=== PATIENT | female | born 1935 | race Hispanic/Latino ===

== ENCOUNTER 2016-10-11 11:19 | Observation (INO) | payer MEDICARE, MEDICAID ==
[2016-10-11] MEDS ORDERED: Sodium Chloride 0.9% 500 ML IV STA ×2 (12:03→13:06)
--- NOTE | 2016-10-11 12:06 | ED PDOC ---
HPI: General Adult Time Seen by Provider: 10/11/16 11:50 Chief Complaint (Nursing): Altered Mental Status Chief Complaint (Provider): syncope History Per: Family (81 y/o female h/o Dementia here with family for evaluation of syncopal episode today. Patient has had one episode of vomiting yesterday with dark brown emesis. Darker stools noted by family as well. No fevers/ chills. One episode of wheezing noted with resolution after albuterol nebulizer. ) Past Medical History Reviewed: Historical Data, Nursing Documentation, Vital Signs Vital Signs: Last Vital Signs Temp 97.5 F L 10/12/16 12:28 Pulse 73 10/12/16 12:28 Resp 20 10/12/16 12:28 BP 117/68 10/12/16 12:28 Pulse Ox 100 10/14/16 05:09 - Medical History PMH: Alzheimer's Disease, Anemia, Anxiety, Arthritis, Asthma, COPD, Dementia, Depression, Gastritis, Hypercholesterolemia Denies: CHF, HIV, HTN, Hypothyroidism, Chronic Kidney Disease, Rheumatoid Arthritis - Family History Family History: States: Unknown Family Hx - Home Medications Home Medications: Ambulatory Orders Medication Instructions Recorded Memantine HCl [Namenda Xr] 28 mg PO DAILY 03/03/15 Rosuvastatin Calcium [Crestor] 5 mg PO DAILY 03/03/15 Esomeprazole Magnesium [Nexium] 40 mg PO DAILY 01/27/16 Haloperidol [Haldol] 0.5 mg PO PRN PRN 01/27/16 Levalbuterol HCl 3 ml IH Q4 PRN #20 vial 01/27/16 PARoxetine [Paxil] 20 mg PO DAILY 01/27/16 - Allergies Allergies/Adverse Reactions: Allergies Allergy/AdvReac Type Severity Reaction Status Date / Time No Known Allergies Allergy Verified 01/27/16 16:23 Review of Systems ROS Statement: Except As Marked, All Systems Reviewed And Found Negative Gastrointestinal: Positive for: Vomiting Neurological: Positive for: Other (syncope) Physical Exam - Reviewed Nursing Documentation Reviewed: Yes Vital Signs Reviewed: Yes (rectal temp 96.4) - Physical Exam Appears: Positive for: Well (patient verbal but confused (baseline as per family )), Non-toxic, No Acute Distress Head Exam: Positive for: ATRAUMATIC, NORMAL INSPECTION, NORMOCEPHALIC Skin: Positive for: Normal Color, Warm, DRY Eye Exam: Positive for: EOMI, Normal appearance, PERRL ENT: Positive for: Normal ENT Inspection Neck: Positive for: Normal, Painless ROM Cardiovascular/Chest: Positive for: Regular Rate, Rhythm Respiratory: Positive for: CNT, Normal Breath Sounds Gastrointestinal/Abdominal: Positive for: Normal Exam, Bowel Sounds, Soft Back: Positive for: Normal Inspection Rectal: Positive for: Stool Is Heme: (guiac positive. dark brown stool) Extremity: Positive for: Normal ROM, Other (moves all extremities.) Neurologic/Psych: Positive for: Alert, Oriented. Negative for: Aphasia, Facial Droop - Laboratory Results Result Diagrams: 10/12/16 06:05 10/12/16 06:05 - ECG O2 Sat by Pulse Oximetry: 100 - Progress ED Course And Treament: Protonix 40 mg iv x1 dose NS 500 ml iv bolus d/w . Disposition - Clinical Impression Clinical Impression: GI bleed, Dementia, Syncope - Patient ED Disposition Is Patient to be Admitted: Yes - Disposition Disposition Time: 15:00 Condition: GOOD - Pt Status Changed To: Hospital Disposition Of: Inpatient - Admit Certification Admit to Inpatient:: After my assessment, the patient will require hospitalization for at least two midnights. This is because of the severity of symptoms shown, intensity of services needed, and/or the medical risk in this patient being treated as an outpatient.
[2016-10-11 12:50] LABS: BASO % 0.4 % (0.0-2.0); EOS # 0.1 K/uL (0.0-0.7); EOS % 1.9 % (0.0-4.0); LYMPH # 1.6 K/uL (1.0-4.3); LYMPH % 23.9 % (20.0-40.0); MEAN CELL VOLUME 83.1 fl (81.0-99.0); MEAN CORPUSCULAR HEMOGLOBIN 26.6 pg (27.0-31.0); MEAN PLATELET VOLUME 9.6 fl (7.2-11.7); MONO # 0.4 K/uL (0.0-0.8); MONO % 6.4 % (0.0-10.0); NEUT # 4.7 K/uL (1.8-7.0); NEUT % 67.4 % (50.0-75.0); RED CELL DISTRIBUTION WIDTH 15.5 % (11.5-14.5); WHITE BLOOD COUNT 6.9 K/uL (4.8-10.8)
[2016-10-11 12:57] LABS: ALB/GLOB RATIO 1.2 (1.0-2.1); ALKALINE PHOSPHATASE 97 U/L (38-126); ALT/SGPT 30 U/L (9-52); AST/SGOT 29 U/L (14-36); BILIRUBIN,TOTAL 0.7 mg/dl (0.2-1.3); BLOOD UREA NITROGEN 19 mg/dl (7-17); CALCIUM 9.2 mg/dL (8.4-10.2); CARBON DIOXIDE 25 mmol/L (22-30); CHLORIDE 104 mmol/L (98-107); GFR AFRICAN-AMERICAN > 60; GLUCOSE,RANDOM 89 mg/dL (65-105); LIPASE 108 U/L (23-300); POTASSIUM 3.8 MMOL/L (3.6-5.0); SODIUM 145 mmol/l (132-148); TOTAL PROTEIN 7.4 G/DL (6.3-8.2)
--- NOTE | 2016-10-11 13:10 | CT ---
PROCEDURE: CT HEAD WITHOUT CONTRAST. HISTORY: AMS COMPARISON: Comparison is made to the previous study dated 05/25/2014 and 01/07/2015 TECHNIQUE: Axial computed tomography images were obtained through the head/brain without intravenous contrast. Radiation dose: Total exam DLP = 1334.63 mGy-cm. FINDINGS: HEMORRHAGE: No intracranial hemorrhage. BRAIN: No mass effect or edema. Moderate atrophy and moderate chronic microvascular white matter ischemic disease are again noted. VENTRICLES: Unremarkable. No hydrocephalus. CALVARIUM: Unremarkable. PARANASAL SINUSES: Unremarkable as visualized. No significant inflammatory changes. MASTOID AIR CELLS: Unremarkable as visualized. No inflammatory changes. OTHER FINDINGS: None. IMPRESSION: No evidence of acute intracranial hemorrhage intracranial collection mass effect or midline shift. Moderate atrophy and moderate chronic microvascular white matter ischemic disease.
--- NOTE | 2016-10-11 15:19 | RAD ---
HISTORY: Syncope. Technique: Single view portable semi erect @ 12:20. COMPARISON: 01/27/2016. FINDINGS: LUNGS: No active pulmonary disease. PLEURA: No significant pleural effusion identified, no pneumothorax apparent. CARDIOVASCULAR: Normal. OSSEOUS STRUCTURES: No significant abnormalities. VISUALIZED UPPER ABDOMEN: Normal. OTHER FINDINGS: None. IMPRESSION: No active disease. No significant interval change compared to the prior examination(s).
[2016-10-11 16:14] LABS: PARTIAL THROMBOPLASTIN TIME 24.1 SECONDS (23.3-32.5)
[2016-10-11 16:21] LABS: RBC URINE 2 /hpf (0-3); URINE BACTERIA MOD (<OCC); URINE BILIRUBIN NEGATIVE (NEGATIVE); URINE BLOOD NEGATIVE (NEGATIVE); URINE COLOR YELLOW (YELLOW); URINE GLUCOSE (UA) NEG (Normal); URINE KETONE NEGATIVE (NEGATIVE); URINE LEUKOCYTE ESTERASE SMALL Leu/uL (Negative); URINE PROTEIN NEGATIVE (NEGATIVE); URINE UROBILINOGEN 0.2-1.0 mg/dL (0.2-1.0); WBC URINE 13 /hpf (0-5)
--- NOTE | 2016-10-11 16:39 | CP.PCM.HP ---
History of Present Illness - History of Present Illness History of Present Illness: 81 yo female with history of Dementia, Gastritis and COPD brought in by daughter because of unresponsiveness early this morning. Daughter claimed she had one episode of passing black stool yesterday. She also vomited dark material. Patient had history of GI bleed last year where in she received 2 units of PRBC. EGD was positive for reflux and Brianna Esophagitis. Present on Admission - Present on Admission Any Indicators Present on Admission: No History of DVT/PE: No History of Uncontrolled Diabetes: No Urinary Catheter: No Decubitus Ulcer Present: No Review of Systems - Review of Systems All systems: reviewed and no additional remarkable complaints except (aside from those mentioned above, 12 point system review were negative by me) Past Patient History - Infectious Disease Hx of Infectious Diseases: None - Tetanus Immunizations Tetanus Immunization: Unknown (quit 5 yrs ago; used to smoke 2 PPD) - Past Medical History & Family History Past Medical History?: Yes - Past Social History Smoking Status: Former Smoker Chewing Tobacco Use: No Cigar Use: No Alcohol: None Drugs: Denies Home Situation {Lives}: With Family - CARDIAC Hx Congestive Heart Failure: No Hx Hypercholesterolemia: Yes Hx Hypertension: No - PULMONARY Hx Asthma: Yes Hx Chronic Obstructive Pulmonary Disease (COPD): Yes - NEUROLOGICAL Hx Alzheimer's Disease: Yes Hx Dementia: Yes - HEENT Hx HEENT Problems: No - RENAL Hx Chronic Kidney Disease: No - ENDOCRINE/METABOLIC Hx Hypothyroidism: No - HEMATOLOGICAL/ONCOLOGICAL Hx Anemia: Yes Hx Human Immunodeficiency Virus (HIV): No - INTEGUMENTARY Hx Dermatological Problems: No - MUSCULOSKELETAL/RHEUMATOLOGICAL Hx Arthritis: Yes Hx Rheumatoid Arthritis: No - GASTROINTESTINAL Hx Gastritis: Yes - GENITOURINARY/GYNECOLOGICAL Hx Genitourinary Disorders: No - PSYCHIATRIC Hx Anxiety: Yes Hx Depression: Yes - SURGICAL HISTORY Hx Surgeries: Yes Hx Open Reduction Internal Fixation: Yes (right wrist fracture) Hx Orthopedic Surgery: Yes Other/Comment: right wrist surgery with metal plate, left knee mass removal years ago - ANESTHESIA Hx Anesthesia: Yes Meds Allergies/Adverse Reactions: Allergies Allergy/AdvReac Type Severity Reaction Status Date / Time No Known Allergies Allergy Verified 01/27/16 16:23 Physical Exam - Constitutional Appears: No Acute Distress - Head Exam Head Exam: ATRAUMATIC - Eye Exam Eye Exam: absent: Scleral icterus - ENT Exam ENT Exam: Mucous Membranes Moist - Neck Exam Neck exam: Negative for: Meningismus - Respiratory Exam Respiratory Exam: absent: Rhonchi, Wheezes, Respiratory Distress - Cardiovascular Exam Cardiovascular Exam: REGULAR RHYTHM, +S1, +S2 - GI/Abdominal Exam GI & Abdominal Exam: Soft. absent: Tenderness - Rectal Exam Rectal Exam: Deferred - Extremities Exam Extremities exam: Negative for: calf tenderness, pedal edema - Neurological Exam Neurological exam: Alert (awake but confused and non-verbal) - Psychiatric Exam Psychiatric exam: Flat Affect - Skin Skin Exam: Dry, Intact Results - Vital Signs Recent Vital Signs: Last Vital Signs Temp 98.8 F 10/11/16 11:37 Pulse 78 10/11/16 11:37 Resp 16 10/11/16 11:37 BP 127/80 10/11/16 11:37 Pulse Ox 100 10/11/16 14:08 - Labs Result Diagrams: 10/11/16 12:17 10/11/16 12:17 Labs: Laboratory Results - last 24 hr 10/11/16 10/11/16 10/11/16 12:17 12:35 14:43 WBC 6.9 RBC 4.10 Hgb 10.9 L Hct 34.0 MCV 83.1 MCH 26.6 L MCHC 32.0 L RDW 15.5 H Plt Count 227 MPV 9.6 Neut % (Auto) 67.4 Lymph % (Auto) 23.9 Bath % (Auto) 6.4 Eos % (Auto) 1.9 Baso % (Auto) 0.4 Neut # 4.7 Lymph # 1.6 Bath # 0.4 Eos # 0.1 Baso # 0.0 Sodium 145 Potassium 3.8 Chloride 104 Carbon Dioxide 25 Anion Gap 20 BUN 19 H Creatinine 0.7 Est GFR ( Amer) > 60 Est GFR (Non-Af Amer) > 60 Random Glucose 89 Lactic Acid 2.5 H Calcium 9.2 Total Bilirubin 0.7 AST 29 ALT 30 Alkaline Phosphatase 97 Total Protein 7.4 Albumin 4.0 Globulin 3.4 Albumin/Globulin Ratio 1.2 Lipase 108 Blood Type Cancelled Antibody Screen Cancelled BBK History Checked Cancelled Patient has bt Assessment & Plan (1) GI bleed Status: Acute Comment: admit in telemetry. NPO. IV hydration with NSS 100cc/hr. Protonix 40mg IV daily. GI consult with Dr Doe. Type and cross match 2 units of PRBC. repeat CBC (2) Altered mental status Status: Acute Comment: patient more awake but still non-verbal (3) COPD (chronic obstructive pulmonary disease) Status: Inactive Priority: Low Comment: asymptomatic
[2016-10-11] MEDS ORDERED: Levalbuterol 1.25 MG/3 ML Inhal Soln UD IH PRN (17:12)
[2016-10-11 19:12] LABS: HEMATOCRIT 29.8 % (34.0-47.0); MEAN CELL VOLUME 82.5 fl (81.0-99.0); MEAN CORPUSCULAR HEMOGLOBIN 26.4 pg (27.0-31.0); MEAN CORPUSCULAR HGB CONC 31.9 g/dL (33.0-37.0); RED CELL DISTRIBUTION WIDTH 15.5 % (11.5-14.5); WHITE BLOOD COUNT 6.2 K/uL (4.8-10.8)
[2016-10-11] MEDS: Sodium Chloride 0.9% 1,000 ML IV SCH (20:00)
[2016-10-11] MEDS ORDERED: Influenza Vaccine(5yr & older) 0.5 ML/45 MCG IM ONE (21:47)
--- NOTE | 2016-10-12 02:22 | CON ---
DATE: 10/11/2016 REFERRING PHYSICIAN: Dr. Contreras. REASON FOR CONSULTATION: melena. HISTORY OF PRESENT ILLNESS: This is a demented 81-year-old female with history of gastritis, chronic obstructive pulmonary disease, brought in essentially for unresponsiveness, questionable single epis ode, questionable black stool, questionable coffee ground emesis. The patient had an EGD over a year and a half ago from the gastritis and Brianna esophagitis for identical complaints of coffee ground emesis. The patient at this point is doing better. She is more responsive as per the daughter and c aretaker. No fevers, chills, nausea or vomiting. Lying in bed, comfortable, in no apparent distress . PAST MEDICAL HISTORY: As above, ____ as above. MEDICATIONS: Have been reviewed. REVIEW OF SYSTEMS: All other systems obtained. PHYSICAL EXAMINATION: VITAL SIGNS: Grossly unremarkable. GENERAL: This is pleasant, elderly-appearing female lying in bed, comfortable, in no apparent distre ss. HEAD: Normocephalic, atraumatic. EYES: Pupils equally reactive to light bilaterally. No conjunctival pallor or icterus. NECK: Supple, normal range of motion. No lymphadenopathy appreciated. LUNGS: Coarse breath sounds bilaterally. HEART: S1, S2, regular rhythm. ABDOMEN: Soft, nontender, bowel sounds present. No rebound or guarding. RECTAL: Deferred. EXTREMITIES: Pulses present bilaterally. SKIN: Warm, dry and intact. NEUROLOGIC: Alert and oriented x 1, responds to pain. LABORATORY DATA: Radiology have been reviewed. WBC 6.3, hemoglobin 9.5, platelet count of 204, ____ _ of 2.5, positive for nitrites in the urine, as well as moderate bacteria in the WBCs. ASSESSMENT AND PLAN: This is a 81-year-old female with basically coffee ground emesis. I will get a B, Protonix twice a day, PPI and ____. Spoke to daughter. At this point she does not feel too strongly about endoscopy given her advanced age and comorbidities. Agreed to defer any further work up unless emergently indicated. We will follow the patient with you. Thank you for the consult. Chris Doe MD, PhD cc:Donell Contreras MD [id number] TT: 10/12/2016 02:21:44 Confirmation # [id number] Dictation # [id number] mn
[2016-10-12] MEDS: Sodium Chloride 0.9% 1,000 ML IV SCH (05:51)
[2016-10-12 07:49] LABS: BASO % 0.8 % (0.0-2.0); EOS # 0.2 K/uL (0.0-0.7); EOS % 3.5 % (0.0-4.0); LYMPH # 1.6 K/uL (1.0-4.3); LYMPH % 33.9 % (20.0-40.0); MEAN CELL VOLUME 82.5 fl (81.0-99.0); MEAN CORPUSCULAR HEMOGLOBIN 26.8 pg (27.0-31.0); MEAN CORPUSCULAR HGB CONC 32.4 g/dL (33.0-37.0); MEAN PLATELET VOLUME 9.3 fl (7.2-11.7); MONO # 0.3 K/uL (0.0-0.8); MONO % 6.8 % (0.0-10.0); NEUT # 2.6 K/uL (1.8-7.0); RED CELL DISTRIBUTION WIDTH 15.4 % (11.5-14.5); WHITE BLOOD COUNT 4.8 K/uL (4.8-10.8)
[2016-10-12 08:00] LABS: BLOOD UREA NITROGEN 14 mg/dl (7-17); CALCIUM 8.5 mg/dL (8.4-10.2); CARBON DIOXIDE 22 mmol/L (22-30); CHLORIDE 111 mmol/L (98-107); GFR AFRICAN-AMERICAN > 60; GLUCOSE,RANDOM 90 mg/dL (65-105); POTASSIUM 3.9 MMOL/L (3.6-5.0); SODIUM 146 mmol/l (132-148)
[2016-10-12] MEDS ORDERED: Patient's Own Med (Memantine Hcl [Namenda Xr] 28 MG) PO SCH (09:00)
[2016-10-12] MEDS ORDERED: Pantoprazole 40 mg EC Tab PO SCH (09:00)
--- NOTE | 2016-10-12 11:30 | PQF GENQUE ---
Dr. Contreras, Please clarify the underlying cause of patient's altered mental status and relate that cause to the alteration in mental status: if known after work up completed Cardiac condition Electrolyte/metabolic imbalance Infectious process Neurologic condition Psychiatric condition Respiratory condition Other condition (please specify) unable to determine OR: Unable to determine OR: Unknown -H and P: H and P: POA; Decubitus: No; Assessment:(1) GI Bleed Status: Acute; Comment: admit in telemetry. NPO. IV hydration with NSS 100cc/hr. Protonix 40mg IV daily.GI consult; Type and cross match 2 units of PRBC. repeat CBC (2) Altered mental status: Status: Acute Comment: patient more awake but still non-verbal (3) COPD (chronic obstructive pulmonary disease) Status: Inactive Priority: Low Comment: asymptomatic -u/a:nitrate:positive: microscopic: WBC:13:Bacteria:Mod -IVF's, culture reports pending This form is a permanent part of the medical record Clarification of your documentation is requested to better reflect the severity of illness and intensity of treatment of your patient. Indicators present [] Specify: [] [] Specify: [] [] Specify: [] [] Specify: [] Location in the medical record that reflects the above clinical findings: [] Treatment Provided: [] PHYSICIAN'S RESPONSE Based on your medical judgment of the clinical indicators outlined above please clarify the following: [] Practitioner response [x] If unable to determine, please check the box, sign and date. Present On Admission (POA) Indicator: [x] Present at the time of admission [] Not present at the time of admission [] Clinically Undetermined In responding to this query, please exercise your independent professional judgment. The fact that a question is asked does not imply that any particular answer is desired or expected. Thank you for your clarification on this documentation. If you have any questions please call. * Thank you, Amy Brady RN BSN ext. #[phone] MTDD
--- NOTE | 2016-10-12 11:36 | PQF GENQUE ---
Dr. Contreras, Is there an associated diagnosis for the following clinical labs: H/H::10.9/34.0 ->9.4/29.0? OR: Disagree OR: Unable to determine -H and P: GI bleed Status: Acute Comment: admit in telemetry. NPO. IV hydration with NSS 100cc/hr. Protonix 40mg IV daily. GI consult. Type and cross match 2 units of PRBC. repeat CBC -GI consult in draft:--coffee ground emesis;will get a B, Protonix twice a day, PPI and ____. Spoke to daughter. At this point she does not feel strongly about endoscopy; Agreed to defer any further workup unless emergently indicated. -IVF's This form is a permanent part of the medical record Clarification of your documentation is requested to better reflect the severity of illness and intensity of treatment of your patient. Indicators present [] Specify: [] [] Specify: [] [] Specify: [] [] Specify: [] Location in the medical record that reflects the above clinical findings: [] Treatment Provided: [] PHYSICIAN'S RESPONSE Based on your medical judgment of the clinical indicators outlined above please clarify the following: [] Practitioner response [] If unable to determine, please check the box, sign and date. Present On Admission (POA) Indicator: [] Present at the time of admission [] Not present at the time of admission [] Clinically Undetermined In responding to this query, please exercise your independent professional judgment. The fact that a question is asked does not imply that any particular answer is desired or expected. Thank you for your clarification on this documentation. If you have any questions please call. * Thank you, Amy Brady RN BSN ext. #[phone] MTDD
--- NOTE | 2016-10-12 11:47 | CARD ---
APPROVED REPORT EKG Measurement Heart [id number] <Conclusion> Normal sinus rhythm Normal ECG
--- NOTE | 2016-10-12 12:14 | CP.PCM.DIS ---
Provider - Provider Date of Admission: 10/11/16 14:16 Attending physician: Donell Contreras MD Primary care physician: Dr Ga Consults: Dr Doe Time Spent in preparation of Discharge (in minutes): 35 Diagnosis - Discharge Diagnosis (1) GI bleed Status: Acute Comment: no further episode of GI bleed (2) Altered mental status Status: Acute Comment: patient more alert and responsive (3) COPD (chronic obstructive pulmonary disease) Status: Inactive Priority: Low Comment: asymptomatic Hospital Course - Lab Results Lab Results: Micro Results 10/11/16 15:28 Urine Urine Culture - Preliminary Gram Negative Jeffery Most Recent Lab Values WBC 4.8 K/uL (4.8-10.8) 10/12/16 06:05 RBC 3.52 Mil/uL (3.80-5.20) L 10/12/16 06:05 Hgb 9.4 g/dL (12.0-16.0) L 10/12/16 06:05 Hct 29.0 % (34.0-47.0) L 10/12/16 06:05 MCV 82.5 fl (81.0-99.0) 10/12/16 06:05 MCH 26.8 pg (27.0-31.0) L 10/12/16 06:05 MCHC 32.4 g/dL (33.0-37.0) L 10/12/16 06:05 RDW 15.4 % (11.5-14.5) H 10/12/16 06:05 Plt Count 173 K/uL (130-400) 10/12/16 06:05 MPV 9.3 fl (7.2-11.7) 10/12/16 06:05 Neut % (Auto) 55.0 % (50.0-75.0) 10/12/16 06:05 Lymph % (Auto) 33.9 % (20.0-40.0) 10/12/16 06:05 Cobb % (Auto) 6.8 % (0.0-10.0) 10/12/16 06:05 Eos % (Auto) 3.5 % (0.0-4.0) 10/12/16 06:05 Baso % (Auto) 0.8 % (0.0-2.0) 10/12/16 06:05 Neut # 2.6 K/uL (1.8-7.0) 10/12/16 06:05 Lymph # 1.6 K/uL (1.0-4.3) 10/12/16 06:05 Cobb # 0.3 K/uL (0.0-0.8) 10/12/16 06:05 Eos # 0.2 K/uL (0.0-0.7) 10/12/16 06:05 Baso # 0.0 K/uL (0.0-0.2) 10/12/16 06:05 PT 11.1 SECONDS (9.6-11.2) 10/11/16 15:43 INR 1.07 (0.92-1.08) 10/11/16 15:43 APTT 24.1 SECONDS (23.3-32.5) 10/11/16 15:43 Sodium 146 mmol/l (132-148) 10/12/16 06:05 Potassium 3.9 MMOL/L (3.6-5.0) 10/12/16 06:05 Chloride 111 mmol/L (98-107) H 10/12/16 06:05 Carbon Dioxide 22 mmol/L (22-30) 10/12/16 06:05 Anion Gap 17 (10-20) 10/12/16 06:05 BUN 14 mg/dl (7-17) 10/12/16 06:05 Creatinine 0.7 mg/dL (0.7-1.2) 10/12/16 06:05 Est GFR ( Amer) > 60 10/12/16 06:05 Est GFR (Non-Af Amer) > 60 10/12/16 06:05 POC Glucose (mg/dL) 124 mg/dL (65-110) H 10/11/16 11:33 Random Glucose 90 mg/dL (65-105) 10/12/16 06:05 Lactic Acid 2.5 MMOL/L (0.7-2.1) H 10/11/16 12:35 Calcium 8.5 mg/dL (8.4-10.2) 10/12/16 06:05 Total Bilirubin 0.7 mg/dl (0.2-1.3) 10/11/16 12:17 AST 29 U/L (14-36) 10/11/16 12:17 ALT 30 U/L (9-52) 10/11/16 12:17 Alkaline Phosphatase 97 U/L (38-126) 10/11/16 12:17 Total Protein 7.4 G/DL (6.3-8.2) 10/11/16 12:17 Albumin 4.0 g/dL (3.5-5.0) 10/11/16 12: Globulin 3.4 gm/dL (2.2-3.9) 10/11/16 12: Albumin/Globulin Ratio 1.2 (1.0-2.1) 10/11/16 12:17 Lipase 108 U/L (23-300) 10/11/16 12:17 Urine Color Yellow (YELLOW) 10/11/16 15:28 Urine Clarity Clear (Clear) 10/11/16 15:28 Urine pH 6.0 (5.0-8.0) 10/11/16 15:28 Ur Specific Riner 1.009 (1.003-1.030) 10/11/16 15:28 Urine Protein Negative mg/dL (NEGATIVE) 10/11/16 15:28 Urine Glucose (UA) Neg mg/dL (Normal) 10/11/16 15:28 Urine Ketones Negative mg/dL (NEGATIVE) 10/11/16 15:28 Urine Blood Negative (NEGATIVE) 10/11/16 15:28 Urine Nitrate Positive (NEGATIVE) H 10/11/16 15:28 Urine Bilirubin Negative (NEGATIVE) 10/11/16 15:28 Urine Urobilinogen 0.2-1.0 mg/dL (0.2-1.0) 10/11/16 15:28 Ur Leukocyte Esterase Small Verna/uL (Negative) 10/11/16 15:28 Urine RBC (Auto) 2 /hpf (0-3) 10/11/16 15:28 Urine Microscopic WBC 13 /hpf (0-5) H 10/11/16 15:28 Urine Bacteria Mod (<OCC) H 10/11/16 15:28 Blood Type A NEGATIVE 10/11/16 14:43 Antibody Screen Negative 10/11/16 14:43 BBK History Checked Patient has bt 10/11/16 14:43 - Hospital Course Hospital Course: 81 yo female with history of Dementia, Gastritis and COPD brought in by daughter because of difficulty of arousing in the morning. Daughter claimed she had passed black stool a day earlier and had vomited dark material. GI, Dr Doe, was consulted and he recommended endoscopy or colonoscopy. Daughter refused citing the age of her mother. With IV hydration patient became more alert and had no more episode of vomiting. Had no BM so far but was able to resume and tolerate diet the next day. Hgb/Hct remained stable. Patient was then discharged in stable condition. Discharge Exam - Head Exam Head Exam: ATRAUMATIC - Eye Exam Eye Exam: absent: Scleral icterus - ENT Exam ENT Exam: Mucous Membranes Moist - Respiratory Exam Respiratory Exam: absent: Wheezes, Respiratory Distress - Cardiovascular Exam Cardiovascular Exam: REGULAR RHYTHM, +S1, +S2 - GI/Abdominal Exam GI & Abdominal Exam: Soft. absent: Tenderness - Rectal Exam Rectal Exam: Deferred - Neurological Exam Neurological exam: Alert, Oriented x3 - Psychiatric Exam Psychiatric exam: Flat Affect - Skin Skin Exam: Dry, Intact Discharge Plan - Follow Up Plan Condition: GOOD Disposition: HOME/ ROUTINE Instructions: Gastrointestinal Bleeding (DC) Referrals: Chris Doe MD, PhD [Staff Provider] - Salomón Ga MD [Staff Provider] - Bibi Garcia MD [Staff Provider] -
[2016-10-12 12:29] VITALS: BP 117/68; PULSE 73; RESP 20; TEMP 97.5
[2016-10-14 05:09] VITALS: O2SAT 100
== END 2016-10-12 14:39 | disposition home or self-care (01) ==
LOC: H.ER 11:19 → H.ERHOLD 14:16 → INTOOBSV 14:16 → H.TEL 18:11 → OBSVTOIN 10-12 11:09 → INTOOBSV 10-12 11:09
PROC: 3E0234Z Introduction of Serum, Toxoid and Vaccine into Muscle, Percutaneous Approach (ICD-10-PCS; principal; 2016-10-12)
DX: K92.2 Gastrointestinal hemorrhage, unspecified (principal); J44.9 Chronic obstructive pulmonary disease, unspecified; G30.9 Alzheimer's disease, unspecified; F02.80 Dementia in other diseases classified elsewhere, unspecified severity, without behavioral disturbance, psychotic disturbance, mood disturbance, and anxiety; K29.70 Gastritis, unspecified, without bleeding; Z87.891 Personal history of nicotine dependence; E78.00 Pure hypercholesterolemia, unspecified; J45.909 Unspecified asthma, uncomplicated; F32.9 Major depressive disorder, single episode, unspecified; F41.9 Anxiety disorder, unspecified; Z23 Encounter for immunization; K92.1 Melena

== ENCOUNTER 2016-11-22 09:54 | Inpatient (IN) | payer MEDICARE, MEDICAID ==
--- NOTE | 2016-11-22 10:14 | ED PDOC ---
HPI:STROKE - Time Time: 09:50 - Historian Historian: Family, EMS - Chief Complaint Chief Complaint: Slurred speech, Mental status change, Facial droop - Onset Date: 11/22/16 Time: 09:27 - Timing Timing: Currently Symptomatic - TPA Positive for Contraindication: No - Notes: Notes:: Patient is a 81 year old female with a history of dementia, presents to ED via EMS for increased confusion, facial droop and slurred speech this morning. As per granddaughter, she received a phone call from the home health aid at [phone], stating that patient was not acting normal. Granddaughter saw patient earlier this morning and she was still at baseline. Notes patient is verbal but confused and needs help with ambulation at baseline. As per EMS patient with a right facial droop, left sided weakness, slurred speech and wheezing NIHSS Stroke Scale - Date/Time Evaluation Performed Date Performed: 11/22/16 Time Performed: 10:14 When Was NIHSS Performed: Code Stroke - How Severe is the Stroke Level of Consciousness: 1=Drowsy LOC to Questions: 2=Neither correct LOC to commands: 1=Obeys one correctly Best Gaze: 0=Normal Visual: 0=No visual loss Facial: 0=Normal Motor Arm - Left: 0=No drift Motor Arm - Right: 0=No drift Motor Leg - Left: 0=No drift Motor Leg - Right: 0=No drift Limb Ataxia: 0=Absent Sensory: 0=Normal Best Language: 2=Severe aphasia Dysarthia: 2=Severe, near unintelligible or worse Extinction & Inattention (Neglect): 0=Normal, no object Score: 8 rTPA Inclusion/Exclusion - Refusal of Treatment Patient Refused Treatment: No - Inclusion Criteria for Altepase Patient is 18 years or Older: Yes The Clinical Diagnosis of Ischemic Stroke That is Causing a Potentially Disabling Neurological Deficit: No Time of Onset is Well Established to be Less Than 270 Minute Before Treatment Would Begin: Yes Risk/Benefit Discussed With Patient/Family Member Present: Yes - Warning to TPA With Conditions Following Conditions Weighed Against Anticipated Benefit: Yes Condition: Rapid Improvement, Age Greater Than 75 years Past Medical History Reviewed: Historical Data, Nursing Documentation, Vital Signs - Medical History PMH: Alzheimer's Disease, Anemia, Anxiety, Arthritis, Asthma, COPD, Dementia, Depression, Gastritis, Hypercholesterolemia Denies: CHF, HIV, HTN, Hypothyroidism, Chronic Kidney Disease, Rheumatoid Arthritis - Surgical History Surgical History: No Surg Hx - Family History Family History: States: Unknown Family Hx - Living Arrangements Living Arrangements: With Family - Home Medications Home Medications: Ambulatory Orders Medication Instructions Recorded Memantine HCl [Namenda Xr] 28 mg PO DAILY 03/03/15 Rosuvastatin Calcium [Crestor] 5 mg PO DAILY 03/03/15 Esomeprazole Magnesium [Nexium] 40 mg PO DAILY 01/27/16 Haloperidol [Haldol] 0.5 mg PO PRN PRN 01/27/16 Levalbuterol HCl 3 ml IH Q4 PRN #20 vial 01/27/16 PARoxetine [Paxil] 20 mg PO DAILY 01/27/16 - Allergies Allergies/Adverse Reactions: Allergies Allergy/AdvReac Type Severity Reaction Status Date / Time No Known Allergies Allergy Verified 01/27/16 16:23 Review of Systems Review Of Systems: ROS cannot be obtained secondary to pt's inabilty to answer questions. Physical Exam - Reviewed Nursing Documentation Reviewed: Yes Vital Signs Reviewed: Yes - Physical Exam Appears: Positive for: No Acute Distress Skin: Positive for: Normal Color, Warm, Dry Eye Exam: Positive for: PERRL, Other (Constricted bilaterally) Cardiovascular/Chest: Positive for: Regular Rate, Rhythm Respiratory: Positive for: Wheezing. Negative for: Accessory Muscle Use, Crackles, Respiratory Distress Gastrointestinal/Abdominal: Positive for: Soft Extremity: Positive for: Other (Moving all 4 extremities). Negative for: Deformity, Swelling Neurologic/Psych: Positive for: piece hand II-XII (Grossly intact), Aphasia. Negative for: Alert, Oriented, Motor/Sensory Deficits (No gross), Facial Droop - Laboratory Results Result Diagrams: 11/22/16 10:46 11/22/16 10:46 - ECG Interpretation Of ECG: NSR @ 87. - Radiology X-Ray: Interpreted by Ks X-Ray Interpretation: No Acute Disease - CT Scan/US CT head Other Rad Studies (CT/US): Radiology Report Reviewed (No intracranial mass, hemorrhage or evidence of acute infarct. Atrophy and chronic microvascular ischemic change. 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 - Core Measure Core Measure Indicators: Code Stroke Medical Decision Making Medical Decision Making: Time: 949 Initial impression: Code stroke Initial plan: -- Type and screen -- CT-head -- EKG -- CMP -- Hemoglobin -- Lipid panel -- Troponin -- CBC -- PT/PTT -- CXR -- baker second Pt without facial droop or L sided weakness on presentation to ED, will admit for TIA and COPD exacerbation. Case discussed with Dr. Ga, admit to Hospitalist. Discussed with Dr. Salinas. Scribe Attestation: Documented by Carina Astorga acting as a scribe for Catie Oro MD. Scribe Attestation: All medical record entries made by the Scribe were at my direction and personally dictated by me. I have reviewed the chart and agree that the record accurately reflects my personal performance of the history, physical exam, medical decision making, and the department course for this patient. I have also personally directed, reviewed, and agree with the discharge instructions and disposition. Disposition - Clinical Impression Clinical Impression: TIA (transient ischemic attack), COPD exacerbation - Patient ED Disposition Is Patient to be Admitted: Yes - Disposition Disposition Time: 12:34 Condition: STABLE - Pt Status Changed To: Hospital Disposition Of: Inpatient - Admit Certification Admit to Inpatient:: After my assessment, the patient will require hospitalization for at least two midnights. This is because of the severity of symptoms shown, intensity of services needed, and/or the medical risk in this patient being treated as an outpatient. - POA Present On Arrival: None
[2016-11-22] MEDS ORDERED: Albuterol-Ipratrop 3 mg / 0.5 (3 ml) UD ONE (10:29)
--- NOTE | 2016-11-22 10:29 | CT ---
PROCEDURE: CT HEAD WITHOUT CONTRAST. HISTORY: code stroke COMPARISON: 10/11/2016 TECHNIQUE: Axial computed tomography images were obtained through the head/brain without intravenous contrast. Radiation dose: Total exam DLP = 878.79 mGy-cm. This CT exam was performed using one or more of the following dose reduction techniques: Automated exposure control, adjustment of the mA and/or kV according to patient size, and/or use of iterative reconstruction technique. FINDINGS: HEMORRHAGE: No intracranial hemorrhage. BRAIN: No intracranial mass. Moderate diffuse age-appropriate cerebral atrophy. Moderate periventricular white matter lucency consistent with chronic microvascular ischemic change. 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 No evidence of acute infarct. VENTRICLES: Unremarkable. No hydrocephalus. CALVARIUM: Unremarkable. PARANASAL SINUSES: Unremarkable as visualized. No significant inflammatory changes. MASTOID AIR CELLS: Unremarkable as visualized. No inflammatory changes. OTHER FINDINGS: None. IMPRESSION: No intracranial mass, hemorrhage or evidence of acute infarct. Atrophy and chronic microvascular ischemic change. 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
[2016-11-22] MEDS ORDERED: Albuterol-Ipratrop 3 mg / 0.5 (3 ml) UD INH STA (10:32)
[2016-11-22 11:01] LABS: ALB/GLOB RATIO 1.4 (1.0-2.1); ALKALINE PHOSPHATASE 89 U/L (38-126); ALT/SGPT 27 U/L (9-52); AST/SGOT 27 U/L (14-36); BILIRUBIN,TOTAL 0.3 mg/dl (0.2-1.3); BLOOD UREA NITROGEN 22 mg/dl (7-17); CALCIUM 9.2 mg/dL (8.4-10.2); CARBON DIOXIDE 27 mmol/L (22-30); CHLORIDE 104 mmol/L (98-107); CHOLESTEROL 138 mg/dL (0-199); GFR AFRICAN-AMERICAN > 60; GLUCOSE,RANDOM 113 mg/dL (65-105); SODIUM 144 mmol/l (132-148); TOTAL PROTEIN 7.1 G/DL (6.3-8.2)
[2016-11-22 11:04] LABS: BASO # 0.1 K/uL (0.0-0.2); EOS # 0.2 K/uL (0.0-0.7); EOS % 3.3 % (0.0-4.0); HEMATOCRIT 30.5 % (34.0-47.0); LYMPH # 1.7 K/uL (1.0-4.3); LYMPH % 28.5 % (20.0-40.0); MEAN CORPUSCULAR HEMOGLOBIN 24.7 pg (27.0-31.0); MEAN CORPUSCULAR HGB CONC 32.2 g/dL (33.0-37.0); MEAN PLATELET VOLUME 9.5 fl (7.2-11.7); MONO # 0.3 K/uL (0.0-0.8); MONO % 5.6 % (0.0-10.0); NEUT # 3.7 K/uL (1.8-7.0); NEUT % 61.6 % (50.0-75.0); NRBC % 0.1 % (0.0-0.0); RED CELL DISTRIBUTION WIDTH 15.6 % (11.5-14.5)
[2016-11-22 11:08] LABS: PARTIAL THROMBOPLASTIN TIME 23.6 SECONDS (23.3-32.5)
[2016-11-22 11:11] LABS: MEAN CELL VOLUME 76.5 fl (81.0-99.0)
[2016-11-22 12:01] LABS: RBC URINE 1 /hpf (0-3); URINE BACTERIA RARE (<OCC); URINE BILIRUBIN NEGATIVE (NEGATIVE); URINE BLOOD SMALL (NEGATIVE); URINE COLOR STRAW (YELLOW); URINE GLUCOSE (UA) NEG (Normal); URINE KETONE NEGATIVE (NEGATIVE); URINE LEUKOCYTE ESTERASE SMALL Leu/uL (Negative); URINE PROTEIN NEGATIVE (NEGATIVE); URINE UROBILINOGEN 0.2-1.0 mg/dL (0.2-1.0); WBC URINE 7 /hpf (0-5)
--- NOTE | 2016-11-22 12:33 | CP.PCM.HP ---
History of Present Illness - History of Present Illness History of Present Illness: 81 y/o female with PMH Dementia, ex smoker brought to ER by EMS with new onset change of mental status , right facial droop, slurred speech and left sided weakness. Patient is demented and unable to provide any history and at present she is sleepy and lethargic. As per daughter who lives with patient , she was at her baseline this AM , sitting up in bed and verbal. thew daughter received a phone call from home health aid @ 9.27 stating that her mom was more confused , not responding to questions, developed right facial droop and was leaning to her right side.As per home health aid she was also having difficulty breathing and was wheezing. EMS was called and patient was brought to ER for evaluation. By the time patient arrived to ER all her symptoms had resolved. Code stroke was activated and CT head without contrast showed no acute pathology.She was given ASA CT and Duonebs for wheezing with improvement of her respiratory status. Allergies ; NKDA PMH ; Dementia Medications; Nexium, namenda,haldo, crestor, paxil Surgery; right wrist fracture with metal in place, right knee mass removal family history ; None Social history ; lives with daughter , has 2 children, no toxic habits, used to smoke but quit more than 5 years ago, ambulates with assistance, requirs help with all ADL-s ROS ; as per daughter patient more lethargic and weak , with some wheezing on presentation [id number] needs help with all ADL-s all other review of system negative Present on Admission - Present on Admission Any Indicators Present on Admission: No Review of Systems - Review of Systems All systems: reviewed and no additional remarkable complaints except Past Patient History - Infectious Disease Hx of Infectious Diseases: None - Tetanus Immunizations Tetanus Immunization: Unknown (quit 5 yrs ago; used to smoke 2 PPD) - Past Medical History & Family History Past Medical History?: Yes Past Family History: Reviewed and not pertinent - Past Social History Smoking Status: Former Smoker Chewing Tobacco Use: No Cigar Use: No Alcohol: None Drugs: Denies Home Situation {Lives}: With Family Domestic Violence: Negative - CARDIAC Hx Congestive Heart Failure: No Hx Hypercholesterolemia: Yes Hx Hypertension: No - PULMONARY Hx Asthma: Yes Hx Chronic Obstructive Pulmonary Disease (COPD): Yes - NEUROLOGICAL Hx Alzheimer's Disease: Yes Hx Dementia: Yes - HEENT Hx HEENT Problems: No - RENAL Hx Chronic Kidney Disease: No - ENDOCRINE/METABOLIC Hx Hypothyroidism: No - HEMATOLOGICAL/ONCOLOGICAL Hx Anemia: Yes Hx Human Immunodeficiency Virus (HIV): No - INTEGUMENTARY Hx Dermatological Problems: No - MUSCULOSKELETAL/RHEUMATOLOGICAL Hx Arthritis: Yes Hx Rheumatoid Arthritis: No - GASTROINTESTINAL Hx Gastritis: Yes - GENITOURINARY/GYNECOLOGICAL Hx Genitourinary Disorders: Yes Hx Incontinence: Yes - PSYCHIATRIC Hx Anxiety: Yes Hx Depression: Yes - SURGICAL HISTORY Hx Surgeries: Yes Hx Open Reduction Internal Fixation: Yes (right wrist fracture) Hx Orthopedic Surgery: Yes Other/Comment: right wrist surgery with metal plate, left knee mass removal years ago - ANESTHESIA Hx Anesthesia: Yes Hx Anesthesia Reactions: No Hx Malignant Hyperthermia: No Meds Allergies/Adverse Reactions: Allergies Allergy/AdvReac Type Severity Reaction Status Date / Time No Known Allergies Allergy Verified 01/27/16 16:23 Physical Exam - Constitutional Appears: Non-toxic, No Acute Distress, Other (elderly female of stated age, demented lying in bed in NAD, lethargic , sleepy) - Head Exam Head Exam: ATRAUMATIC, NORMOCEPHALIC - Eye Exam Eye Exam: EOMI, PERRL - ENT Exam ENT Exam: Mucous Membranes Dry - Neck Exam Neck exam: Positive for: Full Rom, Normal Inspection - Respiratory Exam Respiratory Exam: Clear to Auscultation Bilateral, NORMAL BREATHING PATTERN. absent: Rales, Rhonchi, Wheezes - Cardiovascular Exam Cardiovascular Exam: REGULAR RHYTHM, RRR, +S1, +S2. absent: JVD - GI/Abdominal Exam GI & Abdominal Exam: Normal Bowel Sounds, Soft. absent: Distended, Guarding, Rebound, Tenderness - Rectal Exam Rectal Exam: Deferred - Extremities Exam Extremities exam: Positive for: normal inspection, pedal pulses present. Negative for: calf tenderness, pedal edema - Neurological Exam Additional comments: lethargic, demented moving her extremities - Skin Skin Exam: Dry, Pallor, Warm Results - Vital Signs Recent Vital Signs: Last Vital Signs Temp Pulse 82 11/22/16 11:00 Resp 16 11/22/16 11:00 BP 111/44 L 11/22/16 11:00 Pulse Ox 100 11/22/16 11:00 - Labs Result Diagrams: 11/22/16 10:46 11/22/16 10:46 Labs: Laboratory Results - last 24 hr 0511/22/16 11/22/16 10:46 10:46 10:46 WBC 6.0 RBC 3.99 Hgb 9.8 L Hct 30.5 L MCV 76.5 L D MCH 24.7 L MCHC 32.2 L RDW 15.6 H Plt Count 227 MPV 9.5 Neut % (Auto) 61.6 Lymph % (Auto) 28.5 Stephenson % (Auto) 5.6 Eos % (Auto) 3.3 Baso % (Auto) 1.0 Neut # 3.7 Lymph # 1.7 Stephenson # 0.3 Eos # 0.2 Baso # 0.1 PT 10.7 INR 1.03 APTT 23.6 Sodium 144 Potassium 4.0 Chloride 104 Carbon Dioxide 27 Anion Gap 17 BUN 22 H Creatinine 0.7 Est GFR ( Amer) > 60 Est GFR (Non-Af Amer) > 60 Random Glucose 113 H Calcium 9.2 Total Bilirubin 0.3 AST 27 ALT 27 Alkaline Phosphatase 89 Troponin I < 0.0120 Total Protein 7.1 Albumin 4.2 Globulin 2.9 Albumin/Globulin Ratio 1.4 Triglycerides 84 Cholesterol 138 LDL Cholesterol Direct 52 HDL Cholesterol 61 Urine Color Urine Clarity Urine pH Ur Specific Braggadocio Urine Protein Urine Glucose (UA) Urine Ketones Urine Blood Urine Nitrate Urine Bilirubin Urine Urobilinogen Ur Leukocyte Esterase Urine RBC (Auto) Urine Microscopic WBC Ur Squamous Epith Cells Urine Bacteria Blood Type Antibody Screen BBK History Checked 11/22/16 11/22/16 10:46 11:43 WBC RBC Hgb Hct MCV MCH MCHC RDW Plt Count MPV Neut % (Auto) Lymph % (Auto) Stephenson % (Auto) Eos % (Auto) Baso % (Auto) Neut # Lymph # Stephenson # Eos # Baso # PT INR APTT Sodium Potassium Chloride Carbon Dioxide Anion Gap BUN Creatinine Est GFR ( Amer) Est GFR (Non-Af Amer) Random Glucose Calcium Total Bilirubin AST ALT Alkaline Phosphatase Troponin I Total Protein Albumin Globulin Albumin/Globulin Ratio Triglycerides Cholesterol LDL Cholesterol Direct HDL Cholesterol Urine Color Straw Urine Clarity Clear Urine pH 7.0 Ur Specific [place] 1.006 Urine Protein Negative Urine Glucose (UA) Neg Urine Ketones Negative Urine Blood Small Urine Nitrate Negative Urine Bilirubin Negative Urine Urobilinogen 0.2-1.0 Ur Leukocyte Esterase Small Urine RBC (Auto) 1 Urine Microscopic WBC 7 H Ur Squamous Epith Cells < 1 Urine Bacteria Rare Blood Type A NEGATIVE Antibody Screen Negative BBK History Checked Patient has bt - EKG Data EKG shows normal: Sinus rhythm Rate: Tachycardia - Imaging and Cardiology CT scan - head Additional comment: 2 old bilateral basal ganglia lacunar infarct Chest x-ray Additional comment: no active disease Assessment & Plan - Assessment and Plan (Free Text) Assessment: 81 y/o female with PMH Dementia, ex smoker brought to ER by EMS with new onset change of mental status , right facial droop, slurred speech and left sided weakness that resolved once patient arrived to ER. As per home health aid she was also having difficulty breathing and was wheezing.CT head without contrast showed no acute pathology.She was given ASA CT and Duonebs for wheezing with improvement of her respiratory status. 1. TIA Admit patient to telemetry for close monitoring Keep NPO. Swallow eval CT head showed 2 old lacunar infarcts but no ne stroke3 Unable to perform MRI since patient has right wrist metal plate in place Patient is very lethargic and drowsy at present but hemodynamically stable. Neuro checks, O2 via [place] Neurology consult with Dr. Cedillo ASA CT , statin DVt prophylaxis with lovenox Start D51/2 NS for now while patinet is NPO carotid doppler 2. COPD stable Duonebs PRN, O2 via nC CXr - shwoed no active disesae 2. Dementia hold Namenda, paxil, haldol since patient is lethargic 3. Anemia of chronic disease stable 4. Azotemia Start IVF 5. Gastritis start protonix 6. DVt prophylaxis on SCD and lovenox
[2016-11-22] MEDS ORDERED: cefTRIAXone (Rocephin) 1 gm Inj ONE (13:01)
--- NOTE | 2016-11-22 14:15 | RAD ---
HISTORY: CVA. Portable study 10:30. COMPARISON: 10/11/2016. FINDINGS: LUNGS: No active pulmonary disease. PLEURA: No significant pleural effusion identified, no pneumothorax apparent. CARDIOVASCULAR: No radiographic findings to suggest acute or significant cardiovascular disease. OSSEOUS STRUCTURES: No significant abnormalities. VISUALIZED UPPER ABDOMEN: Normal. OTHER FINDINGS: None. IMPRESSION: No active disease. No significant interval change compared to the prior examination(s).
[2016-11-22] MEDS: Dextrose 5%/0.45% NS 1,000 ML IV SCH (16:41)
[2016-11-22 17:28] LABS: THYROID STIMULATING HORMONE 1.59 mIU/ML (0.46-4.68)
[2016-11-22] MEDS ORDERED: Iodixanol 320 MG/ML 100 ML BOTTLE IV ONE (18:34)
[2016-11-22] MEDS ORDERED: Sodium Chloride 0.9% 50 ML IV ONE (18:34)
--- NOTE | 2016-11-22 21:21 | CT ---
EXAM: CT Angiography Head With Intravenous Contrast CLINICAL HISTORY: 81 years old, female; Signs and symptoms; Other: TIA; Additional info: TIA. Sent phy. Doc. With request TECHNIQUE: Axial computed tomographic angiography images of the head with intravenous contrast using CT angiography protocol. This CT exam was performed using one or more of the following dose reduction techniques: automated exposure control, adjustment of the mA and/or kV according to patient size, and/or use of iterative reconstruction technique. MIP reconstructed images were created and reviewed. Coronal and sagittal reformatted images were created and reviewed. CONTRAST: 80 mL of [id number] administered intravenously. EXAM DATE/TIME: 11/22/2016 3:43 PM COMPARISON: Recent head CT of 11/22/2016 10:09 AM FINDINGS: RIGHT INTERNAL CAROTID ARTERY: Demonstrates calcified plaque, with no evidence of occlusion. No aneurysm visualized. RIGHT ANTERIOR CEREBRAL ARTERY: No evidence of occlusion. No aneurysm visualized. RIGHT MIDDLE CEREBRAL ARTERY: No evidence of occlusion. No aneurysm visualized. RIGHT POSTERIOR CEREBRAL ARTERY: No evidence of occlusion. No aneurysm visualized. RIGHT VERTEBRAL ARTERY: No evidence of occlusion or significant stenosis. No evidence of dissection. LEFT INTERNAL CAROTID ARTERY: Demonstrates calcified plaque, with no evidence of occlusion. No aneurysm visualized. LEFT ANTERIOR CEREBRAL ARTERY: No evidence of occlusion. No aneurysm visualized. LEFT MIDDLE CEREBRAL ARTERY: No evidence of occlusion. No aneurysm visualized. LEFT POSTERIOR CEREBRAL ARTERY: No evidence of occlusion. No aneurysm visualized. LEFT VERTEBRAL ARTERY: No evidence of occlusion or significant stenosis. No evidence of dissection. BASILAR ARTERY: No evidence of occlusion. No aneurysm visualized. IMPRESSION: - No evidence of occlusion or other acute abnormality of the major intracranial arteries. - See above for remaining findings. EXAM: CT Angiography Neck With Intravenous Contrast CLINICAL HISTORY: 81 years old, female; Signs and symptoms; Other: TIA; Additional info: TIA. Sent phy. Doc. With request TECHNIQUE: Axial computed tomographic angiography images of the neck with intravenous contrast using CT angiography protocol. MIP reconstructed images were created and reviewed. Coronal and sagittal reformatted images were created and reviewed. CONTRAST: 80 mL of [id number] administered intravenously. COMPARISON: No relevant prior studies available. FINDINGS: VASCULATURE: RIGHT COMMON CAROTID ARTERY: Demonstrates scattered atherosclerotic plaque. Appears tortuous. No evidence of occlusion, dissection or significant stenosis. RIGHT INTERNAL CAROTID ARTERY: Appears tortuous. Small to moderate amount of calcified plaque is seen in the proximal right ICA, causing a mild 20-30% stenosis. No evidence of occlusion or dissection. RIGHT EXTERNAL CAROTID ARTERY: No evidence of occlusion. RIGHT VERTEBRAL ARTERY: No evidence of occlusion or significant stenosis. No evidence of dissection. LEFT COMMON CAROTID ARTERY: Demonstrates scattered atherosclerotic plaque. No evidence of occlusion, dissection, or significant stenosis. LEFT INTERNAL CAROTID ARTERY: Appears tortuous. Small amount of calcified plaque is seen in the left carotid bulb, causing a mild approximately 10-20% stenosis. No evidence of occlusion or dissection. LEFT EXTERNAL CAROTID ARTERY: No evidence of occlusion. LEFT VERTEBRAL ARTERY: No evidence of occlusion or significant stenosis. No evidence of dissection. NECK: BONES/JOINTS: No acute bony abnormality identified. SOFT TISSUES: No acute soft tissue abnormality seen. CAROTID STENOSIS REFERENCE USING NASCET CRITERIA: % ICA stenosis = (1 - narrowest ICA diameter/diameter of distal cervical ICA) x 100. Mild - <50% stenosis. Moderate - 50-69% stenosis. Severe - 70-94% stenosis. Near occlusion - 95-99% stenosis. Occluded - 100% stenosis. IMPRESSION: - No evidence of occlusion or other acute abnormality of the major neck arteries. - Findings compatible with mild less than 50% stenoses of the internal carotid arteries bilaterally. - See above for remaining findings.
[2016-11-23] MEDS: Dextrose 5%/0.45% NS 1,000 ML IV SCH ×2 (04:04→16:29)
[2016-11-23 07:10] LABS: HEMATOCRIT 27.2 % (34.0-47.0); MEAN CELL VOLUME 76.3 fl (81.0-99.0); MEAN CORPUSCULAR HEMOGLOBIN 24.4 pg (27.0-31.0); RED CELL DISTRIBUTION WIDTH 15.6 % (11.5-14.5); WHITE BLOOD COUNT 6.2 K/uL (4.8-10.8)
[2016-11-23 07:19] LABS: BLOOD UREA NITROGEN 18 mg/dl (7-17); CALCIUM 8.7 mg/dL (8.4-10.2); CARBON DIOXIDE 26 mmol/L (22-30); CHLORIDE 106 mmol/L (98-107); GFR AFRICAN-AMERICAN > 60; GLUCOSE,RANDOM 141 mg/dL (65-105); POTASSIUM 3.9 MMOL/L (3.6-5.0); SODIUM 141 mmol/l (132-148)
[2016-11-23 07:21] LABS: PARTIAL THROMBOPLASTIN TIME 22.8 SECONDS (23.3-32.5)
[2016-11-23] MEDS: Albuterol-Ipratrop 3 mg / 0.5 (3 ml) UD INH SCH ×2 (07:48→11:25)
[2016-11-23] MEDS ORDERED: Pantoprazole 40 mg EC Tab PO SCH (09:00)
[2016-11-23] MEDS: Enoxaparin 40 mg Syringe SC SCH (09:10)
--- NOTE | 2016-11-23 11:50 | CP.PCM.CON ---
History of Present Illness - History of Present Illness History of Present Illness: Mrs. Sutton is a 81-year-old woman with a past medical history of advanced dementia, blindness, hypertension and dyslipidemia, who was found to be in respiratory distress yesterday afternoon by her daughter. She was unable to achieve full respirations and was wheezing when EMS arrived. She was treated with solumedrol in the ED and she began to improve. She was confused and lethargic. Neurology was called to evaluate for encephalopathy. Today, the patient is near baseline despite receiving a dose of Risperdal prior to a carotid ultrasound (was not done). Her daughter and other family member at at bedside and admitted that the patient is basically at her normal level of functioning at this time. Review of Systems - Review of Systems All systems: reviewed and no additional remarkable complaints except Past Patient History - Infectious Disease Hx of Infectious Diseases: None - Tetanus Immunizations Tetanus Immunization: Unknown (quit 5 yrs ago; used to smoke 2 PPD) - Past Medical History & Family History Past Medical History?: Yes - Past Social History Smoking Status: Former Smoker Chewing Tobacco Use: No Cigar Use: No Alcohol: None Drugs: Denies Home Situation {Lives}: With Family Domestic Violence: Negative - CARDIAC Hx Congestive Heart Failure: No Hx Hypercholesterolemia: Yes Hx Hypertension: No - PULMONARY Hx Asthma: Yes Hx Chronic Obstructive Pulmonary Disease (COPD): Yes - NEUROLOGICAL Hx Alzheimer's Disease: Yes Hx Dementia: Yes - HEENT Hx HEENT Problems: No - RENAL Hx Chronic Kidney Disease: No - ENDOCRINE/METABOLIC Hx Hypothyroidism: No - HEMATOLOGICAL/ONCOLOGICAL Hx AIDS: No Hx Human Immunodeficiency Virus (HIV): No - INTEGUMENTARY Hx Dermatological Problems: No - MUSCULOSKELETAL/RHEUMATOLOGICAL Hx Arthritis: Yes Hx Rheumatoid Arthritis: No - GASTROINTESTINAL Hx Gastritis: Yes - GENITOURINARY/GYNECOLOGICAL Hx Genitourinary Disorders: Yes Hx Incontinence: Yes - PSYCHIATRIC Hx Anxiety: Yes Hx Depression: Yes - SURGICAL HISTORY Hx Surgeries: Yes Hx Open Reduction Internal Fixation: Yes (right wrist fracture) Hx Orthopedic Surgery: Yes Other/Comment: right wrist surgery with metal plate, left knee mass removal years ago - ANESTHESIA Hx Anesthesia: Yes Hx Anesthesia Reactions: No Hx Malignant Hyperthermia: No Meds Allergies/Adverse Reactions: Allergies Allergy/AdvReac Type Severity Reaction Status Date / Time No Known Allergies Allergy Verified 01/27/16 16:23 - Medications Medications: Current Medications Acetaminophen (Tylenol 325mg Tab) 650 mg PO Q6 PRN PRN Reason: Fever >100.4 F Albuterol/Ipratropium (Duoneb 3 Mg/0.5 Mg (3 Ml) Ud) 3 ml INH RQID [facility] Last Admin: 11/23/16 11:25 Dose: 3 ml Aspirin (Aspirin) 325 mg PO DAILY [facility] Last Admin: 11/23/16 09:09 Dose: 325 mg Atorvastatin Calcium (Lipitor) 20 mg PO HS [facility] Last Admin: 11/22/16 21:14 Dose: Not Given Enoxaparin Sodium (Lovenox) 40 mg SC DAILY [facility] PRN Reason: Protocol Last Admin: 11/23/16 09:10 Dose: 40 mg Haloperidol (Haldol) 0.5 mg PO DAILY PRN PRN Reason: Agitation Last Admin: 11/23/16 10:28 Dose: 0.5 mg Dextrose/Sodium Chloride (Dextrose 5%/0.45% Ns 1000 Ml) 1,000 mls @ 80 mls/hr IV .[id number] [facility] Last Admin: 11/23/16 04:04 Dose: 80 mls/hr Ondansetron HCl (Zofran Inj) 4 mg IVP Q6 PRN PRN Reason: Nausea/Vomiting Pantoprazole Sodium (Protonix Inj) 40 mg IVP DAILY [facility] Last Admin: 11/23/16 09:09 Dose: 40 mg Physical Exam - Constitutional Appears: Well - Head Exam Head Exam: ATRAUMATIC, NORMAL INSPECTION, NORMOCEPHALIC - Eye Exam Eye Exam: EOMI, Normal appearance Pupil Exam: PERRL - ENT Exam ENT Exam: Mucous Membranes Moist, Normal Exam - Neck Exam Neck exam: Positive for: Normal Inspection - Respiratory Exam Respiratory Exam: Wheezes - Cardiovascular Exam Cardiovascular Exam: REGULAR RHYTHM, +S1, +S2 - GI/Abdominal Exam GI & Abdominal Exam: Normal Bowel Sounds, Soft. absent: Tenderness - Extremities Exam Extremities exam: Positive for: normal inspection - Neurological Exam Neurological exam: Alert, CN II-XII Intact Additional comments: Confused about date, time and place. She is oriented only to person. Can follow simple commands. Moves all extremities, but difficult to assess full strength due to lack of compliance. Reflexes are brisk throughout. Plantar response is upgoing bilaterally. Gait could not be assessed. - Psychiatric Exam Psychiatric exam: Normal Affect, Normal Mood - Skin Skin Exam: Dry, Intact, Normal Color, Warm Results - Vital Signs Recent Vital Signs: Last Vital Signs Temp 97.9 F 11/23/16 08:22 Pulse 99 H 11/23/16 09:00 Resp 18 11/23/16 08:22 BP 121/49 L 11/23/16 08:22 Pulse Ox 96 11/23/16 08:22 - Labs Result Diagrams: 11/23/16 05:40 11/23/16 05:40 Labs: Laboratory Results - last 24 hr 11/22/16 11/22/16 11/22/16 15:53 16:04 17:02 WBC RBC Hgb Hct MCV MCH MCHC RDW Plt Count PT INR APTT Sodium Potassium Chloride Carbon Dioxide Anion Gap BUN Creatinine Est GFR ( Amer) Est GFR (Non-Af Amer) POC Glucose (mg/dL) 147 H Random Glucose Hemoglobin A1c 6.3 Calcium Triglycerides 83 Cholesterol 141 LDL Cholesterol Direct 51 HDL Cholesterol 52 TSH 3rd Generation 1.59 11/22/16 11/23/16 11/23/16 21:25 05:40 05:40 WBC 6.2 RBC 3.57 L Hgb 8.7 L Hct 27.2 L MCV 76.3 L MCH 24.4 L MCHC 32.0 L RDW 15.6 H Plt Count 220 PT 10.8 INR 1.04 APTT 22.8 L Sodium Potassium Chloride Carbon Dioxide Anion Gap BUN Creatinine Est GFR ( Amer) Est GFR (Non-Af Amer) POC Glucose (mg/dL) 186 H Random Glucose Hemoglobin A1c Calcium Triglycerides Cholesterol LDL Cholesterol Direct HDL Cholesterol TSH 3rd Generation 11/23/16 05:40 WBC RBC Hgb Hct MCV MCH MCHC RDW Plt Count PT INR APTT Sodium 141 Potassium 3.9 Chloride 106 Carbon Dioxide 26 Anion Gap 14 BUN 18 H Creatinine 0.6 L Est GFR ( Amer) > 60 Est GFR (Non-Af Amer) > 60 POC Glucose (mg/dL) Random Glucose 141 H Hemoglobin A1c Calcium 8.7 Triglycerides Cholesterol LDL Cholesterol Direct HDL Cholesterol TSH 3rd Generation - Imaging and Cardiology CT scan - head Status: Image reviewed by me, Report reviewed by me (No acute or significant findings on CT of the head or CTA of the head/neck.) Assessment & Plan (1) Altered mental status Assessment and Plan: Likely secondary to hypoxemia caused by COPD exacerbation. Currently, the patient is back to baseline. There are some mild calcific stenotic lesions on the CTA. I recommend continuing aspirin 81 mg daily for stroke prevention. PT/ OT/ST as well as cognitive therapy may be evaluated for and done as an outpatient. Thank you very much for this consultation. Status: Acute Priority: Medium
[2016-11-23] MEDS ORDERED: Levalbuterol 1.25 MG/3 ML Inhal Soln UD IH PRN (11:56)
--- NOTE | 2016-11-23 11:59 | CP.PCM.PN ---
Subjective - Date & Time of Evaluation Date of Evaluation: 11/23/16 Time of Evaluation: 11:00 - Subjective Subjective: No fever denies CP no SOB at present denies ab pain more alert today daughter at bedside- Code status Full Code , daughter is JANAY Dave unable to do MRI bec of agitation , uncooperativeness Objective - Vital Signs/Intake and Output Vital Signs (last 24 hours): Temp Pulse Resp BP Pulse Ox 97.9 F 99 H 18 121/49 L 96 11/23/16 08:22 11/23/16 09:00 11/23/16 08:22 11/23/16 08:22 11/23/16 08:22 - Medications Medications: Current Medications Acetaminophen (Tylenol 325mg Tab) 650 mg PO Q6 PRN PRN Reason: Fever >100.4 F Albuterol/Ipratropium (Duoneb 3 Mg/0.5 Mg (3 Ml) Ud) 3 ml INH RQID [facility] Last Admin: 11/23/16 11:25 Dose: 3 ml Aspirin (Aspirin) 325 mg PO DAILY [facility] Last Admin: 11/23/16 09:09 Dose: 325 mg Atorvastatin Calcium (Lipitor) 20 mg PO HS [facility] Last Admin: 11/22/16 21:14 Dose: Not Given Enoxaparin Sodium (Lovenox) 40 mg SC DAILY [facility] PRN Reason: Protocol Last Admin: 11/23/16 09:10 Dose: 40 mg Haloperidol (Haldol) 0.5 mg PO DAILY PRN PRN Reason: Agitation Last Admin: 11/23/16 10:28 Dose: 0.5 mg Home Med (Memantine Hcl [Namenda Xr]) 28 mg PO DAILY [facility] Dextrose/Sodium Chloride (Dextrose 5%/0.45% Ns 1000 Ml) 1,000 mls @ 80 mls/hr IV .[id number] [facility] Last Admin: 11/23/16 04:04 Dose: 80 mls/hr Ceftriaxone Sodium 1 gm/ (Sodium Chloride) 100 mls @ 100 mls/hr IVPB DAILY [facility] Ceftriaxone Sodium 1 gm/ (Sodium Chloride) 100 mls @ 100 mls/hr IVPB STAT STA Stop: 11/23/16 12:52 Levalbuterol HCl (Xopenex) 1.25 mg IH Q4 PRN PRN Reason: Shortness of Breath Lorazepam (Ativan) 0.5 mg IVP ONCE ONE Stop: 11/23/16 11:59 Ondansetron HCl (Zofran Inj) 4 mg IVP Q6 PRN PRN Reason: Nausea/Vomiting Pantoprazole Sodium (Protonix Inj) 40 mg IVP DAILY [facility] Last Admin: 11/23/16 09:09 Dose: 40 mg Paroxetine HCl (Paxil) 20 mg PO DAILY [facility] - Labs Labs: 11/23/16 05:40 11/23/16 05:40 PT 10.8 SECONDS (9.6-11.2) 11/23/16 05:40 INR 1.04 (0.92-1.08) 11/23/16 05:40 APTT 22.8 SECONDS (23.3-32.5) L 11/23/16 05:40 - Constitutional Appears: Chronically Ill, Other (demented) - Head Exam Head Exam: NORMAL INSPECTION, NORMOCEPHALIC - Eye Exam Eye Exam: EOMI Pupil Exam: NORMAL ACCOMODATION - ENT Exam ENT Exam: Mucous Membranes Moist, Normal External Ear Exam - Neck Exam Neck Exam: Full ROM. absent: Meningismus - Respiratory Exam Respiratory Exam: Rhonchi, NORMAL BREATHING PATTERN. absent: Wheezes, Respiratory Distress - Cardiovascular Exam Cardiovascular Exam: REGULAR RHYTHM, +S1, +S2 - GI/Abdominal Exam GI & Abdominal Exam: Soft, Normal Bowel Sounds. absent: Tenderness - Extremities Exam Extremities Exam: Normal Capillary Refill. absent: Calf Tenderness, Pedal Edema - Back Exam Back Exam: absent: CVA tenderness (L), CVA tenderness (R) - Neurological Exam Neurological Exam: Alert, Awake Additional comments: oriented to person - Psychiatric Exam Psychiatric exam: Flat Affect - Skin Skin Exam: Dry, Normal Color, Warm Assessment and Plan - Assessment and Plan (Free Text) Assessment: 81 y/o female with PMH Dementia, ex smoker brought to ER by EMS with new onset change of mental status , right facial droop, slurred speech and left sided weakness that resolved once patient arrived to ER. As per home health aid she was also having difficulty breathing and was wheezing. CT head without contrast showed no acute pathology.She was given ASA NV and Duonebs for wheezing with improvement of her respiratory status. 1. 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 Cedillo- discussed case - felt this was more due to Metab Enceph rather than TIA ASA , statin DVt prophylaxis with lovenox CTA of head and Neck : negative ECHO 2. COPD acute exacerbation, POA, improved improved after Duoneb tx in ED and IV Solumedrol 125 mg x 1 now better Xopenex prn , d/c Albuterol as pt get jittery with Albuterolo CXr - no active disesae 3. Dementia, chronic cont Namenda and Paxil Haldol prn ( home med) 4. Anemia of chronic disease stable 5. Azotemia resolved Started IVF 6. UTI Urine c/s: Gram neg rods started on IV Ceftriaxone DVt prophylaxis on SCD and lovenox
--- NOTE | 2016-11-23 13:42 | CARD ---
APPROVED REPORT EKG Measurement Heart [id number] <Conclusion> Poor data quality, interpretation may be adversely affected Sinus tachycardia Low voltage QRS Nonspecific ST abnormality Abnormal ECG excessive baseline artefact-recommend repeat
--- NOTE | 2016-11-23 17:57 | CARD ---
APPROVED REPORT EXAM: Two-dimensional and M-mode echocardiogram with Doppler and color Doppler. Other Information Quality : LimitedRhythm : Aortic Valve AoV Peak Xrsnuniq704.1cm/Hank Peak GR.12mmHgLVOT Peak Ubczfxrz892.8cm/s Mitral Valve MV E Oqcpxgyd80.6cm/sMV DECEL [id number] A Zlbgfpfr83.5cm/s MV VEW17cgW/A ratio1.0MVA (PHT)5.95cm2 TDI Lateral E' Peak V12.52cm/sMedial E' Peak V11.15cm/sE/Lateral E'6.6 E/Medial E'7.4 LEFT VENTRICLE The left ventricle is normal size. There is normal left ventricular wall thickness. The left ventricular function is normal. The left ventricular ejection fraction is - 75%. There is normal LV segmental wall motion. Transmitral Doppler flow pattern is Grade I-abnormal relaxation pattern. No left ventricle thrombus noted on this study. There is no ventricular septal defect visualized. There is no left ventricular aneurysm. There is no mass noted in the left ventricle. RIGHT VENTRICLE The right ventricle is normal size. There is normal right ventricular wall thickness. The right ventricular systolic function is normal. ATRIA The left atrium appears mildly dilated. There is no thrombus suspected in the left atrium. The right atrium size is normal. The interatrial septum is intact with no evidence for an atrial septal defect. AORTIC VALVE The aortic valve is mildly thickened. No aortic regurgitation is present. There is no aortic valvular stenosis. MITRAL VALVE The mitral valve leaflets are mildly thickened. There is no evidence of mitral valve prolapse. There is no mitral valve stenosis. There is no mitral valve regurgitation noted. TRICUSPID VALVE The tricuspid valve is not well visualized. Doppler studies of the TV were not performed. Not well visialized. Not well visualized. PULMONIC VALVE The pulmonic valve is not visualized. Doppler studies of the PV were not visualized. GREAT VESSELS The aortic root was not well visualized. The IVC was not visualized. PERICARDIAL EFFUSION The pericardium appears normal. The study was too limited to assess for any pleural effusion. <Conclusion> The study was a very technically limited 2D examination. The left ventricle is normal in size and wall thickness. The left ventricular function is normal. The left ventricular ejection fraction is - 75%. The left atrium appears mildly dilated. The mitral and aortic valves are mildly thickened but not stenotic. The tricuspid valve was not visualized.
[2016-11-24] MEDS: Dextrose 5%/0.45% NS 1,000 ML IV SCH (01:03)
[2016-11-24] MEDS ORDERED: Patient's Own Med (Memantine Hcl [Namenda Xr] 28 MG) PO SCH (09:00)
[2016-11-24] MEDS: Enoxaparin 40 mg Syringe SC SCH (09:53)
--- NOTE | 2016-11-24 10:11 | CARD ---
APPROVED REPORT EKG Measurement Heart [id number] ID [id number] <Conclusion> Poor data quality, interpretation may be adversely affected Sinus tachycardia Low voltage QRS Borderline ECG
[2016-11-24] MEDS ORDERED: Levalbuterol 1.25 MG/3 ML Inhal Soln UD INH ONE (10:54)
[2016-11-24] MEDS ORDERED: methylPREDNISolone 40 MG in Sodium Chloride 0.9% 50 ML IV ONE (10:55)
--- NOTE | 2016-11-24 10:56 | CP.PCM.PN ---
Subjective - Date & Time of Evaluation Date of Evaluation: 11/24/16 Time of Evaluation: 10:00 - Subjective Subjective: No fever pt seen sitted on chair awake oriented to person only denies CP + sl wheezing Denies abd pain Daughter at bedside , discussed test results and treatment plan including plan for [facility] in am Objective - Vital Signs/Intake and Output Vital Signs (last 24 hours): Temp Pulse Resp BP Pulse Ox 97.9 F 87 18 110/67 96 11/24/16 09:09 11/24/16 09:54 11/24/16 09:09 11/24/16 09:54 11/24/16 09:09 - Medications Medications: Current Medications Acetaminophen (Tylenol 325mg Tab) 650 mg PO Q6 PRN PRN Reason: Fever >100.4 F Aspirin (Aspirin) 325 mg PO DAILY [facility] Last Admin: 11/24/16 09:58 Dose: 325 mg Atorvastatin Calcium (Lipitor) 20 mg PO HS [facility] Last Admin: 11/23/16 21:11 Dose: 20 mg Enoxaparin Sodium (Lovenox) 40 mg SC DAILY [facility] PRN Reason: Protocol Last Admin: 11/24/16 09:53 Dose: 40 mg Haloperidol (Haldol) 0.5 mg PO DAILY PRN PRN Reason: Agitation Last Admin: 11/23/16 10:28 Dose: 0.5 mg Home Med (Memantine Hcl [Namenda Xr]) 28 mg PO DAILY [facility] Dextrose/Sodium Chloride (Dextrose 5%/0.45% Ns 1000 Ml) 1,000 mls @ 80 mls/hr IV .[id number] [facility] Last Admin: 11/24/16 01:03 Dose: 80 mls/hr Ceftriaxone Sodium 1 gm/ (Sodium Chloride) 100 mls @ 100 mls/hr IVPB DAILY [facility] Last Admin: 11/24/16 09:53 Dose: 100 mls/hr Methylprednisolone 40 mg/ (Sodium Chloride) 50 mls @ 100 mls/hr IV ONCE ONE Stop: 11/24/16 11:24 Levalbuterol HCl (Xopenex) 1.25 mg IH Q4 PRN PRN Reason: Shortness of Breath Levalbuterol HCl (Xopenex) 1.25 mg INH ONCE ONE Stop: 11/24/16 10:55 Metoprolol Tartrate (Lopressor) 6.25 mg PO Q12 [facility] Last Admin: 11/24/16 09:54 Dose: Not Given Ondansetron HCl (Zofran Inj) 4 mg IVP Q6 PRN PRN Reason: Nausea/Vomiting Pantoprazole Sodium (Protonix Inj) 40 mg IVP DAILY [facility] Last Admin: 11/24/16 09:53 Dose: 40 mg Paroxetine HCl (Paxil) 20 mg PO DAILY [facility] Last Admin: 11/24/16 09:55 Dose: 20 mg - Labs Labs: 11/23/16 05:40 11/23/16 05:40 PT 10.8 SECONDS (9.6-11.2) 11/23/16 05:40 INR 1.04 (0.92-1.08) 11/23/16 05:40 APTT 22.8 SECONDS (23.3-32.5) L 11/23/16 05:40 - Constitutional Appears: Chronically Ill, Other (demented) - Head Exam Head Exam: NORMAL INSPECTION, NORMOCEPHALIC - Eye Exam Eye Exam: EOMI Pupil Exam: NORMAL ACCOMMODATION - ENT Exam ENT Exam: Mucous Membranes Moist, Normal External Ear Exam - Neck Exam Neck Exam: Full ROM. absent: Meningismus - Respiratory Exam Respiratory Exam: + wheezing , Rhonchi, NORMAL BREATHING PATTERN. absent: Respiratory Distress - Cardiovascular Exam Cardiovascular Exam: REGULAR RHYTHM, +S1, +S2 - GI/Abdominal Exam GI & Abdominal Exam: Soft, Normal Bowel Sounds. absent: Tenderness - Extremities Exam Extremities Exam: Normal Capillary Refill. absent: Calf Tenderness, Pedal Edema - Back Exam Back Exam: absent: CVA tenderness (L), CVA tenderness (R) - Neurological Exam Neurological Exam: Alert, Awake Additional comments: oriented to person moves extremities however unable to do complete neuro exam - Psychiatric Exam Psychiatric exam: Flat Affect - Skin Skin Exam: Dry, Normal Color, Warm Assessment and Plan - Assessment and Plan (Free Text) Assessment: 81 y/o female with PMH Dementia, CVA, COPD, ex smoker brought to ER by EMS with new onset change of mental status , right facial droop, slurred speech and left sided weakness that resolved once patient arrived to ER. As per home health aid she was also having difficulty breathing and was wheezing. CT head without contrast showed no acute pathology.She was given ASA PA and Duonebs for wheezing with improvement of her respiratory status. 1. AMS prob sec to Metabolic Ecephalopathy due to UTI cannot r/o TIA CT head showed 2 old lacunar infarcts but no new stroke Unable to perform MRI since patient cannot tolerate despite sedation rpt CT of head Neuro checks, O2 via [place] Neurology consult with Dr. Cedillo- discussed case - felt this was more due to Metab Enceph rather than TIA cont ASA , statin DVt prophylaxis with lovenox CTA of head and Neck : negative ECHO: norml EF, no thrombus Carotid sono: neg PT consulted poss d/c to [facility] in am 2. COPD acute exacerbation, POA received IV Solumedrol 125 mg in ED start low dose 40mg daily Xopenex Neb tx prn , d/c Albuterol as pt get jittery with Albuterol CXr - no active disesae 3. Dementia, chronic cont Namenda and Paxil Haldol prn ( home med) 4. Anemia of chronic disease stable 5. Azotemia resolved IVF 6. UTI Urine c/s: E coli on IV Ceftriaxone 7. Sinus Tachycardia prob sec to Albuterol - changed to Xopenex and may also be du to pts infection Cardio consulted - started on low dose Metoprolol 6.25 bid DVt prophylaxis on SCD and lovenox
--- NOTE | 2016-11-24 10:57 | CP.PCM.CON ---
History of Present Illness - History of Present Illness History of Present Illness: 81 y/o female with PMH Dementia, ex smoker brought to ER by EMS with new onset change of mental status , right facial droop, slurred speech and left sided weakness. Patient is demented and unable to provide any history and at present she is sleepy and lethargic. As per daughter who lives with patient , she was at her baseline this AM , sitting up in bed and verbal. thew daughter received a phone call from home health aid @ 9.27 stating that her mom was more confused , not responding to questions, developed right facial droop and was leaning to her right side.As per home health aid she was also having difficulty breathing and was wheezing. EMS was called and patient was brought to ER for evaluation. By the time patient arrived to ER all her symptoms had resolved. Code stroke was activated and CT head without contrast showed no acute pathology.She was given ASA AL and Duonebs for wheezing with improvement of her respiratory status. Allergies ; NKDA PMH ; Dementia Medications; Nexium, namenda,haldo, crestor, paxil Surgery; right wrist fracture with metal in place, right knee mass removal Cardiology consult called for Tachycardia EKG: Sinus tachycardia @ 118 BPM EKGs on past admissions all show NSR Echo: good LV function EF : 75% Hgb: 8.7 Telemetry shows NSR pt has short period of Tachycardia last night Past Patient History - Infectious Disease Hx of Infectious Diseases: None - Tetanus Immunizations Tetanus Immunization: Unknown (quit 5 yrs ago; used to smoke 2 PPD) - Past Medical History & Family History Past Medical History?: Yes - Past Social History Smoking Status: Former Smoker Chewing Tobacco Use: No Cigar Use: No Alcohol: None Drugs: Denies Home Situation {Lives}: With Family Domestic Violence: Negative - CARDIAC Hx Congestive Heart Failure: No Hx Hypercholesterolemia: Yes Hx Hypertension: No - PULMONARY Hx Asthma: Yes Hx Chronic Obstructive Pulmonary Disease (COPD): Yes - NEUROLOGICAL Hx Alzheimer's Disease: Yes Hx Dementia: Yes - HEENT Hx HEENT Problems: No - RENAL Hx Chronic Kidney Disease: No - ENDOCRINE/METABOLIC Hx Hypothyroidism: No - HEMATOLOGICAL/ONCOLOGICAL Hx AIDS: No Hx Human Immunodeficiency Virus (HIV): No - INTEGUMENTARY Hx Dermatological Problems: No - MUSCULOSKELETAL/RHEUMATOLOGICAL Hx Arthritis: Yes Hx Rheumatoid Arthritis: No - GASTROINTESTINAL Hx Gastritis: Yes - GENITOURINARY/GYNECOLOGICAL Hx Genitourinary Disorders: Yes Hx Incontinence: Yes - PSYCHIATRIC Hx Anxiety: Yes Hx Depression: Yes - SURGICAL HISTORY Hx Surgeries: Yes Hx Open Reduction Internal Fixation: Yes (right wrist fracture) Hx Orthopedic Surgery: Yes Other/Comment: right wrist surgery with metal plate, left knee mass removal years ago - ANESTHESIA Hx Anesthesia: Yes Hx Anesthesia Reactions: No Hx Malignant Hyperthermia: No Meds Allergies/Adverse Reactions: Allergies Allergy/AdvReac Type Severity Reaction Status Date / Time No Known Allergies Allergy Verified 01/27/16 16:23 - Medications Medications: Current Medications Acetaminophen (Tylenol 325mg Tab) 650 mg PO Q6 PRN PRN Reason: Fever >100.4 F Aspirin (Aspirin) 325 mg PO DAILY [facility] Last Admin: 11/24/16 09:58 Dose: 325 mg Atorvastatin Calcium (Lipitor) 20 mg PO HS [facility] Last Admin: 11/23/16 21:11 Dose: 20 mg Bisacodyl (Dulcolax) 10 mg AL ONCE ONE Stop: 11/24/16 10:50 Enoxaparin Sodium (Lovenox) 40 mg SC DAILY [facility] PRN Reason: Protocol Last Admin: 11/24/16 09:53 Dose: 40 mg Haloperidol (Haldol) 0.5 mg PO DAILY PRN PRN Reason: Agitation Last Admin: 11/23/16 10:28 Dose: 0.5 mg Home Med (Memantine Hcl [Namenda Xr]) 28 mg PO DAILY [facility] Dextrose/Sodium Chloride (Dextrose 5%/0.45% Ns 1000 Ml) 1,000 mls @ 80 mls/hr IV .[id number] [facility] Last Admin: 11/24/16 01:03 Dose: 80 mls/hr Ceftriaxone Sodium 1 gm/ (Sodium Chloride) 100 mls @ 100 mls/hr IVPB DAILY [facility] Last Admin: 11/24/16 09:53 Dose: 100 mls/hr Levalbuterol HCl (Xopenex) 1.25 mg IH Q4 PRN PRN Reason: Shortness of Breath Metoprolol Tartrate (Lopressor) 6.25 mg PO Q12 [facility] Last Admin: 11/24/16 09:54 Dose: Not Given Ondansetron HCl (Zofran Inj) 4 mg IVP Q6 PRN PRN Reason: Nausea/Vomiting Pantoprazole Sodium (Protonix Inj) 40 mg IVP DAILY [facility] Last Admin: 11/24/16 09:53 Dose: 40 mg Paroxetine HCl (Paxil) 20 mg PO DAILY [facility] Last Admin: 11/24/16 09:55 Dose: 20 mg Results - Vital Signs Recent Vital Signs: Last Vital Signs Temp 97.9 F 11/24/16 09:09 Pulse 87 11/24/16 09:54 Resp 18 11/24/16 09:09 BP 110/67 11/24/16 09:54 Pulse Ox 96 11/24/16 09:09 - Labs Result Diagrams: 11/23/16 05:40 11/23/16 05:40 Labs: Laboratory Results - last 24 hr 11/23/16 11/23/16 11/23/16 11:26 16:00 21:50 POC Glucose (mg/dL) 108 159 H 132 H Assessment & Plan (1) Sinus tachycardia Assessment and Plan: The tachycardia is sinus and seems to be a reflection of the pt's medical condition no tx necessary at this time Status: Acute (2) TIA (transient ischemic attack) Status: Acute (3) Altered mental status Status: Acute Priority: Medium (4) Anemia due to acute blood loss Status: Acute Priority: High
--- NOTE | 2016-11-24 14:33 | US ---
PROCEDURE: Carotid vertebral duplex sonography HISTORY: TIA COMPARISON: 01/07/2015.. TECHNIQUE: Grayscale, color Doppler and spectral Doppler assessment of the carotid system bilaterally. This includes common carotid, internal carotid arteries Vertebral artery assessment with respect to direction of flow (antegrade or retrograde) FINDINGS: RIGHT carotid system: Assessment of plaque: Heterogeneous plaque formation. This is primarily evident in the bulb and to a lesser extent in the proximal and mid right ICA. Peak systolic ICA velocity: 90.0 cm/sec End-diastolic velocity: 23.8 cm/sec ICA/CCA ratio: 1.1 Vertebral artery flow: Antegrade LEFT carotid system: Assessment of plaque: Heterogeneous plaque formation. Primarily in the bulb and proximal left ICA. Peak systolic ICA velocity: 92.8 cm/sec End-diastolic velocity: 20.1 cm/sec ICA/CCA ratio: 1.0 Vertebral artery flow: Antegrade IMPRESSION: Right ICA degree of stenosis: Less than 50% Left ICA degree of stenosis: Less than 50% Reference Internal Carotid Artery (ICA) Peak Systolic Velocity (PSV) for above: 1. Less than 50% stenosis less than 125 cm/s peak systolic velocity 2. 50-69% stenosis 125-230cm/s peak systolic velocity 3. Greater than 70% but less than near occlusion greater than 230 cm/s peak systolic velocity
[2016-11-24] MEDS ORDERED: Chlorhexidine Gluconate 1 APPL/PKT TP ONE (18:41)
--- NOTE | 2016-11-24 18:47 | CT ---
PROCEDURE: CT HEAD WITHOUT CONTRAST. HISTORY: ff up CT of head to eval for CVA , unble to do MRI COMPARISON: 11/22/2016. CT head. TECHNIQUE: Axial computed tomography images were obtained through the head/brain without intravenous contrast. Radiation dose: Total exam DLP = 1512 mGy-cm. This CT exam was performed using one or more of the following dose reduction techniques: Automated exposure control, adjustment of the mA and/or kV according to patient size, and/or use of iterative reconstruction technique. FINDINGS: HEMORRHAGE: No intracranial hemorrhage. BRAIN: No mass effect or edema. Cortical atrophy, periventricular small vessel disease VENTRICLES: Unremarkable. No hydrocephalus. CALVARIUM: Unremarkable. PARANASAL SINUSES: Unremarkable as visualized. No significant inflammatory changes. MASTOID AIR CELLS: Unremarkable as visualized. No inflammatory changes. OTHER FINDINGS: None. IMPRESSION: No acute intracranial abnormalities. No significant findings to account for the clinical presentation. No significant interval change compared to the prior examination(s).
[2016-11-25 07:51] VITALS: RESP 18
[2016-11-25] MEDS ORDERED: methylPREDNISolone 30 MG in Sodium Chloride 0.9% 50 ML IVPB SCH (09:00)
[2016-11-25] MEDS: Enoxaparin 40 mg Syringe SC SCH (09:55)
--- NOTE | 2016-11-25 11:56 | CP.PCM.DIS ---
Provider - Provider Date of Admission: 11/22/16 13:06 Attending physician: Jace Salinas MD Primary care physician: Dr. Ga Consults: Neuro consult Cardiology consult Time Spent in preparation of Discharge (in minutes): 20 Hospital Course - Lab Results Lab Results: Most Recent Lab Values WBC 6.2 K/uL (4.8-10.8) 11/23/16 05:40 RBC 3.57 Mil/uL (3.80-5.20) L 11/23/16 05:40 Hgb 8.7 g/dL (12.0-16.0) L 11/23/16 05:40 Hct 27.2 % (34.0-47.0) L 11/23/16 05:40 MCV 76.3 fl (81.0-99.0) L 11/23/16 05:40 MCH 24.4 pg (27.0-31.0) L 11/23/16 05:40 MCHC 32.0 g/dL (33.0-37.0) L 11/23/16 05:40 RDW 15.6 % (11.5-14.5) H 11/23/16 05:40 Plt Count 220 K/uL (130-400) 11/23/16 05:40 MPV 9.5 fl (7.2-11.7) 11/22/16 10:46 Neut % (Auto) 61.6 % (50.0-75.0) 11/22/16 10:46 Lymph % (Auto) 28.5 % (20.0-40.0) 11/22/16 10:46 [place] % (Auto) 5.6 % (0.0-10.0) 11/22/16 10:46 Eos % (Auto) 3.3 % (0.0-4.0) 11/22/16 10:46 Baso % (Auto) 1.0 % (0.0-2.0) 11/22/16 10:46 Neut # 3.7 K/uL (1.8-7.0) 11/22/16 10:46 Lymph # 1.7 K/uL (1.0-4.3) 11/22/16 10:46 [place] # 0.3 K/uL (0.0-0.8) 11/22/16 10:46 Eos # 0.2 K/uL (0.0-0.7) 11/22/16 10:46 Baso # 0.1 K/uL (0.0-0.2) 11/22/16 10:46 PT 10.8 SECONDS (9.6-11.2) 11/23/16 05:40 INR 1.04 (0.92-1.08) 11/23/16 05:40 APTT 22.8 SECONDS (23.3-32.5) L 11/23/16 05:40 Sodium 141 mmol/l (132-148) 11/23/16 05:40 Potassium 3.9 MMOL/L (3.6-5.0) 11/23/16 05:40 Chloride 106 mmol/L (98-107) 11/23/16 05:40 Carbon Dioxide 26 mmol/L (22-30) 11/23/16 05:40 Anion Gap 14 (10-20) 11/23/16 05:40 BUN 18 mg/dl (7-17) H 11/23/16 05:40 Creatinine 0.6 mg/dL (0.7-1.2) L 11/23/16 05:40 Est GFR ( Amer) > 60 11/23/16 05:40 Est GFR (Non-Af Amer) > 60 11/23/16 05:40 POC Glucose (mg/dL) 132 mg/dL (65-110) H 11/23/16 21:50 Random Glucose 141 mg/dL (65-105) H 11/23/16 05:40 Hemoglobin A1c 6.3 % (4.2-6.5) 11/22/16 17:02 Calcium 8.7 mg/dL (8.4-10.2) 11/23/16 05:40 Total Bilirubin 0.3 mg/dl (0.2-1.3) 11/22/16 10:46 AST 27 U/L (14-36) 11/22/16 10:46 ALT 27 U/L (9-52) 11/22/16 10:46 Alkaline Phosphatase 89 U/L (38-126) 11/22/16 10:46 Troponin I < 0.0120 ng/mL (0.00-0.120) 11/22/16 10:46 Total Protein 7.1 G/DL (6.3-8.2) 11/22/16 10:46 Albumin 4.2 g/dL (3.5-5.0) 11/22/16 10:46 Globulin 2.9 gm/dL (2.2-3.9) 11/22/16 10:46 Albumin/Globulin Ratio 1.4 (1.0-2.1) 11/22/16 10:46 Triglycerides 83 mg/DL (0-149) 11/22/16 16:04 Cholesterol 141 mg/dL (0-199) 11/22/16 16:04 LDL Cholesterol Direct 51 mg/dL (0-129) 11/22/16 16:04 HDL Cholesterol 52 MG/DL (30-70) 11/22/16 16:04 TSH 3rd Generation 1.59 mIU/ML (0.46-4.68) 11/22/16 16:04 Urine Color Straw (YELLOW) 11/22/16 11:43 Urine Clarity Clear (Clear) 11/22/16 11:43 Urine pH 7.0 (5.0-8.0) 11/22/16 11:43 Ur Specific [place] 1.006 (1.003-1.030) 11/22/16 11:43 Urine Protein Negative mg/dL (NEGATIVE) 11/22/16 11:43 Urine Glucose (UA) Neg mg/dL (Normal) 11/22/16 11:43 Urine Ketones Negative mg/dL (NEGATIVE) 11/22/16 11:43 Urine Blood Small (NEGATIVE) 11/22/16 11:43 Urine Nitrate Negative (NEGATIVE) 11/22/16 11:43 Urine Bilirubin Negative (NEGATIVE) 11/22/16 11:43 Urine Urobilinogen 0.2-1.0 mg/dL (0.2-1.0) 11/22/16 11:43 Ur Leukocyte Esterase Small [place]/uL (Negative) 11/22/16 11:43 Urine RBC (Auto) 1 /hpf (0-3) 11/22/16 11:43 Urine Microscopic WBC 7 /hpf (0-5) H 11/22/16 11:43 Ur Squamous Epith Cells < 1 /hpf (0-5) 11/22/16 11:43 Urine Bacteria Rare (<OCC) 11/22/16 11:43 Blood Type A NEGATIVE 11/22/16 10:46 Antibody Screen Negative 11/22/16 10:46 BBK History Checked Patient has bt 11/22/16 10:46 - Hospital Course Hospital Course: 81 y/o female with PMH Dementia, CVA, COPD, ex smoker brought to ER by EMS with new onset change of mental status , right facial droop, slurred speech and left sided weakness that resolved once patient arrived to ER. As per home health aid she was also having difficulty breathing and was wheezing. CT head without contrast showed no acute pathology.She was given ASA SD and Duonebs for wheezing with improvement of her respiratory status. Patient was admitted with potential diagnosis of TIA . Neurology was consulted thought that most likely patient had metabolic encephalopathy secondray to UTI and recommended tretament for UTI, ASA and Statin. Her urine cultures were resulted as positive for UTI sensitive to rocephin so patient wsa continued on rocephin IV for 7 days . During this hospitalization she also developed episode of wheezing secondary to COPD exacerbation and was treated with Duonebs, Solumedrol IV and O2 via NC with improvement of her respiratoty function . She did develop episode of sinus tachycardia post Duoneb treatment most likely related to albuterol side effect. Cardiology was consulted for cardiac eval and recommended low dose metoprolol and changing respiratory treatment to Xopenex. Patient returned to her baseline as per family. Will discharge to [facility] for continuation of IV antibiotics and Physical therapy and she was started on Rocephin IV 1. AMS prob sec to Metabolic Ecephalopathy due to UTI cannot r/o TIA CT head showed 2 old lacunar infarcts but no new stroke x twice Unable to perform MRI since patient cannot tolerate despite sedation rpt CT of head Neurology consult with Dr. Cedillo appreciated -felt this was more due to Metab Enceph rather than TIA cont ASA , statin DVt prophylaxis with lovenox CTA of head and Neck : negative ECHO: norml EF, no thrombus Carotid sono: neg PT consulted d/c to [facility] for therapy treat for UTI 2. COPD acute exacerbation, POA received IV Solumedrol 125 mg in ED given low dose 40mg than d/c Xopenex Neb tx prn , d/c Albuterol as pt get jittery with Albuterol CXR - no active disesae 3. Dementia, chronic cont Namenda and Paxil Haldol prn ( home med) 4. Anemia of chronic disease stable 5. Azotemia resolved IVF 6. UTI Urine c/s: E coli on IV Ceftriaxone. Continue for total 7 days 7. Sinus Tachycardia prob sec to Albuterol - changed to Xopenex and may also be du to pts infection Cardio consulted - started on low dose Metoprolol 6.25 bid DVt prophylaxis on SCD and lovenox Discharge Exam - Head Exam Head Exam: NORMAL INSPECTION, NORMOCEPHALIC - Eye Exam Eye Exam: PERRL - ENT Exam ENT Exam: Mucous Membranes Dry, Normal Exam - Neck Exam Neck exam: Normal Inspection - Respiratory Exam Respiratory Exam: Clear to PA & Lateral. absent: Rhonchi, Wheezes, Respiratory Distress - Cardiovascular Exam Cardiovascular Exam: REGULAR RHYTHM, RRR, +S1, +S2. absent: JVD - GI/Abdominal Exam GI & Abdominal Exam: Normal Bowel Sounds, Soft. absent: Distended, Guarding, Rebound, Tenderness - Rectal Exam Rectal Exam: Deferred - Extremities Exam Extremities exam: normal capillary refill, normal inspection, pedal pulses present - Back Exam Back exam: NORMAL INSPECTION - Neurological Exam Additional comments: demented, responds to verbal commands responds especially to daughter awake and alert , not oriented - Skin Skin Exam: Dry, Normal Color, Warm Discharge Plan - Discharge Medications Prescriptions: Aspirin 325 mg PO DAILY #30 tab cefTRIAXone 1 gm [Rocephin 1 gram IVPB] 1 gm IVPB DAILY #7 bag Enoxaparin [Lovenox] 40 mg SC DAILY #30 syr Metoprolol Tartrate [Lopressor] 6.25 mg PO Q12 #60 tab - Follow Up Plan Condition: STABLE Disposition: Trans to Other Acute Care Hosp Patient education suggested?: Yes Referrals: Salomón Ga MD [Staff Provider] -
[2016-11-25 12:00] VITALS: BP 110/51; PULSE 76; TEMP 97.8
[2016-11-25 12:14] VITALS: O2SAT 97
== END 2016-11-25 12:30 | DRG 689 ==
LOC: H.ER 09:54 → H.ERHOLD 13:06 → H.TEL 14:47
PROVIDERS: ADMIT Hospitalist; ATTEND Hospitalist
DX: N39.0 Urinary tract infection, site not specified (principal); G93.41 Metabolic encephalopathy; J44.1 Chronic obstructive pulmonary disease with (acute) exacerbation; G30.9 Alzheimer's disease, unspecified; G45.9 Transient cerebral ischemic attack, unspecified; D63.8 Anemia in other chronic diseases classified elsewhere; F02.80 Dementia in other diseases classified elsewhere, unspecified severity, without behavioral disturbance, psychotic disturbance, mood disturbance, and anxiety; B96.20 Unspecified Escherichia coli [E. coli] as the cause of diseases classified elsewhere; R09.02 Hypoxemia; K29.70 Gastritis, unspecified, without bleeding; J45.909 Unspecified asthma, uncomplicated; I10 Essential (primary) hypertension; E78.00 Pure hypercholesterolemia, unspecified; E78.5 Hyperlipidemia, unspecified; Z87.891 Personal history of nicotine dependence; R79.89 Other specified abnormal findings of blood chemistry; F41.9 Anxiety disorder, unspecified; M19.90 Unspecified osteoarthritis, unspecified site; F32.9 Major depressive disorder, single episode, unspecified; R00.0 Tachycardia, unspecified; T48.6X5A Adverse effect of antiasthmatics, initial encounter; H54.0 Blindness, both eyes

== ENCOUNTER 2017-04-10 19:36 | Emergency (ER) | payer MEDICARE, MEDICAID ==
[2017-04-10 19:40] VITALS: BP 144/61; TEMP 99.1
[2017-04-10] MEDS ORDERED: Albuterol 0.083% Inhal Sol (2.5 mg/3 mL) UD INH ONE (20:31)
--- NOTE | 2017-04-10 21:02 | ED PDOC ---
HPI: SOB/CHF/COPD Time Seen by Provider: 04/10/17 20:00 Chief Complaint (Nursing): Shortness Of Breath Chief Complaint (Provider): Shortness of breath, cough History Per: Family History/Exam Limitations: clinical condition (alzheimers) Onset/Duration Of Symptoms: Hrs Current Symptoms Are (Timing): Still Present Additional Complaint(s): The patient is a 82yo female, past medical history of Alzheimer's disease, presents to the ED accompanied by her daughter, who serves as primary historian. Daughter reports that today, upon returning from [place], the patient presented with a productive cough with yellow sputum, and shortness of breath. She additionally reports the patient had diarrhea last week which has now resolved. No other medical complaints. Past Medical History Reviewed: Historical Data, Nursing Documentation, Vital Signs Vital Signs: Last Vital Signs Temp 99.1 F 04/10/17 19:37 Pulse 110 H 04/11/17 01:06 Resp 19 04/10/17 21:16 BP 144/61 04/10/17 19:37 Pulse Ox 95 04/11/17 04:43 - Medical History PMH: Alzheimer's Disease, Anemia, Anxiety, Arthritis, Asthma, COPD, Dementia, Depression, Gastritis, Hypercholesterolemia Denies: CHF, HIV, HTN, Hypothyroidism, Chronic Kidney Disease, Rheumatoid Arthritis - Family History Family History: States: Unknown Family Hx - Home Medications Home Medications: Ambulatory Orders Medication Instructions Recorded Memantine HCl [Namenda Xr] 28 mg PO DAILY 03/03/15 Rosuvastatin Calcium [Crestor] 5 mg PO DAILY 03/03/15 Esomeprazole Magnesium [Nexium] 40 mg PO DAILY 01/27/16 Haloperidol [Haldol] 0.5 mg PO PRN PRN 01/27/16 Levalbuterol HCl 3 ml IH Q4 PRN #20 vial 01/27/16 PARoxetine [Paxil] 20 mg PO DAILY 01/27/16 Aspirin 325 mg PO DAILY #30 tab 11/25/16 Enoxaparin [Lovenox] 40 mg SC DAILY #30 syr 11/25/16 Metoprolol Tartrate [Lopressor] 6.25 mg PO Q12 #60 tab 11/25/16 cefTRIAXone 1 gm [Rocephin 1 gram 1 gm IVPB DAILY #7 bag 11/25/16 IVPB] - Allergies Allergies/Adverse Reactions: Allergies Allergy/AdvReac Type Severity Reaction Status Date / Time No Known Allergies Allergy Verified 01/27/16 16:23 Review of Systems Review Of Systems: ROS cannot be obtained secondary to pt's inabilty to answer questions. (patient w/ alzheimers) Respiratory: Positive for: Cough, Shortness of Breath, Sputum (yellow) Physical Exam - Reviewed Nursing Documentation Reviewed: Yes Vital Signs Reviewed: Yes - Physical Exam Appears: Positive for: Non-toxic, No Acute Distress Head Exam: Positive for: ATRAUMATIC, NORMAL INSPECTION, NORMOCEPHALIC Skin: Positive for: Warm, Dry Eye Exam: Positive for: Normal appearance Neck: Positive for: Supple Cardiovascular/Chest: Positive for: Regular Rate, Rhythm Respiratory: Positive for: Normal Breath Sounds. Negative for: Respiratory Distress Gastrointestinal/Abdominal: Positive for: Soft Neurologic/Psych: Positive for: Alert, Mood/Affect (patient is verbal but not coherent). Negative for: Oriented - Laboratory Results Result Diagrams: 04/10/17 21:07 04/10/17 21:07 - ECG O2 Sat by Pulse Oximetry: 95 (RA) Pulse Ox Interpretation: Normal - Radiology X-Ray: Interpreted by Me, Viewed By Me X-Ray Interpretation: No Acute Disease Medical Decision Making Medical Decision Making: Impression: Cough and shortness of breath, r/o pneumonia, flu Plan: -- Rapid flu -- CXR -- Labs -- albuterol 2.5 mg INH flu negative cxr no infiltrate pt feels better, given ivf for slight dehydration noted with elevated bun on labs Results reviewed and discussed with patient. She is medically stable for discharge. All questions answered. Follow up instructions given. Scribe Attestation: Documented by Idalia Lezama and Ade Thomas, acting as a scribe for Shavon Grimaldo MD. Provider Scribe Attestation: All medical record entries made by the Scribe were at my direction and personally dictated by me. I have reviewed the chart and agree that the record accurately reflects my personal performance of the history, physical exam, medical decision making, and the department course for this patient. I have also personally directed, reviewed, and agree with the discharge instructions and disposition. Disposition - Clinical Impression Clinical Impression: Cough, Dehydration - Patient ED Disposition Is Patient to be Admitted: No Doctor Will See Patient In The: Office Counseled Patient/Family Regarding: Studies Performed, Diagnosis, Need For Followup - Disposition Disposition: Routine/Home Disposition Time: 00:00 Condition: IMPROVED Additional Instructions: follow up with your primary doctor in 1-2 days return to the ED with any worsening or concerning symptoms. Instructions: Dehydration (ED) Forms: [employer] (Irish)
[2017-04-10 21:12] LABS: BASO % 0.6 % (0.0-2.0); EOS # 0.1 K/uL (0.0-0.7); EOS % 2.2 % (0.0-4.0); HEMATOCRIT 37.3 % (34.0-47.0); LYMPH # 1.1 K/uL (1.0-4.3); LYMPH % 17.4 % (20.0-40.0); MEAN CELL VOLUME 79.4 fl (81.0-99.0); MEAN CORPUSCULAR HGB CONC 31.5 g/dL (33.0-37.0); MEAN PLATELET VOLUME 9.2 fl (7.2-11.7); MONO # 0.6 K/uL (0.0-0.8); MONO % 9.7 % (0.0-10.0); NEUT # 4.3 K/uL (1.8-7.0); NEUT % 70.1 % (50.0-75.0); RED CELL DISTRIBUTION WIDTH 18.2 % (11.5-14.5); WHITE BLOOD COUNT 6.1 K/uL (4.8-10.8)
[2017-04-10 21:47] LABS: ALB/GLOB RATIO 1.4 (1.0-2.1); ALKALINE PHOSPHATASE 97 U/L (38-126); ALT/SGPT 31 U/L (9-52); AST/SGOT 36 U/L (14-36); BILIRUBIN,TOTAL 0.4 mg/dl (0.2-1.3); BLOOD UREA NITROGEN 28 mg/dl (7-17); CALCIUM 9.4 mg/dL (8.4-10.2); CARBON DIOXIDE 23 mmol/L (22-30); CHLORIDE 106 mmol/L (98-107); GFR AFRICAN-AMERICAN > 60; GLUCOSE,RANDOM 139 mg/dL (65-105); POTASSIUM 4.2 MMOL/L (3.6-5.0); SODIUM 145 mmol/l (132-148); TOTAL PROTEIN 7.2 G/DL (6.3-8.2)
[2017-04-10] MEDS ORDERED: Sodium Chloride 0.9% 1,000 ML IV STA (23:33)
--- NOTE | 2017-04-11 00:42 | RAD ---
EXAM: XR Chest, 1 View CLINICAL HISTORY: 82 years old, female; Signs and symptoms; Shortness of breath; Additional info: Short of breath TECHNIQUE: Frontal view of the chest. COMPARISON: CR - CHEST PORTABLE 11/22/2016 10:26:57 AM FINDINGS: Limitations: Radiographic technique - mild. Lungs: Mild underinflation. No consolidation. Pleural space: No definite pleural effusion. No pneumothorax. Heart: No cardiomegaly. Mediastinum: Atherosclerosis of thoracic aorta. Bones/joints: No acute fracture. IMPRESSION: 1. No definite acute cardiopulmonary disease.
[2017-04-11 01:07] VITALS: PULSE 110
[2017-04-11 02:34] VITALS: RESP 19
[2017-04-11 04:43] VITALS: O2SAT 95
== END 2017-04-11 00:51 | disposition home or self-care (01) ==
LOC: H.ER 19:36
DX: R05 Cough (principal); E86.0 Dehydration; E78.00 Pure hypercholesterolemia, unspecified; F02.80 Dementia in other diseases classified elsewhere, unspecified severity, without behavioral disturbance, psychotic disturbance, mood disturbance, and anxiety; F32.9 Major depressive disorder, single episode, unspecified; F41.9 Anxiety disorder, unspecified; G30.9 Alzheimer's disease, unspecified
CPT/HCPCS: 71010; 80053; 85025; 87804; 99282; J7040

== ENCOUNTER 2017-06-13 13:14 | Emergency (ER) | payer MEDICARE, MEDICAID ==
[2017-06-13 13:17] VITALS: BP 117/59; PULSE 93; RESP 20; TEMP 97; O2SAT 98
[2017-06-13 15:01] LABS: VENOUS BLOOD GAS BASE EXCESS 5.9 mmol/L (0.0-2.0); VENOUS BLOOD GAS PCO2 60 mmHg (40-60); VENOUS BLOOD PH 7.35 (7.32-7.43)
--- NOTE | 2017-06-13 15:08 | ED PDOC ---
HPI: SOB/CHF/COPD Time Seen by Provider: 06/13/17 14:17 Chief Complaint (Nursing): Cough, Cold, Congestion Chief Complaint (Provider): Shortness of breath History Per: Family (daughter) History/Exam Limitations: other (severe dementia) Onset/Duration Of Symptoms: Days (x1) Current Symptoms Are (Timing): Still Present Current Respiratory Medications: Albuterol Additional Complaint(s): Anny Sutton is an 82 year old female, with a past medical history of asthma, arthritis, COPD, and dementia, who presents to the emergency via EMS accompanied by daughter for shortness of breath onset today. Patient is unable to give history due to severe dementia. History obtained from daughter. Patient is wheelchair bound. According to daughter, she was called by the patient's daycare after she seemed very weak, less talkative, and seemed to have some cough and Shortness of breath. Daughter reports that it looked like she was going to start having a cold, so she gave her albuterol for the wheeze. Patient ate well yesterday and was acting normal this morning. At the moment daughter reports patient just seems wheezy and more sleepy than usual. No further medical complaints. PMD: Salomón Ga Past Medical History Reviewed: Historical Data, Nursing Documentation, Vital Signs Vital Signs: Last Vital Signs Temp 97 F L 06/13/17 13:15 Pulse 93 H 06/13/17 13:15 Resp 20 06/13/17 13:15 BP 117/59 L 06/13/17 13:15 Pulse Ox 98 06/19/17 16:00 - Medical History PMH: Alzheimer's Disease, Anemia, Anxiety, Arthritis, Asthma, COPD, Dementia, Depression, Gastritis, Hypercholesterolemia Denies: CHF, HIV, HTN, Hypothyroidism, Chronic Kidney Disease, Rheumatoid Arthritis - Family History Family History: States: Unknown Family Hx - Home Medications Home Medications: Ambulatory Orders Medication Instructions Recorded Memantine HCl [Namenda Xr] 28 mg PO DAILY 03/03/15 Rosuvastatin Calcium [Crestor] 5 mg PO DAILY 03/03/15 Esomeprazole Magnesium [Nexium] 40 mg PO DAILY 01/27/16 Haloperidol [Haldol] 0.5 mg PO PRN PRN 01/27/16 Levalbuterol HCl 3 ml IH Q4 PRN #20 vial 01/27/16 PARoxetine [Paxil] 20 mg PO DAILY 01/27/16 Aspirin 325 mg PO DAILY #30 tab 11/25/16 Enoxaparin [Lovenox] 40 mg SC DAILY #30 syr 11/25/16 Metoprolol Tartrate [Lopressor] 6.25 mg PO Q12 #60 tab 11/25/16 cefTRIAXone 1 gm [Rocephin 1 gram 1 gm IVPB DAILY #7 bag 11/25/16 IVPB] - Allergies Allergies/Adverse Reactions: Allergies Allergy/AdvReac Type Severity Reaction Status Date / Time No Known Allergies Allergy Verified 01/27/16 16:23 Review of Systems Review Of Systems: ROS cannot be obtained secondary to pt's inabilty to answer questions. (unable to obtain due to patient's dementia. Partial obtained from daughter) Respiratory: Positive for: Shortness of Breath Physical Exam - Reviewed Nursing Documentation Reviewed: Yes Vital Signs Reviewed: Yes - Physical Exam Appears: Positive for: Non-toxic, No Acute Distress (appears chronically ill and sleepy but arousable) Head Exam: Positive for: ATRAUMATIC, NORMOCEPHALIC Skin: Positive for: Warm, Dry ENT: Positive for: Pharynx Is (clear), Other (dry mucus membranes) Neck: Positive for: Painless ROM, Supple Cardiovascular/Chest: Positive for: Regular Rate, Rhythm. Negative for: Tachycardia Respiratory: Positive for: Rhonchi (upper airway sounds). Negative for: Decreased Breath Sounds, Wheezing, Respiratory Distress Gastrointestinal/Abdominal: Positive for: Soft. Negative for: Tenderness Back: Positive for: Normal Inspection, Other (bilateral purple colored buttock decubiti). Negative for: Decreased ROM Lymphatic: Negative for: Adenopathy Neurologic/Psych: Negative for: Oriented, Motor/Sensory Deficits - Laboratory Results Result Diagrams: 06/13/17 14:50 06/13/17 14:50 - ECG O2 Sat by Pulse Oximetry: 98 (RA) Pulse Ox Interpretation: Normal Medical Decision Making Medical Decision Making: Initial Impression: lethargy and respiratory symptoms. Differential includes but not limited to COPD exacerbation, Pneumonia, URI, Dehydration, electrolyte abnormality, and bronchitis Initial Plan: --B-Type Natriuretic peptide --EKG --Comp metabolic Panel --Magnesium --Phosphorus --Troponin I --Urine dipstick --CBC w/ differential --PTT --PT --Chest portable [RAD] --Blood culture --Urine culture --Influenza A B --reevaluation 162 Chest x-ray FINDINGS: Examination limited by habitus. LUNGS: Mild increased interstitial opacities within upper lobes; correlate clinically for possibility of congestion or infection. Please note that chest x-ray has limited sensitivity for the detection of pulmonary masses. PLEURA: No significant pleural effusion identified. No definite pneumothorax . CARDIOVASCULAR: Heart size appears within normal limits. Dense atherosclerotic calcifications of the aorta. OSSEOUS STRUCTURES: No acute osseous abnormality identified. VISUALIZED UPPER ABDOMEN: Unremarkable. OTHER FINDINGS: None. IMPRESSION: Mild increased interstitial opacities within upper lobes; correlate clinically for possibility of congestion or infection. Study marked for PA review. No emergently significant lab abnormalities. CXR findings c/w pt's presentation DW family findings and plan of care. DC home with outpatient follow up. Scribe Attestation: Documented by Ochoa Pires, acting as a scribe for Dorys Asif MD Provider Scribe Attestation: All medical record entries made by the Scribe were at my direction and personally dictated by me. I have reviewed the chart and agree that the record accurately reflects my personal performance of the history, physical exam, medical decision making, and the department course for this patient. I have also personally directed, reviewed, and agree with the discharge instructions and disposition. Disposition - Clinical Impression Clinical Impression: Common cold, COPD exacerbation Counseled Patient/Family Regarding: Studies Performed, Diagnosis, Need For Followup - Disposition Referrals: Salomón Ga MD [Staff Provider] - 06/14/17 (SEE DR GA TOMORROW FOR REEVALUATION) Disposition: Routine/Home Disposition Time: 18:00 Condition: STABLE Additional Instructions: CONTINUE ALBUTEROL NEEDED FOR COUGH AND WHEEZE Instructions: Upper Respiratory Infection (ED) Forms: [employer] (Nigerian)
[2017-06-13 15:12] LABS: BASO % 0.8 % (0.0-2.0); EOS # 0.3 K/uL (0.0-0.7); EOS % 4.2 % (0.0-4.0); HEMATOCRIT 36.1 % (34.0-47.0); LYMPH # 1.8 K/uL (1.0-4.3); LYMPH % 29.5 % (20.0-40.0); MEAN CELL VOLUME 80.6 fl (81.0-99.0); MEAN CORPUSCULAR HEMOGLOBIN 26.1 pg (27.0-31.0); MEAN CORPUSCULAR HGB CONC 32.3 g/dL (33.0-37.0); MONO # 0.5 K/uL (0.0-0.8); MONO % 7.7 % (0.0-10.0); NEUT # 3.6 K/uL (1.8-7.0); NEUT % 57.8 % (50.0-75.0); NRBC % 0.2 % (0.0-0.0); RED CELL DISTRIBUTION WIDTH 16.8 % (11.5-14.5); WHITE BLOOD COUNT 6.2 K/uL (4.8-10.8)
[2017-06-13 15:17] LABS: ALB/GLOB RATIO 1.2 (1.0-2.1); ALKALINE PHOSPHATASE 99 U/L (38-126); ALT/SGPT 40 U/L (9-52); AST/SGOT 31 U/L (14-36); BILIRUBIN,TOTAL 0.4 mg/dl (0.2-1.3); BLOOD UREA NITROGEN 18 mg/dl (7-17); CARBON DIOXIDE 30 mmol/L (22-30); CHLORIDE 105 mmol/L (98-107); GFR AFRICAN-AMERICAN > 60; GLUCOSE,RANDOM 104 mg/dL (65-105); PHOSPHOROUS 4.4 mg/dl (2.5-4.5); POTASSIUM 4.3 MMOL/L (3.6-5.0); SODIUM 144 mmol/l (132-148); TOTAL PROTEIN 7.6 G/DL (6.3-8.2)
[2017-06-13 15:18] LABS: PARTIAL THROMBOPLASTIN TIME 32.2 Seconds (25.6-37.1)
--- NOTE | 2017-06-13 16:29 | RAD ---
HISTORY: sob COMPARISON: Chest x-ray performed 04/10/17 TECHNIQUE: Chest, one view. FINDINGS: Examination limited by habitus. LUNGS: Mild increased interstitial opacities within upper lobes; correlate clinically for possibility of congestion or infection. Please note that chest x-ray has limited sensitivity for the detection of pulmonary masses. PLEURA: No significant pleural effusion identified. No definite pneumothorax . CARDIOVASCULAR: Heart size appears within normal limits. Dense atherosclerotic calcifications of the aorta. OSSEOUS STRUCTURES: No acute osseous abnormality identified. VISUALIZED UPPER ABDOMEN: Unremarkable. OTHER FINDINGS: None. IMPRESSION: Mild increased interstitial opacities within upper lobes; correlate clinically for possibility of congestion or infection. Study marked for PA review.
[2017-06-13 18:01] LABS: RBC URINE 9 /hpf (0-3); URINE BACTERIA RARE (<OCC); URINE BILIRUBIN NEGATIVE (NEGATIVE); URINE BLOOD SMALL (NEGATIVE); URINE COLOR YELLOW (YELLOW); URINE GLUCOSE (UA) NEG (Normal); URINE KETONE NEGATIVE (NEGATIVE); URINE LEUKOCYTE ESTERASE TRACE Leu/uL (Negative); URINE PROTEIN NEGATIVE (NEGATIVE)
[2017-06-13 18:12] LABS: WBC URINE 8 /hpf (0-5)
--- NOTE | 2017-06-14 08:01 | CARD ---
APPROVED REPORT EKG Measurement Heart [id number] <Conclusion> Accelerated Junctional rhythm Low voltage QRS Abnormal ECG
== END 2017-06-13 18:47 | disposition home or self-care (01) ==
LOC: H.ER 13:14
DX: J44.1 Chronic obstructive pulmonary disease with (acute) exacerbation (principal); J06.9 Acute upper respiratory infection, unspecified; G30.9 Alzheimer's disease, unspecified; Z79.82 Long term (current) use of aspirin; Z99.3 Dependence on wheelchair; E78.00 Pure hypercholesterolemia, unspecified; F02.80 Dementia in other diseases classified elsewhere, unspecified severity, without behavioral disturbance, psychotic disturbance, mood disturbance, and anxiety

== ENCOUNTER 2017-09-27 15:29 | Observation (INO) | payer MEDICARE, MEDICAID ==
[2017-09-27 16:15] LABS: ABG ALLEN TEST YES; ARTERIAL BLOOD GAS HCO3 26.3 mmol/L (21-28); ARTERIAL BLOOD GAS O2 SAT 98.3 % (95-98); ARTERIAL BLOOD GAS PCO2 41 mm/Hg (35-45); ARTERIAL BLOOD GAS PH 7.42 (7.35-7.45); ARTERIAL BLOOD GAS PO2 75 mm/Hg (80-100); ARTERIAL BLOOD GAS TCO2 27.9 mmol/L (22-28)
--- NOTE | 2017-09-27 16:48 | ED PDOC ---
HPI: CCC, URI, Sore Throat Time Seen by Provider: 09/27/17 15:48 Chief Complaint (Nursing): Shortness Of Breath Chief Complaint (Provider): Cough and SOB History Per: Patient, Family (daughter) History/Exam Limitations: other (advanced dementia) Onset/Duration Of Symptoms: Hrs (today) Current Symptoms Are (Timing): Still Present Associated Symptoms: Cough, Other (difficulty breathing.). denies: Fever, Chills, Nausea, Vomiting Ear Symptoms: Bilateral: None Additional Complaint(s): Anny Sutton is an 82 year old female, with a past medical history of COPD and advanced dementia, who was brought to the emergency department via EMS for cough and difficulty breathing onset today. Patient was noted to be coughing a lot and appeared lethargic at her adult daycare program where she goes every day. The daughter who lives with her was working at the time and brought her here to be evaluated. Per daughter, patient had a cough last night, she gave her a treatment of albuterol and went to sleep, but in the morning she noted patient was in distress and resting uncomfortably before she was taken to the daycare program. Patient is awake and responsive, eyes closed and yelling at usual baseline. Patient is currently taking albuterol as needed and Namenda. Daughter denies any nausea, vomit, fever or chills. No further medical complaints. PMD: Salomón Ga Past Medical History Reviewed: Historical Data, Nursing Documentation, Vital Signs Vital Signs: Last Vital Signs Temp 99.4 F 09/27/17 15:42 Pulse 112 H 09/27/17 15:42 Resp 20 09/27/17 15:42 BP 145/67 09/27/17 15:42 Pulse Ox 99 09/27/17 16:55 - Medical History PMH: Alzheimer's Disease, Anemia, Anxiety, Arthritis, Asthma, COPD, Dementia, Depression, Gastritis, Hypercholesterolemia Denies: CHF, HIV, HTN, Hypothyroidism, Chronic Kidney Disease, Rheumatoid Arthritis - Surgical History Surgical History: No Surg Hx - Family History Family History: States: Unknown Family Hx - Living Arrangements Living Arrangements: With Family (daughter) - Social History Ex-Smoker (has not smoked in the last 12 months): Yes Alcohol: None Drugs: Denies - Home Medications Home Medications: Ambulatory Orders Medication Instructions Recorded Memantine HCl [Namenda Xr] 28 mg PO DAILY 03/03/15 Rosuvastatin Calcium [Crestor] 5 mg PO DAILY 03/03/15 Esomeprazole Magnesium [Nexium] 40 mg PO DAILY 01/27/16 Haloperidol [Haldol] 0.5 mg PO PRN PRN 01/27/16 Levalbuterol HCl 3 ml IH Q4 PRN #20 vial 01/27/16 PARoxetine [Paxil] 20 mg PO DAILY 01/27/16 Aspirin 325 mg PO DAILY #30 tab 11/25/16 Enoxaparin [Lovenox] 40 mg SC DAILY #30 syr 11/25/16 Metoprolol Tartrate [Lopressor] 6.25 mg PO Q12 #60 tab 11/25/16 cefTRIAXone 1 gm [Rocephin 1 gram 1 gm IVPB DAILY #7 bag 11/25/16 IVPB] - Allergies Allergies/Adverse Reactions: Allergies Allergy/AdvReac Type Severity Reaction Status Date / Time No Known Allergies Allergy Verified 01/27/16 16:23 Review of Systems ROS Statement: Except As Marked, All Systems Reviewed And Found Negative Constitutional: Negative for: Fever, Chills Respiratory: Positive for: Cough (hacking), Shortness of Breath Gastrointestinal: Negative for: Nausea, Vomiting Physical Exam - Reviewed Nursing Documentation Reviewed: Yes Vital Signs Reviewed: Yes - Physical Exam Appears: Positive for: Non-toxic, No Acute Distress Head Exam: Positive for: ATRAUMATIC, NORMOCEPHALIC Skin: Positive for: Normal Color, Warm, Dry Eye Exam: Positive for: Other (eyes closed verbalizing any apparent meaning. ) Neck: Positive for: Normal, Painless ROM, Supple Cardiovascular/Chest: Positive for: Regular Rate, Rhythm. Negative for: Murmur Respiratory: Positive for: Normal Breath Sounds (good air entry). Negative for : Wheezing, Respiratory Distress (breathing comfortably.) Gastrointestinal/Abdominal: Positive for: Normal Exam, Soft. Negative for: Tenderness Extremity: Positive for: Normal ROM. Negative for: Tenderness, Pedal Edema, Deformity, Swelling Neurologic/Psych: Positive for: Alert - ECG O2 Sat by Pulse Oximetry: 99 (RA) Pulse Ox Interpretation: Normal Medical Decision Making Medical Decision Making: Initial Impression: Acute URI. Rule out pneumonia, COPD exacerbation Initial Plan: --EKG --CMP --CBC w/ differential --Chest one view [RAD] --Influenza A B --Reevaluation 17:00 --Patient will be signed out to Dr. Asif, pending labs. Scribe Attestation: Documented by Ochoa Pires, acting as a scribe for Zenaida Jara MD Provider Scribe Attestation: All medical record entries made by the Scribe were at my direction and personally dictated by me. I have reviewed the chart and agree that the record accurately reflects my personal performance of the history, physical exam, medical decision making, and the department course for this patient. I have also personally directed, reviewed, and agree with the discharge instructions and disposition. Disposition - Disposition Forms: [employer] (Mongolian)
[2017-09-27 17:14] LABS: BASO % 0.5 % (0.0-2.0); EOS # 0.1 K/uL (0.0-0.7); EOS % 1.9 % (0.0-4.0); HEMOGLOBIN 12.2 g/dL (12.0-16.0); LYMPH # 1.1 K/uL (1.0-4.3); LYMPH % 15.6 % (20.0-40.0); MEAN CELL VOLUME 82.6 fl (81.0-99.0); MEAN CORPUSCULAR HEMOGLOBIN 26.6 pg (27.0-31.0); MEAN CORPUSCULAR HGB CONC 32.2 g/dL (33.0-37.0); MEAN PLATELET VOLUME 9.4 fl (7.2-11.7); MONO # 0.7 K/uL (0.0-0.8); MONO % 10.7 % (0.0-10.0); NEUT # 4.9 K/uL (1.8-7.0); NEUT % 71.3 % (50.0-75.0); NRBC % 0.1 % (0.0-0.0); RBC 4.6 Mil/uL (3.80-5.20); RED CELL DISTRIBUTION WIDTH 16.8 % (11.5-14.5); WHITE BLOOD COUNT 6.8 K/uL (4.8-10.8)
[2017-09-27 17:24] LABS: ALB/GLOB RATIO 1.2 (1.0-2.1); ALBUMIN 4.1 g/dL (3.5-5.0); ALT/SGPT 36 U/L (9-52); AST/SGOT 34 U/L (14-36); BLOOD UREA NITROGEN 18 mg/dl (7-17); CALCIUM 9.5 mg/dL (8.4-10.2); GFR AFRICAN-AMERICAN > 60; GFR NON-AFRICAN AMERICAN > 60
--- NOTE | 2017-09-27 17:35 | ED PDOC ---
- Laboratory Results Result Diagrams: 09/27/17 16:55 09/27/17 16:55 - ECG O2 Sat by Pulse Oximetry: 99 (RA) Medical Decision Making Medical Decision Makin:[address] Jara. Patient with shortness of breath, sent from adult daycare pending labs. -Patient is currently tachycardic, added troponin, BNP and D Dimer to lab work. CXR -Upper right lung field obscured by patient's head. Otherwise no infiltrate or effusion. D dimer elevated. CT scan ordered. Pt also acutely short of breath. Duonebs ordered. Family concerned about difficulty with breathing. EXAM: CT Angiography Chest With Intravenous Contrast CLINICAL HISTORY: 82 years old, female; Signs and symptoms; Shortness of breath; Additional info: SOB R/O pe TECHNIQUE: Axial computed tomographic angiography images of the chest with intravenous contrast using pulmonary embolism protocol. All CT scans at this facility use one or more dose reduction techniques, viz.: automated exposure control; ma/kV adjustment per patient size (including targeted exams where dose is matched to indication; i.e. head); or iterative reconstruction technique. MIP reconstructed images were created and reviewed. Coronal and sagittal reformatted images were created and reviewed. CONTRAST: 50 mL of [id number] administered intravenously. COMPARISON: CR - CHEST ONE VIEW 2017-09-27 16:17 FINDINGS: Limitations: Suboptimal positioning. Motion artifact - moderate. Pulmonary arteries: No definite pulmonary embolism. Aorta: Moderate to extensive atherosclerotic disease. No aneurysm. Lungs: Minimal atelectasis/scarring. No consolidation. RUFUS calcified granuloma. Pleural space: No significant effusion. No pneumothorax. Heart: No cardiomegaly. No significant pericardial effusion. Coronary artery calcifications. Mediastinum: Small hiatal hernia. Bones/joints: Mild degenerative changes of spine. Moderate compression deformity T8 vertebral body, likely subacute to chronic. Mild compression deformities T11, T12 vertebral bodies, likely chronic. Soft tissues: Unremarkable. Lymph nodes: No pathologically enlarged lymph nodes. Gallbladder and bile ducts: Gallstones. Kidneys and ureters: Few probable LEFT renal cysts. Upper abdomen: Elevated RIGHT hemidiaphragm. IMPRESSION: 1. No definite CT evidence of pulmonary embolism. 2. Incidental/non-acute findings are described above. Thank you for allowing us to participate in the care of your patient. Dictated and Authenticated by: Ruiz Ward MD 09/27/2017 10:09 PM Eastern Time ([place] & [place]) RICH family findings. Pt continues to be tachycardic and tachypneic. Will hospitalize for COPD exacerbation. RICH Nino Hospitalist admitting for PMD. Disposition - Clinical Impression Clinical Impression: COPD exacerbation - POA Present On Arrival: None - Disposition Disposition Time: 22:30 Condition: FAIR Forms: [employer] (Frisian)
[2017-09-27] MEDS ORDERED: Albuterol-Ipratrop 3 mg / 0.5 (3 ml) UD INH STA (19:00)
[2017-09-27] MEDS ORDERED: Albuterol-Ipratrop 3 mg / 0.5 (3 ml) UD ONE (19:14)
[2017-09-27] MEDS ORDERED: Sodium Chloride 0.9% 500 ML IV STA ×2 (19:23→22:49)
[2017-09-27 20:17] LABS: B-TYPE NATRIURETIC PEPTIDE 309 pg/ml (0-900)
[2017-09-27] MEDS ORDERED: Iodixanol 320 MG/ML 100 ML BOTTLE IV ONE (21:04)
[2017-09-27] MEDS ORDERED: Sodium Chloride 0.9% 100 ML ONE (21:04)
--- NOTE | 2017-09-27 22:10 | CT ---
EXAM: CT Angiography Chest With Intravenous Contrast CLINICAL HISTORY: 82 years old, female; Signs and symptoms; Shortness of breath; Additional info: SOB R/O pe TECHNIQUE: Axial computed tomographic angiography images of the chest with intravenous contrast using pulmonary embolism protocol. All CT scans at this facility use one or more dose reduction techniques, viz.: automated exposure control; ma/kV adjustment per patient size (including targeted exams where dose is matched to indication; i.e. head); or iterative reconstruction technique. MIP reconstructed images were created and reviewed. Coronal and sagittal reformatted images were created and reviewed. CONTRAST: 50 mL of [id number] administered intravenously. COMPARISON: CR - CHEST ONE VIEW 2017-09-27 16:17 FINDINGS: Limitations: Suboptimal positioning. Motion artifact - moderate. Pulmonary arteries: No definite pulmonary embolism. Aorta: Moderate to extensive atherosclerotic disease. No aneurysm. Lungs: Minimal atelectasis/scarring. No consolidation. RUFUS calcified granuloma. Pleural space: No significant effusion. No pneumothorax. Heart: No cardiomegaly. No significant pericardial effusion. Coronary artery calcifications. Mediastinum: Small hiatal hernia. Bones/joints: Mild degenerative changes of spine. Moderate compression deformity T8 vertebral body, likely subacute to chronic. Mild compression deformities T11, T12 vertebral bodies, likely chronic. Soft tissues: Unremarkable. Lymph nodes: No pathologically enlarged lymph nodes. Gallbladder and bile ducts: Gallstones. Kidneys and ureters: Few probable LEFT renal cysts. Upper abdomen: Elevated RIGHT hemidiaphragm. IMPRESSION: 1. No definite CT evidence of pulmonary embolism. 2. Incidental/non-acute findings are described above.
--- NOTE | 2017-09-27 23:05 | CP.PCM.HP ---
History of Present Illness - History of Present Illness History of Present Illness: CC: cough, shortness of breath, lethargy HPI: 82F PMH advanced dementia, COPD, former heavy smoker, presents to ED accompanied by family, was observed to be increasingly lethargic and coughing more than usual for the past two days, worse today at adult day care. In ED, ABG ok, no WBC, afebrile, mild tachycardia and tachypnea and end expiratory wheezes that did not easily resolve with bronchodilators. Patient to be observed for COPD exacerbation, procalcitonin for possible bacterial infection. UA and UCx pending as well. Continue bronchodilators and IV steroids and reassess in AM. For tachycardia, TSH normal, 1L NS given, CTA neg for PE 2/2 elevated dimer. HD stable, NAD. ROS: Per HPI, all other systems reviewed and neg PMH: advanced dementia, COPD, former heavy smoker PSH: metal plate in hand, knee sx FH: Ca SH: former heavy smoker. no ETOH, IVDU NKDA Vitals Reviewed GEN: resting, lethargic compared to baseline HEENT: NCAT, PERRL, EOMI HEART: RRR, +S1S2, NO MRG LUNG: end expiratory wheezes, improved from earlier today ABD: SOFT, NT, ND, NO HSM, NO MASSES EXT: NORMAL PEDAL PULSES, GOOD CAPILLARY REFILL NEURO: difficult to assess given somnolence SKIN: WARM, DRY PSYCH: NORMAL MOOD, NORMAL AFFECT LABS 09/27/17 09/27/17 09/27/17 19:54 19:10 16:55 WBC RBC Hgb Hct MCV MCH MCHC RDW Plt Count MPV Neut % (Auto) Lymph % (Auto) Cross % (Auto) Eos % (Auto) Baso % (Auto) Neut # (Auto) Lymph # (Auto) Cross # (Auto) Eos # (Auto) Baso # (Auto) D-Dimer, Quantitative 262 H pCO2 pO2 HCO3 ABG pH ABG Total CO2 ABG O2 Saturation ABG Base Excess He Test ABG Potassium A-a O2 Difference Sodium Chloride Glucose Lactate FiO2 Potassium Carbon Dioxide Anion Gap BUN Creatinine Est GFR ( Amer) Est GFR (Non-Af Amer) Random Glucose Calcium Total Bilirubin AST ALT Alkaline Phosphatase Troponin I < 0.0120 NT-Pro-B Natriuret Pep 309 Total Protein Albumin Globulin Albumin/Globulin Ratio TSH 3rd Generation 0.86 Arterial Blood Potassium Influenza Typ A,B (EIA) Negative for flu a/b 09/27/17 09/27/17 09/27/17 16:55 16:55 16:05 WBC 6.8 RBC 4.60 Hgb 12.2 Hct 38.0 MCV 82.6 D MCH 26.6 L MCHC 32.2 L RDW 16.8 H Plt Count 191 MPV 9.4 Neut % (Auto) 71.3 Lymph % (Auto) 15.6 L Cross % (Auto) 10.7 H Eos % (Auto) 1.9 Baso % (Auto) 0.5 Neut # (Auto) 4.9 Lymph # (Auto) 1.1 Cross # (Auto) 0.7 Eos # (Auto) 0.1 Baso # (Auto) 0.0 D-Dimer, Quantitative pCO2 41 pO2 75 L HCO3 26.3 ABG pH 7.42 ABG Total CO2 27.9 ABG O2 Saturation 98.3 H ABG Base Excess 1.9 He Test Yes ABG Potassium 4.4 A-a O2 Difference 23.0 Sodium 143 136.0 Chloride 98 103.0 Glucose 131 H Lactate 1.5 FiO2 21.0 Potassium 4.5 Carbon Dioxide 26 Anion Gap 24 H BUN 18 H Creatinine 0.7 Est GFR ( Amer) > 60 Est GFR (Non-Af Amer) > 60 Random Glucose 108 H Calcium 9.5 Total Bilirubin 0.3 AST 34 ALT 36 Alkaline Phosphatase 97 Troponin I NT-Pro-B Natriuret Pep Total Protein 7.6 Albumin 4.1 Globulin 3.4 Albumin/Globulin Ratio 1.2 TSH 3rd Generation Arterial Blood Potassium 4.4 Influenza Typ A,B (EIA) Present on Admission - Present on Admission Any Indicators Present on Admission: No Past Patient History - Infectious Disease Hx of Infectious Diseases: None - Tetanus Immunizations Tetanus Immunization: Unknown (quit 5 yrs ago; used to smoke 2 PPD) - Past Medical History & Family History Past Medical History?: Yes - Past Social History Smoking Status: Former Smoker - CARDIAC Hx Congestive Heart Failure: No Hx Hypercholesterolemia: Yes Hx Hypertension: No - PULMONARY Hx Asthma: Yes Hx Chronic Obstructive Pulmonary Disease (COPD): Yes - NEUROLOGICAL Hx Alzheimer's Disease: Yes Hx Dementia: Yes - HEENT Hx HEENT Problems: No - RENAL Hx Chronic Kidney Disease: No - ENDOCRINE/METABOLIC Hx Hypothyroidism: No - HEMATOLOGICAL/ONCOLOGICAL Hx Anemia: Yes Hx Human Immunodeficiency Virus (HIV): No - INTEGUMENTARY Hx Dermatological Problems: No - MUSCULOSKELETAL/RHEUMATOLOGICAL Hx Arthritis: Yes Hx Rheumatoid Arthritis: No - GASTROINTESTINAL Hx Gastritis: Yes - GENITOURINARY/GYNECOLOGICAL Hx Genitourinary Disorders: Yes Hx Incontinence: Yes - PSYCHIATRIC Hx Anxiety: Yes Hx Depression: Yes Hx Substance Use: No - SURGICAL HISTORY Hx Surgeries: Yes Hx Open Reduction Internal Fixation: Yes (right wrist fracture) Hx Orthopedic Surgery: Yes Other/Comment: right wrist surgery with metal plate, left knee mass removal years ago - ANESTHESIA Hx Anesthesia: Yes Hx Anesthesia Reactions: No Hx Malignant Hyperthermia: No Meds Allergies/Adverse Reactions: Allergies Allergy/AdvReac Type Severity Reaction Status Date / Time No Known Allergies Allergy Verified 01/27/16 16:23 Results - Vital Signs Recent Vital Signs: Last Vital Signs Temp 99.4 F 09/27/17 15:42 Pulse 112 H 09/27/17 15:42 Resp 18 09/27/17 18:54 BP 145/67 09/27/17 15:42 Pulse Ox 99 09/27/17 23:03 - Labs Result Diagrams: 09/27/17 16:55 09/27/17 16:55 Labs: Laboratory Results - last 24 hr 09/27/17 09/27/17 09/27/17 16:05 16:55 16:55 WBC 6.8 RBC 4.60 Hgb 12.2 Hct 38.0 MCV 82.6 D MCH 26.6 L MCHC 32.2 L RDW 16.8 H Plt Count 191 MPV 9.4 Neut % (Auto) 71.3 Lymph % (Auto) 15.6 L Cross % (Auto) 10.7 H Eos % (Auto) 1.9 Baso % (Auto) 0.5 Neut # (Auto) 4.9 Lymph # (Auto) 1.1 Cross # (Auto) 0.7 Eos # (Auto) 0.1 Baso # (Auto) 0.0 D-Dimer, Quantitative pCO2 41 pO2 75 L HCO3 26.3 ABG pH 7.42 ABG Total CO2 27.9 ABG O2 Saturation 98.3 H ABG Base Excess 1.9 He Test Yes ABG Potassium 4.4 A-a O2 Difference 23.0 Sodium 136.0 143 Chloride 103.0 98 Glucose 131 H Lactate 1.5 FiO2 21.0 Potassium 4.5 Carbon Dioxide 26 Anion Gap 24 H BUN 18 H Creatinine 0.7 Est GFR ( Amer) > 60 Est GFR (Non-Af Amer) > 60 Random Glucose 108 H Calcium 9.5 Total Bilirubin 0.3 AST 34 ALT 36 Alkaline Phosphatase 97 Troponin I NT-Pro-B Natriuret Pep Total Protein 7.6 Albumin 4.1 Globulin 3.4 Albumin/Globulin Ratio 1.2 TSH 3rd Generation Arterial Blood Potassium 4.4 Influenza Typ A,B (EIA) 09/27/17 09/27/17 09/27/17 16:55 19:10 19:54 WBC RBC Hgb Hct MCV MCH MCHC RDW Plt Count MPV Neut % (Auto) Lymph % (Auto) Cross % (Auto) Eos % (Auto) Baso % (Auto) Neut # (Auto) Lymph # (Auto) Cross # (Auto) Eos # (Auto) Baso # (Auto) D-Dimer, Quantitative 262 H pCO2 pO2 HCO3 ABG pH ABG Total CO2 ABG O2 Saturation ABG Base Excess He Test ABG Potassium A-a O2 Difference Sodium Chloride Glucose Lactate FiO2 Potassium Carbon Dioxide Anion Gap BUN Creatinine Est GFR ( Amer) Est GFR (Non-Af Amer) Random Glucose Calcium Total Bilirubin AST ALT Alkaline Phosphatase Troponin I < 0.0120 NT-Pro-B Natriuret Pep 309 Total Protein Albumin Globulin Albumin/Globulin Ratio TSH 3rd Generation 0.86 Arterial Blood Potassium Influenza Typ A,B (EIA) Negative for flu a/b Assessment & Plan - Assessment and Plan (Free Text) Plan: 82F PMH advanced dementia, COPD, former heavy smoker, presents to ED accompanied by family, was observed to be increasingly lethargic and coughing more than usual for the past two days, worse today at adult day care. In ED, ABG ok, no WBC, afebrile, mild tachycardia and tachypnea and end expiratory wheezes that did not easily resolve with bronchodilators. Patient to be observed for COPD exacerbation, procalcitonin for possible bacterial infection. UA and UCx pending as well. Continue bronchodilators and IV steroids and reassess in AM. For tachycardia, TSH normal, 1L NS given, CTA neg for PE 2/2 elevated dimer. HD stable, NAD. COPD exacerbation improving slowly from ED, mild end expiratory wheezes continue bronchodilators and steroids Procalcitonin pending for possible infectious process Lethargy continue tx COPD eval UA and UCx for possible UTI, afebrile, no WBC Tachycardia on Lopressor at home, holding for COPD exacerbation currently stable monitor CAD? cont Aspirin 325 mg PO DAILY cont Atorvastatin [Lipitor] 10 mg PO DAILY Advanced Dementia cont Memantine [Namenda] 10 mg PO BID cont PARoxetine [Paxil] 20 mg PO DAILY
[2017-09-28] MEDS ORDERED: Levalbuterol 0.63 MG/3 ML Inhal Soln UD ONE (00:06)
[2017-09-28] MEDS: Levalbuterol 1.25 MG/3 ML Inhal Soln UD INH SCH ×7 (00:08→23:51)
[2017-09-28 06:51] LABS: BLOOD UREA NITROGEN 14 mg/dl (7-17); CALCIUM 8.9 mg/dL (8.4-10.2); GFR AFRICAN-AMERICAN > 60; GFR NON-AFRICAN AMERICAN > 60
[2017-09-28 07:12] LABS: BASO % 0.1 % (0.0-2.0); EOS % 0.1 % (0.0-4.0); HEMOGLOBIN 11.3 g/dL (12.0-16.0); LYMPH # 0.4 K/uL (1.0-4.3); LYMPH % 9.4 % (20.0-40.0); MEAN CELL VOLUME 83.4 fl (81.0-99.0); MEAN CORPUSCULAR HEMOGLOBIN 26.9 pg (27.0-31.0); MEAN CORPUSCULAR HGB CONC 32.2 g/dL (33.0-37.0); MEAN PLATELET VOLUME 9.7 fl (7.2-11.7); MONO # 0.1 K/uL (0.0-0.8); MONO % 2.9 % (0.0-10.0); NEUT % 87.5 % (50.0-75.0); PLATELET COUNT 158 K/uL (130-400); RED CELL DISTRIBUTION WIDTH 16.3 % (11.5-14.5); WHITE BLOOD COUNT 4.6 K/uL (4.8-10.8)
--- NOTE | 2017-09-28 07:31 | RAD ---
PROCEDURE: CHEST RADIOGRAPH, 1 VIEW HISTORY: cough with dyspnea COMPARISON: Portable chest 06/13/2017. FINDINGS: LUNGS: Patient's lower face/ mandible obscures the right apex and right suprahilar space. Remaining lung marcelino are remarkable only for linear atelectasis at the right base. No definite infiltrate bilaterally. . PLEURA: No pneumothorax or pleural fluid seen. CARDIOVASCULAR: Normal. OSSEOUS STRUCTURES: No significant abnormalities. VISUALIZED UPPER ABDOMEN: Normal. OTHER FINDINGS: None. IMPRESSION: No acute infiltrate or pleural effusions appreciated in the visualized lung feels as discussed above. Patient's lower face and mandible obscure the right apex and right suprahilar space. Linear atelectasis is noted at right base.
[2017-09-28 08:09] LABS: SQUAMOUS EPITHIAL 1 /hpf (0-5); URINE BACTERIA RARE (<OCC); URINE BILIRUBIN NEGATIVE (NEGATIVE); URINE BLOOD MODERATE (NEGATIVE); URINE CLARITY SLIGHTY-CLOUDY (Clear); URINE COLOR STRAW (YELLOW); URINE GLUCOSE (UA) NEG (Normal); URINE LEUKOCYTE ESTERASE NEG Leu/uL (Negative); URINE PROTEIN NEGATIVE (NEGATIVE); URINE UROBILINOGEN 0.2-1.0 mg/dL (0.2-1.0)
[2017-09-28] MEDS ORDERED: Patient's Own Med (Memantine Hcl [Namenda Xr] 28 MG) PO SCH (09:00)
[2017-09-28] MEDS ORDERED: Influenza Vaccine 18yr & older 0.5 ML/45 MCG SYR IM ONE (09:00)
[2017-09-28] MEDS: Enoxaparin 40 mg Syringe SC SCH (10:41)
--- NOTE | 2017-09-28 11:32 | CARD ---
APPROVED REPORT EKG Measurement Heart [id number] <Conclusion> Sinus tachycardia Nonspecific ST abnormality Abnormal ECG
--- NOTE | 2017-09-28 12:12 | CP.PCM.PN ---
Subjective - Date & Time of Evaluation Date of Evaluation: 09/28/17 Time of Evaluation: 09:15 - Subjective Subjective: Pt seen and examined Pt is severely demented does not answer questions however mumbles incomprehensible words lethargic ( received Haldol) easily arousable ate a small amount of pudding for breakfast not in any respiratory distress Spoke with daughter Bell who is pt's POA - pt is at baseline mental status except for the lethargy ( Haldol does this to her thus family romero s not give her Haldol) Pt has [employer] in am and goes to Adult Day Care in the afternoon , lives with Bell. Usually has good appetite. Hx of heavy smoking. Objective - Vital Signs/Intake and Output Vital Signs (last 24 hours): Temp Pulse Resp BP Pulse Ox 98.2 F 68 18 100/58 L 97 09/28/17 08:15 09/28/17 10:38 09/28/17 08:15 09/28/17 10:38 09/28/17 08:15 - Medications Medications: Current Medications Aspirin (Aspirin) 325 mg PO DAILY [facility] Last Admin: 09/28/17 10:43 Dose: 325 mg Atorvastatin Calcium (Lipitor) 10 mg PO DAILY [facility] Last Admin: 09/28/17 10:38 Dose: 10 mg Enoxaparin Sodium (Lovenox) 40 mg SC DAILY [facility] PRN Reason: Protocol Last Admin: 09/28/17 10:41 Dose: 40 mg Haloperidol (Haldol) 0.5 mg PO DAILY [facility] Last Admin: 09/28/17 10:41 Dose: Not Given Levalbuterol HCl (Xopenex) 1.25 mg INH RQ4 [facility] Last Admin: 09/28/17 11:24 Dose: 1.25 mg Memantine (Namenda) 10 mg PO BID [facility] Last Admin: 09/28/17 10:38 Dose: 10 mg Methylprednisolone (Solu-Medrol) 60 mg IVP Q8H [facility] Last Admin: 09/28/17 10:40 Dose: 60 mg Metoprolol Tartrate (Lopressor) 6.25 mg PO Q12 [facility] Last Admin: 09/28/17 10:38 Dose: Not Given Paroxetine HCl (Paxil) 20 mg PO DAILY [facility] Last Admin: 09/28/17 10:39 Dose: 20 mg - Labs Labs: 09/28/17 06:00 09/28/17 06:00 - Constitutional Appears: No Acute Distress, Chronically Ill - Head Exam Head Exam: NORMAL INSPECTION, NORMOCEPHALIC - Eye Exam Eye Exam: Normal appearance - ENT Exam ENT Exam: Mucous Membranes Dry, Normal External Ear Exam - Neck Exam Neck Exam: absent: Meningismus - Respiratory Exam Respiratory Exam: Rhonchi, Wheezes. absent: Respiratory Distress - Cardiovascular Exam Cardiovascular Exam: REGULAR RHYTHM, +S1, +S2 - GI/Abdominal Exam GI & Abdominal Exam: Soft, Normal Bowel Sounds. absent: Tenderness - Extremities Exam Extremities Exam: Normal Capillary Refill - Neurological Exam Additional comments: Pt is severely demented noted to move extremities - Psychiatric Exam Additional comments: confused - Skin Skin Exam: Dry, Normal Color, Warm Assessment and Plan - Assessment and Plan (Free Text) Assessment: 82F PMH advanced dementia, COPD, former heavy smoker, presents to ED accompanied by family, was observed to be increasingly lethargic and coughing more than usual for the past two days, worse today at adult day care. In ED, ABG ok, no WBC, afebrile, mild tachycardia and tachypnea and end expiratory wheezes that did not easily resolve with bronchodilators. Patient to be observed for COPD exacerbation, procalcitonin for possible bacterial infection. UA and UCx pending as well. Continue bronchodilators and IV steroids and reassess in AM. For tachycardia, TSH normal, 1L NS given, CTA neg for PE 2/2 elevated dimer. HD stable, NAD. 1. COPD exacerbation - cont Xopenex Neb tx - cont IV Solumedrol , taper to 40 mg q 12 - CT of chest : no Pneumonia, no PE 2. Lethargy- prob sec to emds -d/c Haldol no signs of infection ( UA normal, no PNA on CTA, Flu negative ) 3. CAD cont Aspirin 325 mg PO DAILY cont Atorvastatin [Lipitor] 10 mg PO DAILY 4. Advanced Dementia cont Memantine [Namenda] 10 mg PO BID cont PARoxetine [Paxil] 20 mg PO DAILY DVT proph : Lovenox
[2017-09-28 12:46] LABS: BASOPHIL 1 % (0-2); LYMPHOCYTE 7 % (20-50); MONOCYTE 1 % (0-10); MYELOCYTE 1 % (0-0); NEUTROPHIL 90 % (42-75); PLATELET ESTIMATE NORMAL (NORMAL); TOTAL CELLS COUNTED 100
[2017-09-28 12:47] LABS: ANISOCYTOSIS SLIGHT; HYPOCHROMIC SLIGHT; OVALOCYTES SLIGHT; SCHISTOCYTES SLIGHT; TEARDROP CELLS SLIGHT
[2017-09-28 14:45] VITALS: BMI 21.6
[2017-09-28] MEDS: MethylPREDNISolone 40 mg Vial IVP SCH (21:00)
[2017-09-29] MEDS: Levalbuterol 1.25 MG/3 ML Inhal Soln UD INH SCH ×3 (04:30→11:36)
[2017-09-29 07:34] VITALS: BP 150/54; PULSE 65; RESP 18; TEMP 97.2; O2SAT 96
--- NOTE | 2017-09-29 08:17 | CP.PCM.DIS ---
Provider - Provider Date of Admission: 09/27/17 22:57 Attending physician: Stephanie Nino DO Primary care physician: Dr Ga Time Spent in preparation of Discharge (in minutes): 25 Diagnosis - Discharge Diagnosis (1) COPD exacerbation Status: Acute (2) Dementia Status: Chronic Priority: Medium Hospital Course - Lab Results Lab Results: Most Recent Lab Values WBC 4.6 K/uL (4.8-10.8) L 09/28/17 06:00 RBC 4.20 Mil/uL (3.80-5.20) 09/28/17 06:00 Hgb 11.3 g/dL (12.0-16.0) L 09/28/17 06:00 Hct 35.0 % (34.0-47.0) 09/28/17 06:00 MCV 83.4 fl (81.0-99.0) 09/28/17 06:00 MCH 26.9 pg (27.0-31.0) L 09/28/17 06:00 MCHC 32.2 g/dL (33.0-37.0) L 09/28/17 06:00 RDW 16.3 % (11.5-14.5) H 09/28/17 06:00 Plt Count 158 K/uL (130-400) 09/28/17 06:00 MPV 9.7 fl (7.2-11.7) 09/28/17 06:00 Neut % (Auto) 87.5 % (50.0-75.0) H 09/28/17 06:00 Lymph % (Auto) 9.4 % (20.0-40.0) L 09/28/17 06:00 [place] % (Auto) 2.9 % (0.0-10.0) 09/28/17 06:00 Eos % (Auto) 0.1 % (0.0-4.0) 09/28/17 06:00 Baso % (Auto) 0.1 % (0.0-2.0) 09/28/17 06:00 Neut # (Auto) 4.0 K/uL (1.8-7.0) 09/28/17 06:00 Lymph # (Auto) 0.4 K/uL (1.0-4.3) L 09/28/17 06:00 [place] # (Auto) 0.1 K/uL (0.0-0.8) 09/28/17 06:00 Eos # (Auto) 0.0 K/uL (0.0-0.7) 09/28/17 06:00 Baso # (Auto) 0.0 K/uL (0.0-0.2) 09/28/17 06:00 Neutrophils % (Manual) 90 % (42-75) H 09/28/17 06:00 Lymphocytes % (Manual) 7 % (20-50) L 09/28/17 06:00 Monocytes % (Manual) 1 % (0-10) 09/28/17 06:00 Basophils % (Manual) 1 % (0-2) 09/28/17 06:00 Myelocytes % 1 % (0-0) H 09/28/17 06:00 Platelet Estimate Normal (NORMAL) 09/28/17 06:00 Hypochromasia (manual) Slight 09/28/17 06:00 Anisocytosis (manual) Slight 09/28/17 06:00 Tear Drop Cells Slight 09/28/17 06:00 Ovalocytes Slight 09/28/17 06:00 Schistocytes Slight 09/28/17 06:00 D-Dimer, Quantitative 262 ng/mlDDU (0-230) H 09/27/17 19:10 pCO2 41 mm/Hg (35-45) 09/27/17 16:05 pO2 75 mm/Hg (80-100) L 09/27/17 16:05 HCO3 26.3 mmol/L (21-28) 09/27/17 16:05 ABG pH 7.42 (7.35-7.45) 09/27/17 16:05 ABG Total CO2 27.9 mmol/L (22-28) 09/27/17 16:05 ABG O2 Saturation 98.3 % (95-98) H 09/27/17 16:05 ABG Base Excess 1.9 mmol/L (-2.0-3.0) 09/27/17 16:05 He Test Yes 09/27/17 16:05 ABG Potassium 4.4 mmol/L (3.6-5.2) 09/27/17 16:05 A-a O2 Difference 23.0 mm/Hg 09/27/17 16:05 Sodium 136.0 mmol/L (132-148) 09/27/17 16:05 Chloride 103.0 mmol/L (98-107) 09/27/17 16:05 Glucose 131 mg/dL (65-105) H 09/27/17 16:05 Lactate 1.5 mmol/L (0.7-2.1) 09/27/17 16:05 FiO2 21.0 % 09/27/17 16:05 Sodium 145 mmol/l (132-148) 09/28/17 06:00 Potassium 4.1 MMOL/L (3.6-5.0) 09/28/17 06:00 Chloride 104 mmol/L (98-107) 09/28/17 06:00 Carbon Dioxide 18 mmol/L (22-30) L 09/28/17 06:00 Anion Gap 27 (10-20) H 09/28/17 06:00 BUN 14 mg/dl (7-17) 09/28/17 06:00 Creatinine 0.7 mg/dl (0.7-1.2) 09/28/17 06:00 Est GFR ( Amer) > 60 09/28/17 06:00 Est GFR (Non-Af Amer) > 60 09/28/17 06:00 Random Glucose 173 mg/dL (65-105) H 09/28/17 06:00 Calcium 8.9 mg/dL (8.4-10.2) 09/28/17 06:00 Total Bilirubin 0.3 mg/dl (0.2-1.3) 09/27/17 16:55 AST 34 U/L (14-36) 09/27/17 16:55 ALT 36 U/L (9-52) 09/27/17 16:55 Alkaline Phosphatase 97 U/L (38-126) 09/27/17 16:55 Troponin I < 0.0120 ng/mL (0.00-0.120) 09/27/17 19:54 NT-Pro-B Natriuret Pep 309 pg/ml (0-900) 09/27/17 19:54 Total Protein 7.6 G/DL (6.3-8.2) 09/27/17 16:55 Albumin 4.1 g/dL (3.5-5.0) 09/27/17 16:55 Globulin 3.4 gm/dL (2.2-3.9) 09/27/17 16:55 Albumin/Globulin Ratio 1.2 (1.0-2.1) 09/27/17 16:55 Procalcitonin 0.05 NG/ML (0.19-0.49) L 09/28/17 06:00 TSH 3rd Generation 0.86 mIU/ML (0.46-4.68) 09/27/17 19:54 Arterial Blood Potassium 4.4 mmol/L (3.6-5.2) 09/27/17 16:05 Urine Color Straw (YELLOW) 09/28/17 08:02 Urine Clarity Slighty-cloudy (Clear) 09/28/17 08:02 Urine pH 5.0 (5.0-8.0) 09/28/17 08:02 Ur Specific [place] 1.015 (1.003-1.030) 09/28/17 08:02 Urine Protein Negative mg/dL (NEGATIVE) 09/28/17 08:02 Urine Glucose (UA) Neg mg/dL (Normal) 09/28/17 08:02 Urine Ketones Negative mg/dL (NEGATIVE) 09/28/17 08:02 Urine Blood Moderate (NEGATIVE) 09/28/17 08:02 Urine Nitrate Negative (NEGATIVE) 09/28/17 08:02 Urine Bilirubin Negative (NEGATIVE) 09/28/17 08:02 Urine Urobilinogen 0.2-1.0 mg/dL (0.2-1.0) 09/28/17 08:02 Ur Leukocyte Esterase Neg [place]/uL (Negative) 09/28/17 08:02 Urine RBC (Auto) < 1 /hpf (0-3) 09/28/17 08:02 Urine Microscopic WBC < 1 /hpf (0-5) 09/28/17 08:02 Ur Squamous Epith Cells 1 /hpf (0-5) 09/28/17 08:02 Urine Bacteria Rare (<OCC) 09/28/17 08:02 Influenza Typ A,B (EIA) Negative for flu a/b (NEGATIVE) 09/27/17 16:55 - Hospital Course Hospital Course: 82F PMH advanced dementia, COPD, former heavy smoker, presents to ED accompanied by family, was observed to be increasingly lethargic and coughing more than usual for two days, worse on day of admission. In ED, she had no WBC, afebrile, mild tachycardia and tachypnea and had end expiratory wheezes that did not easily resolve with bronchodilators. CXR was negative. CTA Pulm was negative for PE nor any infiltrate. Patient was observed for COPD exacerbation, procalcitonin was normal . She was started on IV Solumedrol, Xopenex neb treatment. Her wheezing and SOB improved with the IV Steroids and bronchodilators.. Her saturation remained normal on room air. 1. COPD exacerbation - cont Xopenex Neb tx - received IV Solumedrol , tapered - will d/c home on Medrol dose pack - CT of chest : no Pneumonia, no PE - pts sxs resolved, no cough, no wheezing, no SOB, saturating normal on Room Air - will d/c home ( lives with daughter , goes to Adult Day Care program daily) 2. Lethargy- prob sec to meds -d/c Haldol no signs of infection ( UA normal, no PNA on CTA, Flu negative ) 3. CAD cont Aspirin 325 mg PO DAILY cont Atorvastatin [Lipitor] 10 mg PO DAILY 4. Advanced Dementia cont Memantine [Namenda] 10 mg PO BID cont PARoxetine [Paxil] 20 mg PO DAILY DVT proph : Lovenox Discharge Exam - Head Exam Head Exam: NORMAL INSPECTION, NORMOCEPHALIC - Eye Exam Eye Exam: EOMI, Normal appearance Pupil Exam: NORMAL ACCOMODATION - ENT Exam ENT Exam: Mucous Membranes Moist, Normal External Ear Exam - Neck Exam Neck exam: Full Rom - Respiratory Exam Respiratory Exam: NORMAL BREATHING PATTERN. absent: Rales, Rhonchi, Wheezes, Respiratory Distress - Cardiovascular Exam Cardiovascular Exam: REGULAR RHYTHM, +S1, +S2 - GI/Abdominal Exam GI & Abdominal Exam: Normal Bowel Sounds, Soft. absent: Tenderness - Extremities Exam Extremities exam: normal capillary refill, pedal pulses present - Neurological Exam Neurological exam: Alert Additional comments: does not answer questions however heard her praying his Dominican per daughter this is her baseline - Psychiatric Exam Psychiatric exam: Flat Affect - Skin Skin Exam: Dry, Normal Color, Warm Discharge Plan - Discharge Medications Prescriptions: Methylprednisolone [Medrol Dose Pack (21 tabs)] 4 mg PO ASDIR #21 mg - Follow Up Plan Condition: GOOD Disposition: HOME/ ROUTINE Instructions: Exacerbation of COPD (DC) Additional Instructions: follow up with your primary MD 7-10 days ( Dr Ga) Referrals: Salomón Ga MD [Family Provider] -
[2017-09-29] MEDS: MethylPREDNISolone 40 mg Vial IVP SCH (08:44)
[2017-09-29] MEDS: Enoxaparin 40 mg Syringe SC SCH (08:44)
== END 2017-09-29 13:45 | disposition home or self-care (01) ==
LOC: H.ER 15:29 → H.ERHOLD 22:57 → H.MEDSURG1 09-28 01:07
PROVIDERS: ADMIT Student in an Organized Health Care Education/Training Program; ATTEND Student in an Organized Health Care Education/Training Program
DX: J44.1 Chronic obstructive pulmonary disease with (acute) exacerbation (principal); E78.00 Pure hypercholesterolemia, unspecified; F02.80 Dementia in other diseases classified elsewhere, unspecified severity, without behavioral disturbance, psychotic disturbance, mood disturbance, and anxiety; G30.9 Alzheimer's disease, unspecified; I25.10 Atherosclerotic heart disease of native coronary artery without angina pectoris; Z79.82 Long term (current) use of aspirin; Z79.899 Other long term (current) drug therapy; Z87.891 Personal history of nicotine dependence; D64.9 Anemia, unspecified; F32.9 Major depressive disorder, single episode, unspecified; F41.9 Anxiety disorder, unspecified; K29.70 Gastritis, unspecified, without bleeding; M19.90 Unspecified osteoarthritis, unspecified site; R32 Unspecified urinary incontinence; J02.9 Acute pharyngitis, unspecified; R00.0 Tachycardia, unspecified; R06.82 Tachypnea, not elsewhere classified
CPT/HCPCS: 36415; 71045; 71275; 80048; 80053; 81003; 82803; 83880; 84145; 84443; 84484; 85025; 85378; 87086; 87804; 93005; 94640; 96374; 99283; G0008; G0378; J1650; J2920; J2930; J7040; Q2035; Q9967

== ENCOUNTER 2017-11-01 10:20 | Observation (INO) | payer MEDICARE, MEDICAID ==
[2017-11-01 10:30] VITALS: BMI 25.9
[2017-11-01] MEDS ORDERED: Albuterol-Ipratrop 3 mg / 0.5 (3 ml) UD IH STA (10:45)
[2017-11-01] MEDS ORDERED: Albuterol-Ipratrop 3 mg / 0.5 (3 ml) UD INH STA (10:45)
--- NOTE | 2017-11-01 10:52 | ED PDOC ---
HPI: SOB/CHF/COPD Time Seen by Provider: 11/01/17 10:36 Chief Complaint (Nursing): Shortness Of Breath Chief Complaint (Provider): Dyspnea History Per: Patient, Family History/Exam Limitations: clinical condition Onset/Duration Of Symptoms: Days (yesterday) Additional Complaint(s): Per family: Pt. with dyspnea getting worse since yesterday. Cough. No fever. 1 episode of vomit, not today. Limited H and P as pt. has dementia and does not communicate. Past Medical History Reviewed: Historical Data, Nursing Documentation, Vital Signs Vital Signs: Last Vital Signs Temp Pulse 102 H 11/01/17 10:30 Resp 17 11/01/17 10:30 BP 145/80 11/01/17 10:37 Pulse Ox 98 11/01/17 14:56 - Medical History PMH: Alzheimer's Disease, Anemia, Anxiety, Arthritis, Asthma, COPD, Dementia, Depression, Gastritis, Hypercholesterolemia Denies: CHF, HIV, HTN, Hypothyroidism, Chronic Kidney Disease, Rheumatoid Arthritis - Family History Family History: States: Unknown Family Hx - Living Arrangements Living Arrangements: With Family - Home Medications Home Medications: Ambulatory Orders Medication Instructions Recorded Memantine HCl [Namenda Xr] 28 mg PO DAILY 03/03/15 Rosuvastatin Calcium [Crestor] 5 mg PO DAILY 03/03/15 Esomeprazole Magnesium [Nexium] 40 mg PO DAILY 01/27/16 PARoxetine [Paxil] 20 mg PO DAILY 01/27/16 - Allergies Allergies/Adverse Reactions: Allergies Allergy/AdvReac Type Severity Reaction Status Date / Time No Known Allergies Allergy Verified 11/01/17 10:28 Review of Systems ROS Statement: Except As Marked, All Systems Reviewed And Found Negative Respiratory: Positive for: Cough, Shortness of Breath Physical Exam - Reviewed Nursing Documentation Reviewed: Yes Vital Signs Reviewed: Yes - Physical Exam Appears: Positive for: Non-toxic, No Acute Distress Head Exam: Positive for: ATRAUMATIC, NORMAL INSPECTION, NORMOCEPHALIC Skin: Positive for: Normal Color, Warm, DRY Eye Exam: Positive for: PERRL ENT: Negative for: Nasal Congestion, Pharyngeal Erythema Neck: Positive for: Normal, Painless ROM, Supple Cardiovascular/Chest: Positive for: Regular Rate, Rhythm. Negative for: Edema Respiratory: Positive for: Decreased Breath Sounds, Wheezing (trace b/l). Negative for: Accessory Muscle Use Gastrointestinal/Abdominal: Positive for: Normal Exam, Soft. Negative for: Tenderness Back: Positive for: Normal Inspection. Negative for: L CVA Tenderness, R CVA Tenderness Extremity: Positive for: Other (pt. moves extremities on her own will). Negative for: Tenderness, Pedal Edema Neurologic/Psych: Positive for: Alert, Other (does not follow any commands). Negative for: Oriented - Laboratory Results Result Diagrams: 11/01/17 11:22 11/01/17 11:22 Interpretation Of Abn Labs: no acute - ECG ECG: Positive for: Interpreted By Me, Viewed By Me ECG Rhythm: Positive for: Nonspecific Changes O2 Sat by Pulse Oximetry: 98 - Radiology X-Ray: Read By Radiologist X-Ray Interpretation: No Acute Disease - Progress ED Course And Treament: 1457: Does not meet sepsis criteria. Is a copd exac. Dr. Contreras aware and will admit. Pt. vitals maintained. Lactate mild elevated likely from copd and albuterol use. Will continue IV fluids. Disposition - Clinical Impression Clinical Impression: COPD exacerbation - Patient ED Disposition Is Patient to be Admitted: Yes Counseled Patient/Family Regarding: Studies Performed, Diagnosis - Disposition Disposition Time: 14:28 Condition: FAIR - Pt Status Changed To: Hospital Disposition Of: Observation - POA Present On Arrival: None
[2017-11-01] MEDS ORDERED: Albuterol-Ipratrop 3 mg / 0.5 (3 ml) UD ONE (10:58)
[2017-11-01] MEDS: Sodium Chloride 0.9% 1,000 ML IV SCH ×2 (11:13→20:00)
[2017-11-01 11:33] LABS: VENOUS BLOOD GAS BASE EXCESS 3.1 mmol/L (0.0-2.0); VENOUS BLOOD GAS PCO2 59 mmHg (40-60); VENOUS BLOOD GAS PO2 19 mm/Hg (30-55); VENOUS BLOOD PH 7.32 (7.32-7.43)
[2017-11-01 11:38] LABS: INR 1.2 (0.9-1.2); PARTIAL THROMBOPLASTIN TIME 29.2 Seconds (25.6-37.1); PROTHROMBIN TIME 12.9 Seconds (9.8-13.1)
[2017-11-01 11:39] LABS: BASO % 0.4 % (0.0-2.0); EOS # 0.1 K/uL (0.0-0.7); EOS % 1.1 % (0.0-4.0); LYMPH # 1.7 K/uL (1.0-4.3); LYMPH % 18.8 % (20.0-40.0); MEAN CELL VOLUME 82.2 fl (81.0-99.0); MEAN CORPUSCULAR HEMOGLOBIN 26.8 pg (27.0-31.0); MEAN CORPUSCULAR HGB CONC 32.7 g/dL (33.0-37.0); MEAN PLATELET VOLUME 8.5 fl (7.2-11.7); MONO # 0.7 K/uL (0.0-0.8); MONO % 7.5 % (0.0-10.0); NEUT # 6.4 K/uL (1.8-7.0); NEUT % 72.2 % (50.0-75.0); NRBC % 0.1 % (0.0-0.0); RBC 4.11 Mil/uL (3.80-5.20); RED CELL DISTRIBUTION WIDTH 15.7 % (11.5-14.5); WHITE BLOOD COUNT 8.8 K/uL (4.8-10.8)
[2017-11-01 11:40] LABS: ALBUMIN 3.6 g/dL (3.5-5.0); ALT/SGPT 45 U/L (9-52); AST/SGOT 34 U/L (14-36); BLOOD UREA NITROGEN 15 mg/dl (7-17); CALCIUM 8.8 mg/dL (8.4-10.2); GFR AFRICAN-AMERICAN > 60; GFR NON-AFRICAN AMERICAN > 60
[2017-11-01 11:51] LABS: B-TYPE NATRIURETIC PEPTIDE 291 pg/ml (0-900)
--- NOTE | 2017-11-01 13:23 | RAD ---
HISTORY: Sepsis Patient COMPARISON: 09/27/2017. FINDINGS: LUNGS: There are low lung volumes and right basilar atelectasis. No focal consolidation. PLEURA: No significant pleural effusion identified, no pneumothorax apparent. CARDIOVASCULAR: Normal. OSSEOUS STRUCTURES: No significant abnormalities. VISUALIZED UPPER ABDOMEN: Normal. OTHER FINDINGS: None. IMPRESSION: No acute findings.
--- NOTE | 2017-11-01 15:46 | CP.PCM.HP ---
History of Present Illness - History of Present Illness History of Present Illness: 82 yo female with history of Dementia and COPD brought in by daughters because of worsening dyspnea associated with wheezing since last night even after receiving Albuterol via nebulizer. Had one episode of vomiting with brownish vomitus. 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 Present on Admission - Present on Admission Any Indicators Present on Admission: No History of DVT/PE: No History of Uncontrolled Diabetes: No Urinary Catheter: No Decubitus Ulcer Present: No Review of Systems - Review of Systems All systems: reviewed and no additional remarkable complaints except (aside from those mentioned above, 12 point system review were negative by me) Past Patient History - Infectious Disease Hx of Infectious Diseases: None - Tetanus Immunizations Tetanus Immunization: Unknown (quit 5 yrs ago; used to smoke 2 PPD) - Past Medical History & Family History Past Medical History?: Yes - Past Social History Smoking Status: Former Smoker Alcohol: None Home Situation {Lives}: With Family - CARDIAC Hx Congestive Heart Failure: No Hx Hypercholesterolemia: Yes Hx Hypertension: No - PULMONARY Hx Asthma: Yes Hx Chronic Obstructive Pulmonary Disease (COPD): Yes - NEUROLOGICAL Hx Alzheimer's Disease: Yes Hx Dementia: Yes - HEENT Hx HEENT Problems: No - RENAL Hx Chronic Kidney Disease: No - ENDOCRINE/METABOLIC Hx Hypothyroidism: No - HEMATOLOGICAL/ONCOLOGICAL Hx Anemia: Yes Hx Human Immunodeficiency Virus (HIV): No - INTEGUMENTARY Hx Dermatological Problems: No - MUSCULOSKELETAL/RHEUMATOLOGICAL Hx Arthritis: Yes Hx Rheumatoid Arthritis: No - GASTROINTESTINAL Hx Gastritis: Yes - GENITOURINARY/GYNECOLOGICAL Hx Genitourinary Disorders: Yes Hx Incontinence: Yes - PSYCHIATRIC Hx Anxiety: Yes Hx Depression: Yes - SURGICAL HISTORY Hx Surgeries: Yes Hx Open Reduction Internal Fixation: Yes (right wrist fracture) Hx Orthopedic Surgery: Yes Other/Comment: right wrist surgery with metal plate, left knee mass removal years ago - ANESTHESIA Hx Anesthesia: Yes Hx Anesthesia Reactions: No Hx Malignant Hyperthermia: No Meds Allergies/Adverse Reactions: Allergies Allergy/AdvReac Type Severity Reaction Status Date / Time No Known Allergies Allergy Verified 11/01/17 10:28 Physical Exam - Constitutional Appears: No Acute Distress, Cachectic, Other (non-verbal) - Head Exam Head Exam: ATRAUMATIC - Eye Exam Eye Exam: absent: Scleral icterus - ENT Exam ENT Exam: Mucous Membranes Moist - Neck Exam Neck exam: Negative for: Meningismus - Respiratory Exam Respiratory Exam: absent: Rales, Rhonchi, Wheezes, Respiratory Distress - Cardiovascular Exam Cardiovascular Exam: REGULAR RHYTHM, +S1, +S2 - GI/Abdominal Exam GI & Abdominal Exam: Soft. absent: Tenderness - Rectal Exam Rectal Exam: Deferred - Extremities Exam Extremities exam: Negative for: calf tenderness, pedal edema - Neurological Exam Neurological exam: Altered (non-verbal) - Psychiatric Exam Psychiatric exam: Normal Affect - Skin Skin Exam: Dry, Intact Results - Vital Signs Recent Vital Signs: Last Vital Signs Temp Pulse 102 H 11/01/17 10:30 Resp 17 11/01/17 10:30 BP 145/80 11/01/17 10:37 Pulse Ox 98 11/01/17 14:58 - Labs Result Diagrams: 11/01/17 11:22 11/01/17 11:22 Labs: Laboratory Results - last 24 hr 11/01/17 11/01/17 11/01/17 10:52 11:22 11:22 WBC 8.8 D RBC 4.11 Hgb 11.0 L Hct 33.7 L MCV 82.2 MCH 26.8 L MCHC 32.7 L RDW 15.7 H Plt Count 225 MPV 8.5 Neut % (Auto) 72.2 Lymph % (Auto) 18.8 L Edgar % (Auto) 7.5 Eos % (Auto) 1.1 Baso % (Auto) 0.4 Neut # (Auto) 6.4 Lymph # (Auto) 1.7 Edgar # (Auto) 0.7 Eos # (Auto) 0.1 Baso # (Auto) 0.0 PT INR APTT pO2 19 L VBG pH 7.32 VBG pCO2 59 VBG HCO3 25.8 VBG Total CO2 32.2 H VBG O2 Sat (Calc) 30.2 L VBG Base Excess 3.1 H VBG Potassium 3.7 Sodium 138.0 145 Chloride 105.0 103 Glucose 132 H Lactate 3.0 H FiO2 21.0 Potassium 4.0 Carbon Dioxide 26 Anion Gap 20 BUN 15 Creatinine 0.7 Est GFR ( Amer) > 60 Est GFR (Non-Af Amer) > 60 Random Glucose 136 H Calcium 8.8 Phosphorus 2.9 Magnesium 2.1 Total Bilirubin 0.5 AST 34 ALT 45 Alkaline Phosphatase 103 Troponin I < 0.0120 NT-Pro-B Natriuret Pep 291 Total Protein 7.0 Albumin 3.6 Globulin 3.5 Albumin/Globulin Ratio 1.0 Venous Blood Potassium 3.7 11/01/17 11:22 WBC RBC Hgb Hct MCV MCH MCHC RDW Plt Count MPV Neut % (Auto) Lymph % (Auto) Edgar % (Auto) Eos % (Auto) Baso % (Auto) Neut # (Auto) Lymph # (Auto) Edgar # (Auto) Eos # (Auto) Baso # (Auto) PT 12.9 INR 1.2 APTT 29.2 pO2 VBG pH VBG pCO2 VBG HCO3 VBG Total CO2 VBG O2 Sat (Calc) VBG Base Excess VBG Potassium Sodium Chloride Glucose Lactate FiO2 Potassium Carbon Dioxide Anion Gap BUN Creatinine Est GFR ( Amer) Est GFR (Non-Af Amer) Random Glucose Calcium Phosphorus Magnesium Total Bilirubin AST ALT Alkaline Phosphatase Troponin I NT-Pro-B Natriuret Pep Total Protein Albumin Globulin Albumin/Globulin Ratio Venous Blood Potassium Assessment & Plan - Assessment and Plan (Free Text) Assessment: 82 yo female with history of Dementia and COPD brought in by daughters because of worsening dyspnea associated with wheezing since last night even after receiving Albuterol via nebulizer. Had one episode of vomiting with brownish vomitus. 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 1. COPD exacerbation Duoneb via nebulizer QID Albuterol via nebulizer q 4hrs prn SoluMedrol 40mg IVPB q 12hrs 2. Dementia continue Namenda 3. DVT prophylaxis Lovenox 40mg SC daily
[2017-11-01] MEDS ORDERED: Albuterol 0.083% Inhal Sol (2.5 mg/3 mL) UD INH PRN (16:06)
[2017-11-01 16:24] LABS: SQUAMOUS EPITHIAL 1 /hpf (0-5); URINE BACTERIA RARE (<OCC); URINE BILIRUBIN NEGATIVE (NEGATIVE); URINE BLOOD SMALL (NEGATIVE); URINE CLARITY SLIGHTY-CLOUDY (Clear); URINE COLOR YELLOW (YELLOW); URINE GLUCOSE (UA) NEG (Normal); URINE LEUKOCYTE ESTERASE NEG Leu/uL (Negative); URINE PROTEIN NEGATIVE (NEGATIVE); URINE UROBILINOGEN 0.2-1.0 mg/dL (0.2-1.0)
[2017-11-01] MEDS: Albuterol-Ipratrop 3 mg / 0.5 (3 ml) UD INH SCH (20:00)
[2017-11-01] MEDS ORDERED: methylPREDNISolone 40 MG in Sodium Chloride 0.9% 50 ML IVPB SCH (21:00)
[2017-11-01] MEDS: MethylPREDNISolone 40 mg Vial IVP SCH (21:30)
[2017-11-02] MEDS: Sodium Chloride 0.9% 1,000 ML IV SCH ×3 (02:12→12:41)
[2017-11-02 06:04] LABS: BASO % 0.1 % (0.0-2.0); LYMPH # 0.8 K/uL (1.0-4.3); LYMPH % 12.9 % (20.0-40.0); MEAN CELL VOLUME 82.5 fl (81.0-99.0); MEAN CORPUSCULAR HEMOGLOBIN 26.5 pg (27.0-31.0); MEAN CORPUSCULAR HGB CONC 32.1 g/dL (33.0-37.0); MEAN PLATELET VOLUME 8.9 fl (7.2-11.7); MONO # 0.1 K/uL (0.0-0.8); NEUT # 5.1 K/uL (1.8-7.0); NRBC % 0.1 % (0.0-0.0); RBC 3.41 Mil/uL (3.80-5.20); RED CELL DISTRIBUTION WIDTH 15.8 % (11.5-14.5)
[2017-11-02 06:23] LABS: BLOOD UREA NITROGEN 16 mg/dl (7-17); CALCIUM 8.1 mg/dL (8.4-10.2); GFR AFRICAN-AMERICAN > 60; GFR NON-AFRICAN AMERICAN > 60
[2017-11-02] MEDS: Albuterol-Ipratrop 3 mg / 0.5 (3 ml) UD INH SCH ×2 (07:24→11:06)
[2017-11-02 07:42] VITALS: RESP 20
[2017-11-02] MEDS: levoFLOXacin 750 mg in D5W 750 MG/150 ML BAG IVPB SCH (08:38)
[2017-11-02] MEDS: Enoxaparin 40 mg Syringe SC SCH (08:39)
[2017-11-02] MEDS: Pantoprazole 40 mg EC Tab PO SCH (08:39)
[2017-11-02] MEDS: MethylPREDNISolone 40 mg Vial IVP SCH ×2 (08:41→21:13)
--- NOTE | 2017-11-02 08:52 | CARD ---
APPROVED REPORT EKG Measurement Heart [id number] <Conclusion> Sinus tachycardia Nonspecific ST and T wave abnormality Abnormal ECG
[2017-11-02] MEDS ORDERED: levoFLOXacin 750 mg in D5W 150 ML BAG IVPB SCH (09:00)
[2017-11-02 10:21] LABS: ABG ALLEN TEST YES; ARTERIAL BLOOD GAS HCO3 25.2 mmol/L (21-28); ARTERIAL BLOOD GAS O2 SAT 98.5 % (95-98); ARTERIAL BLOOD GAS PCO2 33 mm/Hg (35-45); ARTERIAL BLOOD GAS PH 7.46 (7.35-7.45); ARTERIAL BLOOD GAS PO2 86 mm/Hg (80-100); ARTERIAL BLOOD GAS TCO2 24.5 mmol/L (22-28)
[2017-11-02] MEDS ORDERED: Albuterol-Ipratrop 3 mg / 0.5 (3 ml) UD INH PRN (11:28)
--- NOTE | 2017-11-02 11:32 | CP.PCM.PN ---
Subjective - Date & Time of Evaluation Date of Evaluation: 11/02/17 Time of Evaluation: 11:15 - Subjective Subjective: Patient seen and examined. Appeared much better. Talking although without sense compared to not talking at all yesterday. Objective - Vital Signs/Intake and Output Vital Signs (last 24 hours): Temp Pulse Resp BP Pulse Ox 97.4 F L 94 H 20 117/62 99 11/02/17 07:42 11/02/17 07:42 11/02/17 07:42 11/02/17 07:42 11/02/17 07:42 Intake and Output: 11/02/17 11/02/17 06:59 18:59 Intake Total 1500 Balance 1500 - Medications Medications: Current Medications Albuterol/Ipratropium (Duoneb 3 Mg/0.5 Mg (3 Ml) Ud) 3 ml INH RQ4 PRN PRN Reason: Shortness of Breath Enoxaparin Sodium (Lovenox) 40 mg SC DAILY LAMINE PRN Reason: Protocol Last Admin: 11/02/17 08:39 Dose: 40 mg Levofloxacin/Dextrose (Levaquin 750mg) 750 mg in 150 mls @ 100 mls/hr IVPB DAILY [facility] Last Admin: 11/02/17 08:38 Dose: 100 mls/hr Sodium Chloride (Sodium Chloride 0.9%) 1,000 mls @ 60 mls/hr IV [id number] [facility] Methylprednisolone (Solu-Medrol) 40 mg IVP Q12 [facility] Last Admin: 11/02/17 08:41 Dose: 40 mg Pantoprazole Sodium (Protonix Ec Tab) 40 mg PO DAILY [facility] Last Admin: 11/02/17 08:39 Dose: 40 mg - Labs Labs: 11/02/17 05:35 11/02/17 05:35 PT 12.9 Seconds (9.8-13.1) 11/01/17 11:22 INR 1.2 (0.9-1.2) 11/01/17 11:22 APTT 29.2 Seconds (25.6-37.1) 11/01/17 11:22 - Constitutional Appears: No Acute Distress, Confused, Cachectic - Head Exam Head Exam: ATRAUMATIC - Eye Exam Eye Exam: absent: Scleral icterus - ENT Exam ENT Exam: Mucous Membranes Moist - Neck Exam Neck Exam: absent: Meningismus - Respiratory Exam Respiratory Exam: absent: Rales, Rhonchi, Wheezes, Respiratory Distress - Cardiovascular Exam Cardiovascular Exam: REGULAR RHYTHM, +S1, +S2 - GI/Abdominal Exam GI & Abdominal Exam: Soft. absent: Tenderness - Rectal Exam Rectal Exam: Deferred - Extremities Exam Extremities Exam: absent: Calf Tenderness, Pedal Edema - Neurological Exam Neurological Exam: Awake. absent: Oriented x3 - Psychiatric Exam Psychiatric exam: Flat Affect - Skin Skin Exam: Dry, Intact Assessment and Plan - Assessment and Plan (Free Text) Assessment: 82 yo female with history of Dementia and COPD brought in by daughters because of worsening dyspnea associated with wheezing since last night even after receiving Albuterol via nebulizer. Had one episode of vomiting with brownish vomitus. 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 1. COPD exacerbation appeared to be breathing easier without wheezing and more alert O2 sat: 99% on RA SoluMedrol 40mg IVPB q 24hrs Duoneb q 4hrs prn for wheezing/SOB DC Albuterol treatment and use Duoneb instead 2. Lactic Acidosis serum Lactate was 2.5, then up to 3.0 after an hour, even higher after 4 hrs at 4.4 today this morning Lactate was 3.1 BP - 117/62; HR - 94; afebrile Procalcitonin: 0.05 continue Levaquin 750mg IVPB q 24hrs repeat serum Lactate after 12hrs Albuterol induced Lactic Acidosis? 3. Dementia continue Namenda 4. DVT prophylaxis Lovenox 40mg SC daily
[2017-11-03] MEDS: Sodium Chloride 0.9% 1,000 ML IV SCH ×2 (02:20→05:48)
[2017-11-03 07:46] VITALS: O2SAT 100
[2017-11-03] MEDS: levoFLOXacin 750 mg in D5W 750 MG/150 ML BAG IVPB SCH (09:01)
[2017-11-03] MEDS: Pantoprazole 40 mg EC Tab PO SCH (09:02)
[2017-11-03] MEDS: Enoxaparin 40 mg Syringe SC SCH (09:02)
[2017-11-03] MEDS: MethylPREDNISolone 40 mg Vial IVP SCH (09:02)
--- NOTE | 2017-11-03 11:38 | CP.PCM.DIS ---
Provider - Provider Date of Admission: 11/01/17 15:54 Attending physician: Donell Contreras MD Time Spent in preparation of Discharge (in minutes): 25 Diagnosis - Discharge Diagnosis (1) COPD exacerbation Status: Acute Comment: condition improved. advised to use Duoneb instead of Albuterol. Medrol Duarte as directed (2) Lactic acidosis Status: Acute Comment: Lactate: 2.3, gradually trending down (3) Dementia Status: Chronic Priority: Medium Comment: on [facility] Course - Lab Results Lab Results: Micro Results 11/01/17 11:10 Blood Blood Culture - Preliminary NO GROWTH AFTER 48 HOURS 11/01/17 15:36 Urine Urine Culture - Final 50-100,000 CFU/ML. MULTIPLE SPECIES. SUGGEST REPEAT SPECIMEN. 11/01/17 11:40 Blood Blood Culture - Preliminary NO GROWTH AFTER 24 HOURS Most Recent Lab Values WBC 6.0 K/uL (4.8-10.8) 11/02/17 05:35 RBC 3.41 Mil/uL (3.80-5.20) L 11/02/17 05:35 Hgb 9.0 g/dL (12.0-16.0) L D 11/02/17 05:35 Hct 28.1 % (34.0-47.0) L 11/02/17 05:35 MCV 82.5 fl (81.0-99.0) 11/02/17 05:35 MCH 26.5 pg (27.0-31.0) L 11/02/17 05:35 MCHC 32.1 g/dL (33.0-37.0) L 11/02/17 05:35 RDW 15.8 % (11.5-14.5) H 11/02/17 05:35 Plt Count 183 K/uL (130-400) 11/02/17 05:35 MPV 8.9 fl (7.2-11.7) 11/02/17 05:35 Neut % (Auto) 85.0 % (50.0-75.0) H 11/02/17 05:35 Lymph % (Auto) 12.9 % (20.0-40.0) L 11/02/17 05:35 [place] % (Auto) 2.0 % (0.0-10.0) 11/02/17 05:35 Eos % (Auto) 0.0 % (0.0-4.0) 11/02/17 05:35 Baso % (Auto) 0.1 % (0.0-2.0) 11/02/17 05:35 Neut # (Auto) 5.1 K/uL (1.8-7.0) 11/02/17 05:35 Lymph # (Auto) 0.8 K/uL (1.0-4.3) L 11/02/17 05:35 [place] # (Auto) 0.1 K/uL (0.0-0.8) 11/02/17 05:35 Eos # (Auto) 0.0 K/uL (0.0-0.7) 11/02/17 05:35 Baso # (Auto) 0.0 K/uL (0.0-0.2) 11/02/17 05:35 PT 12.9 Seconds (9.8-13.1) 11/01/17 11:22 INR 1.2 (0.9-1.2) 11/01/17 11:22 APTT 29.2 Seconds (25.6-37.1) 11/01/17 11:22 pCO2 33 mm/Hg (35-45) L 11/01/17 10:13 pO2 19 mm/Hg (30-55) L 11/01/17 10:52 HCO3 25.2 mmol/L (21-28) 11/01/17 10:13 ABG pH 7.46 (7.35-7.45) H 11/01/17 10:13 ABG Total CO2 24.5 mmol/L (22-28) 11/01/17 10:13 ABG O2 Saturation 98.5 % (95-98) H 11/01/17 10:13 ABG Base Excess 0.3 mmol/L (-2.0-3.0) 11/01/17 10:13 He Test Yes 11/01/17 10:13 ABG Potassium 3.5 mmol/L (3.6-5.2) L 11/01/17 10:13 VBG pH 7.32 (7.32-7.43) 11/01/17 10:52 VBG pCO2 59 mmHg (40-60) 11/01/17 10:52 VBG HCO3 25.8 mmol/L 11/01/17 10:52 VBG Total CO2 32.2 mmol/L (22-28) H 11/01/17 10:52 VBG O2 Sat (Calc) 30.2 % (40-65) L 11/01/17 10:52 VBG Base Excess 3.1 mmol/L (0.0-2.0) H 11/01/17 10:52 VBG Potassium 3.7 mmol/L (3.6-5.2) 11/01/17 10:52 A-a O2 Difference 22.0 mm/Hg 11/01/17 10:13 Sodium 138.0 mmol/L (132-148) 11/01/17 10:52 Chloride 105.0 mmol/L (98-107) 11/01/17 10:52 Glucose 132 mg/dL (65-105) H 11/01/17 10:52 Lactate 3.0 mmol/L (0.7-2.1) H 11/01/17 10:52 FiO2 21.0 % 11/01/17 10:52 Crit Value Called To [facility] 11/01/17 10:13 Crit Value Called By 11/01/17 10:13 Crit Value Read Back Y 11/01/17 10:13 Blood Gas Notified Time 1020 11/01/17 10:13 Sodium 146 mmol/l (132-148) 11/02/17 05:35 Potassium 4.1 MMOL/L (3.6-5.0) 11/02/17 05:35 Chloride 110 mmol/L (98-107) H 11/02/17 05:35 Carbon Dioxide 24 mmol/L (22-30) 11/02/17 05:35 Anion Gap 16 (10-20) 11/02/17 05:35 BUN 16 mg/dl (7-17) 11/02/17 05:35 Creatinine 0.5 mg/dl (0.7-1.2) L 11/02/17 05:35 Est GFR ( Amer) > 60 11/02/17 05:35 Est GFR (Non-Af Amer) > 60 11/02/17 05:35 POC Glucose (mg/dL) 181 mg/dL (65-110) H 11/01/17 22:49 Random Glucose 139 mg/dL (65-105) H 11/02/17 05:35 Lactic Acid 2.3 MMOL/L (0.7-2.1) H 11/02/17 20:01 Calcium 8.1 mg/dL (8.4-10.2) L 11/02/17 05:35 Phosphorus 2.9 mg/dl (2.5-4.5) 11/01/17 11:22 Magnesium 2.1 MG/DL (1.6-2.3) 11/01/17 11:22 Total Bilirubin 0.5 mg/dl (0.2-1.3) 11/01/17 11:22 AST 34 U/L (14-36) 11/01/17 11:22 ALT 45 U/L (9-52) 11/01/17 11:22 Alkaline Phosphatase 103 U/L (38-126) 11/01/17 11:22 Troponin I < 0.0120 ng/mL (0.00-0.120) 11/01/17 11:22 NT-Pro-B Natriuret Pep 291 pg/ml (0-900) 11/01/17 11:22 Total Protein 7.0 G/DL (6.3-8.2) 11/01/17 11:22 Albumin 3.6 g/dL (3.5-5.0) 11/01/17 11:22 Globulin 3.5 gm/dL (2.2-3.9) 11/01/17 11:22 Albumin/Globulin Ratio 1.0 (1.0-2.1) 11/01/17 11:22 Procalcitonin 0.05 NG/ML (0.19-0.49) L 11/01/17 18:42 Arterial Blood Potassium 3.5 mmol/L (3.6-5.2) L 11/01/17 10:13 Venous Blood Potassium 3.7 mmol/L (3.6-5.2) 11/01/17 10:52 Urine Color Yellow (YELLOW) 11/01/17 15:36 Urine Clarity Slighty-cloudy (Clear) 11/01/17 15:36 Urine pH 6.0 (5.0-8.0) 11/01/17 15:36 Ur Specific [place] 1.008 (1.003-1.030) 11/01/17 15:36 Urine Protein Negative mg/dL (NEGATIVE) 11/01/17 15:36 Urine Glucose (UA) Neg mg/dL (Normal) 11/01/17 15:36 Urine Ketones Negative mg/dL (NEGATIVE) 11/01/17 15:36 Urine Blood Small (NEGATIVE) 11/01/17 15:36 Urine Nitrate Negative (NEGATIVE) 11/01/17 15:36 Urine Bilirubin Negative (NEGATIVE) 11/01/17 15:36 Urine Urobilinogen 0.2-1.0 mg/dL (0.2-1.0) 11/01/17 15:36 Ur Leukocyte Esterase Neg [place]/uL (Negative) 11/01/17 15:36 Urine RBC (Auto) 4 /hpf (0-3) H 11/01/17 15:36 Urine Microscopic WBC 2 /hpf (0-5) 11/01/17 15:36 Ur Squamous Epith Cells 1 /hpf (0-5) 11/01/17 15:36 Urine Bacteria Rare (<OCC) 11/01/17 15:36 - Hospital Course Hospital Course: 82 yo female with history of Dementia and COPD brought in by daughters because of worsening dyspnea associated with wheezing since last night even after receiving Albuterol via nebulizer. Patient's condition improved but her serum lactate was still elevated. Today her lactate was still elevated but much lower. Patient was discharged in stable condition. Family was advised to use Duoneb via nebulizer for wheezing or SOB rather than plain Albuterol. Lactic Acidosis was probably induced by too much Albuterol inhalation. Discharge Exam - Head Exam Head Exam: ATRAUMATIC - Eye Exam Eye Exam: absent: Scleral icterus - ENT Exam ENT Exam: Mucous Membranes Moist - Respiratory Exam Respiratory Exam: absent: Rales, Rhonchi, Wheezes, Respiratory Distress - Cardiovascular Exam Cardiovascular Exam: REGULAR RHYTHM, +S1, +S2 - GI/Abdominal Exam GI & Abdominal Exam: Soft. absent: Tenderness - Rectal Exam Rectal Exam: Deferred - Neurological Exam Neurological exam: Altered - Psychiatric Exam Psychiatric exam: Flat Affect - Skin Skin Exam: Dry, Intact Discharge Plan - Discharge Medications Prescriptions: Albuterol/Ipratropium [Duoneb 3 mg/0.5 mg (3 ml) UD] 3 ml INH RQ4 PRN #30 neb PRN Reason: Shortness Of Breath Methylprednisolone [Medrol Dose Pack (21 tabs)] 4 mg PO ASDIR #21 mg - Follow Up Plan Condition: FAIR Disposition: HOME/ ROUTINE
[2017-11-03 11:48] VITALS: BP 138/68; PULSE 107; TEMP 97.3
== END 2017-11-03 13:31 | disposition home or self-care (01) ==
LOC: H.ER 10:20 → H.ERHOLD 15:54 → H.TEL 18:56 → INTOOBSV 11-02 11:25 → OBSVTOIN 11-02 11:25
DX: J44.1 Chronic obstructive pulmonary disease with (acute) exacerbation (principal); G30.9 Alzheimer's disease, unspecified; F02.80 Dementia in other diseases classified elsewhere, unspecified severity, without behavioral disturbance, psychotic disturbance, mood disturbance, and anxiety; E87.2 Acidosis; E78.00 Pure hypercholesterolemia, unspecified; D64.9 Anemia, unspecified; F41.9 Anxiety disorder, unspecified; K29.70 Gastritis, unspecified, without bleeding; M19.90 Unspecified osteoarthritis, unspecified site; Z86.73 Personal history of transient ischemic attack (TIA), and cerebral infarction without residual deficits; Z87.891 Personal history of nicotine dependence
CPT/HCPCS: 36415; 71045; 80048; 80053; 81003; 82803; 82948; 83605; 83735; 83880; 84100; 84145; 84484; 85025; 85610; 85730; 87040; 87086; 93005; 94640; 96374; 99285; G0378; J1650; J2920; J2930; J7040

== ENCOUNTER 2017-11-19 12:37 | Observation (INO) | payer MEDICARE, MEDICAID ==
[2017-11-19 12:37] VITALS: BMI 25.9
[2017-11-19] MEDS ORDERED: Albuterol-Ipratrop 3 mg / 0.5 (3 ml) UD INH STA (12:47)
[2017-11-19] MEDS ORDERED: Albuterol-Ipratrop 3 mg / 0.5 (3 ml) UD IH STA (12:47)
--- NOTE | 2017-11-19 12:52 | ED PDOC ---
HPI: SOB/CHF/COPD Time Seen by Provider: 11/19/17 12:41 Chief Complaint (Nursing): Shortness Of Breath Chief Complaint (Provider): Dyspnea History Per: Family History/Exam Limitations: clinical condition Onset/Duration Of Symptoms: Days (3) Current Symptoms Are (Timing): Still Present Additional Complaint(s): Pt. with dyspnea, cough. Pt was eating and had 1 episode of vomit and dyspnea has started since then. Family trying nebs with only some relief. Pt. bed bound and baseline altered with dementia. Was admitted 3 weeks ago for the same. Pt. with swelling noted in legs by family today. Past Medical History Reviewed: Nursing Documentation, Vital Signs Vital Signs: Last Vital Signs Temp 97 F L 11/19/17 12:39 Pulse 90 11/19/17 14:41 Resp 18 11/19/17 14:41 BP 132/55 L 11/19/17 14:41 Pulse Ox 96 11/19/17 14:41 - Medical History PMH: Alzheimer's Disease, Anemia, Anxiety, Arthritis, Asthma, COPD, Dementia, Depression Denies: CHF, HIV, HTN, Hypothyroidism, Chronic Kidney Disease, Rheumatoid Arthritis - Family History Family History: States: Unknown Family Hx - Living Arrangements Living Arrangements: With Family - Social History Alcohol: None Drugs: Denies - Home Medications Home Medications: Ambulatory Orders Medication Instructions Recorded Memantine HCl [Namenda Xr] 28 mg PO DAILY 03/03/15 Rosuvastatin Calcium [Crestor] 5 mg PO DAILY 03/03/15 Esomeprazole Magnesium [Nexium] 40 mg PO DAILY 01/27/16 PARoxetine [Paxil] 20 mg PO DAILY 01/27/16 Albuterol/Ipratropium [Duoneb 3 3 ml INH RQ4 PRN #30 neb 11/03/17 mg/0.5 mg (3 ml) UD] - Allergies Allergies/Adverse Reactions: Allergies Allergy/AdvReac Type Severity Reaction Status Date / Time No Known Allergies Allergy Verified 11/19/17 12:39 Review of Systems Review Of Systems: ROS cannot be obtained secondary to pt's inabilty to answer questions. Respiratory: Positive for: Cough, Shortness of Breath Physical Exam - Reviewed Nursing Documentation Reviewed: Yes Vital Signs Reviewed: Yes - Physical Exam Appears: Positive for: Non-toxic, No Acute Distress Head Exam: Positive for: ATRAUMATIC, NORMAL INSPECTION, NORMOCEPHALIC Skin: Positive for: Normal Color, Warm, DRY Eye Exam: Positive for: EOMI, Normal appearance, PERRL ENT: Positive for: Normal ENT Inspection. Negative for: Nasal Congestion, Pharyngeal Erythema Neck: Positive for: Normal, Supple Cardiovascular/Chest: Positive for: Regular Rate, Rhythm Respiratory: Positive for: Decreased Breath Sounds, Other (mild coarse b/l). Negative for: Accessory Muscle Use Gastrointestinal/Abdominal: Positive for: Normal Exam, Soft. Negative for: Tenderness Back: Positive for: Normal Inspection. Negative for: L CVA Tenderness, R CVA Tenderness Extremity: Positive for: Swelling (mild b/l with no pitting). Negative for: Tenderness Neurologic/Psych: Positive for: Alert, Other (pt. not able to communicate; talking about different things in pamunkey tongue; minimal movement of legs baseline; arms moving on own will; not cooperative to exam.) - Laboratory Results Result Diagrams: 11/19/17 13:00 11/19/17 13:00 - ECG ECG: Positive for: Interpreted By Me, Viewed By Me ECG Rhythm: Positive for: Normal QRS, Normal ST Segment, Sinus Rhythm O2 Sat by Pulse Oximetry: 94 Pulse Ox Interpretation: Abnormal (mild) - Radiology X-Ray: Read By Radiologist X-Ray Interpretation: No Acute Disease - CT Scan/US us Other Rad Studies (CT/US): Read By Radiologist Other Rad Interpretation: dvt - Progress ED Course And Treament: 1603: Pt. with no recent bleeding, fall, or injury. Will need admit for dvt and further eval. Disposition - Clinical Impression Clinical Impression: DVT (deep venous thrombosis), Dyspnea - Patient ED Disposition Is Patient to be Admitted: Yes Counseled Patient/Family Regarding: Studies Performed, Diagnosis - Disposition Disposition Time: 16:17 Condition: FAIR - Pt Status Changed To: Hospital Disposition Of: Inpatient - Admit Certification Admit to Inpatient:: After my assessment, the patient will require hospitalization for at least two midnights. This is because of the severity of symptoms shown, intensity of services needed, and/or the medical risk in this patient being treated as an outpatient. - POA Present On Arrival: None
[2017-11-19] MEDS ORDERED: Sodium Chloride 0.9% 500 ML IV SCH (13:00)
[2017-11-19] MEDS ORDERED: Albuterol-Ipratrop 3 mg / 0.5 (3 ml) UD ONE (13:07)
[2017-11-19 13:10] LABS: BASO % 0.7 % (0.0-2.0); EOS # 0.2 K/uL (0.0-0.7); EOS % 3.6 % (0.0-4.0); LYMPH # 1.1 K/uL (1.0-4.3); LYMPH % 18.4 % (20.0-40.0); MEAN CELL VOLUME 81.2 fl (81.0-99.0); MEAN CORPUSCULAR HEMOGLOBIN 26.2 pg (27.0-31.0); MEAN CORPUSCULAR HGB CONC 32.3 g/dL (33.0-37.0); MEAN PLATELET VOLUME 8.5 fl (7.2-11.7); MONO # 0.3 K/uL (0.0-0.8); NEUT # 4.1 K/uL (1.8-7.0); NEUT % 71.3 % (50.0-75.0); NRBC % 0.2 % (0.0-0.0); RBC 4.18 Mil/uL (3.80-5.20); RED CELL DISTRIBUTION WIDTH 16.2 % (11.5-14.5); WHITE BLOOD COUNT 5.8 K/uL (4.8-10.8)
[2017-11-19 13:20] LABS: INR 1.2 (0.9-1.2); PARTIAL THROMBOPLASTIN TIME 28.9 Seconds (25.6-37.1); PROTHROMBIN TIME 13.5 Seconds (9.8-13.1)
[2017-11-19 13:25] LABS: VENOUS BLOOD GAS BASE EXCESS 4.6 mmol/L (0.0-2.0); VENOUS BLOOD GAS PCO2 56 mmHg (40-60); VENOUS BLOOD GAS PO2 15 mm/Hg (30-55); VENOUS BLOOD PH 7.36 (7.32-7.43)
[2017-11-19 13:27] LABS: ALB/GLOB RATIO 1.1 (1.0-2.1); ALBUMIN 3.8 g/dL (3.5-5.0); ALT/SGPT 48 U/L (9-52); AST/SGOT 27 U/L (14-36); BLOOD UREA NITROGEN 11 mg/dl (7-17); CALCIUM 9.1 mg/dL (8.4-10.2); GFR AFRICAN-AMERICAN > 60; GFR NON-AFRICAN AMERICAN > 60
[2017-11-19 13:32] LABS: B-TYPE NATRIURETIC PEPTIDE 296 pg/ml (0-900)
--- NOTE | 2017-11-19 14:00 | RAD ---
HISTORY: Sepsis Patient COMPARISON: Chest radiograph dated 11/01/2017. FINDINGS: LUNGS: No active pulmonary disease. PLEURA: No significant pleural effusion identified, no pneumothorax apparent. CARDIOVASCULAR: Atherosclerotic aortic calcifications. Cardiomediastinal silhouette within normal limits. OSSEOUS STRUCTURES: Unchanged. VISUALIZED UPPER ABDOMEN: Normal. OTHER FINDINGS: None. IMPRESSION: No active disease.
--- NOTE | 2017-11-19 15:04 | CARD ---
APPROVED REPORT EKG Measurement Heart [id number] 114P-3 [id number] <Conclusion> Normal sinus rhythm Normal ECG
[2017-11-19] MEDS ORDERED: Enoxaparin 60 mg Syringe SC ONE ×2 (16:30)
--- NOTE | 2017-11-19 16:40 | US ---
PROCEDURE: Bilateral lower extremity venous duplex Doppler. HISTORY: r/o dvt COMPARISON: None available. TECHNIQUE: Bilateral common femoral, superficial femoral, popliteal and posterior tibial veins were evaluated. Flow was assessed with color Doppler, compressibility, assessment of phasic flow and augmentation response. FINDINGS: COMMON FEMORAL VEIN: Right CFV: Unremarkable. Left CFV: Intraluminal thrombus, incomplete compressibility, absence of Doppler flow. SUPERFICIAL FEMORAL VEIN: Right SFV: Unremarkable. Left SFV: Intraluminal thrombus, incomplete compressibility, absence of Doppler flow. POPLITEAL VEIN: Right Popliteal: Unremarkable. Left Popliteal: Intraluminal thrombus, incomplete compressibility, absence of Doppler flow. POSTERIOR TIBIAL VEIN: Right PTV: Unremarkable. Left PTV: Unremarkable. OTHER FINDINGS: None. IMPRESSION: Deep venous thrombosis involving the left common femoral, femoral and popliteal veins. At the time of this dictation, the emergency room physician was already aware of the findings of DVT.
--- NOTE | 2017-11-19 16:54 | CP.PCM.HP ---
History of Present Illness - History of Present Illness History of Present Illness: 82 yo female with history of Dementia and COPD brought by family because of SOB and coughing since earlier today. Also noted to have 1 episode of vomiting. She has been bed bound and non-verbal. Family also noted swelling of both legs today. Present on Admission - Present on Admission Any Indicators Present on Admission: No History of DVT/PE: No History of Uncontrolled Diabetes: No Urinary Catheter: No Decubitus Ulcer Present: No Review of Systems - Review of Systems Systems not reviewed;Unavailable: Dementia, Other (non-verbal) Past Patient History - Infectious Disease Hx of Infectious Diseases: None - Tetanus Immunizations Tetanus Immunization: Unknown (quit 5 yrs ago; used to smoke 2 PPD) - Past Medical History & Family History Past Medical History?: Yes - Past Social History Smoking Status: Former Smoker Chewing Tobacco Use: No Cigar Use: No Alcohol: None Drugs: Denies Home Situation {Lives}: With Family - CARDIAC Hx Hypercholesterolemia: Yes - PULMONARY Hx Asthma: Yes Hx Chronic Obstructive Pulmonary Disease (COPD): Yes - NEUROLOGICAL Hx Alzheimer's Disease: Yes Hx Dementia: Yes - HEENT Hx HEENT Problems: Yes - RENAL Hx Chronic Kidney Disease: No - ENDOCRINE/METABOLIC Hx Hypothyroidism: No - HEMATOLOGICAL/ONCOLOGICAL Hx Anemia: Yes Hx Human Immunodeficiency Virus (HIV): No - INTEGUMENTARY Hx Dermatological Problems: No - MUSCULOSKELETAL/RHEUMATOLOGICAL Hx Arthritis: Yes Hx Rheumatoid Arthritis: No - GASTROINTESTINAL Hx Gastritis: Yes - GENITOURINARY/GYNECOLOGICAL Hx Genitourinary Disorders: Yes Hx Incontinence: Yes - PSYCHIATRIC Hx Anxiety: Yes Hx Depression: Yes - SURGICAL HISTORY Hx Surgeries: Yes Hx Open Reduction Internal Fixation: Yes (right wrist fracture) Hx Orthopedic Surgery: Yes Other/Comment: right wrist surgery with metal plate, left knee mass removal years ago - ANESTHESIA Hx Anesthesia: Yes Hx Anesthesia Reactions: No Hx Malignant Hyperthermia: No Meds Allergies/Adverse Reactions: Allergies Allergy/AdvReac Type Severity Reaction Status Date / Time No Known Allergies Allergy Verified 11/19/17 12:39 Physical Exam - Constitutional Appears: No Acute Distress, Other (bed bound and non-verbal) - Head Exam Head Exam: ATRAUMATIC - Eye Exam Eye Exam: absent: Scleral icterus - ENT Exam ENT Exam: Mucous Membranes Moist - Neck Exam Neck exam: Negative for: Meningismus - Respiratory Exam Respiratory Exam: absent: Rales, Rhonchi, Wheezes, Respiratory Distress - Cardiovascular Exam Cardiovascular Exam: REGULAR RHYTHM, +S1, +S2 - GI/Abdominal Exam GI & Abdominal Exam: Soft. absent: Tenderness - Rectal Exam Rectal Exam: Deferred - Extremities Exam Extremities exam: Positive for: pedal edema (non-pitting edema on left leg) - Back Exam Back exam: absent: tenderness - Neurological Exam Neurological exam: Alert (non-verbal) - Psychiatric Exam Psychiatric exam: Flat Affect - Skin Skin Exam: Dry, Intact Results - Vital Signs Recent Vital Signs: Last Vital Signs Temp 97 F L 11/19/17 12:39 Pulse 93 H 11/19/17 16:45 Resp 18 11/19/17 16:45 BP 118/72 11/19/17 16:45 Pulse Ox 96 11/19/17 16:45 - Labs Result Diagrams: 11/19/17 13:00 11/19/17 13:00 Labs: Laboratory Results - last 24 hr 11/19/17 11/19/17 11/19/17 13:00 13:00 13:00 WBC 5.8 RBC 4.18 Hgb 11.0 L D Hct 34.0 MCV 81.2 MCH 26.2 L MCHC 32.3 L RDW 16.2 H Plt Count 204 MPV 8.5 Neut % (Auto) 71.3 Lymph % (Auto) 18.4 L [place] % (Auto) 6.0 Eos % (Auto) 3.6 Baso % (Auto) 0.7 Neut # (Auto) 4.1 Lymph # (Auto) 1.1 [place] # (Auto) 0.3 Eos # (Auto) 0.2 Baso # (Auto) 0.0 PT 13.5 H INR 1.2 APTT 28.9 pO2 VBG pH VBG pCO2 VBG HCO3 VBG Total CO2 VBG O2 Sat (Calc) VBG Base Excess VBG Potassium Glucose Lactate FiO2 Sodium 141 Potassium 3.8 Chloride 101 Carbon Dioxide 24 Anion Gap 20 BUN 11 Creatinine 0.6 L Est GFR ( Amer) > 60 Est GFR (Non-Af Amer) > 60 Random Glucose 106 H Calcium 9.1 Phosphorus 3.4 Magnesium 2.2 Total Bilirubin 0.7 AST 27 ALT 48 Alkaline Phosphatase 100 Troponin I < 0.0120 NT-Pro-B Natriuret Pep 296 Total Protein 7.2 Albumin 3.8 Globulin 3.4 Albumin/Globulin Ratio 1.1 Venous Blood Potassium 11/19/17 13:22 WBC RBC Hgb Hct MCV MCH MCHC RDW Plt Count MPV Neut % (Auto) Lymph % (Auto) [place] % (Auto) Eos % (Auto) Baso % (Auto) Neut # (Auto) Lymph # (Auto) [place] # (Auto) Eos # (Auto) Baso # (Auto) PT INR APTT pO2 15 L VBG pH 7.36 VBG pCO2 56 VBG HCO3 26.3 VBG Total CO2 33.3 H VBG O2 Sat (Calc) 15.8 L VBG Base Excess 4.6 H VBG Potassium 3.8 Glucose 107 H Lactate 1.7 FiO2 21.0 Sodium 140.0 Potassium Chloride 105.0 Carbon Dioxide Anion Gap BUN Creatinine Est GFR ( Amer) Est GFR (Non-Af Amer) Random Glucose Calcium Phosphorus Magnesium Total Bilirubin AST ALT Alkaline Phosphatase Troponin I NT-Pro-B Natriuret Pep Total Protein Albumin Globulin Albumin/Globulin Ratio Venous Blood Potassium 3.8 Assessment & Plan - Assessment and Plan (Free Text) Assessment: 82 yo female with history of Dementia and COPD brought by family because of SOB and coughing since earlier today. Also noted to have 1 episode of vomiting. She has been bed bound and non-verbal. Family also noted swelling of both legs today. 1. DVT, Left Leg venous doppler: DVT on left common femoral, femoral and popliteal Lovenox 50mg SC q 12hrs 2. COPD exacerbation Duoneb via nebulizer QID Albuterol via nebulizer q 4hrs prn SoluMedrol 40mg IVPB q 12hrs 3. Dementia continue Namenda
[2017-11-19] MEDS ORDERED: Sodium Chloride 0.9% 100 ML ONE (17:09)
[2017-11-19] MEDS ORDERED: Iodixanol 320 MG/ML 100 ML BOTTLE IV ONE (17:09)
[2017-11-19] MEDS ORDERED: Albuterol 0.042% Inhal Sol (1.25 mg/3 mL) UD INH PRN (17:21)
[2017-11-19] MEDS ORDERED: MethylPREDNISolone 40 mg Vial IVP SCH (17:30)
--- NOTE | 2017-11-19 18:13 | CT ---
PROCEDURE: CT Chest with contrast (Pulmonary Angiogram) HISTORY: chest pain COMPARISON: None available. TECHNIQUE: Axial computed tomography images were obtained of the chest in the pulmonary arterial phase of enhancement. Coronal and sagittal reformatted images were created and reviewed. Intravenous contrast dose: 80 mL Visipaque 320 Radiation dose: Total exam DLP = 386.3 mGy-cm. This CT exam was performed using one or more of the following dose reduction techniques: Automated exposure control, adjustment of the mA and/or kV according to patient size, and/or use of iterative reconstruction technique. FINDINGS: PULMONARY ARTERIES: Unremarkable. No pulmonary embolism. AORTA: No acute findings. Calcific atherosclerosis. No thoracic aortic aneurysm. LUNGS: Subsegmental right upper lobe atelectasis. No nodule, mass or pulmonary consolidation. PLEURAL SPACES: Unremarkable. No effusion or pneumothorax. HEART: Unremarkable. No cardiomegaly. No significant pericardial effusion. LYMPH NODES: No lymphadenopathy. BONES, CHEST WALL: Compression deformities of T8 and T12 redemonstrated. No acute fracture or destructive lesion OTHER FINDINGS: Cholelithiasis. Left renal cyst. IMPRESSION: Unremarkable CT pulmonary angiogram. No pulmonary embolus.
[2017-11-19] MEDS: Albuterol-Ipratrop 3 mg / 0.5 (3 ml) UD INH SCH (19:12)
[2017-11-19] MEDS ORDERED: methylPREDNISolone 40 MG in Sodium Chloride 0.9% 50 ML IVPB SCH (21:00)
[2017-11-19] MEDS ORDERED: Enoxaparin 60 mg Syringe SC SCH (21:00)
[2017-11-20 05:31] LABS: INR 1.2 (0.9-1.2); PARTIAL THROMBOPLASTIN TIME 39.4 Seconds (25.6-37.1); PROTHROMBIN TIME 13.6 Seconds (9.8-13.1)
[2017-11-20 05:46] LABS: BASO % 0.2 % (0.0-2.0); BLOOD UREA NITROGEN 13 mg/dl (7-17); CALCIUM 8.8 mg/dL (8.4-10.2); GFR AFRICAN-AMERICAN > 60; GFR NON-AFRICAN AMERICAN > 60; HEMOGLOBIN 9.9 g/dL (12.0-16.0); LYMPH # 0.5 K/uL (1.0-4.3); LYMPH % 20.5 % (20.0-40.0); MEAN CELL VOLUME 80.7 fl (81.0-99.0); MEAN CORPUSCULAR HEMOGLOBIN 26.2 pg (27.0-31.0); MEAN CORPUSCULAR HGB CONC 32.5 g/dL (33.0-37.0); MEAN PLATELET VOLUME 8.8 fl (7.2-11.7); MONO % 2.1 % (0.0-10.0); NEUT # 1.8 K/uL (1.8-7.0); NEUT % 77.2 % (50.0-75.0); RBC 3.79 Mil/uL (3.80-5.20); WHITE BLOOD COUNT 2.3 K/uL (4.8-10.8)
[2017-11-20] MEDS: Albuterol-Ipratrop 3 mg / 0.5 (3 ml) UD INH SCH ×2 (07:46→11:21)
[2017-11-20 08:33] VITALS: O2SAT 96
[2017-11-20] MEDS ORDERED: Pantoprazole 40 mg EC Tab PO SCH (09:00)
[2017-11-20 12:27] VITALS: BP 103/56; PULSE 90; RESP 18; TEMP 97
--- NOTE | 2017-11-20 13:55 | CP.PCM.DIS ---
Provider - Provider Date of Admission: 11/19/17 16:16 Attending physician: Donell Contreras MD Primary care physician: Dr. Ga Time Spent in preparation of Discharge (in minutes): 15 Hospital Course - Lab Results Lab Results: Micro Results 11/19/17 12:58 Blood Blood Culture - Preliminary NO GROWTH AFTER 24 HOURS 11/19/17 13:00 Blood Blood Culture - Preliminary NO GROWTH AFTER 24 HOURS Most Recent Lab Values WBC 2.3 K/uL (4.8-10.8) L D 11/20/17 04:10 RBC 3.79 Mil/uL (3.80-5.20) L 11/20/17 04:10 Hgb 9.9 g/dL (12.0-16.0) L 11/20/17 04:10 Hct 30.6 % (34.0-47.0) L 11/20/17 04:10 MCV 80.7 fl (81.0-99.0) L 11/20/17 04:10 MCH 26.2 pg (27.0-31.0) L 11/20/17 04:10 MCHC 32.5 g/dL (33.0-37.0) L 11/20/17 04:10 RDW 16.0 % (11.5-14.5) H 11/20/17 04:10 Plt Count 202 K/uL (130-400) 11/20/17 04:10 MPV 8.8 fl (7.2-11.7) 11/20/17 04:10 Neut % (Auto) 77.2 % (50.0-75.0) H 11/20/17 04:10 Lymph % (Auto) 20.5 % (20.0-40.0) 11/20/17 04:10 [place] % (Auto) 2.1 % (0.0-10.0) 11/20/17 04:10 Eos % (Auto) 0.0 % (0.0-4.0) 11/20/17 04:10 Baso % (Auto) 0.2 % (0.0-2.0) 11/20/17 04:10 Neut # (Auto) 1.8 K/uL (1.8-7.0) 11/20/17 04:10 Lymph # (Auto) 0.5 K/uL (1.0-4.3) L 11/20/17 04:10 [place] # (Auto) 0.0 K/uL (0.0-0.8) 11/20/17 04:10 Eos # (Auto) 0.0 K/uL (0.0-0.7) 11/20/17 04:10 Baso # (Auto) 0.0 K/uL (0.0-0.2) 11/20/17 04:10 PT 13.6 Seconds (9.8-13.1) H 11/20/17 04:10 INR 1.2 (0.9-1.2) 11/20/17 04:10 APTT 39.4 Seconds (25.6-37.1) H D 11/20/17 04:10 pO2 15 mm/Hg (30-55) L 11/19/17 13:22 VBG pH 7.36 (7.32-7.43) 11/19/17 13:22 VBG pCO2 56 mmHg (40-60) 11/19/17 13:22 VBG HCO3 26.3 mmol/L 11/19/17 13:22 VBG Total CO2 33.3 mmol/L (22-28) H 11/19/17 13:22 VBG O2 Sat (Calc) 15.8 % (40-65) L 11/19/17 13:22 VBG Base Excess 4.6 mmol/L (0.0-2.0) H 11/19/17 13:22 VBG Potassium 3.8 mmol/L (3.6-5.2) 11/19/17 13:22 Sodium 140.0 mmol/L (132-148) 11/19/17 13:22 Chloride 105.0 mmol/L (98-107) 11/19/17 13:22 Glucose 107 mg/dL (65-105) H 11/19/17 13:22 Lactate 1.7 mmol/L (0.7-2.1) 11/19/17 13:22 FiO2 21.0 % 11/19/17 13:22 Sodium 141 mmol/l (132-148) 11/20/17 04:10 Potassium 4.0 MMOL/L (3.6-5.0) 11/20/17 04:10 Chloride 104 mmol/L (98-107) 11/20/17 04:10 Carbon Dioxide 23 mmol/L (22-30) 11/20/17 04:10 Anion Gap 18 (10-20) 11/20/17 04:10 BUN 13 mg/dl (7-17) 11/20/17 04:10 Creatinine 0.5 mg/dl (0.7-1.2) L 11/20/17 04:10 Est GFR ( Amer) > 60 11/20/17 04:10 Est GFR (Non-Af Amer) > 60 11/20/17 04:10 Random Glucose 133 mg/dL (65-105) H 11/20/17 04:10 Calcium 8.8 mg/dL (8.4-10.2) 11/20/17 04:10 Phosphorus 3.4 mg/dl (2.5-4.5) 11/19/17 13:00 Magnesium 2.2 MG/DL (1.6-2.3) 11/19/17 13:00 Total Bilirubin 0.7 mg/dl (0.2-1.3) 11/19/17 13:00 AST 27 U/L (14-36) 11/19/17 13:00 ALT 48 U/L (9-52) 11/19/17 13:00 Alkaline Phosphatase 100 U/L (38-126) 11/19/17 13:00 Troponin I < 0.0120 ng/mL (0.00-0.120) 11/19/17 13:00 NT-Pro-B Natriuret Pep 296 pg/ml (0-900) 11/19/17 13:00 Total Protein 7.2 G/DL (6.3-8.2) 11/19/17 13:00 Albumin 3.8 g/dL (3.5-5.0) 11/19/17 13:00 Globulin 3.4 gm/dL (2.2-3.9) 11/19/17 13:00 Albumin/Globulin Ratio 1.1 (1.0-2.1) 11/19/17 13:00 Venous Blood Potassium 3.8 mmol/L (3.6-5.2) 11/19/17 13:22 - Hospital Course Hospital Course: 82 yo female with history of Dementia, bed bound , ex smoker and COPD brought by family because of SOB and coughing since earlier today. Also noted to have 1 episode of vomiting. She has been bed bound and non-verbal. Family also noted swelling of both legs . Doppler of LE showed left femoral and popliteal DVT . CTA chest showed no PE. Physical exam was significant for elderly lady with o2 Sat 94 % on 2 L O2 vi aNc and with scattered wheezing. She was placed under observation for mild COPD exacerbation started on duonebs and solumedrol IV with improvement of her respiratory status. She was given Lovenox therapeutic dose for DVt and switched to eliquis PO Patient clinically improved and at present is hemodynamically stable, baseline dementia , mumbling words but saturating 98% -96 % in RA All test results finding explained to daughter and all questions answered to her satisfaction . Will discharge patient home with family . Will recommend Eliquis life long since patient is bed bound. In case of bleeding stop eliquis and go to nearest hospital Follow up with PMD Dr. Ga 1. DVT, Left Leg venous doppler: DVT on left common femoral, femoral and popliteal CTA shoed no PE given Lovenox 50mg SC q 12hrs and switched to eliquis on discharge . 10 mg po BID for 1 week than 5 mg po BID for life 2. COPD exacerbation-- improved Duoneb via nebulizer QID Given Albuterol via nebulizer q 4hrs prn Given SoluMedrol 40mg IVPB q 12hrs Will d/c on Medrol pack and Duonebs 3. Dementia continue Namenda Discharge Exam - Head Exam Head Exam: ATRAUMATIC, NORMAL INSPECTION, NORMOCEPHALIC Additional comments: elderly , demented - Eye Exam Eye Exam: EOMI, PERRL Pupil Exam: NORMAL ACCOMODATION - ENT Exam ENT Exam: Mucous Membranes Moist, Normal Exam - Neck Exam Neck exam: Normal Inspection - Respiratory Exam Respiratory Exam: Clear to PA & Lateral, NORMAL BREATHING PATTERN. absent: Rhonchi, Wheezes, Respiratory Distress - Cardiovascular Exam Cardiovascular Exam: REGULAR RHYTHM, RRR, +S1, +S2. absent: JVD - GI/Abdominal Exam GI & Abdominal Exam: Normal Bowel Sounds, Tenderness. absent: Distended, Rebound - Rectal Exam Rectal Exam: Deferred - Extremities Exam Extremities exam: normal capillary refill, normal inspection, pedal pulses present - Back Exam Back exam: NORMAL INSPECTION - Neurological Exam Neurological exam: Alert, CN II-XII Intact Additional comments: demented , mumbling words - Psychiatric Exam Psychiatric exam: Flat Affect - Skin Skin Exam: Dry, Warm Discharge Plan - Discharge Medications Prescriptions: Albuterol/Ipratropium [Duoneb 3 mg/0.5 mg (3 ml) UD] 3 ml INH RQ4 PRN #30 neb PRN Reason: Shortness Of Breath Apixaban [Eliquis] 10 mg PO BID #70 tab Methylprednisolone [Medrol Dose Pack (21 tabs)] 4 mg PO DAILY #21 mg - Follow Up Plan Condition: STABLE Disposition: HOME/ ROUTINE Patient education suggested?: Yes Instructions: Deep Vein Thrombosis (Blood Clots in the Legs) Referrals: Salomón Ga MD [Staff Provider] - Clinical Quality Measures - CQM - VTE Did patient receive overlap therapy during hosptialization?: No Is patient being discharged on overlap therapy?: No If yes, what prescription has been given to the patient?: Eliquis
== END 2017-11-20 14:18 | disposition home or self-care (01) ==
LOC: H.ER 12:37 → H.ERHOLD 16:16 → INTOOBSV 16:16 → H.TEL 18:01
DX: I82.412 Acute embolism and thrombosis of left femoral vein (principal); I82.432 Acute embolism and thrombosis of left popliteal vein; J44.1 Chronic obstructive pulmonary disease with (acute) exacerbation; G30.9 Alzheimer's disease, unspecified; F02.80 Dementia in other diseases classified elsewhere, unspecified severity, without behavioral disturbance, psychotic disturbance, mood disturbance, and anxiety; E78.00 Pure hypercholesterolemia, unspecified; D64.9 Anemia, unspecified; F41.9 Anxiety disorder, unspecified; K29.70 Gastritis, unspecified, without bleeding; M19.90 Unspecified osteoarthritis, unspecified site; Z74.01 Bed confinement status; Z87.891 Personal history of nicotine dependence
CPT/HCPCS: 36415; 71045; 71275; 80048; 80053; 82803; 83735; 83880; 84100; 84484; 85025; 85610; 85730; 87040; 93005; 93970; 94640; 96372; 96374; 99284; G0378; J1650; J2920; J2930; J7040; Q9967

== ENCOUNTER 2017-12-01 09:44 | Inpatient (IN) | payer MEDICARE, MEDICAID ==
[2017-12-01 09:44] VITALS: BMI 25.9
[2017-12-01 11:00] LABS: BASO # 0.1 K/uL (0.0-0.2); BASO % 0.3 % (0.0-2.0); EOS # 0.2 K/uL (0.0-0.7); HEMOGLOBIN 11.4 g/dL (12.0-16.0); LYMPH # 1.5 K/uL (1.0-4.3); LYMPH % 8.3 % (20.0-40.0); MEAN CELL VOLUME 79.5 fl (81.0-99.0); MEAN CORPUSCULAR HEMOGLOBIN 25.7 pg (27.0-31.0); MEAN CORPUSCULAR HGB CONC 32.3 g/dL (33.0-37.0); MEAN PLATELET VOLUME 9.1 fl (7.2-11.7); MONO # 0.7 K/uL (0.0-0.8); MONO % 3.9 % (0.0-10.0); NEUT # 15.6 K/uL (1.8-7.0); NEUT % 86.5 % (50.0-75.0); NRBC % 0.1 % (0.0-0.0); PLATELET COUNT 270 K/uL (130-400); RBC 4.43 Mil/uL (3.80-5.20); RED CELL DISTRIBUTION WIDTH 16.6 % (11.5-14.5)
[2017-12-01 11:46] LABS: INR 1.2 (0.9-1.2); PARTIAL THROMBOPLASTIN TIME 17.4 Seconds (25.6-37.1); PROTHROMBIN TIME 13.1 Seconds (9.8-13.1)
[2017-12-01 11:51] LABS: ALBUMIN 3.2 g/dL (3.5-5.0); ALT/SGPT 52 U/L (9-52); AST/SGOT 37 U/L (14-36); BLOOD UREA NITROGEN 28 mg/dl (7-17); CALCIUM 8.6 mg/dL (8.4-10.2); GFR AFRICAN-AMERICAN > 60; GFR NON-AFRICAN AMERICAN > 60; LIPASE 42 U/L (23-300)
[2017-12-01 11:53] LABS: ANISOCYTOSIS SLIGHT; EOSINOPHIL 1 % (0-7); LYMPHOCYTE 10 % (20-50); MONOCYTE 6 % (0-10); NEUTROPHIL 83 % (42-75); PLATELET ESTIMATE NORMAL (NORMAL); TOTAL CELLS COUNTED 100
[2017-12-01 11:54] LABS: LARGE PLATELETS PRESENT; MICROCYTOSIS SLIGHT; OVALOCYTES SLIGHT; TEARDROP CELLS SLIGHT
[2017-12-01] MEDS ORDERED: Sodium Chloride 0.9% 500 ML IV STA (12:07)
[2017-12-01] MEDS ORDERED: Iohexol 300 100 ML IJ ONE (12:36)
[2017-12-01] MEDS ORDERED: Sodium Chloride 0.9% 100 ML ONE (12:37)
--- NOTE | 2017-12-01 12:40 | RAD ---
HISTORY: copd COMPARISON: Portable chest 11/27/2017. FINDINGS: LUNGS: No active pulmonary disease. PLEURA: No significant pleural effusion identified, no pneumothorax apparent. CARDIOVASCULAR: Cardiac silhouette remains normal appearance with left hilar vascular markings accentuated by rotation of the patient toward the left. OSSEOUS STRUCTURES: No significant abnormalities. VISUALIZED UPPER ABDOMEN: Normal. OTHER FINDINGS: None. IMPRESSION: No interval acute cardiopulmonary disease appreciated.
--- NOTE | 2017-12-01 12:59 | ED PDOC ---
HPI: Abdomen Time Seen by Provider: 12/01/17 10:09 Chief Complaint (Nursing): Abdominal Pain Chief Complaint (Provider): Vomiting History Per: Family History/Exam Limitations: other (dementia) Onset/Duration Of Symptoms: Days (12/01/17) Current Symptoms Are (Timing): Better Associated Symptoms: Vomiting (4 episodes). denies: Fever, Diarrhea Additional History Per: Patient Additional Complaint(s): 82 year old female with a history of dementia was brought into the ED by family members stating the patient has been vomiting onset today morning. Patient has vomited 4 times and the family members say it was dark and brown. Report she was admitted to [facility] for possible CVA last month. Denies changes in mental state , fever, bloody stool, and diarrhea. She has no other complaints and currently feels well now. PMD: No Family Provider Past Medical History Reviewed: Historical Data, Nursing Documentation, Vital Signs Vital Signs: Last Vital Signs Temp 98.4 F 12/02/17 07:56 Pulse 91 H 12/02/17 07:56 Resp 20 12/02/17 07:56 BP 105/52 L 12/02/17 07:56 Pulse Ox 95 12/02/17 07:56 - Medical History PMH: Alzheimer's Disease, Anemia, Anxiety, Arthritis, Asthma, COPD, Dementia, Depression, Fractures (Right wrist fx (16 yrs ago)), Gastritis, Hypercholesterolemia Denies: CHF, HIV, HTN, Hypothyroidism, Chronic Kidney Disease, Rheumatoid Arthritis - Family History Family History: States: Unknown Family Hx - Home Medications Home Medications: Ambulatory Orders Medication Instructions Recorded Memantine HCl [Namenda Xr] 28 mg PO DAILY 03/03/15 Rosuvastatin Calcium [Crestor] 5 mg PO DAILY 03/03/15 Esomeprazole Magnesium [Nexium] 40 mg PO DAILY 01/27/16 Albuterol/Ipratropium [Duoneb 3 3 ml INH RQ4 PRN #30 neb 11/20/17 mg/0.5 mg (3 ml) UD] Apixaban [Eliquis] 2.5 mg PO BID #60 tablet 11/29/17 PARoxetine [Paxil] 10 mg PO DAILY #30 tab 11/29/17 - Allergies Allergies/Adverse Reactions: Allergies Allergy/AdvReac Type Severity Reaction Status Date / Time No Known Allergies Allergy Verified 12/01/17 10:05 Review of Systems ROS Statement: Except As Marked, All Systems Reviewed And Found Negative Review Of Systems: ROS cannot be obtained secondary to pt's inabilty to answer questions. Constitutional: Negative for: Fever Gastrointestinal: Positive for: Vomiting (4 episodes). Negative for: Diarrhea, Other (bloody stool) Physical Exam - Reviewed Nursing Documentation Reviewed: Yes Vital Signs Reviewed: Yes - Physical Exam Appears: Positive for: Non-toxic, No Acute Distress Head Exam: Positive for: ATRAUMATIC, NORMAL INSPECTION, NORMOCEPHALIC Skin: Positive for: Normal Color, Warm, Dry Eye Exam: Positive for: EOMI, Normal appearance, PERRL ENT: Positive for: Normal ENT Inspection Neck: Positive for: Normal, Painless ROM, Supple. Negative for: Decreased ROM Cardiovascular/Chest: Positive for: Regular Rate, Rhythm, Bradycardia Respiratory: Positive for: Wheezing (occasionally bilateral) Gastrointestinal/Abdominal: Positive for: Normal Exam, Bowel Sounds, Soft. Negative for: Tenderness, Distended Back: Positive for: Normal Inspection. Negative for: L CVA Tenderness, R CVA Tenderness Extremity: Positive for: Normal ROM. Negative for: Tenderness, Pedal Edema, Deformity Neurologic/Psych: Positive for: Alert, Other (nonverbal). Negative for: Oriented - Laboratory Results Result Diagrams: 12/02/17 04:55 12/02/17 06:31 - ECG O2 Sat by Pulse Oximetry: 98 (RA) Pulse Ox Interpretation: Normal Medical Decision Making Medical Decision Making: Time: 1031 Initial Impression: possibly coffee ground-like vomit Differential Diagnosis includes but is not limited to: small bowel obstruction, urinary tract infection, GI bleed Initial Plan: --BBK --Abdomen & Pelvis CT --EKG --CMP --Lipase --Troponin I --ED Dipstick --CBC w/ Differential --PTT --Prothrombin Time --Chest Portable --Glucose --Normal Saline 500 mls/hr --Pantoprazole 40mg --Zofran 4mg IVP --Urinary Catheter Insertion --Urinalysis --Reevaluation Time: 1238 FINDINGS: LUNGS: No active pulmonary disease. PLEURA: No significant pleural effusion identified, no pneumothorax apparent. CARDIOVASCULAR: Cardiac silhouette remains normal appearance with left hilar vascular markings accentuated by rotation of the patient toward the left. OSSEOUS STRUCTURES: No significant abnormalities. VISUALIZED UPPER ABDOMEN: Normal. OTHER FINDINGS: None. IMPRESSION: No interval acute cardiopulmonary disease appreciated. Time: 1408 PROCEDURE: CT Abdomen and Pelvis with contrast FINDINGS: LOWER THORAX: There is prominent thickening of the distal esophagus with a hiatal hernia also associated. Some of this thickening may be ascribed to the hiatal hernia however extensive esophagitis or even neoplasm is not excluded. Limited right basilar atelectasis identified. LIVER: Unremarkable. No gross lesion or ductal dilatation. GALLBLADDER AND BILE DUCTS: Cholelithiasis is created rated within the gallbladder which is mildly distended but otherwise unremarkable appearing. PANCREAS: Unremarkable. No gross lesion or ductal dilatation. SPLEEN: Unremarkable. ADRENALS: Unremarkable. No mass. KIDNEYS AND URETERS: A large cyst is slightly larger at the upper pole left kidney measuring 5.8 x 4.7 cm. No obstructive uropathy bilaterally or radiodense urolithiasis. No perinephric reaction bilaterally either. VASCULATURE: Non aneurysmal atherosclerotic abdominal aorta identified as well as visualized iliofemoral arterial system bilaterally. BOWEL: Stomach appears collapsed. There is no bowel obstruction identified although borderline rectal fecal impaction is suggested. Limited fecal loading is seen throughout large-bowel excluding the distal rectosigmoid. APPENDIX: The appendix not identified. No CT evidence to suggest appendicitis at this time. PERITONEUM: Unremarkable. No free fluid. No free air. LYMPH NODES: Unremarkable. No enlarged lymph nodes. BLADDER: Urinary bladder is mildly distended appearing smooth and thin walled. No pericystic reaction. REPRODUCTIVE: Unremarkable. BONES: Stable mild, chronic T12 and L2 anterior wedge compression fractures are identified however and interval severe L5 compression fracture is identified of indeterminate age. OTHER FINDINGS: None. IMPRESSION: 1. No definitive acute intra-abdominal findings. 2. Cholelithiasis within a moderately distended gallbladder which is otherwise unremarkable. 3. Limited increase in large left renal simple cyst. No obstructive uropathy bilaterally. 4. A small hiatal hernia is identified. Prominent thickening of a mid to distal esophagus is noted somewhat above the level the hiatal hernia is suspected. Consider potential infectious or inflammatory changes in the esophagus or even neoplasm. 5. Severe L5 compression fracture of indeterminate age. Chronic compression fractures of T12 at L2 or identified. Time:1625 -- Discussed with Schlater for admission Time: 1630 -- Discussed with residential finish carpenter for Dr Reynolds to be on consult. Time: 1643 Procedure: Gallbladder Ultrasound FINDINGS: No gallbladder wall thickening, pericholecystic fluid or calculi are observed. The common bile duct measures 2 millimeters. The pancreas is not visualized. The aorta and IVC are not visualized. The right kidney is not visualized. The liver is not imaged. IMPRESSION: No evidence of cholelithiasis. Scribe Attestation: Documented by Rin Mehta, acting as a scribe for Cuauhtemoc Thompson MD Provider Scribe Attestation: All medical record entries made by the Scribe were at my direction and personally dictated by me. I have reviewed the chart and agree that the record accurately reflects my personal performance of the history, physical exam, medical decision making, and the department course for this patient. I have also personally directed, reviewed, and agree with the discharge instructions and disposition. Disposition - Clinical Impression Clinical Impression: Vomiting, Elevated WBC count, Sepsis - Patient ED Disposition Is Patient to be Admitted: Yes Discussed With : Jet Perez Counseled Patient/Family Regarding: Studies Performed, Diagnosis - Disposition Disposition Time: 16:00 Condition: FAIR - Pt Status Changed To: Hospital Disposition Of: Inpatient - Admit Certification Admit to Inpatient:: After my assessment, the patient will require hospitalization for at least two midnights. This is because of the severity of symptoms shown, intensity of services needed, and/or the medical risk in this patient being treated as an outpatient. - POA Present On Arrival: Deep Vein Thrombosis / PE
[2017-12-01] MEDS ORDERED: Albuterol-Ipratrop 3 mg / 0.5 (3 ml) UD INH STA (13:46)
[2017-12-01] MEDS ORDERED: Albuterol-Ipratrop 3 mg / 0.5 (3 ml) UD ONE (14:00)
--- NOTE | 2017-12-01 14:09 | CT ---
PROCEDURE: CT Abdomen and Pelvis with contrast HISTORY: vomiting COMPARISON: Abdomen and pelvis CT without contrast 03/03/2015. TECHNIQUE: Contrast dose: Omnipaque 300, 90 cc Radiation dose: Total exam DLP = 630.57 mGy-cm. This CT exam was performed using one or more of the following dose reduction techniques: Automated exposure control, adjustment of the mA and/or kV according to patient size, and/or use of iterative reconstruction technique. FINDINGS: LOWER THORAX: There is prominent thickening of the distal esophagus with a hiatal hernia also associated. Some of this thickening may be ascribed to the hiatal hernia however extensive esophagitis or even neoplasm is not excluded. Limited right basilar atelectasis identified. LIVER: Unremarkable. No gross lesion or ductal dilatation. GALLBLADDER AND BILE DUCTS: Cholelithiasis is created rated within the gallbladder which is mildly distended but otherwise unremarkable appearing. PANCREAS: Unremarkable. No gross lesion or ductal dilatation. SPLEEN: Unremarkable. ADRENALS: Unremarkable. No mass. KIDNEYS AND URETERS: A large cyst is slightly larger at the upper pole left kidney measuring 5.8 x 4.7 cm. No obstructive uropathy bilaterally or radiodense urolithiasis. No perinephric reaction bilaterally either. VASCULATURE: Non aneurysmal atherosclerotic abdominal aorta identified as well as visualized iliofemoral arterial system bilaterally. BOWEL: Stomach appears collapsed. There is no bowel obstruction identified although borderline rectal fecal impaction is suggested. Limited fecal loading is seen throughout large-bowel excluding the distal rectosigmoid. APPENDIX: The appendix not identified. No CT evidence to suggest appendicitis at this time. PERITONEUM: Unremarkable. No free fluid. No free air. LYMPH NODES: Unremarkable. No enlarged lymph nodes. BLADDER: Urinary bladder is mildly distended appearing smooth and thin walled. No pericystic reaction. REPRODUCTIVE: Unremarkable. BONES: Stable mild, chronic T12 and L2 anterior wedge compression fractures are identified however and interval severe L5 compression fracture is identified of indeterminate age. OTHER FINDINGS: None. IMPRESSION: 1. No definitive acute intra-abdominal findings. 2. Cholelithiasis within a moderately distended gallbladder which is otherwise unremarkable. 3. Limited increase in large left renal simple cyst. No obstructive uropathy bilaterally. 4. A small hiatal hernia is identified. Prominent thickening of a mid to distal esophagus is noted somewhat above the level the hiatal hernia is suspected. Consider potential infectious or inflammatory changes in the esophagus or even neoplasm. 5. Severe L5 compression fracture of indeterminate age. Chronic compression fractures of T12 at L2 or identified.
[2017-12-01] MEDS ORDERED: Piperacillin/Tazobact 3.375 GM in Sodium Chloride 0.9% 100 ML IVPB STA (14:54)
[2017-12-01 15:15] LABS: URINE BACTERIA MANY (<OCC); URINE BILIRUBIN NEGATIVE (NEGATIVE); URINE BLOOD NEGATIVE (NEGATIVE); URINE CLARITY CLOUDY (Clear); URINE COLOR YELLOW (YELLOW); URINE GLUCOSE (UA) NEG (Normal); URINE LEUKOCYTE ESTERASE NEG Leu/uL (Negative); URINE PROTEIN NEGATIVE (NEGATIVE); URINE UROBILINOGEN 0.2-1.0 mg/dL (0.2-1.0)
[2017-12-01] MEDS ORDERED: Piperacillin/Tazobact 3.375 gm Inj IVPB ONE (15:48)
[2017-12-01 15:52] LABS: VENOUS BLOOD GAS BASE EXCESS -0.5 mmol/L (0.0-2.0); VENOUS BLOOD GAS PCO2 51 mmHg (40-60); VENOUS BLOOD GAS PO2 13 mm/Hg (30-55); VENOUS BLOOD PH 7.32 (7.32-7.43)
[2017-12-01] MEDS ORDERED: Sodium Chloride 0.9% 1,000 ML IV SCH (16:45)
[2017-12-01] MEDS ORDERED: Albuterol-Ipratrop 3 mg / 0.5 (3 ml) UD INH PRN (16:46)
--- NOTE | 2017-12-01 16:52 | US ---
PROCEDURE: HISTORY: vomiting cholelithiasis on CT COMPARISON: TECHNIQUE: FINDINGS: No gallbladder wall thickening, pericholecystic fluid or calculi are observed. The common bile duct measures 2 millimeters. The pancreas is not visualized. The aorta and IVC are not visualized. The right kidney is not visualized. The liver is not imaged. IMPRESSION: No evidence of cholelithiasis.
--- NOTE | 2017-12-01 17:21 | CP.PCM.CON ---
<Prateek Dean - Last Filed: 12/01/17 18:37> History of Present Illness - History of Present Illness History of Present Illness: General Surgery Consult Note: Dr. Reynolds 82F with PMHx of COPD, DVT (Left Common Femoral, femoral, popliteal veins) patient is on Eliquis 2.5mg BID, advance dementia, presents to [facility] ED after being brought in by daughter for multiple episodes of emesis. Patient's daughter and family at bedside during interview. Daughter states patient had multiple episodes of brown emesis this morning. She states patient's behavior has been different since she woke up. Daughter states patient is more lethargic than usual. She states patient has been having normal bowel movements daily. General surgery was consulted for incidental finding of gallstones in CT Abd/ Pelvis. At time of examination patient was tachycardic (114's), BP 104/82, O2Sat 100 on NC. PMH:as stated above PSH: metal plate in R hand, knee sx FH: non-contributory Social Hx: former heavy smoker Allergies: NKDA Review of Systems - Review of Systems Systems not reviewed;Unavailable: Dementia Past Patient History - Infectious Disease Hx of Infectious Diseases: None - Tetanus Immunizations Tetanus Immunization: Unknown (quit 5 yrs ago; used to smoke 2 PPD) - Past Medical History & Family History Past Medical History?: Yes - Past Social History Smoking Status: Former Smoker - CARDIAC Hx Congestive Heart Failure: No Hx Hypercholesterolemia: Yes Hx Hypertension: No - PULMONARY Hx Asthma: Yes Hx Chronic Obstructive Pulmonary Disease (COPD): Yes - NEUROLOGICAL Hx Alzheimer's Disease: Yes Hx Dementia: Yes - HEENT Hx HEENT Problems: Yes - RENAL Hx Chronic Kidney Disease: No - ENDOCRINE/METABOLIC Hx Hypothyroidism: No - HEMATOLOGICAL/ONCOLOGICAL Hx Anemia: Yes Hx Human Immunodeficiency Virus (HIV): No - INTEGUMENTARY Hx Dermatological Problems: No - MUSCULOSKELETAL/RHEUMATOLOGICAL Hx Arthritis: Yes Hx Fractures: Yes (Right wrist fx (16 yrs ago)) Hx Rheumatoid Arthritis: No - GASTROINTESTINAL Hx Gastritis: Yes - GENITOURINARY/GYNECOLOGICAL Hx Genitourinary Disorders: Yes Hx Incontinence: Yes - PSYCHIATRIC Hx Anxiety: Yes Hx Depression: Yes - SURGICAL HISTORY Hx Surgeries: Yes Hx Open Reduction Internal Fixation: Yes (right wrist fracture) Hx Orthopedic Surgery: Yes Other/Comment: right wrist surgery with metal plate, left knee mass removal years ago - ANESTHESIA Hx Anesthesia: Yes Hx Anesthesia Reactions: No Hx Malignant Hyperthermia: No Meds Allergies/Adverse Reactions: Allergies Allergy/AdvReac Type Severity Reaction Status Date / Time No Known Allergies Allergy Verified 12/01/17 10:05 - Medications Medications: Current Medications Acetaminophen (Tylenol 325mg Tab) 650 mg PO Q6 PRN PRN Reason: Fever >100.4 F Apixaban (Eliquis) 5 mg PO Q12 LAMINE PRN Reason: Protocol Atorvastatin Calcium (Lipitor) 10 mg PO DAILY LAMINE Sodium Chloride (Sodium Chloride 0.9%) 1,000 mls @ 100 mls/hr IV .Q10H LAMINE Ipratropium Parsons (Atrovent) 0.5 mg IH RQ6 PRN PRN Reason: Shortness of Breath Memantine (Namenda) 10 mg PO Q12 LAMINE Metoclopramide HCl (Reglan) 10 mg IVP Q6 LAMINE Pantoprazole Sodium (Protonix Inj) 40 mg IVP DAILY LAMINE Paroxetine HCl (Paxil) 10 mg PO DAILY LAMINE Physical Exam - Constitutional Appears: Non-toxic, No Acute Distress, Other (leth) Additional comments: lethargic - Head Exam Head Exam: NORMOCEPHALIC - ENT Exam ENT Exam: Mucous Membranes Dry - Respiratory Exam Respiratory Exam: NORMAL BREATHING PATTERN - Cardiovascular Exam Cardiovascular Exam: +S1, +S2 - GI/Abdominal Exam GI & Abdominal Exam: Soft. absent: Distended, Firm, Guarding, Rigid, Tenderness Additional comments: not peritoneal - Skin Skin Exam: Intact, Normal Color, Warm Results - Vital Signs Recent Vital Signs: Last Vital Signs Temp 97 F L 12/01/17 16:35 Pulse 118 H 12/01/17 16:35 Resp 16 12/01/17 16:35 BP 106/84 12/01/17 16:35 Pulse Ox 98 12/01/17 16:35 - Labs Result Diagrams: 12/01/17 10:53 12/01/17 11:25 Labs: Laboratory Results - last 24 hr 12/01/17 12/01/17 12/01/17 10:28 10:53 11:25 WBC 18.0 H D RBC 4.43 Hgb 11.4 L Hct 35.2 MCV 79.5 L MCH 25.7 L MCHC 32.3 L RDW 16.6 H Plt Count 270 MPV 9.1 Neut % (Auto) 86.5 H Lymph % (Auto) 8.3 L [place] % (Auto) 3.9 Eos % (Auto) 1.0 Baso % (Auto) 0.3 Neut # (Auto) 15.6 H Lymph # (Auto) 1.5 [place] # (Auto) 0.7 Eos # (Auto) 0.2 Baso # (Auto) 0.1 Neutrophils % (Manual) 83 H Lymphocytes % (Manual) 10 L Monocytes % (Manual) 6 Eosinophils % (Manual) 1 Platelet Estimate Normal Large Platelets Present Anisocytosis (manual) Slight Microcytosis (manual) Slight Tear Drop Cells Slight Ovalocytes Slight PT 13.1 INR 1.2 APTT 17.4 L pO2 VBG pH VBG pCO2 VBG HCO3 VBG Total CO2 VBG O2 Sat (Calc) VBG Base Excess VBG Potassium Glucose Lactate FiO2 Sodium Potassium Chloride Carbon Dioxide Anion Gap BUN Creatinine Est GFR ( Amer) Est GFR (Non-Af Amer) POC Glucose (mg/dL) 157 H Random Glucose Calcium Total Bilirubin AST ALT Alkaline Phosphatase Total Protein Albumin Globulin Albumin/Globulin Ratio Lipase Venous Blood Potassium Urine Color Urine Clarity Urine pH Ur Specific [place] Urine Protein Urine Glucose (UA) Urine Ketones Urine Blood Urine Nitrate Urine Bilirubin Urine Urobilinogen Ur Leukocyte Esterase Urine RBC (Auto) Urine Microscopic WBC Urine Bacteria 12/01/17 12/01/17 12/01/17 11:25 14:50 15:49 WBC RBC Hgb Hct MCV MCH MCHC RDW Plt Count MPV Neut % (Auto) Lymph % (Auto) [place] % (Auto) Eos % (Auto) Baso % (Auto) Neut # (Auto) Lymph # (Auto) [place] # (Auto) Eos # (Auto) Baso # (Auto) Neutrophils % (Manual) Lymphocytes % (Manual) Monocytes % (Manual) Eosinophils % (Manual) Platelet Estimate Large Platelets Anisocytosis (manual) Microcytosis (manual) Tear Drop Cells Ovalocytes PT INR APTT pO2 13 L VBG pH 7.32 VBG pCO2 51 VBG HCO3 22.2 VBG Total CO2 27.9 VBG O2 Sat (Calc) 17.8 L VBG Base Excess -0.5 L VBG Potassium 3.8 Glucose 118 H Lactate 2.3 H FiO2 21.0 Sodium 137 136.0 Potassium 4.2 Chloride 103 104.0 Carbon Dioxide 20 L Anion Gap 18 BUN 28 H Creatinine 0.6 L Est GFR ( Amer) > 60 Est GFR (Non-Af Amer) > 60 POC Glucose (mg/dL) Random Glucose 120 H Calcium 8.6 Total Bilirubin 0.6 AST 37 H ALT 52 Alkaline Phosphatase 74 Total Protein 6.4 Albumin 3.2 L D Globulin 3.1 Albumin/Globulin Ratio 1.0 Lipase 42 Venous Blood Potassium 3.8 Urine Color Yellow Urine Clarity Cloudy Urine pH 5.0 Ur Specific [place] 1.025 Urine Protein Negative Urine Glucose (UA) Neg Urine Ketones Negative Urine Blood Negative Urine Nitrate Negative Urine Bilirubin Negative Urine Urobilinogen 0.2-1.0 Ur Leukocyte Esterase Neg Urine RBC (Auto) 1 Urine Microscopic WBC 1 Urine Bacteria Many H Assessment & Plan - Assessment and Plan (Free Text) Assessment: 82F with multiple episodes of vomiting and leukocytosis Plan: NPO IVF ABx Anti-emetics DVT ppx F/u walsh cultures F/u AM labs After review of labs and imaging gallbladder does not appear to be source of sepsis No acute surgical intervention needed at this present time After further discussion with Family ,daughter not want any aggressive surgical measures taken. Patient is DNR/DNI. If any kind of acute surgical intervention were needed family stated they will deny surgical intervention and only opt for comfort measures. Medical management per primary team Further recs per Dr. Rodolfo CABALLERO PGY2 <Teresita Reynolds - Last Filed: 12/02/17 13:11> Meds - Medications Medications: Current Medications Acetaminophen (Tylenol 325mg Tab) 650 mg PO Q6 PRN PRN Reason: Fever >100.4 F Apixaban (Eliquis) 5 mg PO Q12 LAMINE PRN Reason: Protocol Last Admin: 12/02/17 09:16 Dose: 5 mg Atorvastatin Calcium (Lipitor) 10 mg PO DAILY LAMINE Last Admin: 12/02/17 09:18 Dose: 10 mg Sodium Chloride (Sodium Chloride 0.9%) 1,000 mls @ 100 mls/hr IV .Q10H LAMINE Piperacillin Sod/Tazobactam (Sod 3.375 gm/ Sodium Chloride) 100 mls @ 100 mls/ hr IVPB Q6 LAMINE PRN Reason: Protocol Last Admin: 12/02/17 09:37 Dose: 100 mls/hr Ipratropium Parsons (Atrovent) 0.5 mg IH RQ6 PRN PRN Reason: Shortness of Breath Last Admin: 12/02/17 12:25 Dose: 0.5 mg Memantine (Namenda) 10 mg PO Q12 [facility] Last Admin: 12/02/17 09:18 Dose: 10 mg Metoclopramide HCl (Reglan) 10 mg IVP Q6 [facility] Last Admin: 12/02/17 09:21 Dose: 10 mg Pantoprazole Sodium (Protonix Inj) 40 mg IVP DAILY [facility] Last Admin: 12/02/17 09:19 Dose: 40 mg Paroxetine HCl (Paxil) 10 mg PO DAILY [facility] Last Admin: 12/02/17 09:18 Dose: 10 mg Results - Vital Signs Recent Vital Signs: Last Vital Signs Temp 98.6 F 12/02/17 12:08 Pulse 99 H 12/02/17 12:08 Resp 20 12/02/17 12:08 BP 123/72 12/02/17 12:08 Pulse Ox 97 12/02/17 12:08 - Labs Result Diagrams: 12/02/17 04:55 12/02/17 06:31 Labs: Laboratory Results - last 24 hr 12/01/17 12/01/17 12/02/17 14:50 15:49 04:55 WBC 7.6 D RBC 3.32 L Hgb 8.6 L D Hct 26.7 L MCV 80.4 L MCH 25.9 L MCHC 32.2 L RDW 16.4 H Plt Count 192 pO2 13 L VBG pH 7.32 VBG pCO2 51 VBG HCO3 22.2 VBG Total CO2 27.9 VBG O2 Sat (Calc) 17.8 L VBG Base Excess -0.5 L VBG Potassium 3.8 Sodium 136.0 Chloride 104.0 Glucose 118 H Lactate 2.3 H FiO2 21.0 Potassium Carbon Dioxide Anion Gap BUN Creatinine Est GFR ( Amer) Est GFR (Non-Af Amer) Random Glucose Calcium Total Bilirubin AST ALT Alkaline Phosphatase Total Protein Albumin Globulin Albumin/Globulin Ratio Venous Blood Potassium 3.8 Urine Color Yellow Urine Clarity Cloudy Urine pH 5.0 Ur Specific [place] 1.025 Urine Protein Negative Urine Glucose (UA) Neg Urine Ketones Negative Urine Blood Negative Urine Nitrate Negative Urine Bilirubin Negative Urine Urobilinogen 0.2-1.0 Ur Leukocyte Esterase Neg Urine RBC (Auto) 1 Urine Microscopic WBC 1 Urine Bacteria Many H 12/02/17 12/02/17 06:31 08:37 WBC RBC Hgb Hct MCV MCH MCHC RDW Plt Count pO2 19 L VBG pH 7.44 H VBG pCO2 40 VBG HCO3 25.3 VBG Total CO2 28.4 H VBG O2 Sat (Calc) 34.6 L VBG Base Excess 2.8 H VBG Potassium 3.7 Sodium 141 140.0 Chloride 105 110.0 H Glucose 95 Lactate 1.3 FiO2 21.0 Potassium 3.7 Carbon Dioxide 24 Anion Gap 16 BUN 21 H Creatinine 0.7 Est GFR ( Amer) > 60 Est GFR (Non-Af Amer) > 60 Random Glucose 95 Calcium 7.9 L Total Bilirubin 0.8 AST 34 ALT 48 Alkaline Phosphatase 65 Total Protein 5.6 L Albumin 2.8 L Globulin 2.8 Albumin/Globulin Ratio 1.0 Venous Blood Potassium 3.7 Urine Color Urine Clarity Urine pH Ur Specific [place] Urine Protein Urine Glucose (UA) Urine Ketones Urine Blood Urine Nitrate Urine Bilirubin Urine Urobilinogen Ur Leukocyte Esterase Urine RBC (Auto) Urine Microscopic WBC Urine Bacteria Assessment & Plan - Assessment and Plan (Free Text) Plan: I personally saw and examined the patient at bedside with the resident team this am and agree with above assessment and plan with the following additional comments. 82 F DNR/DNI, bed bound, long-term resident, hx of COPD, VTE actively being anticoagulated, presents with nausea/vomiting and altered mental status. I personally reviewed the CT and US imaging and reports. Not surgical intervention indicated or desired per family/patient's wishes. Possible gallbladder may be source, but not typical presentation, and somewhat discordant findings on above imaging. She does have small-moderate hiatal hernia which could be causing symptoms, dehydration, infectious esophagitis, and explain decreased Hgb. Continue empiric Abx, IV hydration, NPO. If patient/ family agreeable to intervention, would rec GI perform EGD insertion to eval bleeding, reduction of hiatal hernia and possible PEG tube. If fails to improve with above, or becomes septic appearing, would rec IR guided percutaneous cholecystostomy tube placement. - Date & Time Date: 12/02/17 Time: 10:00
--- NOTE | 2017-12-01 17:34 | CP.PCM.HP ---
History of Present Illness - History of Present Illness History of Present Illness: This is an 82 year old female with pmh of advanced dementia, COPD, formet heavy smoker, who presented to the ED accompanied by family, who noticed that the patient had intractable nausea and vomiting beginning earlier this morning. The daughter states that she had large episode of dark brown/green emesis and was at first reluctant to bring her to the ED; however after another 1-2 bouts of emesis the patient was brought to the ED this morning. Of note she does have history of episodic nausea/vomiting and history of gastritis as well. In the ED , the patient was noted to be tachycardic around 120 bpm which improved somewhat with fluids. Laboratory results are significant for leukocytosis of 18.0 which is significantly elevated from previous on 11/28/2017 of 7.3. Hg is 11.4 which is elevated from previously, although may be hemoconcentrated due to dehydration. CT scan shows findings of cholelithiasis with mild gallbladder distension along with esophageal thickening which may be indicative of esophagitis/gastritis. Given that the patient meets sepsis criteria with leukocytosis and tachycardia, the patient is to be admitted to telemetry for further workup and monitoring. ROS: Per HPI, all other systems reviewed with the daughter and negative ( patient demented and unable to give any history). PMH: advanced dementia, COPD, former heavy smoker PSH: metal plate in hand, knee sx FH: Ca SH: former heavy smoker. no ETOH, IVDU NKDA Present on Admission - Present on Admission Any Indicators Present on Admission: No History of DVT/PE: Yes History of Uncontrolled Diabetes: No Past Patient History - Infectious Disease Hx of Infectious Diseases: None - Tetanus Immunizations Tetanus Immunization: Unknown (quit 5 yrs ago; used to smoke 2 PPD) - Past Medical History & Family History Past Medical History?: Yes - Past Social History Smoking Status: Former Smoker - CARDIAC Hx Congestive Heart Failure: No Hx Hypercholesterolemia: Yes Hx Hypertension: No - PULMONARY Hx Asthma: Yes Hx Chronic Obstructive Pulmonary Disease (COPD): Yes - NEUROLOGICAL Hx Alzheimer's Disease: Yes Hx Dementia: Yes - HEENT Hx HEENT Problems: Yes - RENAL Hx Chronic Kidney Disease: No - ENDOCRINE/METABOLIC Hx Hypothyroidism: No - HEMATOLOGICAL/ONCOLOGICAL Hx Anemia: Yes Hx Human Immunodeficiency Virus (HIV): No - INTEGUMENTARY Hx Dermatological Problems: No - MUSCULOSKELETAL/RHEUMATOLOGICAL Hx Arthritis: Yes Hx Fractures: Yes (Right wrist fx (16 yrs ago)) Hx Rheumatoid Arthritis: No - GASTROINTESTINAL Hx Gastritis: Yes - GENITOURINARY/GYNECOLOGICAL Hx Genitourinary Disorders: Yes Hx Incontinence: Yes - PSYCHIATRIC Hx Anxiety: Yes Hx Depression: Yes - SURGICAL HISTORY Hx Surgeries: Yes Hx Open Reduction Internal Fixation: Yes (right wrist fracture) Hx Orthopedic Surgery: Yes Other/Comment: right wrist surgery with metal plate, left knee mass removal years ago - ANESTHESIA Hx Anesthesia: Yes Hx Anesthesia Reactions: No Hx Malignant Hyperthermia: No Meds Allergies/Adverse Reactions: Allergies Allergy/AdvReac Type Severity Reaction Status Date / Time No Known Allergies Allergy Verified 12/01/17 10:05 Physical Exam - Additional Findings Additional findings: Physical exam: Constitutional- pleasantly demented, arousable to voice, at baseline Head- NCAT, PERRL Eye- PERRL, EOMI ENT- normal exam, MMM. Neck- normal inspection, supple, no JVD Respiratory- CTAB, no wheezes rales rhonchi Cardiovascular- tachycardic, regular rhythm, no MRG Gastronterology: ormal bowel sounds, soft, no mass, no hsm Skin- warm, dry Extremities Exam- normal capillary refill, normal inspection Neurological Exam- pleasantly demented, easily arousable to voice Results - Vital Signs Recent Vital Signs: Last Vital Signs Temp 97 F L 12/01/17 16:35 Pulse 118 H 12/01/17 16:35 Resp 16 12/01/17 16:35 BP 106/84 12/01/17 16:35 Pulse Ox 98 12/01/17 17:21 - Labs Result Diagrams: 12/01/17 10:53 12/01/17 11:25 Labs: Laboratory Results - last 24 hr 12/01/17 12/01/17 12/01/17 10:28 10:53 11:25 WBC 18.0 H D RBC 4.43 Hgb 11.4 L Hct 35.2 MCV 79.5 L MCH 25.7 L MCHC 32.3 L RDW 16.6 H Plt Count 270 MPV 9.1 Neut % (Auto) 86.5 H Lymph % (Auto) 8.3 L [place] % (Auto) 3.9 Eos % (Auto) 1.0 Baso % (Auto) 0.3 Neut # (Auto) 15.6 H Lymph # (Auto) 1.5 [place] # (Auto) 0.7 Eos # (Auto) 0.2 Baso # (Auto) 0.1 Neutrophils % (Manual) 83 H Lymphocytes % (Manual) 10 L Monocytes % (Manual) 6 Eosinophils % (Manual) 1 Platelet Estimate Normal Large Platelets Present Anisocytosis (manual) Slight Microcytosis (manual) Slight Tear Drop Cells Slight Ovalocytes Slight PT 13.1 INR 1.2 APTT 17.4 L pO2 VBG pH VBG pCO2 VBG HCO3 VBG Total CO2 VBG O2 Sat (Calc) VBG Base Excess VBG Potassium Glucose Lactate FiO2 Sodium Potassium Chloride Carbon Dioxide Anion Gap BUN Creatinine Est GFR ( Amer) Est GFR (Non-Af Amer) POC Glucose (mg/dL) 157 H Random Glucose Calcium Total Bilirubin AST ALT Alkaline Phosphatase Total Protein Albumin Globulin Albumin/Globulin Ratio Lipase Venous Blood Potassium Urine Color Urine Clarity Urine pH Ur Specific [place] Urine Protein Urine Glucose (UA) Urine Ketones Urine Blood Urine Nitrate Urine Bilirubin Urine Urobilinogen Ur Leukocyte Esterase Urine RBC (Auto) Urine Microscopic WBC Urine Bacteria 12/01/17 12/01/17 12/01/17 11:25 14:50 15:49 WBC RBC Hgb Hct MCV MCH MCHC RDW Plt Count MPV Neut % (Auto) Lymph % (Auto) [place] % (Auto) Eos % (Auto) Baso % (Auto) Neut # (Auto) Lymph # (Auto) [place] # (Auto) Eos # (Auto) Baso # (Auto) Neutrophils % (Manual) Lymphocytes % (Manual) Monocytes % (Manual) Eosinophils % (Manual) Platelet Estimate Large Platelets Anisocytosis (manual) Microcytosis (manual) Tear Drop Cells Ovalocytes PT INR APTT pO2 13 L VBG pH 7.32 VBG pCO2 51 VBG HCO3 22.2 VBG Total CO2 27.9 VBG O2 Sat (Calc) 17.8 L VBG Base Excess -0.5 L VBG Potassium 3.8 Glucose 118 H Lactate 2.3 H FiO2 21.0 Sodium 137 136.0 Potassium 4.2 Chloride 103 104.0 Carbon Dioxide 20 L Anion Gap 18 BUN 28 H Creatinine 0.6 L Est GFR ( Amer) > 60 Est GFR (Non-Af Amer) > 60 POC Glucose (mg/dL) Random Glucose 120 H Calcium 8.6 Total Bilirubin 0.6 AST 37 H ALT 52 Alkaline Phosphatase 74 Total Protein 6.4 Albumin 3.2 L D Globulin 3.1 Albumin/Globulin Ratio 1.0 Lipase 42 Venous Blood Potassium 3.8 Urine Color Yellow Urine Clarity Cloudy Urine pH 5.0 Ur Specific [place] 1.025 Urine Protein Negative Urine Glucose (UA) Neg Urine Ketones Negative Urine Blood Negative Urine Nitrate Negative Urine Bilirubin Negative Urine Urobilinogen 0.2-1.0 Ur Leukocyte Esterase Neg Urine RBC (Auto) 1 Urine Microscopic WBC 1 Urine Bacteria Many H Assessment & Plan - Assessment and Plan (Free Text) Plan: 1. Sepsis with nausea/vomiting, r/o cholecystitis vs gastritis - meets SIRS criteria with leukocytosis and tachycardia - CT scan reveals esophageal thickening as well as cholelithiasis with mild gallbladder distension - Admit to telemetry - Consultation with Dr. Mcdowell, GI. US gallbladder pending - Consultation with Dr. Reynolds, surgery - Procalcitonin level - Reglan PRN for nausea/vomiting - IV fluid resuscitation with NS at 100 cc/hour - Protonix 40 mg IV daily, first dose given in ED - Zosyn for empiric antibiotic coverage for cholelithiasis/infectious GI etiology - Blood culture, urine cultures 2. COPD, advanced, stable CXR showed no acute findings with O2 Sat 84% in ER . O2 via NC PRN, Atrovent as needed (holding Albuterol due to tachycardia 3.Dehydration Continue NS at 100 cc/hour Likely due to GI losses and poor po intake 4. Alzheimer's Dementia, severe Continue Namenda continue Paxil 5.Chronic DVT 5/6 diagnosed with Left common femoral, femoral and popliteal vein thrombosis Was on Eliquis 2.5 mg po BID before but will increase to therapeutic dose of 5 mg po BID as the patient's INR has normalized. DVT prophylaxis - Eliquis as above
[2017-12-01] MEDS: Ipratropium 0.02% Inhal Soln (0.5 mg/2.5 ml) UD IH PRN (20:25)
[2017-12-01] MEDS: Piperacillin/Tazobact 3.375 GM in Sodium Chloride 0.9% 100 ML IVPB SCH (22:08)
[2017-12-02] MEDS ORDERED: MethylPREDNISolone 40 mg Vial IVP SCH
[2017-12-02] MEDS: Piperacillin/Tazobact 3.375 GM in Sodium Chloride 0.9% 100 ML IVPB SCH ×4 (03:30→21:54)
[2017-12-02 07:00] LABS: HEMOGLOBIN 8.6 g/dL (12.0-16.0); MEAN CELL VOLUME 80.4 fl (81.0-99.0); MEAN CORPUSCULAR HEMOGLOBIN 25.9 pg (27.0-31.0); MEAN CORPUSCULAR HGB CONC 32.2 g/dL (33.0-37.0); RBC 3.32 Mil/uL (3.80-5.20); RED CELL DISTRIBUTION WIDTH 16.4 % (11.5-14.5); WHITE BLOOD COUNT 7.6 K/uL (4.8-10.8)
[2017-12-02 08:06] LABS: ALBUMIN 2.8 g/dL (3.5-5.0); ALT/SGPT 48 U/L (9-52); AST/SGOT 34 U/L (14-36); BLOOD UREA NITROGEN 21 mg/dl (7-17); CALCIUM 7.9 mg/dL (8.4-10.2); GFR AFRICAN-AMERICAN > 60; GFR NON-AFRICAN AMERICAN > 60
[2017-12-02 08:43] LABS: VENOUS BLOOD GAS BASE EXCESS 2.8 mmol/L (0.0-2.0); VENOUS BLOOD GAS PCO2 40 mmHg (40-60); VENOUS BLOOD GAS PO2 19 mm/Hg (30-55); VENOUS BLOOD PH 7.44 (7.32-7.43)
--- NOTE | 2017-12-02 10:37 | CARD ---
APPROVED REPORT EKG Measurement Heart [id number] CT [id number] <Conclusion> Sinus tachycardia with premature atrial complexes Nonspecific ST abnormality Abnormal ECG
--- NOTE | 2017-12-02 11:04 | CP.PCM.PN ---
Subjective - Date & Time of Evaluation Date of Evaluation: 12/02/17 Time of Evaluation: 11:00 - Subjective Subjective: No further vomiting Diet changed to Clear liquid and pt tolerated this no diarrhea Pt is severely demented DNR/DNI Surrogate Decision maker - daughter Bell Objective - Vital Signs/Intake and Output Vital Signs (last 24 hours): Temp Pulse Resp BP Pulse Ox 98.4 F 91 H 20 105/52 L 98 12/02/17 07:56 12/02/17 07:56 12/02/17 07:56 12/02/17 07:56 12/02/17 09:25 - Medications Medications: Current Medications Acetaminophen (Tylenol 325mg Tab) 650 mg PO Q6 PRN PRN Reason: Fever >100.4 F Apixaban (Eliquis) 5 mg PO Q12 [facility] PRN Reason: Protocol Last Admin: 12/02/17 09:16 Dose: 5 mg Atorvastatin Calcium (Lipitor) 10 mg PO DAILY [facility] Last Admin: 12/02/17 09:18 Dose: 10 mg Sodium Chloride (Sodium Chloride 0.9%) 1,000 mls @ 100 mls/hr IV .Q10H [facility]AM[facility] Piperacillin Sod/Tazobactam (Sod 3.375 gm/ Sodium Chloride) 100 mls @ 100 mls/ hr IVPB Q6 [facility] PRN Reason: Protocol Last Admin: 12/02/17 09:37 Dose: 100 mls/hr Ipratropium [place] (Atrovent) 0.5 mg IH RQ6 PRN PRN Reason: Shortness of Breath Last Admin: 12/01/17 20:25 Dose: 0.5 mg Memantine (Namenda) 10 mg PO Q12 [facility] Last Admin: 12/02/17 09:18 Dose: 10 mg Metoclopramide HCl (Reglan) 10 mg IVP Q6 [facility] Last Admin: 12/02/17 09:21 Dose: 10 mg Pantoprazole Sodium (Protonix Inj) 40 mg IVP DAILY [facility] Last Admin: 12/02/17 09:19 Dose: 40 mg Paroxetine HCl (Paxil) 10 mg PO DAILY [facility] Last Admin: 12/02/17 09:18 Dose: 10 mg - Labs Labs: 12/02/17 04:55 12/02/17 06:31 PT 13.1 Seconds (9.8-13.1) 12/01/17 11:25 INR 1.2 (0.9-1.2) 12/01/17 11:25 APTT 17.4 Seconds (25.6-37.1) L 12/01/17 11:25 - Constitutional Appears: Chronically Ill, Other (demeneted , severe) - Head Exam Head Exam: ATRAUMATIC, NORMAL INSPECTION, NORMOCEPHALIC - Eye Exam Additional comments: Pt keeps her eyes closed all the time - ENT Exam ENT Exam: Mucous Membranes Dry, Normal External Ear Exam - Neck Exam Neck Exam: Full ROM. absent: Meningismus - Respiratory Exam Respiratory Exam: Wheezes, NORMAL BREATHING PATTERN. absent: Respiratory Distress - Cardiovascular Exam Cardiovascular Exam: Tachycardia, REGULAR RHYTHM, +S1, +S2 - GI/Abdominal Exam GI & Abdominal Exam: Soft, Normal Bowel Sounds. absent: Tenderness - Extremities Exam Extremities Exam: Normal Capillary Refill. absent: Calf Tenderness, Pedal Edema - Back Exam Back Exam: absent: CVA tenderness (L), CVA tenderness (R) - Neurological Exam Additional comments: Pt continuously mumbling incomprehensible words moves all extremities - Skin Skin Exam: Dry, Normal Color, Warm Assessment and Plan - Assessment and Plan (Free Text) Assessment: 82 year old female with pmh of advanced dementia, COPD, former heavy smoker, who presented to the ED accompanied by family, who noticed that the patient had intractable nausea and vomiting the day of admission. The daughter states that she had large episode of dark brown/green emesis and was at first reluctant to bring her to the ED; however after another 1-2 bouts of emesis . Of note she does have history of episodic nausea/vomiting and history of gastritis as well. In the ED, the patient was noted to be tachycardic around 120 bpm which improved somewhat with fluids. Laboratory results are significant for leukocytosis of 18.0 which is significantly elevated from previous on 2017 of 7.3. Hg is 11.4 which is elevated from previously, although may be hemoconcentrated due to dehydration. CT scan shows findings of cholelithiasis with mild gallbladder distension along with esophageal thickening which may be indicative of esophagitis/gastritis. 1. SIRS with nausea/vomiting ? Gastritis cholecystitis ruled out - meets SIRS criteria with leukocytosis and tachycardia - CT scan reveals esophageal thickening as well as cholelithiasis with mild gallbladder distension - Consultation with GI - DR Ramírez came to see pt, case discussed - Consultation with Dr. Reynolds, surgery- unlikely Cholecystitis - Procalcitonin level - Reglan PRN for nausea/vomiting - IV fluid resuscitation with NS at 100 cc/hour - Protonix 40 mg IV - Zosyn for empiric antibiotic coverage for cholelithiasis/infectious GI etiology - Blood culture, urine cultures 2. COPD, exacerbation CXR showed no acute findings with O2 Sat 84% in ER . O2 via NC start Solumedrol IV start Xopenex RTC 3.Dehydration Continue NS at 100 cc/hour will give NS bolus as UO low Likely due to GI losses and poor po intake 4. 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 Anemia, chronic dis drop in Hgb prob dilutional however given that pt is on Eliquis and had dark vomitus last night, will rpt CBC, increase Protonix to BID Type and Screen DVT prophylaxis - Eliquis as above
--- NOTE | 2017-12-02 11:34 | CP.PCM.PN ---
Subjective - Date & Time of Evaluation Date of Evaluation: 12/02/17 Time of Evaluation: 11:32 - Subjective Subjective: Surgery Pt seen and examined w Dr. Reynolds. AAOx0. Altered. Unable to follow verbal commands. Per nurse no vomiting, diarrhea. Objective - Vital Signs/Intake and Output Vital Signs (last 24 hours): Temp Pulse Resp BP Pulse Ox 98.4 F 91 H 20 105/52 L 98 12/02/17 07:56 12/02/17 07:56 12/02/17 07:56 12/02/17 07:56 12/02/17 09:25 - Medications Medications: Current Medications Acetaminophen (Tylenol 325mg Tab) 650 mg PO Q6 PRN PRN Reason: Fever >100.4 F Apixaban (Eliquis) 5 mg PO Q12 [facility] PRN Reason: Protocol Last Admin: 12/02/17 09:16 Dose: 5 mg Atorvastatin Calcium (Lipitor) 10 mg PO DAILY [facility] Last Admin: 12/02/17 09:18 Dose: 10 mg Sodium Chloride (Sodium Chloride 0.9%) 1,000 mls @ 100 mls/hr IV .Q10H [facility] Piperacillin Sod/Tazobactam (Sod 3.375 gm/ Sodium Chloride) 100 mls @ 100 mls/ hr IVPB Q6 [facility] PRN Reason: Protocol Last Admin: 12/02/17 09:37 Dose: 100 mls/hr Ipratropium [place] (Atrovent) 0.5 mg IH RQ6 PRN PRN Reason: Shortness of Breath Last Admin: 12/01/17 20:25 Dose: 0.5 mg Memantine (Namenda) 10 mg PO Q12 [facility] Last Admin: 12/02/17 09:18 Dose: 10 mg Metoclopramide HCl (Reglan) 10 mg IVP Q6 [facility] Last Admin: 12/02/17 09:21 Dose: 10 mg Pantoprazole Sodium (Protonix Inj) 40 mg IVP DAILY [facility] Last Admin: 12/02/17 09:19 Dose: 40 mg Paroxetine HCl (Paxil) 10 mg PO DAILY [facility] Last Admin: 12/02/17 09:18 Dose: 10 mg - Labs Labs: 12/02/17 04:55 12/02/17 06:31 PT 13.1 Seconds (9.8-13.1) 12/01/17 11:25 INR 1.2 (0.9-1.2) 12/01/17 11:25 APTT 17.4 Seconds (25.6-37.1) L 12/01/17 11:25 - Constitutional Appears: In Acute Distress, Confused, Chronically Ill - Head Exam Head Exam: ATRAUMATIC, NORMAL INSPECTION, NORMOCEPHALIC - Eye Exam Eye Exam: EOMI, Normal appearance, PERRL Pupil Exam: NORMAL ACCOMODATION, PERRL - ENT Exam ENT Exam: Normal Exam - Neck Exam Neck Exam: Full ROM, Normal Inspection - Respiratory Exam Respiratory Exam: NORMAL BREATHING PATTERN - Cardiovascular Exam Cardiovascular Exam: Tachycardia, REGULAR RHYTHM, +S1, +S2. absent: Murmur - GI/Abdominal Exam GI & Abdominal Exam: Soft, Normal Bowel Sounds. absent: Distended, Firm, Guarding, Rigid, Tenderness - Exam Exam: NORMAL INSPECTION (Richard 750/8hrs. ) - Extremities Exam Extremities Exam: Normal Capillary Refill, Normal Inspection. absent: Full ROM , Joint Swelling, Pedal Edema - Back Exam Back Exam: NORMAL INSPECTION - Neurological Exam Neurological Exam: Awake. absent: Alert, Normal Gait, Oriented x3 - Skin Skin Exam: Dry, Intact, Warm Assessment and Plan - Assessment and Plan (Free Text) Assessment: Dehydration and AMS Labs improving Tachycardia resolved DNR/DNI US: no GB wall thickening or gallstone: Unlikely GB pathology -ABX -IVF -Medical management RICH Reynolds
[2017-12-02] MEDS: Ipratropium 0.02% Inhal Soln (0.5 mg/2.5 ml) UD IH PRN (12:25)
--- NOTE | 2017-12-02 13:20 | CP.PCM.CON ---
<Erica Reynolds - Last Filed: 12/02/17 13:26> History of Present Illness - History of Present Illness History of Present Illness: PGY 4 GI Initial Consult Anny Sutton is a 82 year old female with a history of dementia was brought into the ED by family members due to emesis. It was noted tano the onset was for 1 day. As per his primary physician, the patient has vomited 4 times. The family members noted that it was dark and brown. No reports of hematemesis, melena, or BRBPR. She was recently admitted to [facility] for possible CVA last month. Upon our evaluation, pt has not had any further episodes of emesis. No reports of BM since admission. Pt has dementia and could not answer any questions appropriately. No overnight events as per nursing. CT scan shows findings of cholelithiasis with mild gallbladder distension along with esophageal thickening which may be indicative of esophagitis/gastritis. Given that the patient meets sepsis criteria with leukocytosis and tachycardia, the patient is to be admitted to telemetry for further workup and monitoring. ROS: Per HPI, all other systems reviewed with the daughter and negative ( patient demented and unable to give any history). PMH: advanced dementia, COPD, former heavy smoker PSH: metal plate in hand, knee sx FH: unknown SH: former heavy smoker. no ETOH, IVDU Endo Hx: EGD 2015 esopahgitis, hitial hernia Past Patient History - Infectious Disease Hx of Infectious Diseases: None - Tetanus Immunizations Tetanus Immunization: Unknown (quit 5 yrs ago; used to smoke 2 PPD) - Past Medical History & Family History Past Medical History?: Yes - Past Social History Smoking Status: Former Smoker - CARDIAC Hx Congestive Heart Failure: No Hx Hypercholesterolemia: Yes Hx Hypertension: No - PULMONARY Hx Asthma: Yes Hx Chronic Obstructive Pulmonary Disease (COPD): Yes - NEUROLOGICAL Hx Alzheimer's Disease: Yes Hx Dementia: Yes - HEENT Hx HEENT Problems: Yes - RENAL Hx Chronic Kidney Disease: No - ENDOCRINE/METABOLIC Hx Hypothyroidism: No - HEMATOLOGICAL/ONCOLOGICAL Hx Anemia: Yes Hx Human Immunodeficiency Virus (HIV): No - INTEGUMENTARY Hx Dermatological Problems: No - MUSCULOSKELETAL/RHEUMATOLOGICAL Hx Arthritis: Yes Hx Fractures: Yes (Right wrist fx (16 yrs ago)) Hx Rheumatoid Arthritis: No - GASTROINTESTINAL Hx Gastritis: Yes - GENITOURINARY/GYNECOLOGICAL Hx Genitourinary Disorders: Yes Hx Incontinence: Yes - PSYCHIATRIC Hx Anxiety: Yes Hx Depression: Yes - SURGICAL HISTORY Hx Surgeries: Yes Hx Open Reduction Internal Fixation: Yes (right wrist fracture) Hx Orthopedic Surgery: Yes Other/Comment: right wrist surgery with metal plate, left knee mass removal years ago - ANESTHESIA Hx Anesthesia: Yes Hx Anesthesia Reactions: No Hx Malignant Hyperthermia: No Meds Allergies/Adverse Reactions: Allergies Allergy/AdvReac Type Severity Reaction Status Date / Time No Known Allergies Allergy Verified 12/01/17 10:05 - Medications Medications: Current Medications Acetaminophen (Tylenol 325mg Tab) 650 mg PO Q6 PRN PRN Reason: Fever >100.4 F Apixaban (Eliquis) 5 mg PO Q12 [facility] PRN Reason: Protocol Last Admin: 12/02/17 09:16 Dose: 5 mg Atorvastatin Calcium (Lipitor) 10 mg PO DAILY [facility] Last Admin: 12/02/17 09:18 Dose: 10 mg Sodium Chloride (Sodium Chloride 0.9%) 1,000 mls @ 100 mls/hr IV .Q10H [facility] Piperacillin Sod/Tazobactam (Sod 3.375 gm/ Sodium Chloride) 100 mls @ 100 mls/ hr IVPB Q6 [facility] PRN Reason: Protocol Last Admin: 12/02/17 09:37 Dose: 100 mls/hr Ipratropium [place] (Atrovent) 0.5 mg IH RQ6 PRN PRN Reason: Shortness of Breath Last Admin: 12/02/17 12:25 Dose: 0.5 mg Memantine (Namenda) 10 mg PO Q12 [facility] Last Admin: 12/02/17 09:18 Dose: 10 mg Metoclopramide HCl (Reglan) 10 mg IVP Q6 [facility] Last Admin: 12/02/17 09:21 Dose: 10 mg Pantoprazole Sodium (Protonix Inj) 40 mg IVP DAILY [facility] Last Admin: 12/02/17 09:19 Dose: 40 mg Paroxetine HCl (Paxil) 10 mg PO DAILY [facility] Last Admin: 12/02/17 09:18 Dose: 10 mg Physical Exam - Constitutional Appears: Well, No Acute Distress, Confused - Head Exam Head Exam: ATRAUMATIC, NORMOCEPHALIC - Eye Exam Eye Exam: EOMI, Normal appearance - ENT Exam ENT Exam: Mucous Membranes Moist, Normal Exam - Neck Exam Neck exam: Positive for: Normal Inspection - Respiratory Exam Respiratory Exam: Clear to Auscultation Bilateral, NORMAL BREATHING PATTERN. absent: Prolonged Expiratory Phase, Rales, Rhonchi, Wheezes, Respiratory Distress - Cardiovascular Exam Cardiovascular Exam: REGULAR RHYTHM, +S1, +S2 - GI/Abdominal Exam GI & Abdominal Exam: Normal Bowel Sounds, Soft. absent: Diminished Bowel Sounds , Distended, Firm, Guarding, Hernia, Organomegaly, Rebound, Rigid - Extremities Exam Extremities exam: Negative for: joint swelling, pedal edema - Neurological Exam Neurological exam: Alert, Altered - Psychiatric Exam Psychiatric exam: Normal Affect, Normal Mood Additional comments: cannot assess - Skin Skin Exam: Dry, Intact, Normal Color, Warm Results - Vital Signs Recent Vital Signs: Last Vital Signs Temp 98.6 F 12/02/17 12:08 Pulse 99 H 12/02/17 12:08 Resp 20 12/02/17 12:08 BP 123/72 12/02/17 12:08 Pulse Ox 97 12/02/17 12:08 - Labs Result Diagrams: 12/02/17 04:55 12/02/17 06:31 Labs: Laboratory Results - last 24 hr 12/01/17 12/01/17 12/02/17 14:50 15:49 04:55 WBC 7.6 D RBC 3.32 L Hgb 8.6 L D Hct 26.7 L MCV 80.4 L MCH 25.9 L MCHC 32.2 L RDW 16.4 H Plt Count 192 pO2 13 L VBG pH 7.32 VBG pCO2 51 VBG HCO3 22.2 VBG Total CO2 27.9 VBG O2 Sat (Calc) 17.8 L VBG Base Excess -0.5 L VBG Potassium 3.8 Sodium 136.0 Chloride 104.0 Glucose 118 H Lactate 2.3 H FiO2 21.0 Potassium Carbon Dioxide Anion Gap BUN Creatinine Est GFR ( Amer) Est GFR (Non-Af Amer) Random Glucose Calcium Total Bilirubin AST ALT Alkaline Phosphatase Total Protein Albumin Globulin Albumin/Globulin Ratio Venous Blood Potassium 3.8 Urine Color Yellow Urine Clarity Cloudy Urine pH 5.0 Ur Specific [place] 1.025 Urine Protein Negative Urine Glucose (UA) Neg Urine Ketones Negative Urine Blood Negative Urine Nitrate Negative Urine Bilirubin Negative Urine Urobilinogen 0.2-1.0 Ur Leukocyte Esterase Neg Urine RBC (Auto) 1 Urine Microscopic WBC 1 Urine Bacteria Many H 12/02/17 12/02/17 06:31 08:37 WBC RBC Hgb Hct MCV MCH MCHC RDW Plt Count pO2 19 L VBG pH 7.44 H VBG pCO2 40 VBG HCO3 25.3 VBG Total CO2 28.4 H VBG O2 Sat (Calc) 34.6 L VBG Base Excess 2.8 H VBG Potassium 3.7 Sodium 141 140.0 Chloride 105 110.0 H Glucose 95 Lactate 1.3 FiO2 21.0 Potassium 3.7 Carbon Dioxide 24 Anion Gap 16 BUN 21 H Creatinine 0.7 Est GFR ( Amer) > 60 Est GFR (Non-Af Amer) > 60 Random Glucose 95 Calcium 7.9 L Total Bilirubin 0.8 AST 34 ALT 48 Alkaline Phosphatase 65 Total Protein 5.6 L Albumin 2.8 L Globulin 2.8 Albumin/Globulin Ratio 1.0 Venous Blood Potassium 3.7 Urine Color Urine Clarity Urine pH Ur Specific [place] Urine Protein Urine Glucose (UA) Urine Ketones Urine Blood Urine Nitrate Urine Bilirubin Urine Urobilinogen Ur Leukocyte Esterase Urine RBC (Auto) Urine Microscopic WBC Urine Bacteria Assessment & Plan - Assessment and Plan (Free Text) Assessment: Anny Sutton is a 82 year old female with a history of dementia was brought into the ED by family members due to emesis. Esophagitis DDx: reflux, infectious Hiatial Hernia Vomiting, resolved Constipation Cholelithiasis Plan: -zofran PRN -diet as tolerated -will start PPI 40mg PO daily -surgery consulted, for cholelithiasis -diet as tolerated -no indication of abx at this time, recommend stopping -miralax daily -if no improvement in symptoms, can consider a trial of fluconazole, sincept has a hx of esophageal canidiasis -will sign off D/W Dr. Ramírez <Kar Ramírez - Last Filed: 12/02/17 18:36> Meds - Medications Medications: Current Medications Acetaminophen (Tylenol 325mg Tab) 650 mg PO Q6 PRN PRN Reason: Fever >100.4 F Apixaban (Eliquis) 2.5 mg PO Q12 [facility] PRN Reason: Protocol Atorvastatin [place]cium (Lipitor) 10 mg PO DAILY [facility] Last Admin: 12/02/17 09:18 Dose: 10 mg Sodium Chloride (Sodium Chloride 0.9%) 1,000 mls @ 100 mls/hr IV .Q10H [facility] Last Admin: 12/02/17 12:45 Dose: 100 mls/hr Piperacillin Sod/Tazobactam (Sod 3.375 gm/ Sodium Chloride) 100 mls @ 100 mls/ hr IVPB Q6 [facility] PRN Reason: Protocol Last Admin: 12/02/17 16:22 Dose: 100 mls/hr Sodium Chloride (Sodium Chloride 0.9%) 500 mls @ 250 mls/hr IV .Q2H [facility] Ipratropium [place] (Atrovent) 0.5 mg IH RQ6 PRN PRN Reason: Shortness of Breath Last Admin: 12/02/17 12:25 Dose: 0.5 mg Levalbuterol HCl (Xopenex) 1.25 mg INH RQ6 [facility] Last Admin: 12/02/17 16:44 Dose: 1.25 mg Memantine (Namenda) 10 mg PO Q12 [facility] Last Admin: 12/02/17 09:18 Dose: 10 mg Methylprednisolone (Solu-Medrol) 40 mg IVP Q8@0000,0800,1600 [facility] Metoclopramide HCl (Reglan) 10 mg IVP Q6 [facility] Last Admin: 12/02/17 16:18 Dose: 10 mg Pantoprazole Sodium (Protonix Inj) 40 mg IVP Q12 [facility] Paroxetine HCl (Paxil) 10 mg PO DAILY [facility] Last Admin: 12/02/17 09:18 Dose: 10 mg Results - Vital Signs Recent Vital Signs: Last Vital Signs Temp 98.6 F 12/02/17 16:01 Pulse 115 H 12/02/17 16:01 Resp 22 12/02/17 16:01 BP 114/56 L 12/02/17 16:01 Pulse Ox 100 12/02/17 16:01 - Labs Result Diagrams: 12/02/17 15:40 12/02/17 06:31 Labs: Laboratory Results - last 24 hr 12/02/17 12/02/17 12/02/17 04:55 06:31 08:37 WBC 7.6 D RBC 3.32 L Hgb 8.6 L D Hct 26.7 L MCV 80.4 L MCH 25.9 L MCHC 32.2 L RDW 16.4 H Plt Count 192 pO2 19 L VBG pH 7.44 H VBG pCO2 40 VBG HCO3 25.3 VBG Total CO2 28.4 H VBG O2 Sat (Calc) 34.6 L VBG Base Excess 2.8 H VBG Potassium 3.7 Glucose 95 Lactate 1.3 FiO2 21.0 Sodium 141 140.0 Potassium 3.7 Chloride 105 110.0 H Carbon Dioxide 24 Anion Gap 16 BUN 21 H Creatinine 0.7 Est GFR ( Amer) > 60 Est GFR (Non-Af Amer) > 60 Random Glucose 95 Calcium 7.9 L Total Bilirubin 0.8 AST 34 ALT 48 Alkaline Phosphatase 65 Total Protein 5.6 L Albumin 2.8 L Globulin 2.8 Albumin/Globulin Ratio 1.0 Venous Blood Potassium 3.7 Blood Type Antibody Screen Crossmatch BBK History Checked 12/02/17 12/02/17 15:40 15:40 WBC 8.2 RBC 3.17 L Hgb 8.2 L Hct 25.6 L MCV 80.8 L MCH 26.0 L MCHC 32.2 L RDW 16.7 H Plt Count 220 pO2 VBG pH VBG pCO2 VBG HCO3 VBG Total CO2 VBG O2 Sat (Calc) VBG Base Excess VBG Potassium Glucose Lactate FiO2 Sodium Potassium Chloride Carbon Dioxide Anion Gap BUN Creatinine Est GFR ( Amer) Est GFR (Non-Af Amer) Random Glucose Calcium Total Bilirubin AST ALT Alkaline Phosphatase Total Protein Albumin Globulin Albumin/Globulin Ratio Venous Blood Potassium Blood Type A NEGATIVE Antibody Screen Negative Crossmatch See Detail BBK History Checked Patient has bt Attending/Attestation - Attestation I have personally seen and examined this patient.: Yes I have fully participated in the care of the patient.: Yes I have reviewed all pertinent clinical information: Yes Notes (Text): 12/02/17 18:36 82 year old female who presents with n/v, has h/o HH and erosive esophagitis. found to have cholelithiasis. Recommend PPI BID. Small freq meals. Aspiration precautions. Will sign off.
[2017-12-02] MEDS: Sodium Chloride 0.9% 500 ML IV SCH ×4 (15:25→17:45)
[2017-12-02] MEDS ORDERED: methylPREDNISolone 125 MG in Sodium Chloride 0.9% 50 ML IVPB ONE (15:32)
[2017-12-02] MEDS ORDERED: Levalbuterol 1.25 MG/3 ML Inhal Soln UD INH SCH ×2 (16:00→16:03)
[2017-12-02 16:32] LABS: HEMOGLOBIN 8.2 g/dL (12.0-16.0); MEAN CELL VOLUME 80.8 fl (81.0-99.0); MEAN CORPUSCULAR HGB CONC 32.2 g/dL (33.0-37.0); RBC 3.17 Mil/uL (3.80-5.20); RED CELL DISTRIBUTION WIDTH 16.7 % (11.5-14.5); WHITE BLOOD COUNT 8.2 K/uL (4.8-10.8)
[2017-12-02] MEDS: Levalbuterol 1.25 MG/3 ML Inhal Soln UD INH SCH ×2 (16:44→19:13)
[2017-12-02] MEDS ORDERED: methylPREDNISolone 40 MG in Sodium Chloride 0.9% 50 ML IVPB SCH (17:00)
[2017-12-03] MEDS: MethylPREDNISolone 40 mg Vial IVP SCH ×3 (00:10→21:33)
[2017-12-03] MEDS: Levalbuterol 1.25 MG/3 ML Inhal Soln UD INH SCH ×4 (01:11→19:07)
[2017-12-03] MEDS: Piperacillin/Tazobact 3.375 GM in Sodium Chloride 0.9% 100 ML IVPB SCH ×4 (03:25→21:24)
[2017-12-03 07:01] LABS: HEMOGLOBIN 7.4 g/dL (12.0-16.0); MEAN CELL VOLUME 80.2 fl (81.0-99.0); MEAN CORPUSCULAR HGB CONC 32.4 g/dL (33.0-37.0); RBC 2.86 Mil/uL (3.80-5.20); RED CELL DISTRIBUTION WIDTH 16.4 % (11.5-14.5); WHITE BLOOD COUNT 2.5 K/uL (4.8-10.8)
[2017-12-03 07:20] LABS: BLOOD UREA NITROGEN 14 mg/dl (7-17); CALCIUM 7.5 mg/dL (8.4-10.2); GFR AFRICAN-AMERICAN > 60; GFR NON-AFRICAN AMERICAN > 60
[2017-12-03] MEDS ORDERED: Potassium Chloride 20 mEq 100 ML IVPB ONE (08:20)
[2017-12-03] MEDS ORDERED: Potassium Chloride 20 mEq/15 ml LIQ UD PO ONE (09:45)
--- NOTE | 2017-12-03 10:53 | CP.PCM.PN ---
Subjective - Date & Time of Evaluation Date of Evaluation: 12/03/17 Time of Evaluation: 10:00 - Subjective Subjective: No fever no longer tachycardic no further vomiting Hgb dropped to 7.4 wheezing better no resp distress Urine output better today Objective - Vital Signs/Intake and Output Vital Signs (last 24 hours): Temp Pulse Resp BP Pulse Ox 98.5 F 102 H 20 115/68 98 12/03/17 08:02 12/03/17 08:02 12/03/17 08:02 12/03/17 08:02 12/03/17 08:02 Intake and Output: 12/03/17 12/03/17 06:59 18:59 Intake Total 1450 Output Total 900 Balance 550 - Medications Medications: Current Medications Acetaminophen (Tylenol 325mg Tab) 650 mg PO Q6 PRN PRN Reason: Fever >100.4 F Apixaban (Eliquis) 2.5 mg PO Q12 [facility] PRN Reason: Protocol Last Admin: 12/03/17 10:11 Dose: 2.5 mg Atorvastatin Calcium (Lipitor) 10 mg PO DAILY [facility] Last Admin: 12/03/17 10:09 Dose: 10 mg Piperacillin Sod/Tazobactam (Sod 3.375 gm/ Sodium Chloride) 100 mls @ 100 mls/ hr IVPB Q6 [facility] PRN Reason: Protocol Last Admin: 12/03/17 10:14 Dose: 100 mls/hr Ipratropium [place] (Atrovent) 0.5 mg IH RQ6 PRN PRN Reason: Shortness of Breath Last Admin: 12/02/17 12:25 Dose: 0.5 mg Levalbuterol HCl (Xopenex) 1.25 mg INH RQ6 [facility] Last Admin: 12/03/17 07:58 Dose: 1.25 mg Memantine (Namenda) 10 mg PO Q12 [facility] Last Admin: 12/03/17 10:09 Dose: 10 mg Methylprednisolone (Solu-Medrol) 40 mg IVP Q8@0000,0800,1600 [facility] Last Admin: 12/03/17 10:10 Dose: 40 mg Metoclopramide HCl (Reglan) 10 mg IVP Q6 [facility] Last Admin: 12/03/17 10:10 Dose: 10 mg Pantoprazole Sodium (Protonix Inj) 40 mg IVP Q12 [facility] Last Admin: 12/03/17 10:09 Dose: 40 mg Paroxetine HCl (Paxil) 10 mg PO DAILY [facility] Last Admin: 12/03/17 10:09 Dose: 10 mg - Labs Labs: 12/03/17 06:25 12/03/17 06:25 PT 13.1 Seconds (9.8-13.1) 12/01/17 11:25 INR 1.2 (0.9-1.2) 12/01/17 11:25 APTT 17.4 Seconds (25.6-37.1) L 12/01/17 11:25 - Constitutional Appears: Chronically Ill, Other (demented , severe) - Head Exam Head Exam: ATRAUMATIC, NORMAL INSPECTION, NORMOCEPHALIC - Eye Exam Additional comments: Pt keeps her eyes closed all the time - ENT Exam ENT Exam: Mucous Membranes Dry, Normal External Ear Exam - Neck Exam Neck Exam: Full ROM. absent: Meningismus - Respiratory Exam Respiratory Exam: Minimal wheeze, NORMAL BREATHING PATTERN. absent: Respiratory Distress - Cardiovascular Exam Cardiovascular Exam: REGULAR RHYTHM, +S1, +S2 - GI/Abdominal Exam GI & Abdominal Exam: Soft, Normal Bowel Sounds. absent: Tenderness - Extremities Exam Extremities Exam: Normal Capillary Refill. absent: Calf Tenderness, Pedal Edema - Back Exam Back Exam: absent: CVA tenderness (L), CVA tenderness (R) - Neurological Exam Additional comments: Pt continuously mumbling incomprehensible words moves all extremities - Skin Skin Exam: Dry, Normal Color, War Assessment and Plan - Assessment and Plan (Free Text) Assessment: 82 year old female with pmh of advanced dementia, COPD, former heavy smoker, who presented to the ED accompanied by family, who noticed that the patient had intractable nausea and vomiting the day of admission. The daughter states that she had large episode of dark brown/green emesis and was at first reluctant to bring her to the ED; however after another 1-2 bouts of emesis . Of note she does have history of episodic nausea/vomiting and history of gastritis as well. In the ED, the patient was noted to be tachycardic around 120 bpm which improved somewhat with fluids. Laboratory results are significant for leukocytosis of 18.0 which is significantly elevated from previous on 2017 of 7.3. Hg is 11.4 which is elevated from previously, although may be hemoconcentrated due to dehydration. CT scan shows findings of cholelithiasis with mild gallbladder distension along with esophageal thickening which may be indicative of esophagitis/gastritis. 1. SIRS with nausea/vomiting ? Gastritis cholecystitis ruled out , unlikely SEpsis Dark Colored Vomitus ? UGIB - meets SIRS criteria with leukocytosis and tachycardia - CT scan reveals esophageal thickening as well as cholelithiasis with mild gallbladder distension - Consultation with GI - DR Ramírez came to see pt, case discussed - Consultation with Dr. Reynolds, surgery- unlikely Cholecystitis - Procalcitonin level- if normal , will d/c antibiotics, leukocytosis may just be reactive - Reglan PRN for nausea/vomiting - IV fluid resuscitation with NS at 100 cc/hour - Protonix 40 mg IV - Zosyn for empiric antibiotic coverage for infectious GI etiology - Blood culture, urine cultures: negative so far 2. COPD, exacerbation CXR showed no acute findings with O2 Sat 84% in ER . O2 via NC cont Solumedrol IV- taper to q 12 cont Xopenex RTC 3.Dehydration Urine output low - given IVF bolus and IVF at 100ml/hr - will d/c IVF today Likely due to GI losses and poor po intake 4. 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 Anemia, chronic dis drop in Hgb prob dilutional however given that pt is on Eliquis and had dark vomitus , will monitor CBC, Occult blood increase Protonix to BID Transfuse 1 unit PRBC will continue Eliquis for now as no overt sign of GIB DVT prophylaxis - Eliquis as above
[2017-12-04] MEDS: Levalbuterol 1.25 MG/3 ML Inhal Soln UD INH SCH ×4 (01:23→19:50)
[2017-12-04] MEDS: Piperacillin/Tazobact 3.375 GM in Sodium Chloride 0.9% 100 ML IVPB SCH ×4 (03:33→21:28)
[2017-12-04 06:03] LABS: HEMOGLOBIN 9.4 g/dL (12.0-16.0); MEAN CELL VOLUME 79.8 fl (81.0-99.0); MEAN CORPUSCULAR HEMOGLOBIN 27.5 pg (27.0-31.0); MEAN CORPUSCULAR HGB CONC 34.5 g/dL (33.0-37.0); RBC 3.42 Mil/uL (3.80-5.20); RED CELL DISTRIBUTION WIDTH 15.8 % (11.5-14.5); WHITE BLOOD COUNT 6.1 K/uL (4.8-10.8)
[2017-12-04 06:06] LABS: BLOOD UREA NITROGEN 14 mg/dl (7-17); CALCIUM 8.1 mg/dL (8.4-10.2); GFR AFRICAN-AMERICAN > 60; GFR NON-AFRICAN AMERICAN > 60
[2017-12-04] MEDS: MethylPREDNISolone 40 mg Vial IVP SCH ×2 (09:08→21:37)
[2017-12-04] MEDS ORDERED: Levalbuterol 1.25 MG/3 ML Inhal Soln UD INH STA (13:57)
[2017-12-04 13:59] LABS: ABG ALLEN TEST YES; ARTERIAL BLOOD GAS HCO3 25.3 mmol/L (21-28); ARTERIAL BLOOD GAS O2 SAT 98.6 % (95-98); ARTERIAL BLOOD GAS PCO2 36 mm/Hg (35-45); ARTERIAL BLOOD GAS PH 7.44 (7.35-7.45); ARTERIAL BLOOD GAS PO2 84 mm/Hg (80-100); ARTERIAL BLOOD GAS TCO2 25.6 mmol/L (22-28)
--- NOTE | 2017-12-04 14:02 | CP.PCM.PN ---
Subjective - Date & Time of Evaluation Date of Evaluation: 12/04/17 Time of Evaluation: 11:00 - Subjective Subjective: Patient was seen and evaluated bedside. Elderly demented female lying in bed with eyes closed , mumbling to self , appears in NAD, moves her extremities , does not answer any questions, can not provide story, does not follow commands.Family , both daughters including her POA Mrs Bell Sutton by bedside.All test results and findings were discussed and explained.Explained to daughter that mother was brought in with vomiting and based on CT abdomen findings( cholelithiasis and gallbladder distention ),her symptoms ( vomiting ) and elevated WBC count of 18 K on admission suspicion for infection , specifically acute cholecystitis was high, so surgery was consulted and she was started on Zosyn IV and hydrated.Surgery was consulted .Final CT readings showed no acute cholecystitis , her WBC count normalized with hydration ( most likely elevated WBC count was due to hemoconcentration ), she remained afebrile so acute cholecystitis was ruled out and antibiotics were discontinued. Her CT abdomen did show hiatal hernia and thickened lower esophagus and her Hgb trended slightly down with concern for GI bleed so GI was consulted and recommended PPI BID.She was transfused 1 unit PRBC and her Hgb remained stable and today is 9.4. Most likely patient has lower esophagitis\ At present BP 115/57 HR 83 afebrile T 97.6 WBC 6 K Procalcitonin - wnl Discussed with family the high risk for bleeding while on Eliquis but also the need for anticoagulation since patient had a recent DVT diagnosis and is bed bound Eiquis to be continued at a lower dose 2.5 mg po BID As per prior discussions with family members her paxil needs to be tapered to d/ c as well as Namenda dose needs to be lowered to avoid sedation Discussed with daughter about her mothers frequent COPD exacerbation episodes .Given the fact that her mother can not use long acting inhalers a good treatment option can be to place her PO Prednisone daily to decrease number of exacerbations . As of now her mother does not qualify for home oxygen but will repeat ABG and re evaluate. Patient's daughter ( Mrs Luu ), is worried about her mother and convinced that something else is going on and wants to transfer her mothers care and discuss with caser shoe parts and hospital medical transcriptionist. Both case management and [employer]INE S[employer] DIRECTOR notified and had discussion with family. At daughter's request patient care transferred to Dr. Nino. Will sign off the case Objective - Vital Signs/Intake and Output Vital Signs (last 24 hours): Temp Pulse Resp BP Pulse Ox 98.5 F 112 H 20 148/67 99 12/04/17 12:00 12/04/17 12:00 12/04/17 12:00 12/04/17 12:00 12/04/17 12:00 - Medications Medications: Current Medications Acetaminophen (Tylenol 325mg Tab) 650 mg PO Q6 PRN PRN Reason: Fever >100.4 F Apixaban (Eliquis) 2.5 mg PO Q12 [facility] PRN Reason: Protocol Last Admin: 12/04/17 09:08 Dose: 2.5 mg Atorvastatin Calcium (Lipitor) 10 mg PO DAILY [facility] Last Admin: 12/04/17 09:08 Dose: 10 mg Piperacillin Sod/Tazobactam (Sod 3.375 gm/ Sodium Chloride) 100 mls @ 100 mls/ hr IVPB Q6 [facility] PRN Reason: Protocol Last Admin: 12/04/17 09:14 Dose: 100 mls/hr Ipratropium [place] (Atrovent) 0.5 mg IH RQ6 PRN PRN Reason: Shortness of Breath Last Admin: 12/02/17 12:25 Dose: 0.5 mg Levalbuterol HCl (Xopenex) 1.25 mg INH RQ6 [facility] Last Admin: 12/04/17 07:18 Dose: 1.25 mg Levalbuterol HCl (Xopenex) 1.25 mg INH STAT STA Stop: 12/04/17 13:58 Memantine (Namenda) 10 mg PO DAILY [facility] Last Admin: 12/04/17 09:09 Dose: 10 mg Methylprednisolone (Solu-Medrol) 40 mg IVP Q12 [facility] Last Admin: 12/04/17 09:08 Dose: 40 mg Metoclopramide HCl (Reglan) 10 mg IVP Q6 [facility] Last Admin: 12/04/17 09:09 Dose: 10 mg Pantoprazole Sodium (Protonix Inj) 40 mg IVP Q12 [facility] Last Admin: 12/04/17 09:08 Dose: 40 mg Paroxetine HCl (Paxil) 10 mg PO DAILY [facility] Last Admin: 12/04/17 09:08 Dose: 10 mg - Labs Labs: 12/04/17 04:30 12/04/17 04:30 PT 13.1 Seconds (9.8-13.1) 12/01/17 11:25 INR 1.2 (0.9-1.2) 12/01/17 11:25 APTT 17.4 Seconds (25.6-37.1) L 12/01/17 11:25
--- NOTE | 2017-12-04 14:04 | CP.PCM.PN ---
<Jeovany Bajwa - Last Filed: 12/04/17 14:57> Subjective - Date & Time of Evaluation Date of Evaluation: 12/04/17 Time of Evaluation: 14:15 - Subjective Subjective: PGY5 GI Fellow Progress Note Patient seen and examined bedside this afternoon. Patient's daughters are at bedside at this time and provide history. Patient continues to have difficulty with pureed diet and family expresses concern over abnormal CT findings with thickening of the distal esophagus as both of the patient's brothers had a history of esophageal cancer. Patient does have a long history of tobacco use. Patient is unable to provide any history given her mental status. 12 system ROS cannot be performed given mentation. Objective - Vital Signs/Intake and Output Vital Signs (last 24 hours): Temp Pulse Resp BP Pulse Ox 98.5 F 112 H 20 148/67 99 12/04/17 12:00 12/04/17 12:00 12/04/17 12:00 12/04/17 12:00 12/04/17 12:00 - Medications Medications: Current Medications Acetaminophen (Tylenol 325mg Tab) 650 mg PO Q6 PRN PRN Reason: Fever >100.4 F Apixaban (Eliquis) 2.5 mg PO Q12 [facility] PRN Reason: Protocol Last Admin: 12/04/17 09:08 Dose: 2.5 mg Atorvastatin Calcium (Lipitor) 10 mg PO DAILY [facility] Last Admin: 12/04/17 09:08 Dose: 10 mg Piperacillin Sod/Tazobactam (Sod 3.375 gm/ Sodium Chloride) 100 mls @ 100 mls/ hr IVPB Q6 [facility] PRN Reason: Protocol Last Admin: 12/04/17 09:14 Dose: 100 mls/hr Ipratropium [place] (Atrovent) 0.5 mg IH RQ6 PRN PRN Reason: Shortness of Breath Last Admin: 12/02/17 12:25 Dose: 0.5 mg Levalbuterol HCl (Xopenex) 1.25 mg INH RQ6 [facility] Last Admin: 12/04/17 07:18 Dose: 1.25 mg Memantine (Namenda) 10 mg PO DAILY [facility] Last Admin: 12/04/17 09:09 Dose: 10 mg Methylprednisolone (Solu-Medrol) 40 mg IVP Q12 [facility] Last Admin: 05/21/18 09:08 Dose: 40 mg Metoclopramide HCl (Reglan) 10 mg IVP Q6 [facility] Last Admin: 12/04/17 09:09 Dose: 10 mg Pantoprazole Sodium (Protonix Inj) 40 mg IVP Q12 [facility] Last Admin: 12/04/17 09:08 Dose: 40 mg Paroxetine HCl (Paxil) 10 mg PO DAILY [facility] Last Admin: 12/04/17 09:08 Dose: 10 mg - Labs Labs: 12/04/17 04:30 12/04/17 04:30 PT 13.1 Seconds (9.8-13.1) 12/01/17 11:25 INR 1.2 (0.9-1.2) 12/01/17 11:25 APTT 17.4 Seconds (25.6-37.1) L 12/01/17 11:25 - Constitutional Appears: No Acute Distress, Chronically Ill - Eye Exam Eye Exam: PERRL - ENT Exam ENT Exam: Mucous Membranes Dry - Respiratory Exam Respiratory Exam: Clear to Ausculation Bilateral. absent: Rales, Rhonchi, Wheezes - Cardiovascular Exam Cardiovascular Exam: RRR, +S1, +S2 - GI/Abdominal Exam GI & Abdominal Exam: Soft, Normal Bowel Sounds. absent: Distended, Firm, Guarding, Rigid, Tenderness, Organomegaly - Extremities Exam Extremities Exam: Normal Inspection. absent: Pedal Edema - Neurological Exam Neurological Exam: Altered - Psychiatric Exam Psychiatric exam: Anxious - Skin Skin Exam: Dry, Warm Assessment and Plan - Assessment and Plan (Free Text) Assessment: Patient is an 82yo female with PMHx significant for dementia, tobacco use who was brought in to the ED for vomiting. -Cholelithiasis -Constipation -Abnormal thickening of distal esophagus on CT A/P -Hiatal hernia Plan: -Discussed plan for EGD without biopsy (pt on Eliquis) for tomorrow to evaluate esophagus given vomiting, abnormal findings on CT and anemia -Continue PPI as ordered -NPO past midnight -Family understands risks/benefits of procedure and understand that no biopsies/ therapeutic interventions will be performed given ongoing anticoagulation -Family understand that DNR/DNI will be rescinded for procedure and for period after the procedure during recovery Case discussed with Dr Mcdowell <Ivon Mcdwoell - Last Filed: 12/05/17 14:11> Objective - Vital Signs/Intake and Output Vital Signs (last 24 hours): Temp Pulse Resp BP Pulse Ox 98 F 96 H 24 156/71 H 99 12/05/17 13:23 12/05/17 13:23 12/05/17 13:23 12/05/17 13:23 12/05/17 13:23 Intake and Output: 12/05/17 12/05/17 06:59 18:59 Intake Total 1960 50 Balance 1960 50 - Medications Medications: Current Medications Acetaminophen (Tylenol 325mg Tab) 650 mg PO Q6 PRN PRN Reason: Fever >100.4 F Apixaban (Eliquis) 2.5 mg PO Q12 [facility] PRN Reason: Protocol Last Admin: 12/05/17 08:06 Dose: Not Given Atorvastatin Calcium (Lipitor) 10 mg PO DAILY [facility] Last Admin: 12/05/17 08:06 Dose: Not Given Sodium Chloride (Sodium Chloride 0.9%) 1,000 mls @ 80 mls/hr IV [id number] [facility] Stop: 12/05/17 17:07 Last Admin: 12/05/17 07:50 Dose: 80 mls/hr Potassium Chloride (Potassium Chloride 20 Meq/100 Ml) 100 mls @ 50 mls/hr IVPB ONCE ONE Stop: 12/05/17 14:48 Last Admin: 12/05/17 14:03 Dose: 50 mls/hr Insulin Human Lispro (Humalog) 0 units SC ACHS [facility] PRN Reason: Protocol Ipratropium [place] (Atrovent) 0.5 mg IH RQ6 PRN PRN Reason: Shortness of Breath Last Admin: 12/02/17 12:25 Dose: 0.5 mg Levalbuterol HCl (Xopenex) 1.25 mg INH RQ6 [facility] Last Admin: 12/05/17 13:00 Dose: Not Given Memantine (Namenda) 5 mg PO DAILY [facility] Methylprednisolone (Solu-Medrol) 40 mg IVP Q12 [facility] Last Admin: 12/05/17 08:00 Dose: 40 mg Metoclopramide HCl (Reglan) 10 mg IVP Q6 [facility] Last Admin: 12/05/17 10:10 Dose: 10 mg Pantoprazole Sodium (Protonix Inj) 40 mg IVP Q12 [facility] Last Admin: 12/05/17 08:06 Dose: 40 mg Paroxetine HCl (Paxil) 5 mg PO DAILY [facility] - Labs Labs: 12/05/17 11:08 12/05/17 11:08 PT 13.1 Seconds (9.8-13.1) 12/01/17 11:25 INR 1.2 (0.9-1.2) 12/01/17 11:25 APTT 17.4 Seconds (25.6-37.1) L 12/01/17 11:25 Attending/Attestation - Attestation I have personally seen and examined this patient.: Yes I have fully participated in the care of the patient.: Yes I have reviewed all pertinent clinical information, including history, physical exam and plan: Yes Notes (Text): 12/05/17 14:07 This is a 82 year old female with PMHx significant for dementia, tobacco use who was brought in to the ED for vomiting. Concern for abnormal thickening of distal esophagus on CT A/P. s/p EGD today showing large hiatal hernia and esophagitis. No irais or mass lesions. No biopsies were done as patient is on eliquis. Discussed in length with the daughter regarding small frequent meals and head of bed at 30 degrees while feeding. Will sign off now. Thnak you for letting us participate in the care of your patient
--- NOTE | 2017-12-04 15:47 | CP.PCM.PN ---
Subjective - Date & Time of Evaluation Date of Evaluation: 12/04/17 Time of Evaluation: 15:47 - Subjective Subjective: pt +dementia, chronically ill, somnolent hd stable discussed patient goals of care at length with 2 daughters does not appear to be in any apparent distress Objective - Vital Signs/Intake and Output Vital Signs (last 24 hours): Temp Pulse Resp BP Pulse Ox 98.5 F 112 H 20 148/67 99 12/04/17 12:00 12/04/17 12:00 12/04/17 12:00 12/04/17 12:00 12/04/17 12:00 - Medications Medications: Current Medications Acetaminophen (Tylenol 325mg Tab) 650 mg PO Q6 PRN PRN Reason: Fever >100.4 F Apixaban (Eliquis) 2.5 mg PO Q12 [facility] PRN Reason: Protocol Last Admin: 12/04/17 09:08 Dose: 2.5 mg Atorvastatin Calcium (Lipitor) 10 mg PO DAILY [facility] Last Admin: 12/04/17 09:08 Dose: 10 mg Piperacillin Sod/Tazobactam (Sod 3.375 gm/ Sodium Chloride) 100 mls @ 100 mls/ hr IVPB Q6 [facility] PRN Reason: Protocol Last Admin: 12/04/17 09:14 Dose: 100 mls/hr Ipratropium [place] (Atrovent) 0.5 mg IH RQ6 PRN PRN Reason: Shortness of Breath Last Admin: 12/02/17 12:25 Dose: 0.5 mg Levalbuterol HCl (Xopenex) 1.25 mg INH RQ6 [facility] Last Admin: 12/04/17 14:05 Dose: Not Given Memantine (Namenda) 10 mg PO DAILY [facility] Last Admin: 12/04/17 09:09 Dose: 10 mg Methylprednisolone (Solu-Medrol) 40 mg IVP Q12 [facility] Last Admin: 12/04/17 09:08 Dose: 40 mg Metoclopramide HCl (Reglan) 10 mg IVP Q6 [facility] Last Admin: 12/04/17 09:09 Dose: 10 mg Pantoprazole Sodium (Protonix Inj) 40 mg IVP Q12 [facility] Last Admin: 12/04/17 09:08 Dose: 40 mg Paroxetine HCl (Paxil) 10 mg PO DAILY [facility] Last Admin: 12/04/17 09:08 Dose: 10 mg - Labs Labs: 12/04/17 04:30 12/04/17 04:30 PT 13.1 Seconds (9.8-13.1) 12/01/17 11:25 INR 1.2 (0.9-1.2) 12/01/17 11:25 APTT 17.4 Seconds (25.6-37.1) L 12/01/17 11:25 - Head Exam Additional comments: Vitals Reviewed GEN: chronically ill, somnolent HEENT: NCAT, PERRL, EOMI HEART: RRR, +S1S2, NO MRG LUNG: CTAB, NO WRR ABD: soft, NT, ND, No HSM, No masses EXT: normal pedal pulses, normal capillary refill NEURO: difficult to assess given mental status SKIN: warm, dry PSYCH: difficult to assess given mental status Assessment and Plan - Assessment and Plan (Free Text) Plan: 82 year old female with pmh of advanced dementia, COPD, former heavy smoker, who presented to the ED accompanied by family, who noticed that the patient had intractable nausea and vomiting the day of admission. The daughter states that she had large episode of dark brown/green emesis and was at first reluctant to bring her to the ED; however after another 1-2 bouts of emesis . Of note she does have history of episodic nausea/vomiting and history of gastritis as well. In the ED, the patient was noted to be tachycardic around 120 bpm which improved somewhat with fluids. Laboratory results are significant for leukocytosis of 18.0 which is significantly elevated from previous on 11/28/2017 of 7.3. Hg is 11.4 which is elevated from previously, although may be hemoconcentrated due to dehydration. CT scan shows findings of cholelithiasis with mild gallbladder distension along with esophageal thickening which may be indicative of esophagitis/gastritis. 1. SIRS with nausea/vomiting ? Gastritis cholecystitis ruled out , unlikely SEpsis Dark Colored Vomitus ? UGIB - meets SIRS criteria with leukocytosis and tachycardia - CT scan reveals esophageal thickening as well as cholelithiasis with mild gallbladder distension - Consultation with GI - Dr Ramírez - FOR EGD tomorrow , no BX 2/2 Eliquis - Consultation with Dr. Reynolds, surgery- unlikely Cholecystitis - Procalcitonin level- if normal , will d/c antibiotics, leukocytosis may just be reactive - Reglan PRN for nausea/vomiting - IV fluid resuscitation with NS at 100 cc/hour - Protonix 40 mg IV - Zosyn for empiric antibiotic coverage for infectious GI etiology - Blood culture, urine cultures: negative so far 2. COPD, exacerbation CXR showed no acute findings with O2 Sat 84% in ER . O2 via NC cont Solumedrol IV- taper to q 12 cont Xopenex RTC 3.Dehydration Urine output low - given IVF bolus and IVF at 100ml/hr - will d/c IVF Likely due to GI losses and poor po intake 4. 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 Anemia, chronic dis drop in Hgb prob dilutional however given that pt is on Eliquis and had dark vomitus , will monitor CBC, Occult blood increase Protonix to BID Transfused 1 unit PRBC will continue Eliquis for now as no overt sign of GIB DVT prophylaxis - Eliquis as above
[2017-12-04] MEDS: Sodium Chloride 0.9% 1,000 ML IV SCH (17:41)
[2017-12-05] MEDS: Levalbuterol 1.25 MG/3 ML Inhal Soln UD INH SCH ×4 (01:06→19:12)
[2017-12-05] MEDS: Sodium Chloride 0.9% 1,000 ML IV SCH (07:50)
[2017-12-05] MEDS: MethylPREDNISolone 40 mg Vial IVP SCH (08:00)
--- NOTE | 2017-12-05 10:28 | CP.PCM.PN ---
Subjective - Date & Time of Evaluation Date of Evaluation: 12/05/17 Time of Evaluation: 10:28 - Subjective Subjective: +dementia, increased lethargy and somnolence, altered from baseline - does not appear to be in any distress, will hydrate today and hold all centrally acting agents - for EGD today, HD stable Objective - Vital Signs/Intake and Output Vital Signs (last 24 hours): Temp Pulse Resp BP Pulse Ox 97.4 F L 97 H 20 117/54 L 98 12/05/17 07:39 12/05/17 07:39 12/05/17 07:39 12/05/17 07:39 12/05/17 07:39 Intake and Output: 12/05/17 12/05/17 06:59 18:59 Intake Total 1960 Balance 1960 - Medications Medications: Current Medications Acetaminophen (Tylenol 325mg Tab) 650 mg PO Q6 PRN PRN Reason: Fever >100.4 F Apixaban (Eliquis) 2.5 mg PO Q12 [facility] PRN Reason: Protocol Last Admin: 12/05/17 08:06 Dose: Not Given Atorvastatin Calcium (Lipitor) 10 mg PO DAILY [facility] Last Admin: 12/05/17 08:06 Dose: Not Given Sodium Chloride (Sodium Chloride 0.9%) 1,000 mls @ 80 mls/hr IV .[id number] [facility] Stop: 12/05/17 17:07 Last Admin: 12/05/17 07:50 Dose: 80 mls/hr Ipratropium [place] (Atrovent) 0.5 mg IH RQ6 PRN PRN Reason: Shortness of Breath Last Admin: 12/02/17 12:25 Dose: 0.5 mg Levalbuterol HCl (Xopenex) 1.25 mg INH RQ6 [facility] Last Admin: 12/05/17 07:13 Dose: 1.25 mg Memantine (Namenda) 10 mg PO DAILY [facility] Last Admin: 12/05/17 08:06 Dose: Not Given Methylprednisolone (Solu-Medrol) 40 mg IVP Q12 [facility] Last Admin: 12/05/17 08:00 Dose: 40 mg Metoclopramide HCl (Reglan) 10 mg IVP Q6 [facility] Last Admin: 12/05/17 05:00 Dose: 10 mg Pantoprazole Sodium (Protonix Inj) 40 mg IVP Q12 [facility] Last Admin: 12/05/17 08:06 Dose: 40 mg Paroxetine HCl (Paxil) 10 mg PO DAILY [facility] Last Admin: 12/05/17 08:06 Dose: Not Given - Labs Labs: 12/04/17 04:30 12/04/17 04:30 PT 13.1 Seconds (9.8-13.1) 12/01/17 11:25 INR 1.2 (0.9-1.2) 12/01/17 11:25 APTT 17.4 Seconds (25.6-37.1) L 12/01/17 11:25 - Constitutional Appears: Non-toxic, No Acute Distress, Chronically Ill - Head Exam Head Exam: ATRAUMATIC, NORMOCEPHALIC - Eye Exam Eye Exam: EOMI, Normal appearance, PERRL - ENT Exam ENT Exam: Mucous Membranes Moist, Normal Oropharynx - Respiratory Exam Respiratory Exam: Rhonchi, NORMAL BREATHING PATTERN - Cardiovascular Exam Cardiovascular Exam: RRR, +S1, +S2 - GI/Abdominal Exam GI & Abdominal Exam: Soft, Normal Bowel Sounds - Extremities Exam Extremities Exam: Normal Capillary Refill. absent: Pedal Edema - Back Exam Back Exam: absent: CVA tenderness (L), CVA tenderness (R) - Neurological Exam Neurological Exam: Altered, Reflexes Normal - Psychiatric Exam Psychiatric exam: absent: Normal Affect, Normal Mood - Skin Skin Exam: Dry, Warm Assessment and Plan - Assessment and Plan (Free Text) Plan: 82 year old female with pmh of advanced dementia, COPD, former heavy smoker, who presented to the ED accompanied by family, who noticed that the patient had intractable nausea and vomiting the day of admission. The daughter states that she had large episode of dark brown/green emesis and was at first reluctant to bring her to the ED; however after another 1-2 bouts of emesis . Of note she does have history of episodic nausea/vomiting and history of gastritis as well. In the ED, the patient was noted to be tachycardic around 120 bpm which improved somewhat with fluids. Laboratory results are significant for leukocytosis of 18.0 which is significantly elevated from previous on 11/28/2017 of 7.3. Hg is 11.4 which is elevated from previously, although may be hemoconcentrated due to dehydration. CT scan shows findings of cholelithiasis with mild gallbladder distension along with esophageal thickening which may be indicative of esophagitis/gastritis. 12/05 increased lethargy, will hydrate, poor PO intake, not eating or drinking at this time. For EGD today. Will HOLD all centrally acting agents, and when restarted, decrease dose. 1. SIRS with nausea/vomiting ? Gastritis cholecystitis ruled out , unlikely SEpsis Dark Colored Vomitus ? UGIB - meets SIRS criteria with leukocytosis and tachycardia - CT scan reveals esophageal thickening as well as cholelithiasis with mild gallbladder distension - Consultation with GI - Dr Ramírez - FOR EGD tomorrow , no BX / Eliquis - Consultation with Dr. Reynolds, surgery- unlikely Cholecystitis - Procalcitonin level- if normal , will d/c antibiotics, leukocytosis may just be reactive - Reglan PRN for nausea/vomiting - IV fluid resuscitation with NS at 100 cc/hour - Protonix 40 mg IV - Zosyn for empiric antibiotic coverage for infectious GI etiology - Blood culture, urine cultures: negative so far 2. COPD, exacerbation CXR showed no acute findings with O2 Sat 84% in ER . O2 via NC cont Solumedrol IV- taper to q 12 cont Xopenex RTC 3.Dehydration Urine output low - given IVF bolus and IVF at 100ml/hr Likely due to GI losses and poor po intake 4. 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 Anemia, chronic dis drop in Hgb prob dilutional however given that pt is on Eliquis and had dark vomitus , will monitor CBC, Occult blood increase Protonix to BID Transfused 1 unit PRBC will continue Eliquis for now as no overt sign of GIB DVT prophylaxis - Eliquis as above
[2017-12-05 11:50] LABS: MEAN CELL VOLUME 80.5 fl (81.0-99.0); MEAN CORPUSCULAR HGB CONC 33.5 g/dL (33.0-37.0); RBC 3.69 Mil/uL (3.80-5.20); RED CELL DISTRIBUTION WIDTH 16.6 % (11.5-14.5)
[2017-12-05 12:01] LABS: BLOOD UREA NITROGEN 14 mg/dl (7-17); CALCIUM 8.3 mg/dL (8.4-10.2); GFR AFRICAN-AMERICAN > 60; GFR NON-AFRICAN AMERICAN > 60
[2017-12-05] MEDS ORDERED: Lactated Ringer's 500 ML IV ONE (12:19)
[2017-12-05] MEDS ORDERED: EPINEPHrine 1 mg/ml (1:1000) Inj ONE (12:39)
[2017-12-05] MEDS ORDERED: Potassium Chloride 20 mEq 100 ML IVPB ONE (12:49)
[2017-12-05] MEDS ORDERED: Magnesium Sulfate 2 gm/50 ml 2 GM/50 ML BAG IVPB ONE (12:49)
[2017-12-05] MEDS ORDERED: Benzocaine/Butamben/Tetracai 14-2-2% TOP Spray TOP ONE (13:06)
[2017-12-05] MEDS ORDERED: Etomidate 20 mg/10ml Inj IV ONE (13:16)
[2017-12-05] MEDS: Insulin Lispro (humaLOG) 100 Units/ml Inj SC SCH (16:12)
[2017-12-06] MEDS: Levalbuterol 1.25 MG/3 ML Inhal Soln UD INH SCH ×3 (01:00→13:24)
[2017-12-06] MEDS: Insulin Lispro (humaLOG) 100 Units/ml Inj SC SCH ×5 (04:22→21:47)
[2017-12-06 06:01] LABS: MEAN CELL VOLUME 80.4 fl (81.0-99.0); MEAN CORPUSCULAR HEMOGLOBIN 26.2 pg (27.0-31.0); MEAN CORPUSCULAR HGB CONC 32.5 g/dL (33.0-37.0); RBC 4.21 Mil/uL (3.80-5.20); RED CELL DISTRIBUTION WIDTH 16.2 % (11.5-14.5); WHITE BLOOD COUNT 11.7 K/uL (4.8-10.8)
[2017-12-06 07:30] LABS: BLOOD UREA NITROGEN 11 mg/dl (7-17); CALCIUM 8.2 mg/dL (8.4-10.2); GFR AFRICAN-AMERICAN > 60; GFR NON-AFRICAN AMERICAN > 60
[2017-12-06] MEDS ORDERED: Metoprolol 1 mg/ml Inj IVP ONE (08:11)
[2017-12-06] MEDS ORDERED: Potassium Chloride 20 mEq 100 ML IVPB ONE (08:11)
[2017-12-06] MEDS: MethylPREDNISolone 40 mg Vial IVP SCH ×2 (08:55→21:37)
[2017-12-06] MEDS ORDERED: Enoxaparin 60 mg Syringe SC SCH (10:00)
--- NOTE | 2017-12-06 11:20 | CP.PCM.PN ---
Subjective - Date & Time of Evaluation Date of Evaluation: 12/06/17 Time of Evaluation: 11:18 - Subjective Subjective: pt continues to have lethargic and somnolent. likely worsening dementia. HD stable, no acute distress at this time. Objective - Vital Signs/Intake and Output Vital Signs (last 24 hours): Temp Pulse Resp BP Pulse Ox 98.1 F 67 20 169/74 H 98 12/06/17 07:50 12/06/17 09:00 12/06/17 07:50 12/06/17 09:00 12/06/17 07:50 Intake and Output: 12/06/17 12/06/17 06:59 18:59 Intake Total 160 Balance 160 - Medications Medications: Current Medications Acetaminophen (Tylenol 325mg Tab) 650 mg PO Q6 PRN PRN Reason: Fever >100.4 F Apixaban (Eliquis) 2.5 mg PO Q12 [facility] PRN Reason: Protocol Last Admin: 12/06/17 08:53 Dose: Not Given Atorvastatin Calcium (Lipitor) 10 mg PO DAILY [facility] Last Admin: 12/06/17 08:54 Dose: Not Given Enoxaparin Sodium (Lovenox) 60 mg SC Q12 [facility] PRN Reason: Protocol Potassium Chloride/Dextrose/Sod Cl (Potassium Chl 20 Meq In D5-1/2ns) 1,000 mls @ 80 mls/hr IV .[id number] [facility] Stop: 12/07/17 09:55 Insulin Human Lispro (Humalog) 0 units SC ACHS [facility] PRN Reason: Protocol Last Admin: 12/06/17 08:53 Dose: Not Given Ipratropium [place] (Atrovent) 0.5 mg IH RQ6 PRN PRN Reason: Shortness of Breath Last Admin: 12/02/17 12:25 Dose: 0.5 mg Levalbuterol HCl (Xopenex) 1.25 mg INH RQ6 [facility] Last Admin: 12/06/17 07:31 Dose: 1.25 mg Memantine (Namenda) 5 mg PO DAILY [facility] Methylprednisolone (Solu-Medrol) 40 mg IVP Q12 [facility] Last Admin: 12/06/17 08:55 Dose: 40 mg Metoclopramide HCl (Reglan) 10 mg IVP Q6 [facility] Last Admin: 12/06/17 09:00 Dose: 10 mg Metoprolol Tartrate (Lopressor) 5 mg IVP Q6 PRN PRN Reason: SBP > 150, HR > 100 Pantoprazole Sodium (Protonix Inj) 40 mg IVP Q12 [facility] Last Admin: 12/06/17 08:54 Dose: 40 mg Paroxetine HCl (Paxil) 5 mg PO DAILY [facility] - Labs Labs: 12/06/17 04:20 12/06/17 04:20 PT 13.1 Seconds (9.8-13.1) 12/01/17 11:25 INR 1.2 (0.9-1.2) 12/01/17 11:25 APTT 17.4 Seconds (25.6-37.1) L 12/01/17 11:25 - Constitutional Appears: Non-toxic, No Acute Distress, Chronically Ill - Head Exam Head Exam: ATRAUMATIC, NORMOCEPHALIC - Eye Exam Eye Exam: EOMI, Normal appearance, PERRL - ENT Exam ENT Exam: Mucous Membranes Moist, Normal Oropharynx - Respiratory Exam Respiratory Exam: Rhonchi, NORMAL BREATHING PATTERN - Cardiovascular Exam Cardiovascular Exam: RRR, +S1, +S2 - GI/Abdominal Exam GI & Abdominal Exam: Soft, Normal Bowel Sounds - Extremities Exam Extremities Exam: Full ROM, Normal Capillary Refill - Back Exam Back Exam: absent: CVA tenderness (L), CVA tenderness (R) - Neurological Exam Neurological Exam: Altered. absent: Oriented x3 - Psychiatric Exam Psychiatric exam: absent: Normal Affect, Normal Mood - Skin Skin Exam: Dry, Warm Assessment and Plan - Assessment and Plan (Free Text) Plan: 82 year old female with pmh of advanced dementia, COPD, former heavy smoker, who presented to the ED accompanied by family, who noticed that the patient had intractable nausea and vomiting the day of admission. The daughter states that she had large episode of dark brown/green emesis and was at first reluctant to bring her to the ED; however after another 1-2 bouts of emesis . Of note she does have history of episodic nausea/vomiting and history of gastritis as well. In the ED, the patient was noted to be tachycardic around 120 bpm which improved somewhat with fluids. Laboratory results are significant for leukocytosis of 18.0 which is significantly elevated from previous on 11/28/2017 of 7.3. Hg is 11.4 which is elevated from previously, although may be hemoconcentrated due to dehydration. CT scan shows findings of cholelithiasis with mild gallbladder distension along with esophageal thickening which may be indicative of esophagitis/gastritis. 12/05 increased lethargy, will hydrate, poor PO intake, not eating or drinking at this time. For EGD today. Will HOLD all centrally acting agents, and when restarted, decrease dose. 12/06 Pt continues to have increased lethargy, somnolence. Will wake up and repeat words, however not participating in swallow eval, NPO now. Will try again tomorrow, if fail, patient family would like PEG placed prior to dc to [facility]. 1. SIRS with nausea/vomiting ? Gastritis cholecystitis ruled out , unlikely SEpsis Dark Colored Vomitus ? UGIB - meets SIRS criteria with leukocytosis and tachycardia - CT scan reveals esophageal thickening as well as cholelithiasis with mild gallbladder distension - Consultation with GI - Dr Ramírez - FOR EGD tomorrow , no BX / Eliquis - Consultation with Dr. Reynolds, surgery- unlikely Cholecystitis - Procalcitonin level- if normal , will d/c antibiotics, leukocytosis may just be reactive - Reglan PRN for nausea/vomiting - IV fluid resuscitation with NS at 100 cc/hour - Protonix 40 mg IV - Zosyn for empiric antibiotic coverage for infectious GI etiology - Blood culture, urine cultures: negative so far 2. COPD, exacerbation CXR showed no acute findings with O2 Sat 84% in ER . O2 via NC cont Solumedrol IV- taper to q 12 cont Xopenex RTC 3.Dehydration Urine output low - given IVF bolus and IVF at 100ml/hr Likely due to GI losses and poor po intake 4. 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 Anemia, chronic dis drop in Hgb prob dilutional however given that pt is on Eliquis and had dark vomitus , will monitor CBC, Occult blood increase Protonix to BID Transfused 1 unit PRBC will continue Eliquis for now as no overt sign of GIB DVT prophylaxis - Eliquis as above
[2017-12-06] MEDS: Potassium Ch 20mEq in D5-1/2NS 1,000 ML IV SCH (12:56)
[2017-12-07] MEDS: Enoxaparin 60 mg Syringe SC SCH ×2 (01:14→12:56)
[2017-12-07] MEDS: Levalbuterol 1.25 MG/3 ML Inhal Soln UD INH SCH ×4 (01:17→19:21)
[2017-12-07] MEDS: Metoprolol 1 mg/ml Inj IVP PRN (03:01)
[2017-12-07] MEDS: Potassium Ch 20mEq in D5-1/2NS 1,000 ML IV SCH ×2 (03:03→04:19)
--- NOTE | 2017-12-07 08:43 | CP.PCM.PN ---
Subjective - Date & Time of Evaluation Date of Evaluation: 12/07/17 Time of Evaluation: 08:00 - Subjective Subjective: Pt is severely demented lethargic No fever pt has her eyes closed and is mumbling incomprehensible words failed swallow eval no wheezing Objective - Vital Signs/Intake and Output Vital Signs (last 24 hours): Temp Pulse Resp BP Pulse Ox 98.4 F 89 18 132/82 100 12/07/17 08:01 12/07/17 08:01 12/07/17 08:01 12/07/17 08:01 12/07/17 08:01 - Medications Medications: Current Medications Acetaminophen (Tylenol 325mg Tab) 650 mg PO Q6 PRN PRN Reason: Fever >100.4 F Apixaban (Eliquis) 2.5 mg PO Q12 [facility] PRN Reason: Protocol Last Admin: 12/06/17 08:53 Dose: Not Given Atorvastatin Calcium (Lipitor) 10 mg PO DAILY [facility] Last Admin: 12/06/17 08:54 Dose: Not Given Enoxaparin Sodium (Lovenox) 60 mg SC Q12@0100,1300 [facility] PRN Reason: Protocol Last Admin: 12/07/17 01:14 Dose: 60 mg Potassium Chloride/Dextrose/Sod Cl (Potassium Chl 20 Meq In D5-1/2ns) 1,000 mls @ 80 mls/hr IV .[id number] [facility] Stop: 12/08/17 09:55 Last Admin: 12/07/17 04:19 Dose: 80 mls/hr Insulin Human Lispro (Humalog) 0 units SC ACHS [facility] PRN Reason: Protocol Last Admin: 12/06/17 21:47 Dose: Not Given Ipratropium [place] (Atrovent) 0.5 mg IH RQ6 PRN PRN Reason: Shortness of Breath Last Admin: 12/02/17 12:25 Dose: 0.5 mg Levalbuterol HCl (Xopenex) 1.25 mg INH RQ6 [facility] Last Admin: 12/07/17 07:47 Dose: 1.25 mg Memantine (Namenda) 5 mg PO DAILY [facility] Methylprednisolone (Solu-Medrol) 40 mg IVP DAILY [facility] Metoclopramide HCl (Reglan) 10 mg IVP Q6 [facility] Last Admin: 12/07/17 04:20 Dose: 10 mg Metoprolol Tartrate (Lopressor) 5 mg IVP Q6 PRN PRN Reason: SBP > 150, HR > 100 Last Admin: 12/07/17 03:01 Dose: 5 mg Pantoprazole Sodium (Protonix Inj) 40 mg IVP DAILY [facility] Paroxetine HCl (Paxil) 5 mg PO DAILY [facility] - Labs Labs: 12/06/17 04:20 12/06/17 04:20 PT 13.1 Seconds (9.8-13.1) 12/01/17 11:25 INR 1.2 (0.9-1.2) 12/01/17 11:25 APTT 17.4 Seconds (25.6-37.1) L 12/01/17 11:25 - Constitutional Appears: Chronically Ill, Other (demented , severe) - Head Exam Head Exam: ATRAUMATIC, NORMAL INSPECTION, NORMOCEPHALIC - Eye Exam Additional comments: Pt keeps her eyes closed all the time - ENT Exam ENT Exam: Mucous Membranes Dry, Normal External Ear Exam - Neck Exam Neck Exam: Full ROM. absent: Meningismus - Respiratory Exam Respiratory Exam: NORMAL BREATHING PATTERN. absent: Respiratory Distress - Cardiovascular Exam Cardiovascular Exam: REGULAR RHYTHM, +S1, +S2 - GI/Abdominal Exam GI & Abdominal Exam: Soft, Normal Bowel Sounds. absent: Tenderness - Extremities Exam Extremities Exam: Normal Capillary Refill. absent: Calf Tenderness, Pedal Edema - Back Exam Back Exam: absent: CVA tenderness (L), CVA tenderness (R) - Neurological Exam Additional comments: mumbling incomprehensible words moves all extremities - Skin Skin Exam: Dry, Normal Color, War Assessment and Plan - Assessment and Plan (Free Text) Assessment: 82 year old female with pmh of advanced dementia, COPD, former heavy smoker, who presented to the ED accompanied by family, who noticed that the patient had intractable nausea and vomiting the day of admission. The daughter states that she had large episode of dark brown/green emesis and was at first reluctant to bring her to the ED; however after another 1-2 bouts of emesis . Of note she does have history of episodic nausea/vomiting and history of gastritis as well. In the ED, the patient was noted to be tachycardic around 120 bpm which improved somewhat with fluids. Laboratory results are significant for leukocytosis of 18.0 which is significantly elevated from previous on 11/28/2017 of 7.3. Hg is 11.4 which is elevated from previously, although may be hemoconcentrated due to dehydration. CT scan shows findings of cholelithiasis with mild gallbladder distension along with esophageal thickening which may be indicative of esophagitis/gastritis. 12/05 : EGD showed Gastritis , Esophagitis, Hiatal Hernia 12/06 Pt continues to be lethargic. Failed Swallow eval. 1. SIRS with nausea/vomiting prob sec to Gastritis/Esophagitis cholecystitis ruled out , Sepsis ruled out UGI Bleed ruled out - meets SIRS criteria with leukocytosis and tachycardia - CT scan reveals esophageal thickening as well as cholelithiasis with mild gallbladder distension - Consultation with GI - Dr Ramírez - -s/p EGD : Esophagitis/Gastritis, no active bleed - Consultation with Dr. Reynolds, surgery- unlikely Cholecystitis - Procalcitonin level normal , d/c antibiotics, leukocytosis may just be reactive - Reglan PRN for nausea/vomiting - IV fluid resuscitation with NS at 100 cc/hour - Protonix 40 mg IV - Blood culture, urine cultures: negative so far 2. COPD, exacerbation CXR showed no acute findings with O2 Sat 84% in ER . O2 via NC cont Solumedrol IV- taper to 40 mg daily cont Xopenex RTC 3.Dehydration Urine output low - given IVF bolus and IVF at 100ml/hr Likely due to GI losses and poor po intake 4. 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 Anemia, chronic dis drop in Hgb prob dilutional however given that pt is on Eliquis and had dark vomitus , monitor cbc Occult blood + cont Protonix Transfused 1 unit PRBC will continue Eliquis for now as no overt sign of GIB DVT prophylaxis - Eliquis as above
[2017-12-07] MEDS: MethylPREDNISolone 40 mg Vial IVP SCH (08:52)
[2017-12-07] MEDS: Insulin Lispro (humaLOG) 100 Units/ml Inj SC SCH ×4 (09:04→21:33)
[2017-12-07] MEDS: Lactated Ringer's 1,000 ML IV SCH (17:40)
[2017-12-08] MEDS: Enoxaparin 60 mg Syringe SC SCH ×2 (00:28→12:59)
[2017-12-08] MEDS: Levalbuterol 1.25 MG/3 ML Inhal Soln UD INH SCH ×4 (00:59→19:15)
[2017-12-08] MEDS: Lactated Ringer's 1,000 ML IV SCH (05:16)
[2017-12-08 05:42] LABS: BASO % 0.2 % (0.0-2.0); EOS # 0.2 K/uL (0.0-0.7); EOS % 2.7 % (0.0-4.0); HEMOGLOBIN 12.2 g/dL (12.0-16.0); LYMPH # 1.5 K/uL (1.0-4.3); LYMPH % 21.3 % (20.0-40.0); MEAN CELL VOLUME 81.8 fl (81.0-99.0); MEAN CORPUSCULAR HEMOGLOBIN 26.7 pg (27.0-31.0); MEAN CORPUSCULAR HGB CONC 32.7 g/dL (33.0-37.0); MEAN PLATELET VOLUME 8.8 fl (7.2-11.7); MONO # 0.3 K/uL (0.0-0.8); MONO % 4.2 % (0.0-10.0); NEUT # 5.1 K/uL (1.8-7.0); NEUT % 71.6 % (50.0-75.0); NRBC % 0.1 % (0.0-0.0); RBC 4.58 Mil/uL (3.80-5.20); RED CELL DISTRIBUTION WIDTH 17.2 % (11.5-14.5); WHITE BLOOD COUNT 7.2 K/uL (4.8-10.8)
[2017-12-08 05:58] LABS: ALB/GLOB RATIO 1.1 (1.0-2.1); ALT/SGPT 81 U/L (9-52); AST/SGOT 34 U/L (14-36); BLOOD UREA NITROGEN 7 mg/dl (7-17); CALCIUM 8.4 mg/dL (8.4-10.2); GFR AFRICAN-AMERICAN > 60; GFR NON-AFRICAN AMERICAN > 60
[2017-12-08] MEDS ORDERED: Potassium Chloride 20 mEq 100 ML IVPB ONE (08:08)
[2017-12-08] MEDS ORDERED: Lactated Ringer's 1,000 ML IV SCH (08:15)
--- NOTE | 2017-12-08 08:41 | CP.PCM.PN ---
Subjective - Date & Time of Evaluation Date of Evaluation: 12/08/17 Time of Evaluation: 08:30 - Subjective Subjective: No fever Pt is demented responds by mumbling incomprehensible words in [place], was also noted to be singing and praying in [place]ian Failed Swallow eval yesterday - will rpt today , if consistently fails - plan for PEG for which daughter agrees looks comfortable no respiratory distress no wheesing today had BM yesterday and is voiding ( incontinent) Objective - Vital Signs/Intake and Output Vital Signs (last 24 hours): Temp Pulse Resp BP Pulse Ox 98.5 F 89 20 159/72 H 100 12/08/17 07:44 12/08/17 07:44 12/08/17 07:44 12/08/17 07:44 12/08/17 07:44 - Medications Medications: Current Medications Acetaminophen (Tylenol 325mg Tab) 650 mg PO Q6 PRN PRN Reason: Fever >100.4 F Apixaban (Eliquis) 2.5 mg PO Q12 [facility] PRN Reason: Protocol Last Admin: 12/06/17 08:53 Dose: Not Given Atorvastatin Calcium (Lipitor) 10 mg PO DAILY [facility] Last Admin: 12/07/17 08:50 Dose: Not Given Cyanocobalamin (Vitamin B12 1000 Mcg/Ml Inj) 1,000 mcg IM DAILY [facility] Stop: 12/10/17 09:01 Enoxaparin Sodium (Lovenox) 60 mg SC Q12@0100,1300 [facility] PRN Reason: Protocol Last Admin: 12/08/17 00:28 Dose: 60 mg Insulin Human Lispro (Humalog) 0 units SC ACHS [facility] PRN Reason: Protocol Last Admin: 12/07/17 21:33 Dose: Not Given Ipratropium [place] (Atrovent) 0.5 mg IH RQ6 PRN PRN Reason: Shortness of Breath Last Admin: 12/02/17 12:25 Dose: 0.5 mg Levalbuterol HCl (Xopenex) 1.25 mg INH RQ6 [facility] Last Admin: 12/08/17 07:42 Dose: 1.25 mg Memantine (Namenda) 5 mg PO DAILY [facility] Methylprednisolone (Solu-Medrol) 40 mg IVP DAILY [facility] Last Admin: 12/07/17 08:52 Dose: 40 mg Metoclopramide HCl (Reglan) 10 mg IVP Q6 [facility] Last Admin: 12/08/17 04:30 Dose: 10 mg Metoprolol Tartrate (Lopressor) 5 mg IVP Q6 PRN PRN Reason: SBP > 150, HR > 100 Last Admin: 12/07/17 03:01 Dose: 5 mg Pantoprazole Sodium (Protonix Inj) 40 mg IVP DAILY [facility] Last Admin: 12/07/17 08:52 Dose: 40 mg Paroxetine HCl (Paxil) 5 mg PO DAILY [facility] Last Admin: 12/07/17 09:05 Dose: Not Given - Labs Labs: 12/08/17 05:00 12/08/17 05:00 PT 13.1 Seconds (9.8-13.1) 12/01/17 11:25 INR 1.2 (0.9-1.2) 12/01/17 11:25 APTT 17.4 Seconds (25.6-37.1) L 12/01/17 11:25 - Constitutional Appears: Chronically Ill, Other (demented , severe) - Head Exam Head Exam: ATRAUMATIC, NORMAL INSPECTION, NORMOCEPHALIC - Eye Exam Additional comments: Pt keeps her eyes closed all the time but opens eyes with verbal stimuli - ENT Exam ENT Exam: Mucous Membranes Dry, Normal External Ear Exam - Neck Exam Neck Exam: Full ROM. absent: Meningismus - Respiratory Exam Respiratory Exam: NORMAL BREATHING PATTERN. absent: Respiratory Distress - Cardiovascular Exam Cardiovascular Exam: REGULAR RHYTHM, +S1, +S2 - GI/Abdominal Exam GI & Abdominal Exam: Soft, Normal Bowel Sounds. absent: Tenderness - Extremities Exam Extremities Exam: Normal Capillary Refill. absent: Calf Tenderness, Pedal Edema - Back Exam Back Exam: absent: CVA tenderness (L), CVA tenderness (R) - Neurological Exam Additional comments: mumbling incomprehensible words moves all extremities responds to verbal stimuli by opening eyes and starts to mumble incessantly - Skin Skin Exam: Dry, Normal Color, War Assessment and Plan - Assessment and Plan (Free Text) Assessment: 82 year old female with pmh of advanced dementia, COPD, former heavy smoker, who presented to the ED accompanied by family, who noticed that the patient had intractable nausea and vomiting the day of admission. The daughter states that she had large episode of dark brown/green emesis and was at first reluctant to bring her to the ED; however after another 1-2 bouts of emesis . Of note she does have history of episodic nausea/vomiting and history of gastritis as well. In the ED, the patient was noted to be tachycardic around 120 bpm which improved somewhat with fluids. Laboratory results are significant for leukocytosis of 18.0 which is significantly elevated from previous on 11/28/2017 of 7.3. Hg is 11.4 which is elevated from previously, although may be hemoconcentrated due to dehydration. CT scan shows findings of cholelithiasis with mild gallbladder distension along with esophageal thickening which may be indicative of esophagitis/gastritis. 12/05 : EGD showed Gastritis , Esophagitis, Hiatal Hernia 12/06 Pt continues to be lethargic. Failed Swallow eval. 1. SIRS with nausea/vomiting prob sec to Gastritis/Esophagitis cholecystitis ruled out , Sepsis ruled out UGI Bleed ruled out - meets SIRS criteria with leukocytosis and tachycardia - CT scan reveals esophageal thickening as well as cholelithiasis with mild gallbladder distension - Consultation with GI - Dr Ramírez - -s/p EGD : Esophagitis/Gastritis, no active bleed - Consultation with Dr. Reynolds, surgery- unlikely Cholecystitis - Procalcitonin level normal , d/c antibiotics, leukocytosis may just be reactive - Reglan PRN for nausea/vomiting - IV fluid resuscitation with NS at 100 cc/hour - Protonix 40 mg IV - Blood culture, urine cultures: negative so far 2. COPD, exacerbation CXR showed no acute findings with O2 Sat 84% in ER . O2 via NC cont Solumedrol IV- taper to 40 mg daily cont Xopenex RTC 3.Dehydration Urine output low - given IVF bolus and IVF at 100ml/hr Likely due to GI losses and poor po intake 4. 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 Anemia, chronic dis drop in Hgb prob dilutional however given that pt is on Eliquis and had dark vomitus , monitor cbc Occult blood + cont Protonix Transfused 1 unit PRBC will continue anticoagulation for now as no overt sign of GIB 7. Dysphagia - failed swallow eval - Speech will re-eval today- if she fails again , may need PEG - daughter agrees DVT prophylaxis - Lovenox
[2017-12-08] MEDS: Insulin Lispro (humaLOG) 100 Units/ml Inj SC SCH ×4 (09:07→21:55)
[2017-12-08] MEDS: Metoprolol 1 mg/ml Inj IVP PRN (09:17)
[2017-12-08] MEDS: MethylPREDNISolone 40 mg Vial IVP SCH (09:17)
[2017-12-08] MEDS ORDERED: LIDOCAINE 2% 10ML 20 MG/ML VIAL IJ ONE (11:55)
--- NOTE | 2017-12-08 12:10 | PCM.SURG1 ---
Surgeon's Initial Post Op Note - Surgeon's Notes Surgeon: Robert Arias MD [employer]: NONE Type of Anesthesia: Local Pre-Operative Diagnosis: Poor venous access Operative Findings: US showed a patent right basilic vein. Post-Operative Diagnosis: Poor venous access Operation Performed: Single lumen picc right basilic vein, 35 cm. Tip is in the SVC. Specimen/Specimens Removed: none Estimated Blood Loss: EBL {In ML}: 2 Blood Products Given: N/A Drains Used: No Drains Post-Op Condition: Fair Date of Surgery/Procedure: 12/08/17 Time of Surgery/Procedure: 12:00
[2017-12-08] MEDS: Potassium Ch 20mEq in D5-1/2NS 1,000 ML IV SCH ×2 (12:58→20:00)
[2017-12-09] MEDS: Levalbuterol 1.25 MG/3 ML Inhal Soln UD INH SCH ×4 (00:59→18:59)
[2017-12-09] MEDS: Potassium Ch 20mEq in D5-1/2NS 1,000 ML IV SCH (05:00)
[2017-12-09] MEDS: Insulin Lispro (humaLOG) 100 Units/ml Inj SC SCH ×4 (06:35→21:51)
[2017-12-09 06:49] LABS: BLOOD UREA NITROGEN 6 mg/dl (7-17); CALCIUM 8.4 mg/dL (8.4-10.2); GFR AFRICAN-AMERICAN > 60; GFR NON-AFRICAN AMERICAN > 60
[2017-12-09] MEDS: MethylPREDNISolone 40 mg Vial IVP SCH (08:25)
--- NOTE | 2017-12-09 10:00 | CP.PCM.PN ---
Subjective - Date & Time of Evaluation Date of Evaluation: 12/09/17 Time of Evaluation: 09:45 - Subjective Subjective: Afebrile Severely demented, bedbound for years opens eyes to verbal stimuli not in distress No wheezing Failed multiple swallow eval - plan for PEG- daughter agrees PICC line placed yesterday -pt has very poor venous access Objective - Vital Signs/Intake and Output Vital Signs (last 24 hours): Temp Pulse Resp BP Pulse Ox 98.4 F 111 H 20 117/75 100 12/09/17 08:00 12/09/17 08:00 12/09/17 08:00 12/09/17 08:00 12/09/17 08:00 Intake and Output: 12/09/17 12/09/17 06:59 18:59 Intake Total 1200 Output Total 1 Balance 1199 - Medications Medications: Current Medications Acetaminophen (Tylenol 325mg Tab) 650 mg PO Q6 PRN PRN Reason: Fever >100.4 F Apixaban (Eliquis) 2.5 mg PO Q12 [facility] PRN Reason: Protocol Last Admin: 12/06/17 08:53 Dose: Not Given Atorvastatin Calcium (Lipitor) 10 mg PO DAILY [facility] Last Admin: 12/09/17 08:25 Dose: Not Given Cyanocobalamin (Vitamin B12 1000 Mcg/Ml Inj) 1,000 mcg IM DAILY [facility] Stop: 12/10/17 09:01 Last Admin: 12/09/17 08:25 Dose: 1,000 mcg Enoxaparin Sodium (Lovenox) 60 mg SC Q12@0100,1300 [facility] PRN Reason: Protocol Last Admin: 12/09/17 00:00 Dose: 60 mg Insulin Human Lispro (Humalog) 0 units SC ACHS [facility] PRN Reason: Protocol Last Admin: 12/09/17 06:35 Dose: Not Given Ipratropium [place] (Atrovent) 0.5 mg IH RQ6 PRN PRN Reason: Shortness of Breath Last Admin: 12/02/17 12:25 Dose: 0.5 mg Levalbuterol HCl (Xopenex) 1.25 mg INH RQ6 [facility] Last Admin: 12/09/17 07:24 Dose: 1.25 mg Memantine (Namenda) 5 mg PO DAILY [facility] Methylprednisolone (Solu-Medrol) 40 mg IVP DAILY [facility] Last Admin: 12/09/17 08:25 Dose: 40 mg Metoprolol Tartrate (Lopressor) 5 mg IVP Q6 PRN PRN Reason: SBP > 150, HR > 100 Last Admin: 12/08/17 09:17 Dose: 5 mg Pantoprazole Sodium (Protonix Inj) 40 mg IVP Q12 [facility] Last Admin: 12/09/17 08:25 Dose: 40 mg Paroxetine HCl (Paxil) 5 mg PO DAILY [facility] Last Admin: 12/08/17 09:08 Dose: Not Given - Labs Labs: 12/08/17 05:00 12/09/17 05:30 PT 13.1 Seconds (9.8-13.1) 12/01/17 11:25 INR 1.2 (0.9-1.2) 12/01/17 11:25 APTT 17.4 Seconds (25.6-37.1) L 12/01/17 11:25 - Constitutional Appears: Chronically Ill, Other (demented , severe) - Head Exam Head Exam: ATRAUMATIC, NORMAL INSPECTION, NORMOCEPHALIC - Eye Exam Additional comments: Pt keeps her eyes closed all the time but opens eyes with verbal stimuli - ENT Exam ENT Exam: Mucous Membranes Dry, Normal External Ear Exam - Neck Exam Neck Exam: Full ROM. absent: Meningismus - Respiratory Exam Respiratory Exam: NORMAL BREATHING PATTERN. absent: Respiratory Distress mild wheeze - Cardiovascular Exam Cardiovascular Exam: REGULAR RHYTHM, +S1, +S2 - GI/Abdominal Exam GI & Abdominal Exam: Soft, Normal Bowel Sounds. absent: Tenderness - Extremities Exam Extremities Exam: Normal Capillary Refill. absent: Calf Tenderness, Pedal Edema - Back Exam Back Exam: absent: CVA tenderness (L), CVA tenderness (R) - Neurological Exam Additional comments: mumbling incomprehensible words moves all extremities responds to verbal stimuli by opening eyes and starts to mumble incessantly - Skin Skin Exam: Dry, Normal Color, War Assessment and Plan - Assessment and Plan (Free Text) Assessment: 82 year old female with pmh of advanced dementia, COPD, former heavy smoker, who presented to the ED accompanied by family, who noticed that the patient had intractable nausea and vomiting the day of admission. The daughter states that she had large episode of dark brown/green emesis and was at first reluctant to bring her to the ED; however after another 1-2 bouts of emesis . Of note she does have history of episodic nausea/vomiting and history of gastritis as well. In the ED, the patient was noted to be tachycardic around 120 bpm which improved somewhat with fluids. Laboratory results are significant for leukocytosis of 18.0 which is significantly elevated from previous on 11/28/2017 of 7.3. Hg is 11.4 which is elevated from previously, although may be hemoconcentrated due to dehydration. CT scan shows findings of cholelithiasis with mild gallbladder distension along with esophageal thickening which may be indicative of esophagitis/gastritis. 12/05 : EGD showed Gastritis , Esophagitis, Hiatal Hernia 12/06 Pt continues to be lethargic. Failed Swallow eval. 1. SIRS with nausea/vomiting prob sec to Gastritis/Esophagitis cholecystitis ruled out , Sepsis ruled out UGI Bleed ruled out - meets SIRS criteria with leukocytosis and tachycardia - CT scan reveals esophageal thickening as well as cholelithiasis with mild gallbladder distension - Consultation with GI - Dr Ramírez - -s/p EGD : Esophagitis/Gastritis, no active bleed - Consultation with Dr. Reynolds, surgery- unlikely Cholecystitis - Procalcitonin level normal , d/c antibiotics, leukocytosis may just be reactive - Reglan PRN for nausea/vomiting - IV fluid resuscitation with NS at 100 cc/hour - Protonix 40 mg IV - Blood culture, urine cultures: negative so far 2. COPD, exacerbation CXR showed no acute findings with O2 Sat 84% in ER . O2 via NC cont Solumedrol IV- taper to 40 mg daily cont Xopenex RTC 3.Dehydration IVF at 100ml/hr Likely due to GI losses and poor po intake 4. 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 Anemia, chronic dis drop in Hgb prob dilutional however given that pt is on anticoagulation , GI was consulted Occult blood + EGD done showed Gastritis , Esophagitis, no active bleeding cont Protonix Transfused 1 unit PRBC will continue anticoagulation for now as no overt sign of GIB- will cont to monitor 7. Dysphagia - failed multiple swallow eval -Plan for PEG placement - cont IVF hydration -PICC line placed as pt has very poor venous access DVT prophylaxis - Lovenox
[2017-12-09] MEDS: Potassium Chl 40 mEq in D5-1/2 1,000 ML IV SCH ×2 (12:37→21:10)
[2017-12-09] MEDS: Enoxaparin 60 mg Syringe SC SCH ×2 (12:39)
[2017-12-10] MEDS: Levalbuterol 1.25 MG/3 ML Inhal Soln UD INH SCH ×4 (01:01→20:06)
[2017-12-10] MEDS: Enoxaparin 60 mg Syringe SC SCH ×2 (01:04→12:26)
[2017-12-10] MEDS: Potassium Chl 40 mEq in D5-1/2 1,000 ML IV SCH (01:06)
[2017-12-10] MEDS: Insulin Lispro (humaLOG) 100 Units/ml Inj SC SCH ×4 (07:04→22:19)
[2017-12-10 07:19] LABS: BLOOD UREA NITROGEN 4 mg/dl (7-17); CALCIUM 8.4 mg/dL (8.4-10.2); GFR AFRICAN-AMERICAN > 60; GFR NON-AFRICAN AMERICAN > 60
--- NOTE | 2017-12-10 07:19 | CP.PCM.PN ---
Subjective - Date & Time of Evaluation Date of Evaluation: 12/10/17 Time of Evaluation: 07:19 - Subjective Subjective: patient AWAKE this morning not responding to questions, however does attempt to move around in bed plan is for PEG on continue to monitor patient HD stable Objective - Vital Signs/Intake and Output Vital Signs (last 24 hours): Temp Pulse Resp BP Pulse Ox 97.6 F 98 H 16 119/65 100 12/10/17 05:16 12/10/17 05:16 12/10/17 05:16 12/10/17 05:16 12/10/17 05:16 - Medications Medications: Current Medications Acetaminophen (Tylenol 325mg Tab) 650 mg PO Q6 PRN PRN Reason: Fever >100.4 F Apixaban (Eliquis) 2.5 mg PO Q12 [facility] PRN Reason: Protocol Last Admin: 12/06/17 08:53 Dose: Not Given Atorvastatin Calcium (Lipitor) 10 mg PO DAILY [facility] Last Admin: 12/09/17 08:25 Dose: Not Given Cyanocobalamin (Vitamin B12 1000 Mcg/Ml Inj) 1,000 mcg IM DAILY [facility] Stop: 12/10/17 09:01 Last Admin: 12/09/17 08:25 Dose: 1,000 mcg Enoxaparin Sodium (Lovenox) 60 mg SC Q12@0100,1300 [facility] PRN Reason: Protocol Last Admin: 12/10/17 01:04 Dose: 60 mg Insulin Human Lispro (Humalog) 0 units SC ACHS [facility] PRN Reason: Protocol Last Admin: 12/10/17 07:04 Dose: Not Given Ipratropium [place] (Atrovent) 0.5 mg IH RQ6 PRN PRN Reason: Shortness of Breath Last Admin: 12/02/17 12:25 Dose: 0.5 mg Levalbuterol HCl (Xopenex) 1.25 mg INH RQ6 [facility] Last Admin: 12/10/17 01:01 Dose: 1.25 mg Memantine (Namenda) 5 mg PO DAILY [facility] Methylprednisolone (Solu-Medrol) 40 mg IVP DAILY [facility] Last Admin: 12/09/17 08:25 Dose: 40 mg Metoprolol Tartrate (Lopressor) 5 mg IVP Q6 PRN PRN Reason: SBP > 150, HR > 100 Last Admin: 12/08/17 09:17 Dose: 5 mg Pantoprazole Sodium (Protonix Inj) 40 mg IVP Q12 [facility] Last Admin: 12/09/17 21:09 Dose: 40 mg Paroxetine HCl (Paxil) 5 mg PO DAILY [facility] Last Admin: 12/09/17 10:59 Dose: Not Given - Labs Labs: 12/08/17 05:00 12/09/17 05:30 PT 13.1 Seconds (9.8-13.1) 12/01/17 11:25 INR 1.2 (0.9-1.2) 12/01/17 11:25 APTT 17.4 Seconds (25.6-37.1) L 12/01/17 11:25 - Constitutional Appears: Non-toxic, No Acute Distress - Head Exam Head Exam: ATRAUMATIC, NORMOCEPHALIC - Eye Exam Eye Exam: EOMI, Normal appearance, PERRL Pupil Exam: NORMAL ACCOMODATION - ENT Exam ENT Exam: Mucous Membranes Moist, Normal Oropharynx - Neck Exam Neck Exam: Full ROM, Normal Inspection - Respiratory Exam Respiratory Exam: Clear to Ausculation Bilateral, NORMAL BREATHING PATTERN - Cardiovascular Exam Cardiovascular Exam: RRR, +S1, +S2 - GI/Abdominal Exam GI & Abdominal Exam: Soft, Normal Bowel Sounds - Extremities Exam Extremities Exam: Normal Capillary Refill, Normal Inspection - Back Exam Back Exam: absent: CVA tenderness (L), CVA tenderness (R) - Neurological Exam Neurological Exam: Alert, Awake - Psychiatric Exam Psychiatric exam: Normal Affect, Normal Mood - Skin Skin Exam: Dry, Warm Assessment and Plan - Assessment and Plan (Free Text) Plan: 82 year old female with pmh of advanced dementia, COPD, former heavy smoker, who presented to the ED accompanied by family, who noticed that the patient had intractable nausea and vomiting the day of admission. The daughter states that she had large episode of dark brown/green emesis and was at first reluctant to bring her to the ED; however after another 1-2 bouts of emesis . Of note she does have history of episodic nausea/vomiting and history of gastritis as well. In the ED, the patient was noted to be tachycardic around 120 bpm which improved somewhat with fluids. Laboratory results are significant for leukocytosis of 18.0 which is significantly elevated from previous on 11/28/2017 of 7.3. Hg is 11.4 which is elevated from previously, although may be hemoconcentrated due to dehydration. CT scan shows findings of cholelithiasis with mild gallbladder distension along with esophageal thickening which may be indicative of esophagitis/gastritis. 12/05 : EGD showed Gastritis , Esophagitis, Hiatal Hernia 12/06 Pt continues to be lethargic. Failed Swallow eval. 12/10 PATIENT IS AWAKE TODAY. WILL ATTEMPT SWALLOW EVAL AGAIN POSSIBLE TOMORROW OR MONDAY. Patient was attempting to move around bed. Mentation continues to improve SLOWLY. 1. SIRS with nausea/vomiting prob sec to Gastritis/Esophagitis cholecystitis ruled out , Sepsis ruled out UGI Bleed ruled out - meets SIRS criteria with leukocytosis and tachycardia - CT scan reveals esophageal thickening as well as cholelithiasis with mild gallbladder distension - Consultation with GI - Dr Ramírez - -s/p EGD : Esophagitis/Gastritis, no active bleed - Consultation with Dr. Reynolds, surgery- unlikely Cholecystitis - Procalcitonin level normal , d/c antibiotics, leukocytosis may just be reactive - Reglan PRN for nausea/vomiting - IV fluid resuscitation with NS at 100 cc/hour - Protonix 40 mg IV - Blood culture, urine cultures: negative so far 2. COPD, exacerbation CXR showed no acute findings with O2 Sat 84% in ER . O2 via NC cont Solumedrol IV- taper to 40 mg daily cont Xopenex RTC 3.Dehydration IVF at 100ml/hr Likely due to GI losses and poor po intake 4. Alzheimer's Dementia, severe Decreased Namenda and Paxil dose 5.Chronic DVT 11/19 diagnosed with Left common femoral, and popliteal vein thrombosis Pt on Eliquis - changed to therapeutic Lovenox while in the hospital as pt may need to go for PEG 6. Anemia, chronic dis drop in Hgb prob dilutional however given that pt is on anticoagulation , GI was consulted Occult blood + EGD done showed Gastritis , Esophagitis, no active bleeding cont Protonix Transfused 1 unit PRBC will continue anticoagulation for now as no overt sign of GIB- will cont to monitor 7. Dysphagia - failed multiple swallow eval -Plan for PEG placement - cont IVF hydration -PICC line placed as pt has very poor venous access DVT prophylaxis - Lovenox
[2017-12-10] MEDS: MethylPREDNISolone 40 mg Vial IVP SCH (08:07)
[2017-12-10] MEDS: Potassium Ch 20mEq in D5-1/2NS 1,000 ML IV SCH (17:05)
[2017-12-11] MEDS: Levalbuterol 1.25 MG/3 ML Inhal Soln UD INH SCH ×4 (01:03→19:22)
[2017-12-11] MEDS: Enoxaparin 60 mg Syringe SC SCH (01:20)
[2017-12-11] MEDS: Potassium Ch 20mEq in D5-1/2NS 1,000 ML IV SCH ×2 (05:17→13:01)
[2017-12-11] MEDS: Insulin Lispro (humaLOG) 100 Units/ml Inj SC SCH ×4 (06:43→22:31)
[2017-12-11 07:26] LABS: BLOOD UREA NITROGEN 5 mg/dl (7-17); CALCIUM 8.9 mg/dL (8.4-10.2); GFR AFRICAN-AMERICAN > 60; GFR NON-AFRICAN AMERICAN > 60
--- NOTE | 2017-12-11 07:31 | CP.PCM.PN ---
Subjective - Date & Time of Evaluation Date of Evaluation: 12/11/17 Time of Evaluation: 07:31 - Subjective Subjective: patient arousable and awake this AM however not answering instructions nor any questions does not appear to be in any acute distress PEG placement tomorrow HOLDING lovenox hd stable, NAD Objective - Vital Signs/Intake and Output Vital Signs (last 24 hours): Temp Pulse Resp BP Pulse Ox 98.6 F 97 H 18 129/71 99 12/11/17 04:59 12/11/17 04:59 12/11/17 04:59 12/11/17 04:59 12/11/17 04:59 GENERAL APPEARANCE: chronically ill, awake, not verbally responding to questions HEENT: normocephalic, atraumatic PERRL, EOMI. Vision is grossly intact NECK: Neck supple, non-tender without lymphadenopathy, masses or thyromegaly. CARDIAC: Normal S1 and S2. No S3, S4 or murmurs. Rhythm is regular. LUNGS: Clear to auscultation and percussion without rales, rhonchi, wheezing or diminished breath sounds. ABDOMEN: Positive bowel sounds. Soft, nondistended, nontender. No guarding or rebound. No masses. BACK: Examination of the spine reveals no spinal deformity, symmetry of spinal muscles, EXTREMITIES: No significant deformity or joint abnormality. No edema. NEUROLOGICAL: awake, alert. Reflexes 2+ throughout. SKIN: Skin normal color, texture and turgor with no lesions or eruptions. PSYCHIATRIC: unable to assess at this time. Intake and Output: 12/11/17 12/11/17 06:59 18:59 Intake Total 1200 Output Total 800 Balance 400 - Medications Medications: Current Medications Acetaminophen (Tylenol 325mg Tab) 650 mg PO Q6 PRN PRN Reason: Fever >100.4 F Apixaban (Eliquis) 2.5 mg PO Q12 [facility] PRN Reason: Protocol Last Admin: 12/06/17 08:53 Dose: Not Given Atorvastatin Calcium (Lipitor) 10 mg PO DAILY [facility] Last Admin: 12/10/17 08:08 Dose: Not Given Enoxaparin Sodium (Lovenox) 60 mg SC Q12@0100,1300 [facility] PRN Reason: Protocol Last Admin: 12/11/17 01:20 Dose: 60 mg Potassium Chloride/Dextrose/Sod Cl (Potassium Chl 20 Meq In D5-1/2ns) 1,000 mls @ 100 mls/hr IV .Q10H [facility] Stop: 12/11/17 15:56 Last Admin: 12/11/17 05:17 Dose: 100 mls/hr Insulin Human Lispro (Humalog) 0 units SC ACHS [facility] PRN Reason: Protocol Last Admin: 12/11/17 06:43 Dose: Not Given Ipratropium [place] (Atrovent) 0.5 mg IH RQ6 PRN PRN Reason: Shortness of Breath Last Admin: 12/02/17 12:25 Dose: 0.5 mg Levalbuterol HCl (Xopenex) 1.25 mg INH RQ6 [facility] Last Admin: 12/11/17 07:14 Dose: 1.25 mg Memantine (Namenda) 5 mg PO DAILY [facility] Metoprolol Tartrate (Lopressor) 5 mg IVP Q6 PRN PRN Reason: SBP > 150, HR > 100 Last Admin: 12/08/17 09:17 Dose: 5 mg Pantoprazole Sodium (Protonix Inj) 40 mg IVP Q12 [facility] Last Admin: 12/10/17 21:13 Dose: 40 mg Paroxetine HCl (Paxil) 5 mg PO DAILY [facility] Last Admin: 12/10/17 08:08 Dose: Not Given - Labs Labs: 12/08/17 05:00 12/11/17 06:50 PT 13.1 Seconds (9.8-13.1) 12/01/17 11:25 INR 1.2 (0.9-1.2) 12/01/17 11:25 APTT 17.4 Seconds (25.6-37.1) L 12/01/17 11:25 Assessment and Plan - Assessment and Plan (Free Text) Plan: 82 year old female with pmh of advanced dementia, COPD, former heavy smoker, who presented to the ED accompanied by family, who noticed that the patient had intractable nausea and vomiting the day of admission. The daughter states that she had large episode of dark brown/green emesis and was at first reluctant to bring her to the ED; however after another 1-2 bouts of emesis . Of note she does have history of episodic nausea/vomiting and history of gastritis as well. In the ED, the patient was noted to be tachycardic around 120 bpm which improved somewhat with fluids. Laboratory results are significant for leukocytosis of 18.0 which is significantly elevated from previous on 11/28/2017 of 7.3. Hg is 11.4 which is elevated from previously, although may be hemoconcentrated due to dehydration. CT scan shows findings of cholelithiasis with mild gallbladder distension along with esophageal thickening which may be indicative of esophagitis/gastritis. 12/05 : EGD showed Gastritis , Esophagitis, Hiatal Hernia 12/06 Pt continues to be lethargic. Failed Swallow eval. 12/10 PATIENT IS AWAKE TODAY. WILL ATTEMPT SWALLOW EVAL AGAIN POSSIBLE TOMORROW OR MONDAY. Patient was attempting to move around bed. Mentation continues to improve SLOWLY. 12/11: patient awake and alert, however not answering anyquestions and not following directions at this time. Will proceed with PEG placement tomorrow. 1. SIRS with nausea/vomiting prob sec to Gastritis/Esophagitis cholecystitis ruled out , Sepsis ruled out UGI Bleed ruled out - meets SIRS criteria with leukocytosis and tachycardia - CT scan reveals esophageal thickening as well as cholelithiasis with mild gallbladder distension - Consultation with GI - Dr Ramírez - -s/p EGD : Esophagitis/Gastritis, no active bleed - Consultation with Dr. Reynolds, surgery- unlikely Cholecystitis - Procalcitonin level normal , d/c antibiotics, leukocytosis may just be reactive - Reglan PRN for nausea/vomiting - IV fluid resuscitation with NS at 100 cc/hour - Protonix 40 mg IV - Blood culture, urine cultures: negative so far 2. COPD, exacerbation CXR showed no acute findings with O2 Sat 84% in ER . O2 via NC cont Solumedrol IV- taper to 40 mg daily cont Xopenex RTC 3.Dehydration IVF at 100ml/hr Likely due to GI losses and poor po intake 4. 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 Anemia, chronic dis drop in Hgb prob dilutional however given that pt is on anticoagulation , GI was consulted Occult blood + EGD done showed Gastritis , Esophagitis, no active bleeding cont Protonix Transfused 1 unit PRBC will continue anticoagulation for now as no overt sign of GIB- will cont to monitor 7. Dysphagia - failed multiple swallow eval -Plan for PEG placement - cont IVF hydration -PICC line placed as pt has very poor venous access DVT prophylaxis - Lovenox
--- NOTE | 2017-12-11 10:09 | CP.PCM.PN ---
<Symone Ellington - Last Filed: 12/11/17 10:15> Subjective - Date & Time of Evaluation Date of Evaluation: 12/11/17 Time of Evaluation: 10:00 - Subjective Subjective: GI Fellow PGY4 Progress Note Pt seen and evaluated at bedside, pt is nonverbal and unable to participate in ROS. Pt's daughter at bedside, denies any nausea or vomiting, family agreeable to PEG. Per nursing, speech and swallow evaluated pt this am when pt was a little more alert, they recommend pleasure eating when awake but not sustainable nutrition. ROS: Unable to be obtained due to AMS Objective - Vital Signs/Intake and Output Vital Signs (last 24 hours): Temp Pulse Resp BP Pulse Ox 97.8 F 96 H 18 110/73 97 12/11/17 07:59 12/11/17 07:59 12/11/17 07:59 12/11/17 07:59 12/11/17 07:59 Intake and Output: 12/11/17 12/11/17 06:59 18:59 Intake Total 1200 Output Total 800 Balance 400 - Medications Medications: Current Medications Acetaminophen (Tylenol 325mg Tab) 650 mg PO Q6 PRN PRN Reason: Fever >100.4 F Apixaban (Eliquis) 2.5 mg PO Q12 [facility] PRN Reason: Protocol Last Admin: 12/06/17 08:53 Dose: Not Given Atorvastatin Calcium (Lipitor) 10 mg PO DAILY [facility] Last Admin: 12/11/17 08:28 Dose: Not Given Enoxaparin Sodium (Lovenox) 60 mg SC Q12@0100,1300 [facility] PRN Reason: Protocol Last Admin: 12/11/17 01:20 Dose: 60 mg Potassium Chloride/Dextrose/Sod Cl (Potassium Chl 20 Meq In D5-1/2ns) 1,000 mls @ 100 mls/hr IV .Q10H [facility] Stop: 12/11/17 15:56 Last Admin: 12/11/17 05:17 Dose: 100 mls/hr Insulin Human Lispro (Humalog) 0 units SC ACHS [facility] PRN Reason: Protocol Last Admin: 12/11/17 06:43 Dose: Not Given Ipratropium [place] (Atrovent) 0.5 mg IH RQ6 PRN PRN Reason: Shortness of Breath Last Admin: 05/19/18 12:25 Dose: 0.5 mg Levalbuterol HCl (Xopenex) 1.25 mg INH RQ6 [facility] Last Admin: 12/11/17 07:14 Dose: 1.25 mg Memantine (Namenda) 5 mg PO DAILY [facility] Metoprolol Tartrate (Lopressor) 5 mg IVP Q6 PRN PRN Reason: SBP > 150, HR > 100 Last Admin: 12/08/17 09:17 Dose: 5 mg Pantoprazole Sodium (Protonix Inj) 40 mg IVP Q12 [facility] Last Admin: 12/11/17 09:00 Dose: 40 mg Paroxetine HCl (Paxil) 5 mg PO DAILY [facility] Last Admin: 12/11/17 08:28 Dose: Not Given - Labs Labs: 12/08/17 05:00 12/11/17 06:50 PT 13.1 Seconds (9.8-13.1) 12/01/17 11:25 INR 1.2 (0.9-1.2) 12/01/17 11:25 APTT 17.4 Seconds (25.6-37.1) L 12/01/17 11:25 - Constitutional Appears: Non-toxic, No Acute Distress, Confused - Head Exam Head Exam: ATRAUMATIC, NORMAL INSPECTION, NORMOCEPHALIC - ENT Exam ENT Exam: Mucous Membranes Dry - Respiratory Exam Respiratory Exam: Clear to Ausculation Bilateral, NORMAL BREATHING PATTERN - Cardiovascular Exam Cardiovascular Exam: REGULAR RHYTHM, RRR, +S1, +S2 - GI/Abdominal Exam GI & Abdominal Exam: Soft, Normal Bowel Sounds. absent: Distended, Firm, Tenderness, Organomegaly - Rectal Exam Rectal Exam: Deferred - Extremities Exam Extremities Exam: Normal Inspection - Psychiatric Exam Psychiatric exam: Flat Affect - Skin Skin Exam: Dry, Intact, Normal Color, Warm Assessment and Plan - Assessment and Plan (Free Text) Assessment: This is a 82yF with pmhx of COPD, Alzheimer's dementia, Chronic DVT on OAC presenting with emesis. 1. Dysphagia 2. Failure to thrive/Poor nutrition 3. LAGB esophagtis, gastritis 4. Hiatal Hernia Plan: -Continue supportive care -Dyshagia with EGD 12/05/17 with LAGB esophagitis, gastritis -Continue PPI daily, not bid -Swallow evaluation recommends pleasure eating when awake -Plan for PEG placement tomorrow 12/12/17, family agreeable -Hold Lovenox (last dose 12/11/17 at 0100) and Eliquis (last dose 12/06/17) -EGD/PEG added to Dr. Mcdowell's block schedule for tomorrow 12/12/17, call placed to [facility] nursing vendor quality supervisor 12/11/17 0856am to inform her about the case being added tomorrow during Dr. Mcdowell's block time and a message left on endoscopy suite voicemail at 0900am. -Will continue to follow pt closely <Ciro Baldwin - Last Filed: 12/11/17 10:35> Objective - Vital Signs/Intake and Output Vital Signs (last 24 hours): Temp Pulse Resp BP Pulse Ox 97.8 F 96 H 18 110/73 97 12/11/17 07:59 12/11/17 07:59 12/11/17 07:59 12/11/17 07:59 12/11/17 07:59 Intake and Output: 12/11/17 12/11/17 06:59 18:59 Intake Total 1200 Output Total 800 Balance 400 - Medications Medications: Current Medications Acetaminophen (Tylenol 325mg Tab) 650 mg PO Q6 PRN PRN Reason: Fever >100.4 F Apixaban (Eliquis) 2.5 mg PO Q12 [facility] PRN Reason: Protocol Last Admin: 12/06/17 08:53 Dose: Not Given Atorvastatin Calcium (Lipitor) 10 mg PO DAILY [facility] Last Admin: 12/11/17 08:28 Dose: Not Given Enoxaparin Sodium (Lovenox) 60 mg SC Q12@0100,1300 [facility] PRN Reason: Protocol Last Admin: 12/11/17 01:20 Dose: 60 mg Potassium Chloride/Dextrose/Sod Cl (Potassium Chl 20 Meq In D5-1/2ns) 1,000 mls @ 100 mls/hr IV .Q10H [facility] Stop: 12/11/17 15:56 Last Admin: 12/11/17 05:17 Dose: 100 mls/hr Insulin Human Lispro (Humalog) 0 units SC ACHS [facility] PRN Reason: Protocol Last Admin: 12/11/17 06:43 Dose: Not Given Ipratropium [place] (Atrovent) 0.5 mg IH RQ6 PRN PRN Reason: Shortness of Breath Last Admin: 12/02/17 12:25 Dose: 0.5 mg Levalbuterol HCl (Xopenex) 1.25 mg INH RQ6 [facility] Last Admin: 12/11/17 07:14 Dose: 1.25 mg Memantine (Namenda) 5 mg PO DAILY [facility] Metoprolol Tartrate (Lopressor) 5 mg IVP Q6 PRN PRN Reason: SBP > 150, HR > 100 Last Admin: 12/08/17 09:17 Dose: 5 mg Pantoprazole Sodium (Protonix Inj) 40 mg IVP DAILY [facility] Paroxetine HCl (Paxil) 5 mg PO DAILY [facility] Last Admin: 12/11/17 08:28 Dose: Not Given - Labs Labs: 12/08/17 05:00 12/11/17 06:50 PT 13.1 Seconds (9.8-13.1) 12/01/17 11:25 INR 1.2 (0.9-1.2) 12/01/17 11:25 APTT 17.4 Seconds (25.6-37.1) L 12/01/17 11:25 Attending/Attestation - Attestation I have personally seen and examined this patient.: Yes I have fully participated in the care of the patient.: Yes I have reviewed all pertinent clinical information, including history, physical exam and plan: Yes Notes (Text): 12/11/17 10:30 I have seen and examined patient with GI fellow. No acute events overnight, she is seen resting in bed comfortably, patient's daughter at bedside. There is no reported abdominal pain, nausea, vomiting, fever/chills. She was able to tolerate scant amount of puree consistency diet with assistance. Review of vitals from today shows tachycardia. Alzheimer's dementia COPD DVT on Eliquis (held) Dysphagia - APPRENTICESHIP REPRESENTATIVE note from 12/08 reviewed by me indicating patient remains high aspiration risk, pleasure feeds recommended though will need alternative means of ongoing sustained nutrition. Discussed with patient's daughter at bedside at length including risks/benefits of procedure, she is agreeable to proceed with endoscopic feeding tube placement. - Obtain INR - NPO - Will tentatively plan for PEG placement tomorrow and continue to monitor patient clinical course
[2017-12-12] MEDS: Levalbuterol 1.25 MG/3 ML Inhal Soln UD INH SCH ×4 (01:00→19:01)
[2017-12-12] MEDS: Potassium Ch 20mEq in D5-1/2NS 1,000 ML IV SCH (02:21)
[2017-12-12 05:41] LABS: BASO % 0.2 % (0.0-2.0); EOS # 0.1 K/uL (0.0-0.7); EOS % 1.4 % (0.0-4.0); HEMOGLOBIN 11.9 g/dL (12.0-16.0); LYMPH # 1.4 K/uL (1.0-4.3); LYMPH % 18.3 % (20.0-40.0); MEAN CELL VOLUME 81.9 fl (81.0-99.0); MEAN CORPUSCULAR HEMOGLOBIN 26.6 pg (27.0-31.0); MEAN CORPUSCULAR HGB CONC 32.4 g/dL (33.0-37.0); MONO # 0.4 K/uL (0.0-0.8); MONO % 5.8 % (0.0-10.0); NEUT # 5.6 K/uL (1.8-7.0); NEUT % 74.3 % (50.0-75.0); NRBC % 0.1 % (0.0-0.0); RBC 4.47 Mil/uL (3.80-5.20); RED CELL DISTRIBUTION WIDTH 17.9 % (11.5-14.5); WHITE BLOOD COUNT 7.6 K/uL (4.8-10.8)
[2017-12-12 05:46] LABS: INR 1.1 (0.9-1.2); PROTHROMBIN TIME 12.3 Seconds (9.8-13.1)
[2017-12-12 06:11] LABS: ALB/GLOB RATIO 1.1 (1.0-2.1); ALT/SGPT 100 U/L (9-52); AST/SGOT 58 U/L (14-36); BLOOD UREA NITROGEN 6 mg/dl (7-17); CALCIUM 8.6 mg/dL (8.4-10.2); GFR AFRICAN-AMERICAN > 60; GFR NON-AFRICAN AMERICAN > 60
[2017-12-12] MEDS: Insulin Lispro (humaLOG) 100 Units/ml Inj SC SCH ×4 (07:30→22:17)
[2017-12-12] MEDS ORDERED: Etomidate 20 mg/10ml Inj IV ONE (07:37)
[2017-12-12] MEDS ORDERED: Propofol 10 mg/ml Inj (20 ML) ONE (07:37)
[2017-12-12] MEDS ORDERED: Lactated Ringer's 500 ML IV ONE ×2 (08:00→08:04)
[2017-12-12] MEDS ORDERED: ceFAZolin 2 GM in Sodium Chloride 0.9% 100 ML IVPB ONE (08:00)
[2017-12-12] MEDS ORDERED: ceFAZolin 1 GM in Sodium Chloride 0.9% 100 ML IVPB ONE (08:00)
[2017-12-12] MEDS ORDERED: ceFAZolin IV 1 gm in Dextrose 1 GM/50 ML BAG IVPB ONE (08:06)
--- NOTE | 2017-12-12 09:42 | VASCULAR ---
PROCEDURE: Date of procedure: 12/08/2017 Procedure: 1. Placement of a right arm PICC with ultrasound and fluoroscopic guidance, CPT 01176 2. PICC tip confirmation with spot radiograph and is in the superior vena cava Medications: 1 percent lidocaine Total Fluoro time: 3.8 seconds Radiation: 0.33 MGy EBL: 2 cc HISTORY: Infection requiring long-term IV antibiotics TECHNIQUE: Following informed consent and procedure time-out, the patient was placed supine on the interventional table and the right arm prepped and draped in the usual sterile fashion. Ultrasound showed a patent and compressible right basilic vein. After the skin was anesthetized with lidocaine, the basilic vein was accessed with micro micropuncture technique using ultrasound guidance. A guidewire was then advanced under fluoroscopic guidance into the superior vena cava. An image documenting ultrasound guidance for vascular access was permanently saved. The length of the single-lumen 4 [place] PICC was trimmed to 35 centimeters and advanced through a peel-away sheath. The PICC was position with tip of PICC confirm a spot radiograph the superior vena cava. The PICC was secured to the patient's skin. The PICC was flushed. A bio patch and sterile dressing was applied. IMPRESSION: Placement of a single-lumen 4 [place] PICC trimmed to 35 centimeters via right basilic vein. The tip of the PICC is confirmed with spot radiograph and is in the superior vena cava.
--- NOTE | 2017-12-12 12:01 | CP.PCM.PN ---
Subjective - Date & Time of Evaluation Date of Evaluation: 12/12/17 Time of Evaluation: 11:45 - Subjective Subjective: Pt seen post PEG placement, daughter at bedside Pt still sedated No fever No wheezing VS stable Objective - Vital Signs/Intake and Output Vital Signs (last 24 hours): Temp Pulse Resp BP Pulse Ox 99.1 F 94 H 25 H 101/48 L 98 12/12/17 09:11 12/12/17 09:11 12/12/17 09:11 12/12/17 09:11 12/12/17 09:11 Intake and Output: 12/12/17 12/12/17 06:59 18:59 Intake Total 900 200 Balance 900 200 - Medications Medications: Current Medications Acetaminophen (Tylenol 325mg Tab) 650 mg PO Q6 PRN PRN Reason: Fever >100.4 F Apixaban (Eliquis) 2.5 mg PO Q12 [facility] PRN Reason: Protocol Last Admin: 12/06/17 08:53 Dose: Not Given Atorvastatin Calcium (Lipitor) 10 mg PO DAILY [facility] Last Admin: 12/11/17 08:28 Dose: Not Given Enoxaparin Sodium (Lovenox) 60 mg SC Q12@0100,1300 [facility] PRN Reason: Protocol Last Admin: 12/11/17 01:20 Dose: 60 mg Potassium Chloride/Dextrose/Sod Cl (Potassium Chl 20 Meq In D5-1/2ns) 1,000 mls @ 75 mls/hr IV .[id number] [facility] Stop: 12/12/17 12:18 Last Admin: 12/12/17 02:21 Dose: 75 mls/hr Insulin Human Lispro (Humalog) 0 units SC ACHS [facility] PRN Reason: Protocol Last Admin: 12/11/17 22:31 Dose: Not Given Ipratropium [place] (Atrovent) 0.5 mg IH RQ6 PRN PRN Reason: Shortness of Breath Last Admin: 12/02/17 12:25 Dose: 0.5 mg Levalbuterol HCl (Xopenex) 1.25 mg INH RQ6 [facility] Last Admin: 12/12/17 07:27 Dose: 1.25 mg Memantine (Namenda) 5 mg PO DAILY [facility] Metoprolol Tartrate (Lopressor) 5 mg IVP Q6 PRN PRN Reason: SBP > 150, HR > 100 Last Admin: 12/08/17 09:17 Dose: 5 mg Pantoprazole Sodium (Protonix Inj) 40 mg IVP DAILY [facility] Paroxetine HCl (Paxil) 5 mg PO DAILY [facility] Last Admin: 12/11/17 08:28 Dose: Not Given - Labs Labs: 12/12/17 04:20 12/12/17 04:20 PT 12.3 Seconds (9.8-13.1) 12/12/17 04:20 INR 1.1 (0.9-1.2) 12/12/17 04:20 APTT 17.4 Seconds (25.6-37.1) L 12/01/17 11:25 - Constitutional Appears: No Acute Distress - Head Exam Head Exam: NORMAL INSPECTION, NORMOCEPHALIC - Eye Exam Eye Exam: Normal appearance - ENT Exam ENT Exam: Mucous Membranes Dry, Normal External Ear Exam - Neck Exam Neck Exam: absent: Meningismus - Respiratory Exam Respiratory Exam: NORMAL BREATHING PATTERN. absent: Rales, Wheezes, Respiratory Distress - Cardiovascular Exam Cardiovascular Exam: REGULAR RHYTHM, +S1, +S2 - GI/Abdominal Exam GI & Abdominal Exam: Soft, Normal Bowel Sounds Additional comments: + PEG - Extremities Exam Extremities Exam: Normal Capillary Refill - Neurological Exam Additional comments: Pt is still under sedation effect ( s/p PEG) - Skin Skin Exam: Dry, Normal Color, Warm Assessment and Plan - Assessment and Plan (Free Text) Assessment: 82 year old female with pmh of advanced dementia, COPD, former heavy smoker, who presented to the ED accompanied by family, who noticed that the patient had intractable nausea and vomiting the day of admission. The daughter states that she had large episode of dark brown/green emesis and was at first reluctant to bring her to the ED; however after another 1-2 bouts of emesis . Of note she does have history of episodic nausea/vomiting and history of gastritis as well. In the ED, the patient was noted to be tachycardic around 120 bpm which improved somewhat with fluids. Laboratory results are significant for leukocytosis of 18.0 which is significantly elevated from previous on 11/28/2017 of 7.3. Hg is 11.4 which is elevated from previously, although may be hemoconcentrated due to dehydration. CT scan shows findings of cholelithiasis with mild gallbladder distension along with esophageal thickening which may be indicative of esophagitis/gastritis. 12/05 : EGD showed Gastritis , Esophagitis, Hiatal Hernia Pt failed Swallow eval in multiple attempts. 1. SIRS with nausea/vomiting prob sec to Gastritis/Esophagitis cholecystitis ruled out , Sepsis ruled out UGI Bleed ruled out - meets SIRS criteria with leukocytosis and tachycardia - CT scan reveals esophageal thickening as well as cholelithiasis with mild gallbladder distension - Consultation with GI - Dr Ramírez - -s/p EGD : Esophagitis/Gastritis, no active bleed - Consultation with Dr. Reynolds, surgery- unlikely Cholecystitis - Procalcitonin level normal , d/c antibiotics, leukocytosis may just be reactive - Reglan PRN for nausea/vomiting - Protonix 40 mg IV - Blood culture, urine cultures: negative so far 2. COPD, exacerbation CXR showed no acute findings with O2 Sat 84% in ER . O2 via NC cont Solumedrol IV- taper to 30 mg daily cont Xopenex RTC 3.Dehydration IVF at 100ml/hr Likely due to GI losses and poor po intake 4. 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 Anemia, chronic dis drop in Hgb prob dilutional however given that pt is on anticoagulation , GI was consulted Occult blood + EGD done showed Gastritis , Esophagitis, no active bleeding cont Protonix Transfused 1 unit PRBC will continue anticoagulation for now as no overt sign of GIB- will cont to monitor 7. Dysphagia, s/p PEG placement - failed multiple swallow eval -PEG placed today -start feeding in am, free water today -cont IVF hydration -PICC line placed as pt has very poor venous access DVT prophylaxis - Lovenox
[2017-12-12] MEDS ORDERED: methylPREDNISolone 30 MG in Sodium Chloride 0.9% 50 ML IVPB SCH (16:15)
[2017-12-12] MEDS: Potassium Chl 20 mEq in D5-NS 1,000 ML IV SCH (17:34)
[2017-12-12] MEDS: MethylPREDNISolone 40 mg Vial IVP SCH (18:39)
[2017-12-12] MEDS: ceFAZolin 1 GM in Sodium Chloride 0.9% 100 ML IVPB SCH (22:16)
[2017-12-13] MEDS: Levalbuterol 1.25 MG/3 ML Inhal Soln UD INH SCH ×4 (01:03→20:11)
[2017-12-13] MEDS: ceFAZolin 1 GM in Sodium Chloride 0.9% 100 ML IVPB SCH (04:31)
[2017-12-13 07:18] LABS: HEMOGLOBIN 12.6 g/dL (12.0-16.0); MEAN CELL VOLUME 83.3 fl (81.0-99.0); MEAN CORPUSCULAR HEMOGLOBIN 26.6 pg (27.0-31.0); RBC 4.72 Mil/uL (3.80-5.20); RED CELL DISTRIBUTION WIDTH 17.7 % (11.5-14.5); WHITE BLOOD COUNT 10.9 K/uL (4.8-10.8)
--- NOTE | 2017-12-13 07:29 | CP.PCM.PN ---
<Jeovany Bajwa - Last Filed: 12/13/17 07:36> Subjective - Date & Time of Evaluation Date of Evaluation: 12/13/17 Time of Evaluation: 06:30 - Subjective Subjective: PGY5 GI Fellow Progress Note Patient seen and examined bedside this morning. Patient had no events overnight. No issues related to PEG since placement yesterday per nursing. 12 system ROS performed and negative except where stated. Objective - Vital Signs/Intake and Output Vital Signs (last 24 hours): Temp Pulse Resp BP Pulse Ox 98.3 F 97 H 18 109/58 L 100 12/13/17 04:51 12/13/17 04:51 12/13/17 04:51 12/13/17 04:51 12/13/17 04:51 Intake and Output: 12/13/17 12/13/17 06:59 18:59 Intake Total 800 Balance 800 - Medications Medications: Current Medications Acetaminophen (Tylenol 325mg Tab) 650 mg PO Q6 PRN PRN Reason: Fever >100.4 F Apixaban (Eliquis) 2.5 mg PO Q12 [facility] PRN Reason: Protocol Last Admin: 12/06/17 08:53 Dose: Not Given Atorvastatin Calcium (Lipitor) 10 mg PO DAILY [facility] Last Admin: 12/12/17 17:49 Dose: 10 mg Enoxaparin Sodium (Lovenox) 60 mg SC Q12@0100,1300 [facility] PRN Reason: Protocol Last Admin: 12/11/17 01:20 Dose: 60 mg Potassium Chloride/Dextrose/Sod Cl (Potassium Chl 20 Meq In D5-Ns) 1,000 mls @ 60 mls/hr IV .[id number] [facility] Stop: 12/13/17 14:35 Last Admin: 12/12/17 17:34 Dose: 60 mls/hr Insulin Human Lispro (Humalog) 0 units SC ACHS [facility] PRN Reason: Protocol Last Admin: 12/12/17 22:17 Dose: Not Given Ipratropium [place] (Atrovent) 0.5 mg IH RQ6 PRN PRN Reason: Shortness of Breath Last Admin: 12/02/17 12:25 Dose: 0.5 mg Levalbuterol HCl (Xopenex) 1.25 mg INH RQ6 [facility] Last Admin: 12/13/17 01:03 Dose: 1.25 mg Memantine (Namenda) 5 mg PO DAILY [facility] Methylprednisolone (Solu-Medrol) 30 mg IVP DAILY [facility] Last Admin: 12/12/17 18:39 Dose: 30 mg Metoprolol Tartrate (Lopressor) 5 mg IVP Q6 PRN PRN Reason: SBP > 150, HR > 100 Last Admin: 12/08/17 09:17 Dose: 5 mg Pantoprazole Sodium (Protonix Inj) 40 mg IVP DAILY [facility] Last Admin: 12/12/17 10:00 Dose: 40 mg Paroxetine HCl (Paxil) 5 mg PO DAILY [facility] Last Admin: 12/12/17 17:49 Dose: 5 mg - Labs Labs: 12/13/17 05:55 12/12/17 04:20 PT 12.3 Seconds (9.8-13.1) 12/12/17 04:20 INR 1.1 (0.9-1.2) 12/12/17 04:20 APTT 17.4 Seconds (25.6-37.1) L 12/01/17 11:25 - Constitutional Appears: Non-toxic, Confused - Eye Exam Eye Exam: PERRL - ENT Exam ENT Exam: Mucous Membranes Moist - Respiratory Exam Respiratory Exam: Clear to Ausculation Bilateral. absent: Rales, Rhonchi, Wheezes - Cardiovascular Exam Cardiovascular Exam: RRR, +S1, +S2 - GI/Abdominal Exam GI & Abdominal Exam: Soft, Normal Bowel Sounds. absent: Distended, Firm, Guarding, Rigid, Tenderness, Organomegaly Additional comments: PEG in place, bumper at 4cm - Extremities Exam Extremities Exam: Normal Inspection. absent: Pedal Edema - Neurological Exam Neurological Exam: Altered, Awake - Psychiatric Exam Psychiatric exam: Anxious - Skin Skin Exam: Dry, Warm Assessment and Plan - Assessment and Plan (Free Text) Assessment: Patient is an 82yo female with PMHx significant for dementia, tobacco use who was brought in to the ED for vomiting. -Dysphagia s/p PEG insertion -Dementia -Cholelithiasis -Constipation -Hiatal hernia/LA Grade B esophagitis -Elevated LFTs Plan: -S/P PEG insertion yesterday -Start Jevity 1.2 at 20mL/hr, increasing 10mL Q8H to goal of 60mL/hr -Pantoprazole 40mg PO BIDAC -OK to resume anticoagulation -LFT elevation noted - hepatocellular pattern; would monitor AST/ALT - consider holding Lipitor (pt on Crestor at home) -Can consider limited U/S liver -Hepatitis serologies <Shira Ramírezhail - Last Filed: 12/13/17 10:10> Objective - Vital Signs/Intake and Output Vital Signs (last 24 hours): Temp Pulse Resp BP Pulse Ox 97.4 F L 98 H 18 104/55 L 97 12/13/17 07:49 12/13/17 07:49 12/13/17 07:49 12/13/17 07:49 12/13/17 07:49 Intake and Output: 12/13/17 12/13/17 06:59 18:59 Intake Total 800 Balance 800 - Medications Medications: Current Medications Acetaminophen (Tylenol 325mg Tab) 650 mg PO Q6 PRN PRN Reason: Fever >100.4 F Apixaban (Eliquis) 2.5 mg PO Q12 [facility] PRN Reason: Protocol Last Admin: 12/06/17 08:53 Dose: Not Given Atorvastatin Calcium (Lipitor) 10 mg PO DAILY [facility] Last Admin: 12/13/17 10:04 Dose: 10 mg Enoxaparin Sodium (Lovenox) 60 mg SC Q12@0100,1300 [facility] PRN Reason: Protocol Last Admin: 12/11/17 01:20 Dose: 60 mg Potassium Chloride/Dextrose/Sod Cl (Potassium Chl 20 Meq In D5-Ns) 1,000 mls @ 60 mls/hr IV .[id number] [facility] Stop: 12/13/17 14:35 Last Admin: 12/13/17 10:05 Dose: 60 mls/hr Insulin Human Lispro (Humalog) 0 units SC ACHS [facility] PRN Reason: Protocol Last Admin: 12/13/17 10:03 Dose: Not Given Ipratropium [place] (Atrovent) 0.5 mg IH RQ6 PRN PRN Reason: Shortness of Breath Last Admin: 12/02/17 12:25 Dose: 0.5 mg Levalbuterol HCl (Xopenex) 1.25 mg INH RQ6 [facility] Last Admin: 12/13/17 08:15 Dose: 1.25 mg Memantine (Namenda) 5 mg PO DAILY [facility] Methylprednisolone (Solu-Medrol) 30 mg IVP DAILY [facility] Last Admin: 12/12/17 18:39 Dose: 30 mg Metoprolol Tartrate (Lopressor) 5 mg IVP Q6 PRN PRN Reason: SBP > 150, HR > 100 Last Admin: 12/08/17 09:17 Dose: 5 mg Pantoprazole Sodium (Protonix Inj) 40 mg IVP DAILY [facility] Last Admin: 12/13/17 10:04 Dose: 40 mg Paroxetine HCl (Paxil) 5 mg PO DAILY [facility] Last Admin: 12/13/17 10:04 Dose: 5 mg - Labs Labs: 12/13/17 05:55 12/13/17 05:55 PT 12.3 Seconds (9.8-13.1) 12/12/17 04:20 INR 1.1 (0.9-1.2) 12/12/17 04:20 APTT 17.4 Seconds (25.6-37.1) L 12/01/17 11:25 Attending/Attestation - Attestation I have personally seen and examined this patient.: Yes I have fully participated in the care of the patient.: Yes I have reviewed all pertinent clinical information, including history, physical exam and plan: Yes Notes (Text): 12/13/17 10:10 82 year old female with h/o dementia, failiure to thrive, s/p PEG. stable. No complicatoins. PEG adjusted. Ok to use now. Will sign off.
[2017-12-13 07:53] LABS: ALB/GLOB RATIO 1.1 (1.0-2.1); ALBUMIN 3.2 g/dL (3.5-5.0); ALT/SGPT 82 U/L (9-52); AST/SGOT 36 U/L (14-36); BLOOD UREA NITROGEN 9 mg/dl (7-17); CALCIUM 8.8 mg/dL (8.4-10.2); GFR AFRICAN-AMERICAN > 60; GFR NON-AFRICAN AMERICAN > 60
--- NOTE | 2017-12-13 08:35 | CP.PCM.DIS ---
Provider - Provider Date of Admission: 12/01/17 16:23 Attending physician: Alfredo Perez DO Time Spent in preparation of Discharge (in minutes): 30 Hospital Course - Lab Results Lab Results: Micro Results 12/01/17 15:40 Blood Blood Culture - Final NO GROWTH AFTER 5 DAYS 12/01/17 15:40 Blood Gram Stain - Final TEST NOT PERFORMED 12/01/17 14:50 Urine,Catheterized Urine Culture - Final No Growth (<1,000 CFU/ML) Most Recent Lab Values WBC 10.9 K/uL (4.8-10.8) H 12/13/17 05:55 RBC 4.72 Mil/uL (3.80-5.20) 12/13/17 05:55 Hgb 12.6 g/dL (12.0-16.0) 12/13/17 05:55 Hct 39.3 % (34.0-47.0) 12/13/17 05:55 MCV 83.3 fl (81.0-99.0) 12/13/17 05:55 MCH 26.6 pg (27.0-31.0) L 12/13/17 05:55 MCHC 32.0 g/dL (33.0-37.0) L 12/13/17 05:55 RDW 17.7 % (11.5-14.5) H 12/13/17 05:55 Plt Count 92 K/uL (130-400) L D 12/13/17 05:55 MPV 9.0 fl (7.2-11.7) 12/12/17 04:20 Neut % (Auto) 74.3 % (50.0-75.0) 12/12/17 04:20 Lymph % (Auto) 18.3 % (20.0-40.0) L 12/12/17 04:20 Tillman % (Auto) 5.8 % (0.0-10.0) 12/12/17 04:20 Eos % (Auto) 1.4 % (0.0-4.0) 12/12/17 04:20 Baso % (Auto) 0.2 % (0.0-2.0) 12/12/17 04:20 Neut # (Auto) 5.6 K/uL (1.8-7.0) 12/12/17 04:20 Lymph # (Auto) 1.4 K/uL (1.0-4.3) 12/12/17 04:20 Tillman # (Auto) 0.4 K/uL (0.0-0.8) 12/12/17 04:20 Eos # (Auto) 0.1 K/uL (0.0-0.7) 12/12/17 04:20 Baso # (Auto) 0.0 K/uL (0.0-0.2) 12/12/17 04:20 Neutrophils % (Manual) 83 % (42-75) H 12/01/17 10:53 Lymphocytes % (Manual) 10 % (20-50) L 12/01/17 10:53 Monocytes % (Manual) 6 % (0-10) 12/01/17 10:53 Eosinophils % (Manual) 1 % (0-7) 12/01/17 10:53 Platelet Estimate Normal (NORMAL) 12/01/17 10:53 Large Platelets Present 12/01/17 10:53 Anisocytosis (manual) Slight 12/01/17 10:53 Microcytosis (manual) Slight 12/01/17 10:53 Tear Drop Cells Slight 12/01/17 10:53 Ovalocytes Slight 12/01/17 10:53 PT 12.3 Seconds (9.8-13.1) 12/12/17 04:20 INR 1.1 (0.9-1.2) 12/12/17 04:20 APTT 17.4 Seconds (25.6-37.1) L 12/01/17 11:25 pCO2 36 mm/Hg (35-45) 12/04/17 13:30 pO2 84 mm/Hg (80-100) 12/04/17 13:30 HCO3 25.3 mmol/L (21-28) 12/04/17 13:30 ABG pH 7.44 (7.35-7.45) 12/04/17 13:30 ABG Total CO2 25.6 mmol/L (22-28) 12/04/17 13:30 ABG O2 Saturation 98.6 % (95-98) H 12/04/17 13:30 ABG Base Excess 0.5 mmol/L (-2.0-3.0) 12/04/17 13:30 He Test Yes 12/04/17 13:30 ABG Potassium 3.5 mmol/L (3.6-5.2) L 12/04/17 13:30 VBG pH 7.44 (7.32-7.43) H 12/02/17 08:37 VBG pCO2 40 mmHg (40-60) 12/02/17 08:37 VBG HCO3 25.3 mmol/L 12/02/17 08:37 VBG Total CO2 28.4 mmol/L (22-28) H 12/02/17 08:37 VBG O2 Sat (Calc) 34.6 % (40-65) L 12/02/17 08:37 VBG Base Excess 2.8 mmol/L (0.0-2.0) H 12/02/17 08:37 VBG Potassium 3.7 mmol/L (3.6-5.2) 12/02/17 08:37 A-a O2 Difference 21.0 mm/Hg 12/04/17 13:30 Sodium 143.0 mmol/L (132-148) 12/04/17 13:30 Chloride 114.0 mmol/L (98-107) H 12/04/17 13:30 Glucose 160 mg/dL (65-105) H 12/04/17 13:30 Lactate 2.3 mmol/L (0.7-2.1) H 12/04/17 13:30 FiO2 21.0 % 12/04/17 13:30 Blood Gas Comments Room air,rt adial 12/04/17 13:30 Crit Value Called To Katherine matthews rn 12/04/17 13:30 Crit Value Called By 15 12/04/17 13:30 Crit Value Read Back Y 12/04/17 13:30 Blood Gas Notified Time 1357 12/04/17 13:30 Sodium 142 mmol/l (132-148) 12/13/17 05:55 Potassium 3.8 MMOL/L (3.6-5.0) 12/13/17 05:55 Chloride 104 mmol/L (98-107) 12/13/17 05:55 Carbon Dioxide 25 mmol/L (22-30) 12/13/17 05:55 Anion Gap 17 (10-20) 12/13/17 05:55 BUN 9 mg/dl (7-17) 12/13/17 05:55 Creatinine 0.6 mg/dl (0.7-1.2) L 12/13/17 05:55 Est GFR ( Amer) > 60 12/13/17 05:55 Est GFR (Non-Af Amer) > 60 12/13/17 05:55 POC Glucose (mg/dL) 127 mg/dL (65-110) H 12/13/17 05:32 Random Glucose 112 mg/dL (65-105) H 12/13/17 05:55 Calcium 8.8 mg/dL (8.4-10.2) 12/13/17 05:55 Phosphorus 2.6 mg/dl (2.5-4.5) 12/08/17 05:00 Magnesium 2.1 MG/DL (1.6-2.3) 12/08/17 05:00 Total Bilirubin 0.5 mg/dl (0.2-1.3) 12/13/17 05:55 AST 36 U/L (14-36) D 12/13/17 05:55 ALT 82 U/L (9-52) H 12/13/17 05:55 Alkaline Phosphatase 78 U/L (38-126) 12/13/17 05:55 Ammonia 63 umo/L (11-51) H 12/08/17 05:00 Total Protein 6.2 G/DL (6.3-8.2) L 12/13/17 05:55 Albumin 3.2 g/dL (3.5-5.0) L 12/13/17 05:55 Globulin 3.0 gm/dL (2.2-3.9) 12/13/17 05:55 Albumin/Globulin Ratio 1.1 (1.0-2.1) 12/13/17 05:55 Lipase 42 U/L (23-300) 12/01/17 11:25 Procalcitonin 0.12 NG/ML (0.19-0.49) L 12/03/17 06:25 Arterial Blood Potassium 3.5 mmol/L (3.6-5.2) L 12/04/17 13:30 Venous Blood Potassium 3.7 mmol/L (3.6-5.2) 12/02/17 08:37 Urine Color Yellow (YELLOW) 12/01/17 14:50 Urine Clarity Cloudy (Clear) 12/01/17 14:50 Urine pH 5.0 (5.0-8.0) 12/01/17 14:50 Ur Specific Vernon 1.025 (1.003-1.030) 12/01/17 14:50 Urine Protein Negative mg/dL (NEGATIVE) 12/01/17 14:50 Urine Glucose (UA) Neg mg/dL (Normal) 12/01/17 14:50 Urine Ketones Negative mg/dL (NEGATIVE) 12/01/17 14:50 Urine Blood Negative (NEGATIVE) 12/01/17 14:50 Urine Nitrate Negative (NEGATIVE) 12/01/17 14:50 Urine Bilirubin Negative (NEGATIVE) 12/01/17 14:50 Urine Urobilinogen 0.2-1.0 mg/dL (0.2-1.0) 12/01/17 14:50 Ur Leukocyte Esterase Neg Verna/uL (Negative) 12/01/17 14:50 Urine RBC (Auto) 1 /hpf (0-3) 12/01/17 14:50 Urine Microscopic WBC 1 /hpf (0-5) 12/01/17 14:50 Urine Bacteria Many (<OCC) H 12/01/17 14:50 Stool Occult Blood Positive (NEGATIVE) H 12/03/17 13:37 Blood Type A NEGATIVE 12/02/17 15:40 Antibody Screen Negative 12/02/17 15:40 Crossmatch See Detail 12/02/17 15:40 BBK History Checked Patient has bt 12/02/17 15:40 - Hospital Course Hospital Course: 82 year old female with pmh of advanced dementia, COPD, former heavy smoker, who presented to the ED accompanied by family, who noticed that the patient had intractable nausea and vomiting the day of admission. The daughter states that she had large episode of dark brown/green emesis and was at first reluctant to bring her to the ED; however after another 1-2 bouts of emesis . Of note she does have history of episodic nausea/vomiting and history of gastritis as well. In the ED, the patient was noted to be tachycardic around 120 bpm which improved somewhat with fluids. Laboratory results are significant for leukocytosis of 18.0 which is significantly elevated from previous on 11/28/2017 of 7.3. Hg is 11.4 which is elevated from previously, although may be hemoconcentrated due to dehydration. CT scan shows findings of cholelithiasis with mild gallbladder distension along with esophageal thickening which may be indicative of esophagitis/gastritis. 12/05 : EGD showed Gastritis , Esophagitis, Hiatal Hernia Pt failed Swallow eval in multiple attempts. 12/13: pt had PEG placed, Jevity feeds started, OK to resume AC. Will give Eliquis on DC, lovenox in house. Pleasure feeds OK, patient stable to be discharged to [place]. 1. SIRS with nausea/vomiting prob sec to Gastritis/Esophagitis cholecystitis ruled out , Sepsis ruled out UGI Bleed ruled out - meets SIRS criteria with leukocytosis and tachycardia - CT scan reveals esophageal thickening as well as cholelithiasis with mild gallbladder distension - Consultation with GI - Dr Ramírez - -s/p EGD : Esophagitis/Gastritis, no active bleed - Consultation with Dr. Reynolds, surgery- unlikely Cholecystitis - Procalcitonin level normal , d/c antibiotics, leukocytosis may just be reactive - Reglan PRN for nausea/vomiting - Protonix 40 mg IV - Blood culture, urine cultures: negative so far 2. COPD, exacerbation CXR showed no acute findings with O2 Sat 84% in ER . O2 via NC cont Solumedrol IV- tapered cont Xopenex RTC 3.Dehydration euvolemic 4. 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 Anemia, chronic dis drop in Hgb prob dilutional however given that pt is on anticoagulation , GI was consulted Occult blood + EGD done showed Gastritis , Esophagitis, no active bleeding cont Protonix Transfused 1 unit PRBC will continue anticoagulation for now as no overt sign of GIB 7. Dysphagia, s/p PEG placement - failed multiple swallow eval -PEG placed today - Jevity today -cont IVF hydration -PICC line placed as pt has very poor venous access DVT prophylaxis - Lovenox Discharge Exam - Head Exam Head Exam: NORMAL INSPECTION, NORMOCEPHALIC Additional comments: dementia, baseline - Eye Exam Eye Exam: EOMI, Normal appearance Pupil Exam: NORMAL ACCOMODATION - ENT Exam ENT Exam: Mucous Membranes Moist, Normal Oropharynx - Respiratory Exam Respiratory Exam: Clear to PA & Lateral, NORMAL BREATHING PATTERN - Cardiovascular Exam Cardiovascular Exam: RRR, +S1, +S2 - GI/Abdominal Exam GI & Abdominal Exam: Normal Bowel Sounds, Soft. absent: Mass, Organomegaly, Tenderness - Extremities Exam Extremities exam: normal capillary refill, pedal pulses present - Back Exam Back exam: absent: CVA tenderness (L), CVA tenderness (R) - Neurological Exam Neurological exam: Alert, Reflexes Normal - Psychiatric Exam Psychiatric exam: Normal Affect, Normal Mood - Skin Skin Exam: Dry, Warm Discharge Plan - Discharge Medications Prescriptions: Esomeprazole Magnesium [Nexium] 40 mg PO BID #60 capsule.dr - Follow Up Plan Condition: FAIR Disposition: TRANSF TO SNF Instructions: Sepsis (DC), Sepsis (GEN), Altered Mental Status (GEN)
[2017-12-13] MEDS: Insulin Lispro (humaLOG) 100 Units/ml Inj SC SCH ×3 (10:03→16:41)
[2017-12-13] MEDS: Potassium Chl 20 mEq in D5-NS 1,000 ML IV SCH (10:05)
[2017-12-13] MEDS: MethylPREDNISolone 40 mg Vial IVP SCH (14:00)
[2017-12-13] MEDS: Enoxaparin 60 mg Syringe SC SCH (14:20)
[2017-12-13 15:57] VITALS: RESP 20
[2017-12-13 17:35] LABS: HEPATITIS B SURFACE AG Negative (NEGATIVE)
[2017-12-13 17:41] LABS: HEPATITIS A IGM NEGATIVE (NEGATIVE); HEPATITIS B CORE AB NEGATIVE (NEGATIVE)
[2017-12-13 17:53] LABS: HEPATITIS C ANTIBODY NEGATIVE (NEGATIVE)
[2017-12-13 19:36] VITALS: BP 101/53; PULSE 65; TEMP 97.7; O2SAT 95
== END 2017-12-13 21:35 | DRG 392 ==
LOC: H.ER 09:44 → H.ERHOLD 16:23 → H.TEL 18:17
PROVIDERS: ADMIT Internal Medicine; ATTEND Internal Medicine
PROC: 30233N1 Transfusion of Nonautologous Red Blood Cells into Peripheral Vein, Percutaneous Approach (ICD-10-PCS; principal; 2017-12-03)
PROC: 0DJ08ZZ Inspection of Upper Intestinal Tract, Via Natural or Artificial Opening Endoscopic (ICD-10-PCS; 2017-12-05)
PROC: 02HV33Z Insertion of Infusion Device into Superior Vena Cava, Percutaneous Approach (ICD-10-PCS; 2017-12-08)
PROC: 0DH68UZ Insertion of Feeding Device into Stomach, Via Natural or Artificial Opening Endoscopic (ICD-10-PCS; 2017-12-12)
PROC: 3E0G76Z Introduction of Nutritional Substance into Upper GI, Via Natural or Artificial Opening (ICD-10-PCS; 2017-12-12)
DX: K20.8 Other esophagitis (principal); I82.512 Chronic embolism and thrombosis of left femoral vein; R65.10 Systemic inflammatory response syndrome (SIRS) of non-infectious origin without acute organ dysfunction; J44.1 Chronic obstructive pulmonary disease with (acute) exacerbation; I82.532 Chronic embolism and thrombosis of left popliteal vein; E86.0 Dehydration; G30.9 Alzheimer's disease, unspecified; F02.80 Dementia in other diseases classified elsewhere, unspecified severity, without behavioral disturbance, psychotic disturbance, mood disturbance, and anxiety; K80.20 Calculus of gallbladder without cholecystitis without obstruction; Z66 Do not resuscitate; E78.00 Pure hypercholesterolemia, unspecified; F32.9 Major depressive disorder, single episode, unspecified; M19.90 Unspecified osteoarthritis, unspecified site; K29.70 Gastritis, unspecified, without bleeding; F41.9 Anxiety disorder, unspecified; Z87.891 Personal history of nicotine dependence; Z79.01 Long term (current) use of anticoagulants; K44.9 Diaphragmatic hernia without obstruction or gangrene; D63.8 Anemia in other chronic diseases classified elsewhere; R13.10 Dysphagia, unspecified; R62.7 Adult failure to thrive; K31.7 Polyp of stomach and duodenum

== ENCOUNTER 2017-12-16 01:53 | Inpatient (IN) | payer MEDICARE, MEDICAID ==
[2017-12-16] MEDS ORDERED: Albuterol-Ipratrop 3 mg / 0.5 (3 ml) UD ONE (02:01)
[2017-12-16] MEDS ORDERED: Piperacillin/Tazobact 3.375 GM in Sodium Chloride 0.9% 100 ML IVPB STA (02:07)
[2017-12-16] MEDS ORDERED: Sodium Chloride 0.9% 1,000 ML IV STA (02:07)
--- NOTE | 2017-12-16 02:18 | ED PDOC ---
HPI: SOB/CHF/COPD Time Seen by Provider: 12/16/17 02:06 History Per: Patient History/Exam Limitations: clinical condition Onset/Duration Of Symptoms: Hrs Current Symptoms Are (Timing): Still Present Associated Symptoms: Fever Additional Complaint(s): Hx of advanced Alzheimers dementia, COPD, HLD, MDD, HTN presenting with fever and shortness of breath. According to EMS and daughter, she was discharged 2 days ago for "infection of bloodstream", today developed fever in the assisted and developed labored breathing, family states she had normal breathing at 9PM last night. Daughter states that she was not given IVF at all today. Daughter reports that she is both DNR and DNI and want to allow for natural . Past Medical History Reviewed: Historical Data, Nursing Documentation, Vital Signs Vital Signs: Last Vital Signs Temp 98.2 F 12/16/17 05:07 Pulse 115 H 12/16/17 05:07 Resp 22 12/16/17 05:07 BP 100/59 L 12/16/17 05:07 Pulse Ox 98 12/16/17 05:07 - Medical History PMH: Alzheimer's Disease, Anemia, Anxiety, Arthritis, Asthma, COPD, Dementia, Depression, Fractures (Right wrist fx (16 yrs ago)), Gastritis, Hypercholesterolemia Denies: CHF, HIV, HTN, Hypothyroidism, Chronic Kidney Disease, Rheumatoid Arthritis - Family History Family History: States: Unknown Family Hx - Home Medications Home Medications: Ambulatory Orders Medication Instructions Recorded Rosuvastatin Calcium [Crestor] 5 mg PEG DAILY 03/03/15 Albuterol/Ipratropium [Duoneb 3 3 ml INH RQ4 PRN #30 neb 11/20/17 mg/0.5 mg (3 ml) UD] Acetaminophen [Tylenol 325mg tab] 650 mg PEG Q4 PRN 12/16/17 Apixaban [Eliquis] 2.5 mg PEG BID 12/16/17 Bismuth Subsalicylate [Kaopectate] 30 ml PEG Q4 PRN 12/16/17 Esomeprazole Magnesium [Nexium] 40 mg PEG BID 12/16/17 Insulin Lispro [humALOG] See Protocol SC QID 12/16/17 Memantine [Namenda] 5 mg PEG DAILY 12/16/17 PARoxetine [Paxil] 5 mg PEG DAILY 12/16/17 - Allergies Allergies/Adverse Reactions: Allergies Allergy/AdvReac Type Severity Reaction Status Date / Time No Known Allergies Allergy Verified 12/01/17 10:05 Review of Systems Review Of Systems: ROS cannot be obtained secondary to pt's inabilty to answer questions. Physical Exam - Reviewed Nursing Documentation Reviewed: Yes Vital Signs Reviewed: Yes - Physical Exam Appears: Positive for: In Acute Distress Head Exam: Positive for: ATRAUMATIC, NORMAL INSPECTION Skin: Positive for: Warm, Diaphoresis Eye Exam: Positive for: Other (Eyes closed, glaucoma) ENT: Positive for: Pharynx Is (dry mucum membranes) Neck: Positive for: Normal Cardiovascular/Chest: Positive for: Tachycardia Respiratory: Positive for: Rhonchi, Wheezing, Respiratory Distress (tachypnea) Gastrointestinal/Abdominal: Positive for: Normal Exam. Negative for: Tenderness Back: Positive for: Normal Inspection Extremity: Negative for: Tenderness, Deformity, Swelling Neurologic/Psych: Negative for: Alert, Oriented (baseline) - Laboratory Results Result Diagrams: 12/16/17 02:22 12/16/17 02:22 - ECG ECG Rhythm: Positive for: Sinus Tachycardia - Critical Care Total Time (In Min): 60 Documented Critical Care: Time excludes all time spent performint seperately billable procedures Medical Decision Making Medical Decision MakinAM A/P: Hx of COPD, advanced dementia, htn, hld presenting with fever and shortness of breath -patient having labored breathing, tachypnea, shortness of breath -daughter has POA, states that she wants to allow for natural , no intubation or CPR -patient likely has PNA and sepsis, will treat with broad spec ABx, nebs, solumedrol -patient not candidate for BIPAP because of mental status -family is aware of critical condition -PMD is Jose Garcia, was admitted under hospitalist service, will place back under hospitalist supervision in ICU 3AM -after fluids, patient started to perk up and started mumbling incoherently which, according to daughter, signals improvement -CXR, labswork is unremarkable but likely patient has PNA -dr. morris aware Disposition - Clinical Impression Clinical Impression: Respiratory distress, Dyspnea, Sepsis, Fever, Pneumonia - Patient ED Disposition Is Patient to be Admitted: No - Disposition Disposition Time: 03:00 Condition: SERIOUS
[2017-12-16 02:22] LABS: ABG ALLEN TEST YES; ARTERIAL BLOOD GAS HCO3 26.2 mmol/L (21-28); ARTERIAL BLOOD GAS O2 SAT 100.8 % (95-98); ARTERIAL BLOOD GAS PCO2 34 mm/Hg (35-45); ARTERIAL BLOOD GAS PH 7.47 (7.35-7.45); ARTERIAL BLOOD GAS PO2 192 mm/Hg (80-100); ARTERIAL BLOOD GAS TCO2 25.7 mmol/L (22-28)
[2017-12-16 02:28] LABS: BASO % 0.1 % (0.0-2.0); HEMOGLOBIN 11.4 g/dL (12.0-16.0); LYMPH # 0.7 K/uL (1.0-4.3); LYMPH % 7.3 % (20.0-40.0); MEAN CELL VOLUME 82.1 fl (81.0-99.0); MEAN CORPUSCULAR HEMOGLOBIN 26.6 pg (27.0-31.0); MEAN CORPUSCULAR HGB CONC 32.4 g/dL (33.0-37.0); MEAN PLATELET VOLUME 9.3 fl (7.2-11.7); MONO # 0.5 K/uL (0.0-0.8); MONO % 5.7 % (0.0-10.0); NEUT # 8.3 K/uL (1.8-7.0); NEUT % 86.9 % (50.0-75.0); PLATELET COUNT 173 K/uL (130-400); RBC 4.28 Mil/uL (3.80-5.20); WHITE BLOOD COUNT 9.5 K/uL (4.8-10.8)
[2017-12-16] MEDS ORDERED: Vancomycin 1 g Inj ONE (02:38)
[2017-12-16 02:43] LABS: INR 1.7 (0.9-1.2); PARTIAL THROMBOPLASTIN TIME 21.2 Seconds (25.6-37.1); PROTHROMBIN TIME 18.8 Seconds (9.8-13.1)
[2017-12-16 02:46] LABS: B-TYPE NATRIURETIC PEPTIDE 1060 pg/ml (0-900)
[2017-12-16] MEDS ORDERED: Albuterol-Ipratrop 3 mg / 0.5 (3 ml) UD INH STA ×3 (02:48→02:49)
[2017-12-16 02:50] LABS: ALBUMIN 2.7 g/dL (3.5-5.0); ALT/SGPT 45 U/L (9-52); AST/SGOT 23 U/L (14-36); BLOOD UREA NITROGEN 28 mg/dl (7-17); CALCIUM 7.7 mg/dL (8.4-10.2); GFR AFRICAN-AMERICAN > 60; GFR NON-AFRICAN AMERICAN > 60
[2017-12-16] MEDS ORDERED: Potassium Chloride 20 mEq 100 ML IVPB SCH ×2 (03:00→19:00)
--- NOTE | 2017-12-16 03:21 | CP.PCM.HP ---
History of Present Illness - History of Present Illness History of Present Illness: PMD: Bibi Garcia MD Chief Complaint: SOB/Fever/Diarrhea The patient was seen and examined in the ED HPI: The hx is obtained from the patient's family and after review of the medical records. 82 years old female brought from [facility] with SOB, Fever, Tachypnea and tachycardia. She has hx of Alzheimer's dementia, COPD, last admitted on 12/01/17 and discharged 12/12/17 with Dx of SIRS treated with antibiotics, Anemia receiving blood transfusion and COPD exacerbation. She was discharged to the [facility] 2 days ago where she has been having diarrhea for 2 days, now with one day of SOB not responding to the Albuterol/Atrovent. PMH: Alzheimer's Disease, Anxiety and Depression; Arthritis, Asthma, COPD, Dementia, , Fractures (Right wrist fx (16 yrs ago)), Gastritis, HLD; Chronic left common Femoral and Popliteal DVT; Cholelithiasis; Dysphagia PSH: PEG 12/12/17; Knee surgery; Metal plate in hand SH: Former Smoker; No Alcohol, No illegal drug use; residing at [facility]. FH: Significant for Cancers Allergies: NKDA Medication: Reviewed Present on Admission - Present on Admission Any Indicators Present on Admission: No History of DVT/PE: No History of Uncontrolled Diabetes: No Urinary Catheter: No Decubitus Ulcer Present: No Review of Systems - Review of Systems Systems not reviewed;Unavailable: Respiratory Distress, Dementia Review of Systems: Review of systems is limited because of Respiratory distress and Dementia - Constitutional Constitutional: Fever - Cardiovascular Cardiovascular: Rapid Heart Rate - Respiratory Respiratory: Dyspnea Past Patient History - Infectious Disease Hx of Infectious Diseases: None - Tetanus Immunizations Tetanus Immunization: Unknown (quit 5 yrs ago; used to smoke 2 PPD) - Past Medical History & Family History Past Medical History?: Yes - Past Social History Smoking Status: Former Smoker Chewing Tobacco Use: No Cigar Use: No Alcohol: None Drugs: Denies Home Situation {Lives}: [facility] - CARDIAC Hx Congestive Heart Failure: No Hx Hypertension: Yes - PULMONARY Hx Asthma: Yes Hx Chronic Obstructive Pulmonary Disease (COPD): Yes - NEUROLOGICAL Hx Alzheimer's Disease: Yes Hx Dementia: Yes - HEENT Hx HEENT Problems: No - RENAL Hx Chronic Kidney Disease: No - ENDOCRINE/METABOLIC Hx Hypothyroidism: No - HEMATOLOGICAL/ONCOLOGICAL Hx Anemia: Yes Hx Human Immunodeficiency Virus (HIV): No - INTEGUMENTARY Hx Dermatological Problems: No - MUSCULOSKELETAL/RHEUMATOLOGICAL Hx Arthritis: Yes Hx Fractures: Yes (Right wrist fx (16 yrs ago)) Hx Rheumatoid Arthritis: No - GASTROINTESTINAL Hx Gastritis: Yes - GENITOURINARY/GYNECOLOGICAL Hx Genitourinary Disorders: Yes Hx Incontinence: Yes - PSYCHIATRIC Hx Anxiety: Yes Hx Depression: Yes Hx Substance Use: No - SURGICAL HISTORY Hx Surgeries: Yes Hx Open Reduction Internal Fixation: Yes (right wrist fracture) Hx Orthopedic Surgery: Yes Other/Comment: right wrist surgery with metal plate, left knee mass removal years ago - ANESTHESIA Hx Anesthesia: Yes Hx Anesthesia Reactions: No Hx Malignant Hyperthermia: No Meds Allergies/Adverse Reactions: Allergies Allergy/AdvReac Type Severity Reaction Status Date / Time No Known Allergies Allergy Verified 12/01/17 10:05 Physical Exam - Constitutional Appears: In Acute Distress - Head Exam Head Exam: ATRAUMATIC, NORMAL INSPECTION, NORMOCEPHALIC - Eye Exam Additional comments: Maintaining eyes closed - ENT Exam ENT Exam: Normal External Ear Exam - Neck Exam Neck exam: Negative for: Lymphadenopathy, Tenderness Additional comments: Neck contracted in flexion - Respiratory Exam Respiratory Exam: Rhonchi, Respiratory Distress. absent: Rales, Wheezes Additional comments: Breath sounds clear on inspiration but rhonchi on expiration. - Cardiovascular Exam Cardiovascular Exam: Tachycardia, Irregular Rhythm, +S1, +S2. absent: Gallop - GI/Abdominal Exam GI & Abdominal Exam: Normal Bowel Sounds, Soft. absent: Organomegaly Additional comments: PEG at center of abdomen with dressing clean and dry - Rectal Exam Rectal Exam: Deferred - Back Exam Back exam: NORMAL INSPECTION. absent: CVA tenderness (L), CVA tenderness (R) - Neurological Exam Additional comments: Very lethargic, no facial droop, generalized motor tone decreased, motor strength 0/5 at all extremities - Skin Skin Exam: Dry, Normal Color, Warm Results - Vital Signs Recent Vital Signs: Last Vital Signs Temp Pulse 136 H 12/16/17 03:17 Resp 36 H 12/16/17 03:17 BP 143/74 12/16/17 03:17 Pulse Ox 96 12/16/17 03:17 - Labs Result Diagrams: 12/16/17 02:22 12/16/17 02:22 Labs: Laboratory Results - last 24 hr 12/16/17 12/16/17 12/16/17 02:16 02:22 02:22 WBC 9.5 RBC 4.28 Hgb 11.4 L Hct 35.2 MCV 82.1 MCH 26.6 L MCHC 32.4 L RDW 18.0 H Plt Count 173 MPV 9.3 Neut % (Auto) 86.9 H Lymph % (Auto) 7.3 L Mcminn % (Auto) 5.7 Eos % (Auto) 0.0 Baso % (Auto) 0.1 Neut # (Auto) 8.3 H Lymph # (Auto) 0.7 L Mcminn # (Auto) 0.5 Eos # (Auto) 0.0 Baso # (Auto) 0.0 PT INR APTT pCO2 34 L pO2 192 H HCO3 26.2 ABG pH 7.47 H ABG Total CO2 25.7 ABG O2 Saturation 100.8 H ABG Base Excess 1.5 He Test Yes ABG Potassium 2.7 L A-a O2 Difference 86.0 Sodium 138.0 141 Chloride 107.0 106 Glucose 185 H Lactate 1.8 FiO2 45.0 Potassium 2.9 L Carbon Dioxide 26 Anion Gap 12 BUN 28 H Creatinine 0.6 L Est GFR ( Amer) > 60 Est GFR (Non-Af Amer) > 60 Random Glucose 187 H Calcium 7.7 L Phosphorus 1.6 L Magnesium 1.7 Total Bilirubin 0.3 AST 23 ALT 45 Alkaline Phosphatase 72 Troponin I 0.0220 NT-Pro-B Natriuret Pep 1060 H Total Protein 5.5 L Albumin 2.7 L Globulin 2.7 Albumin/Globulin Ratio 1.0 Arterial Blood Potassium 2.7 L 12/16/17 02:22 WBC RBC Hgb Hct MCV MCH MCHC RDW Plt Count MPV Neut % (Auto) Lymph % (Auto) Mcminn % (Auto) Eos % (Auto) Baso % (Auto) Neut # (Auto) Lymph # (Auto) Mcminn # (Auto) Eos # (Auto) Baso # (Auto) PT 18.8 H INR 1.7 H APTT 21.2 L pCO2 pO2 HCO3 ABG pH ABG Total CO2 ABG O2 Saturation ABG Base Excess He Test ABG Potassium A-a O2 Difference Sodium Chloride Glucose Lactate FiO2 Potassium Carbon Dioxide Anion Gap BUN Creatinine Est GFR ( Amer) Est GFR (Non-Af Amer) Random Glucose Calcium Phosphorus Magnesium Total Bilirubin AST ALT Alkaline Phosphatase Troponin I NT-Pro-B Natriuret Pep Total Protein Albumin Globulin Albumin/Globulin Ratio Arterial Blood Potassium - EKG Data EKG comments: Sinus Tachycardia with PAC 134/min - Imaging and Cardiology Chest x-ray Status: Image reviewed by me Additional comment: Increased Broinchovascular markings Assessment & Plan - Assessment and Plan (Free Text) Assessment: #. SIRS #. COPD Exacerbation #. Hypokalemia #. Dehydration #. Hyperglycemia #. Dementia Plan: 82 years old female brought from [facility] with SOB, Fever, Tachypnea,tachycardia for one day and ddiarrhea for two days. last admitted on 12/01/17 and discharged 12/12/17 with Dx of SIRS treated with antibiotics, Anemia receiving blood transfusion and COPD #. SIRS with Heart rate of 130/min, Respiratory Rate of 33/min, and Temperature at [facility] of 101.8F. CXR does not show definite sign of infiltrate and no hx of coughing nor vomiting to indicate aspiration. There is hx of Diarrhea. - Follow blood Cultures - Follow Urine cultures - stool for Culture - Stool For C Diff - Procalcitonin - Vancomycin IV empiric antibiotic to cover HAP - Zosyn IV Empiric - Azithromycin Empiric to cover atypical Pneumonia #. COPD Exacerbation - Oxygen 50% ventimask - Xopenex - Ipatropium - Methylprednisolone #. Hypokalemia - Replace with KCL - follow electrolytes #. Dehydration - IV fluids - follow renal labs #. Moderate Malnutrition with PEG feeding - Dietition consult #. Hyperglycemia - HbA1c 6.4 on 11/27/17 #. Gastritis - Pantoprazole #. Dementia - Mamenda - Paxil for Depression #. DVT prophylaxis with Apixaban #. Code Status: DNI/DNR - Date & Time Date: 12/16/17 Time: 03:21
[2017-12-16 04:29] LABS: BANDS 8 % (0-2); BASOPHIL 1 % (0-2); LYMPHOCYTE 6 % (20-50); MONOCYTE 7 % (0-10); NEUTROPHIL 78 % (42-75); TOTAL CELLS COUNTED 100
[2017-12-16 04:31] LABS: PLATELET ESTIMATE NORMAL (NORMAL)
[2017-12-16 04:32] LABS: VENOUS BLOOD GAS BASE EXCESS -0.7 mmol/L (0.0-2.0); VENOUS BLOOD GAS PCO2 36 mmHg (40-60); VENOUS BLOOD GAS PO2 74 mm/Hg (30-55); VENOUS BLOOD PH 7.42 (7.32-7.43)
[2017-12-16 04:32] LABS: ACANTHOCYTES SLIGHT; ANISOCYTOSIS SLIGHT; BURR CELLS SLIGHT
[2017-12-16 04:54] LABS: SQUAMOUS EPITHIAL 1 /hpf (0-5); URINE BILIRUBIN NEGATIVE (NEGATIVE); URINE BLOOD NEGATIVE (NEGATIVE); URINE CLARITY SLIGHTY-CLOUDY (Clear); URINE COLOR YELLOW (YELLOW); URINE GLUCOSE (UA) NEG (Normal); URINE LEUKOCYTE ESTERASE NEG Leu/uL (Negative); URINE PROTEIN 30 mg/dL (NEGATIVE); URINE UROBILINOGEN 0.2-1.0 mg/dL (0.2-1.0)
[2017-12-16] MEDS ORDERED: Potassium Chloride 20 mEq 100 ML IVPB ONE (06:04)
[2017-12-16] MEDS: Sodium Chloride 0.9% 1,000 ML IV SCH ×2 (06:28→21:17)
[2017-12-16 06:52] VITALS: BMI 20.5
[2017-12-16] MEDS: Ipratropium 0.02% Inhal Soln (0.5 mg/2.5 ml) UD IH SCH ×4 (07:26→23:24)
[2017-12-16] MEDS: Levalbuterol 1.25 MG/3 ML Inhal Soln UD INH SCH ×5 (07:26→23:24)
[2017-12-16] MEDS: Pantoprazole 40 mg Susp UD PEG SCH (09:06)
[2017-12-16] MEDS: MethylPREDNISolone 40 mg Vial IVP SCH ×3 (09:08→21:18)
[2017-12-16] MEDS: Azithromycin 500 MG in Sodium Chloride 0.9% 250 ML IVPB SCH (09:09)
[2017-12-16] MEDS: Piperacillin/Tazobact 3.375 GM in Sodium Chloride 0.9% 100 ML IVPB SCH ×3 (09:12→21:18)
[2017-12-16] MEDS ORDERED: methylPREDNISolone 40 MG in Sodium Chloride 0.9% 50 ML IVPB SCH (10:00)
[2017-12-16 10:10] LABS: BLOOD UREA NITROGEN 23 mg/dl (7-17); CALCIUM 7.2 mg/dL (8.4-10.2); GFR AFRICAN-AMERICAN > 60; GFR NON-AFRICAN AMERICAN > 60
--- NOTE | 2017-12-16 12:20 | RAD ---
HISTORY: Sepsis Patient COMPARISON: Comparison is made with 12/01/2017 FINDINGS: LUNGS: No active pulmonary disease. PLEURA: No significant pleural effusion identified, no pneumothorax apparent. CARDIOVASCULAR: Normal. OSSEOUS STRUCTURES: No significant abnormalities. VISUALIZED UPPER ABDOMEN: Normal. OTHER FINDINGS: None. IMPRESSION: No active disease. No significant interval change noted
--- NOTE | 2017-12-16 16:38 | CARD ---
APPROVED REPORT EKG Measurement Heart [id number] <Conclusion> Sinus tachycardia with premature atrial complexes with aberrant conduction Non-specific ST-T changes
[2017-12-17] MEDS: Ipratropium 0.02% Inhal Soln (0.5 mg/2.5 ml) UD IH SCH ×4 (01:01→18:59)
[2017-12-17] MEDS: MethylPREDNISolone 40 mg Vial IVP SCH ×4 (04:35→21:25)
[2017-12-17] MEDS: Piperacillin/Tazobact 3.375 GM in Sodium Chloride 0.9% 100 ML IVPB SCH ×2 (04:36→09:07)
[2017-12-17] MEDS: Levalbuterol 1.25 MG/3 ML Inhal Soln UD INH SCH ×5 (05:29→18:59)
--- NOTE | 2017-12-17 07:36 | CP.PCM.PN ---
Subjective - Date & Time of Evaluation Date of Evaluation: 12/17/17 Time of Evaluation: 07:36 - Subjective Subjective: pt arousable, wakes with verbal stimuli, opens eyes and babbles, which was baseline prior to discharge HD stable, although BP slightly low no apparent distress Objective - Vital Signs/Intake and Output Vital Signs (last 24 hours): Temp Pulse Resp BP Pulse Ox 97.7 F 99 H 18 102/59 L 96 12/17/17 05:07 12/17/17 05:07 12/17/17 05:07 12/17/17 05:07 12/17/17 05:07 Intake and Output: 12/17/17 12/17/17 06:59 18:59 Intake Total 1200 Output Total 500 Balance 700 Vitals Reviewed GEN: +dementia, lethargic. HEENT: NCAT, PERRL, EOMI HEART: RRR, +S1S2, NO MRG LUNG: CTAB, NO WRR ABD: soft, NT, ND, No HSM, No masses EXT: normal pedal pulses, normal capillary refill NEURO: dementia, lethargic. reflexes intact SKIN: warm, dry PSYCH: unable to assess - Medications Medications: Current Medications Acetaminophen (Tylenol 325mg Tab) 650 mg PEG Q4 PRN PRN Reason: Fever >100.4 F Apixaban (Eliquis) 2.5 mg PEG BID [facility] PRN Reason: Protocol Last Admin: 12/16/17 16:22 Dose: 2.5 mg Atorvastatin Calcium (Lipitor) 10 mg PEG DAILY [facility] Last Admin: 12/16/17 09:07 Dose: 10 mg Vancomycin HCl 1 gm/ Sodium (Chloride) 250 mls @ 166.667 mls/hr IVPB Q12 [facility] PRN Reason: Protocol Last Admin: 12/16/17 16:23 Dose: 166.667 mls/hr Piperacillin Sod/Tazobactam (Sod 3.375 gm/ Sodium Chloride) 100 mls @ 100 mls/ hr IVPB Q6 [facility] PRN Reason: Protocol Last Admin: 12/17/17 04:36 Dose: 100 mls/hr Azithromycin 500 mg/ Sodium (Chloride) 250 mls @ 250 mls/hr IVPB DAILY [facility] PRN Reason: Protocol Last Admin: 12/16/17 09:09 Dose: 250 mls/hr Ipratropium [place] (Atrovent) 0.5 mg IH RQ6 [facility] Last Admin: 12/17/17 01:01 Dose: Not Given Levalbuterol HCl (Xopenex) 1.25 mg INH RQ4 [facility] Last Admin: 12/17/17 05:29 Dose: 1.25 mg Memantine (Namenda) 5 mg PEG DAILY [facility] Last Admin: 12/16/17 09:07 Dose: 5 mg Methylprednisolone (Solu-Medrol) 40 mg IVP Q6 [facility] Last Admin: 12/17/17 04:35 Dose: 40 mg Pantoprazole Sodium (Protonix Susp) 40 mg PEG DAILY [facility] Last Admin: 12/16/17 09:06 Dose: 40 mg Paroxetine HCl (Paxil) 5 mg PEG DAILY [facility] Last Admin: 12/16/17 09:06 Dose: 5 mg - Labs Labs: 12/16/17 02:22 12/16/17 08:45 PT 18.8 Seconds (9.8-13.1) H 12/16/17 02:22 INR 1.7 (0.9-1.2) H 12/16/17 02:22 APTT 21.2 Seconds (25.6-37.1) L 12/16/17 02:22 Assessment and Plan - Assessment and Plan (Free Text) Plan: The hx is obtained from the patient's family and after review of the medical records. 82 years old female brought from [facility] with SOB, Fever, Tachypnea and tachycardia. She has hx of Alzheimer's dementia, COPD, last admitted on 12/01/17 and discharged 12/12/17 with Dx of SIRS treated with antibiotics, Anemia receiving blood transfusion and COPD exacerbation. She was discharged to the [facility] 2 days ago where she has been having diarrhea for 2 days, now with one day of SOB not responding to the Albuterol/ Atrovent. 82 years old female brought from [facility] with SOB, Fever, Tachypnea, tachycardia for one day and diarrhea for two days. last admitted on 12/01/17 and discharged 12/12/17 with Dx of SIRS treated with antibiotics, Anemia receiving blood transfusion and COPD #. SIRS with Heart rate of 130/min, Respiratory Rate of 33/min, and Temperature at [facility] of 101.8F. CXR does not show definite sign of infiltrate and no hx of coughing nor vomiting to indicate aspiration. There is hx of Diarrhea. - Follow blood Cultures +staph aureus - Follow Urine cultures pending - stool for Culture pending - Stool For C Diff - Procalcitonin elevated 0.9 - Vancomycin IV empiric antibiotic to cover HAP - Zosyn IV Empiric - Azithromycin Empiric to cover atypical Pneumonia #. Anemia - acute blood loss? - no overt melena, hematuria, or hematochezia - dropped 2 grams h/h overnight 11.4/35.2 to 9.2/27.8 - hold Eliquis - will montior carefully - hydrate #. COPD Exacerbation - Oxygen 50% ventimask - Xopenex - Ipatropium - Methylprednisolone #. Hypokalemia - Replace with KCL - follow electrolytes #. Dehydration - IV fluids - follow renal labs #. Moderate Malnutrition with PEG feeding - Dietition consult #. Hypophos, hypoMg - replete as necessary, trend. #. Hyperglycemia - HbA1c 6.4 on 11/27/17 #. Gastritis - Pantoprazole #. Dementia - Mamenda - Paxil for Depression #. DVT prophylaxis with Apixaban #. Code Status: DNI/DNR
[2017-12-17] MEDS ORDERED: Magnesium Sulfate 2 gm/50 ml 2 GM/50 ML BAG IVPB ONE (08:00)
[2017-12-17 08:12] LABS: BASO % 0.1 % (0.0-2.0); LYMPH # 0.4 K/uL (1.0-4.3); LYMPH % 6.3 % (20.0-40.0); MEAN CELL VOLUME 81.7 fl (81.0-99.0); MEAN CORPUSCULAR HEMOGLOBIN 26.6 pg (27.0-31.0); MEAN CORPUSCULAR HGB CONC 32.5 g/dL (33.0-37.0); MEAN PLATELET VOLUME 9.6 fl (7.2-11.7); MONO # 0.3 K/uL (0.0-0.8); MONO % 3.9 % (0.0-10.0); NEUT # 6.1 K/uL (1.8-7.0); NEUT % 89.7 % (50.0-75.0); RBC 3.41 Mil/uL (3.80-5.20); RED CELL DISTRIBUTION WIDTH 18.1 % (11.5-14.5); WHITE BLOOD COUNT 6.8 K/uL (4.8-10.8)
[2017-12-17 08:32] LABS: BLOOD UREA NITROGEN 20 mg/dl (7-17); CALCIUM 7.8 mg/dL (8.4-10.2); GFR AFRICAN-AMERICAN > 60; GFR NON-AFRICAN AMERICAN > 60
[2017-12-17 08:33] LABS: HEMOGLOBIN 9.1 g/dL (12.0-16.0)
[2017-12-17] MEDS: Azithromycin 500 MG in Sodium Chloride 0.9% 250 ML IVPB SCH (09:06)
[2017-12-17] MEDS: Potassium & Sodium Phosphate PEG SCH ×4 (09:09→21:27)
[2017-12-17] MEDS: Pantoprazole 40 mg Susp UD PEG SCH (09:10)
[2017-12-17] MEDS: Sodium Chloride 0.9% 1,000 ML IV SCH ×2 (12:05→23:49)
[2017-12-17] MEDS: Vancomycin 500 mg (Oral/Rectal USE) PEG SCH ×2 (16:45→21:26)
[2017-12-17] MEDS: Potassium CL 10mEq/100ml 100 ML IVPB SCH ×2 (22:27→23:49)
[2017-12-18] MEDS: Levalbuterol 1.25 MG/3 ML Inhal Soln UD INH SCH ×7 (00:33→23:22)
[2017-12-18] MEDS: Ipratropium 0.02% Inhal Soln (0.5 mg/2.5 ml) UD IH SCH ×5 (01:03→23:22)
[2017-12-18] MEDS: Vancomycin 500 mg (Oral/Rectal USE) PEG SCH (04:15)
[2017-12-18] MEDS: MethylPREDNISolone 40 mg Vial IVP SCH ×2 (04:15→09:20)
[2017-12-18 05:23] LABS: BASO % 0.1 % (0.0-2.0); HEMOGLOBIN 9.6 g/dL (12.0-16.0); LYMPH # 0.5 K/uL (1.0-4.3); LYMPH % 4.7 % (20.0-40.0); MEAN CELL VOLUME 80.5 fl (81.0-99.0); MEAN CORPUSCULAR HEMOGLOBIN 27.3 pg (27.0-31.0); MEAN CORPUSCULAR HGB CONC 33.9 g/dL (33.0-37.0); MEAN PLATELET VOLUME 9.5 fl (7.2-11.7); MONO # 0.4 K/uL (0.0-0.8); MONO % 4.1 % (0.0-10.0); NEUT % 91.1 % (50.0-75.0); PLATELET COUNT 183 K/uL (130-400); RBC 3.53 Mil/uL (3.80-5.20); RED CELL DISTRIBUTION WIDTH 18.5 % (11.5-14.5); WHITE BLOOD COUNT 9.9 K/uL (4.8-10.8)
[2017-12-18 05:36] LABS: BLOOD UREA NITROGEN 22 mg/dl (7-17); CALCIUM 7.8 mg/dL (8.4-10.2); GFR AFRICAN-AMERICAN > 60; GFR NON-AFRICAN AMERICAN > 60
[2017-12-18 07:11] LABS: ANISOCYTOSIS SLIGHT; BANDS 3 % (0-2); LYMPHOCYTE 7 % (20-50); MONOCYTE 3 % (0-10); NEUTROPHIL 87 % (42-75); POIKILOCYTOSIS SLIGHT; TOTAL CELLS COUNTED 100
[2017-12-18 07:12] LABS: HYPOCHROMIC SLIGHT; OVALOCYTES SLIGHT; PLATELET ESTIMATE NORMAL (NORMAL); STOMATOCYTES SLIGHT
--- NOTE | 2017-12-18 07:52 | CP.PCM.PN ---
Subjective - Date & Time of Evaluation Date of Evaluation: 12/18/17 Time of Evaluation: 07:51 - Subjective Subjective: pt with severe dementia arousable with vernal and painful stimuli HD stable but mild tachy Cultures +enter faecalis pt at baseline Objective - Vital Signs/Intake and Output Vital Signs (last 24 hours): Temp Pulse Resp BP Pulse Ox 97.8 F 95 H 18 133/64 100 12/18/17 05:00 12/18/17 05:00 12/18/17 05:00 12/18/17 05:00 12/18/17 05:00 Vitals Reviewed GEN: easily arousable, dementia HEENT: NCAT, PERRL, EOMI HEART: RRR, +S1S2, NO MRG LUNG: CTAB, NO WRR ABD: soft, NT, ND, No HSM, No masses EXT: normal pedal pulses, normal capillary refill NEURO: awake, alert, no focal deficits SKIN: warm, dry PSYCH: difficult to assess, severe dementia Intake and Output: 12/18/17 12/18/17 06:59 18:59 Intake Total 2490 Output Total 980 Balance 1510 - Medications Medications: Current Medications Acetaminophen (Tylenol 325mg Tab) 650 mg PEG Q4 PRN PRN Reason: Fever >100.4 F Apixaban (Eliquis) 2.5 mg PEG BID [facility] PRN Reason: Protocol Last Admin: 12/17/17 09:09 Dose: 2.5 mg Atorvastatin Calcium (Lipitor) 10 mg PEG DAILY [facility] Last Admin: 12/17/17 09:10 Dose: 10 mg Sodium Chloride (Sodium Chloride 0.9%) 1,000 mls @ 80 mls/hr IV .[id number] [facility] Stop: 12/18/17 11:29 Last Admin: 12/17/17 23:49 Dose: 80 mls/hr Vancomycin HCl 1,000 mg/ (Sodium Chloride) 250 mls @ 250 mls/hr IVPB Q12H [facility] PRN Reason: Protocol Last Admin: 12/17/17 21:24 Dose: 250 mls/hr Ipratropium [place] (Atrovent) 0.5 mg IH RQ6 [facility] Last Admin: 12/18/17 07:40 Dose: 0.5 mg Levalbuterol HCl (Xopenex) 1.25 mg INH RQ4 [facility] Last Admin: 12/18/17 07:40 Dose: 1.25 mg Memantine (Namenda) 5 mg PEG DAILY [facility] Last Admin: 12/17/17 09:10 Dose: 5 mg Methylprednisolone (Solu-Medrol) 40 mg IVP Q6 [facility] Last Admin: 12/18/17 04:15 Dose: 40 mg Pantoprazole Sodium (Protonix Susp) 40 mg PEG DAILY [facility] Last Admin: 12/17/17 09:10 Dose: 40 mg Paroxetine HCl (Paxil) 5 mg PEG DAILY [facility] Last Admin: 12/17/17 09:10 Dose: 5 mg Potassium Phos/Sodium Phos (Neutra-Phos) 1 pkt PEG QID [facility] Last Admin: 12/17/17 21:27 Dose: 1 pkt Vancomycin HCl (Vancocin (Oral/Rectal Use)) 125 mg PEG Q6 [facility] PRN Reason: Protocol Last Admin: 12/18/17 04:15 Dose: 125 mg - Labs Labs: 12/18/17 04:20 12/18/17 04:20 PT 18.8 Seconds (9.8-13.1) H 12/16/17 02:22 INR 1.7 (0.9-1.2) H 12/16/17 02:22 APTT 21.2 Seconds (25.6-37.1) L 12/16/17 02:22 Assessment and Plan - Assessment and Plan (Free Text) Plan: The hx is obtained from the patient's family and after review of the medical records. 82 years old female brought from [facility] with SOB, Fever, Tachypnea and tachycardia. She has hx of Alzheimer's dementia, COPD, last admitted on 12/01/17 and discharged 12/12/17 with Dx of SIRS treated with antibiotics, Anemia receiving blood transfusion and COPD exacerbation. She was discharged to the [facility] 2 days ago where she has been having diarrhea for 2 days, now with one day of SOB not responding to the Albuterol/ Atrovent. Pt +cdiff, blood cx + entercoccus faecalis sensitive to vanc/pcn/cipro. Pt on IV Vancomycin. Eliquis was held for one day given drop in H/H, however stable today, will resume. Repeat CBC tomorrow, if stable, can likely be d/c back to [place] with iV RX to complete two weeks of IV ABX for + BCx and CDIFF. She is currently at baseline. 82 years old female brought from [facility] with SOB, Fever, Tachypnea, tachycardia for one day and diarrhea for two days. last admitted on 12/01/17 and discharged 12/12/17 with Dx of SIRS treated with antibiotics, Anemia receiving blood transfusion and COPD #. SIRS with Heart rate of 130/min, Respiratory Rate of 33/min, and Temperature at [facility] of 101.8F. CXR does not show definite sign of infiltrate and no hx of coughing nor vomiting to indicate aspiration. There is hx of Diarrhea. - Follow blood Cultures +ENTEROCOCCUS FAECALIS sens: VANC, CIPRO, AND PCN. Pt on IV VANCOMYCIN. - Follow Urine cultures - stool for Culture pending - Stool For C Diff POSITIVE - Procalcitonin elevated 0.9 - continue Vancomycin IV #. Anemia - acute blood loss? - no overt melena, hematuria, or hematochezia - dropped 2 grams h/h overnight 11.4/35.2 to 9.2/27.8 - hold Eliquis - h/h stable today, WILL RESUME TODAY and if H/H stable tomorrow may discharge back to [place] - will montior carefully - hydrate #. COPD Exacerbation - Oxygen 50% ventimask - Xopenex - Ipatropium - Methylprednisolone #. Hypokalemia - Replace with KCL - follow electrolytes #. Dehydration - IV fluids - follow renal labs #. Moderate Malnutrition with PEG feeding - Dietition consult #. Hypophos, hypoMg - replete as necessary, trend. #. Hyperglycemia - HbA1c 6.4 on 11/27/17 #. Gastritis - Pantoprazole #. Dementia - Mamenda - Paxil for Depression #. DVT prophylaxis with Apixaban #. Code Status: DNI/DNR
[2017-12-18] MEDS: Potassium & Sodium Phosphate PEG SCH ×4 (09:21→21:42)
[2017-12-18] MEDS: Pantoprazole 40 mg Susp UD PEG SCH (10:21)
--- NOTE | 2017-12-18 11:10 | PQF GENQUE ---
This form is a permanent part of the medical record 12/18/17 Dr. Stephanie Nino, Would you please clarify if there is an associated diagnosis or not to go along with documentation of SIRS , + Blood CS and C DIFF +. Treated with IVAB. Recently admitted for SIRS and treated with antibiotics and discharged on . Now patient presents with diarrhea and SOB. + Fever (102.1)tachycardia (130) tachypnea (33).WBC 9.5 L shift and 8% BANDS, Lactate 1.8, Procalcitonin 0.92 C difficile + antigen/toxin, Blood CS x 1 Gram + cocci and Blood CS x 1 Enterococcus Faecalis. Treated with IVAB. Clarification of your documentation is requested to better reflect the severity of illness and intensity of treatment of your patient. Indicators present PHYSICIAN'S RESPONSE SEPSIS DUE TO CDIFF Based on your medical judgment of the clinical indicators outlined above please clarify the following: [X] Practitioner response [] If unable to determine, please check the box, sign and date. Present On Admission (POA) Indicator: [X] Present at the time of admission [] Not present at the time of admission [] Clinically Undetermined In responding to this query, please exercise your independent professional judgment. The fact that a question is asked does not imply that any particular answer is desired or expected. Thank you for your clarification on this documentation. If you have any questions please call:ext [phone] * Thank you, Aranza Lopez RN [facility]
--- NOTE | 2017-12-18 11:22 | PQF GENQUE ---
This form is a permanent part of the medical record 12/18/17 Dr. Stephanie Nino, Please clarify if there is an associated diagnosis or not to go along with following documentation. If yes please clarify etiology. Admitting RN has the following documentation: Pressure Ulcer Present : Yes: 1) L heel: Purple or maroon localized area of discolored intact skin or blood 2) R lateral heel: Purple or maroon localized area of discolored intact skin or blood 3) Sacrum: Intact skin with non-blanchable redness of a localized area Awaiting consult by industrial arts teacher Clarification of your documentation is requested to better reflect the severity of illness and intensity of treatment of your patient. Indicators present PHYSICIAN'S RESPONSE PRESSURE ULCERS: L HEEL R LATERAL HEEL SACRUM ON ADMISSION PRESENT Based on your medical judgment of the clinical indicators outlined above please clarify the following: [X] Practitioner response [] If unable to determine, please check the box, sign and date. Present On Admission (POA) Indicator: [X] Present at the time of admission [] Not present at the time of admission [] Clinically Undetermined In responding to this query, please exercise your independent professional judgment. The fact that a question is asked does not imply that any particular answer is desired or expected. Thank you for your clarification on this documentation. If you have any questions please call:ext [phone] * Thank you, Aranza Lopez RN [facility]
[2017-12-19] MEDS: Levalbuterol 1.25 MG/3 ML Inhal Soln UD INH SCH ×6 (04:59→23:30)
[2017-12-19 05:52] LABS: MEAN CELL VOLUME 81.4 fl (81.0-99.0); MEAN CORPUSCULAR HEMOGLOBIN 26.6 pg (27.0-31.0); MEAN CORPUSCULAR HGB CONC 32.7 g/dL (33.0-37.0); RBC 3.75 Mil/uL (3.80-5.20); RED CELL DISTRIBUTION WIDTH 18.3 % (11.5-14.5); WHITE BLOOD COUNT 12.2 K/uL (4.8-10.8)
[2017-12-19 06:14] LABS: BLOOD UREA NITROGEN 23 mg/dl (7-17); CALCIUM 7.9 mg/dL (8.4-10.2); GFR AFRICAN-AMERICAN > 60; GFR NON-AFRICAN AMERICAN > 60
[2017-12-19] MEDS: Ipratropium 0.02% Inhal Soln (0.5 mg/2.5 ml) UD IH SCH ×3 (07:36→19:12)
[2017-12-19] MEDS ORDERED: Potassium Chloride 20 mEq/15 ml LIQ UD PEG ONE (08:27)
[2017-12-19] MEDS: Potassium & Sodium Phosphate PEG SCH ×3 (08:35→16:07)
[2017-12-19] MEDS ORDERED: Famotidine 40 MG/5 ML PEG SCH (09:00)
--- NOTE | 2017-12-19 10:23 | CP.PCM.PN ---
Subjective - Date & Time of Evaluation Date of Evaluation: 12/19/17 Time of Evaluation: 10:00 - Subjective Subjective: Pt is afebrile + diarrhea not in resp distress wheezing resolved has slight cough CXR : no infiltrate tolerating tube feeding PICC line removed Objective - Vital Signs/Intake and Output Vital Signs (last 24 hours): Temp Pulse Resp BP Pulse Ox 98.1 F 93 H 18 110/62 100 12/19/17 08:13 12/19/17 08:13 12/19/17 08:13 12/19/17 08:13 12/19/17 08:13 Intake and Output: 12/19/17 12/19/17 06:59 18:59 Intake Total 3416 Output Total 1200 Balance 2216 - Medications Medications: Current Medications Acetaminophen (Tylenol 325mg Tab) 650 mg PEG Q4 PRN PRN Reason: Fever >100.4 F Apixaban (Eliquis) 2.5 mg PEG BID [facility] PRN Reason: Protocol Last Admin: 12/19/17 08:35 Dose: 2.5 mg Atorvastatin Calcium (Lipitor) 10 mg PEG DAILY [facility] Last Admin: 12/19/17 08:35 Dose: 10 mg Famotidine (Pepcid) 40 mg PEG DAILY [facility] Vancomycin HCl 1 gm/ Sodium (Chloride) 250 mls @ 166.667 mls/hr IVPB Q12H [facility] PRN Reason: Protocol Last Admin: 12/19/17 08:37 Dose: 166.667 mls/hr Ipratropium [place] (Atrovent) 0.5 mg IH RQ6 [facility] Last Admin: 12/19/17 07:36 Dose: 0.5 mg Levalbuterol HCl (Xopenex) 1.25 mg INH RQ4 [facility] Last Admin: 12/19/17 07:36 Dose: 1.25 mg Memantine (Namenda) 5 mg PEG DAILY [facility] Last Admin: 12/19/17 08:34 Dose: 5 mg Metronidazole (Flagyl) 500 mg PEG Q8 [facility] PRN Reason: Protocol Paroxetine HCl (Paxil) 5 mg PEG DAILY [facility] Last Admin: 12/19/17 08:35 Dose: 5 mg Potassium Phos/Sodium Phos (Neutra-Phos) 1 pkt PEG QID [facility] Last Admin: 12/19/17 08:35 Dose: 1 pkt - Labs Labs: 12/19/17 05:20 12/19/17 05:20 PT 18.8 Seconds (9.8-13.1) H 12/16/17 02:22 INR 1.7 (0.9-1.2) H 12/16/17 02:22 APTT 21.2 Seconds (25.6-37.1) L 12/16/17 02:22 - Constitutional Appears: Chronically Ill, Other (mumbles incomprehensible words) - Head Exam Head Exam: ATRAUMATIC, NORMAL INSPECTION, NORMOCEPHALIC - Eye Exam Additional comments: pt keeps her eyes closed - ENT Exam ENT Exam: Mucous Membranes Dry, Normal External Ear Exam - Neck Exam Neck Exam: absent: Meningismus - Respiratory Exam Respiratory Exam: Rhonchi, NORMAL BREATHING PATTERN. absent: Respiratory Distress - Cardiovascular Exam Cardiovascular Exam: REGULAR RHYTHM, +S1, +S2 - GI/Abdominal Exam GI & Abdominal Exam: Soft, Tenderness, Normal Bowel Sounds Additional comments: + PEG - Extremities Exam Extremities Exam: Normal Capillary Refill. absent: Pedal Edema - Back Exam Back Exam: absent: CVA tenderness (L), CVA tenderness (R) - Neurological Exam Additional comments: Pt is confused, has sevre dementia mumbling incomprehensible words - Psychiatric Exam Psychiatric exam: Flat Affect - Skin Skin Exam: Dry, Normal Color, Warm Assessment and Plan - Assessment and Plan (Free Text) Assessment: 82 years old female brought from [facility] with SOB, Fever, Tachypnea and tachycardia. She has hx of Alzheimer's dementia, COPD, last admitted on 12/01/17 and discharged 12/12/17 with Dx of SIRS treated with IV antibiotics, Anemia receiving blood transfusion and COPD exacerbation. A PEG was also placed due to Dysphagia. She was discharged to the [facility] where she has been having diarrhea for 2 days, now with one day of SOB not responding to the Albuterol/Atrovent. Blood c/s : + Enterococcus C diff + in stool 1. Sepsis ( POA) sec to Enterococcus Bacteremia and C Diff Colitis SIRS with Heart rate of 130/min, Respiratory Rate of 33/min, and Temperature at [facility] of 101.8F. CXR does not show definite sign of infiltrate and no hx of coughing nor vomiting to indicate aspiration. There is hx of Diarrhea. - cont IV Vanco - start Flagyl 500 mg TID per PEG - Procalcitonin elevated 0.9 -ID consult - d/c PICC line - start peripheral line 2. Chronic Anemia - drop in Hgb likely dilutional - no overt melena, hematuria, or hematochezia - dropped 2 grams h/h overnight 11.4/35.2 to 9.2/27.8 - will monito closely as pt on Eliquis - had recent EGD ( no active bleeding) 3. COPD Exacerbation - Oxygen NC - Xopenex, Ipatropium -decrease Methylprednisolone to 40 q 12 4. Hypokalemia - Replace with KCL - follow electrolytes 5. Dehydration - IV fluids hydration 6. Moderate Malnutrition with PEG feeding - Nutrition consult 7. Hyperglycemia sec to steroids - HbA1c 6.4 on 11/27/17 8. Gastritis - cont Pantoprazole 9. Alzheimer's Dementia - cont Mamenda - Paxil for Depression 10. history of recent DVT - cont Apixaban #. Code Status: DNI/DNR, Surrogate decision amker - daughter Bell
--- NOTE | 2017-12-19 10:32 | CP.PCM.CON ---
History of Present Illness - History of Present Illness History of Present Illness: 82 years old female brought from [facility] with SOB, Fever, Tachypnea and tachycardia. She has hx of Alzheimer's dementia, COPD, last admitted on 12/01/17 and discharged 12/12/17 with Dx of SIRS treated with antibiotics, Anemia receiving blood transfusion and COPD exacerbation. She was discharged to the [facility] 2 days ago where she has been having diarrhea for 2 days, now with one day of SOB not responding to the Albuterol/ Atrovent. 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 FH: Significant for Cancers Allergies: NKDA Medication: Reviewed Past Patient History - Infectious Disease Hx of Infectious Diseases: None - Tetanus Immunizations Tetanus Immunization: Unknown (quit 5 yrs ago; used to smoke 2 PPD) - Past Medical History & Family History Past Medical History?: Yes - Past Social History Smoking Status: Former Smoker Chewing Tobacco Use: No Cigar Use: No Alcohol: None Drugs: Denies Home Situation {Lives}: Correction - CARDIAC Hx Congestive Heart Failure: No Hx Hypertension: Yes - PULMONARY Hx Asthma: Yes Hx Chronic Obstructive Pulmonary Disease (COPD): Yes - NEUROLOGICAL Hx Alzheimer's Disease: Yes Hx Dementia: Yes - HEENT Hx HEENT Problems: No - RENAL Hx Chronic Kidney Disease: No - ENDOCRINE/METABOLIC Hx Hypothyroidism: No - HEMATOLOGICAL/ONCOLOGICAL Hx Anemia: Yes Hx Human Immunodeficiency Virus (HIV): No - INTEGUMENTARY Hx Dermatological Problems: No - MUSCULOSKELETAL/RHEUMATOLOGICAL Hx Arthritis: Yes Hx Fractures: Yes (Right wrist fx (16 yrs ago)) Hx Rheumatoid Arthritis: No - GASTROINTESTINAL Hx Gastritis: Yes - GENITOURINARY/GYNECOLOGICAL Hx Genitourinary Disorders: Yes Hx Incontinence: Yes - PSYCHIATRIC Hx Anxiety: Yes Hx Depression: Yes Hx Substance Use: No - SURGICAL HISTORY Hx Surgeries: Yes Hx Open Reduction Internal Fixation: Yes (right wrist fracture) Hx Orthopedic Surgery: Yes Other/Comment: right wrist surgery with metal plate, left knee mass removal years ago - ANESTHESIA Hx Anesthesia: Yes Hx Anesthesia Reactions: No Hx Malignant Hyperthermia: No Meds Allergies/Adverse Reactions: Allergies Allergy/AdvReac Type Severity Reaction Status Date / Time No Known Allergies Allergy Verified 12/01/17 10:05 - Medications Medications: Current Medications Acetaminophen (Tylenol 325mg Tab) 650 mg PEG Q4 PRN PRN Reason: Fever >100.4 F Apixaban (Eliquis) 2.5 mg PEG BID [facility] PRN Reason: Protocol Last Admin: 12/19/17 08:35 Dose: 2.5 mg Atorvastatin Calcium (Lipitor) 10 mg PEG DAILY [facility] Last Admin: 12/19/17 08:35 Dose: 10 mg Famotidine (Pepcid) 40 mg PEG DAILY [facility] Vancomycin HCl 1 gm/ Sodium (Chloride) 250 mls @ 166.667 mls/hr IVPB Q12H [facility] PRN Reason: Protocol Last Admin: 12/19/17 08:37 Dose: 166.667 mls/hr Ipratropium [place] (Atrovent) 0.5 mg IH RQ6 [facility] Last Admin: 12/19/17 07:36 Dose: 0.5 mg Levalbuterol HCl (Xopenex) 1.25 mg INH RQ4 [facility] Last Admin: 12/19/17 07:36 Dose: 1.25 mg Memantine (Namenda) 5 mg PEG DAILY [facility] Last Admin: 12/19/17 08:34 Dose: 5 mg Metronidazole (Flagyl) 500 mg PEG Q8 [facility] PRN Reason: Protocol Paroxetine HCl (Paxil) 5 mg PEG DAILY [facility] Last Admin: 12/19/17 08:35 Dose: 5 mg Potassium Phos/Sodium Phos (Neutra-Phos) 1 pkt PEG QID [facility] Last Admin: 12/19/17 08:35 Dose: 1 pkt Results - Vital Signs Recent Vital Signs: Last Vital Signs Temp 98.1 F 12/19/17 08:13 Pulse 93 H 12/19/17 08:13 Resp 18 12/19/17 08:13 BP 110/62 12/19/17 08:13 Pulse Ox 100 12/19/17 08:13 - Labs Result Diagrams: 12/19/17 05:20 12/19/17 05:20 Labs: Laboratory Results - last 24 hr 12/19/17 12/19/17 05:20 05:20 WBC 12.2 H RBC 3.75 L Hgb 10.0 L Hct 30.6 L MCV 81.4 MCH 26.6 L MCHC 32.7 L RDW 18.3 H Plt Count 216 Sodium 144 Potassium 3.5 L Chloride 110 H Carbon Dioxide 27 Anion Gap 11 BUN 23 H Creatinine 0.5 L Est GFR ( Amer) > 60 Est GFR (Non-Af Amer) > 60 Random Glucose 131 H Calcium 7.9 L
[2017-12-19] MEDS: MethylPREDNISolone 40 mg Vial IVP SCH (20:43)
[2017-12-19] MEDS ORDERED: methylPREDNISolone 40 MG in Sodium Chloride 0.9% 50 ML IVPB SCH (21:00)
[2017-12-20] MEDS: Ipratropium 0.02% Inhal Soln (0.5 mg/2.5 ml) UD IH SCH ×4 (01:14→19:12)
[2017-12-20] MEDS: Levalbuterol 1.25 MG/3 ML Inhal Soln UD INH SCH ×5 (04:58→19:12)
[2017-12-20 07:21] LABS: BASO % 0.2 % (0.0-2.0); EOS % 0.1 % (0.0-4.0); HEMOGLOBIN 10.2 g/dL (12.0-16.0); LYMPH # 0.4 K/uL (1.0-4.3); LYMPH % 4.2 % (20.0-40.0); MEAN CELL VOLUME 83.1 fl (81.0-99.0); MEAN CORPUSCULAR HEMOGLOBIN 26.8 pg (27.0-31.0); MEAN CORPUSCULAR HGB CONC 32.3 g/dL (33.0-37.0); MEAN PLATELET VOLUME 9.9 fl (7.2-11.7); MONO # 0.1 K/uL (0.0-0.8); MONO % 0.8 % (0.0-10.0); NEUT # 9.2 K/uL (1.8-7.0); NEUT % 94.7 % (50.0-75.0); NRBC % 0.1 % (0.0-0.0); PLATELET COUNT 177 K/uL (130-400); RED CELL DISTRIBUTION WIDTH 18.7 % (11.5-14.5); WHITE BLOOD COUNT 9.7 K/uL (4.8-10.8)
[2017-12-20 07:26] LABS: BLOOD UREA NITROGEN 19 mg/dl (7-17); CALCIUM 7.7 mg/dL (8.4-10.2); GFR AFRICAN-AMERICAN > 60; GFR NON-AFRICAN AMERICAN > 60
[2017-12-20 08:03] LABS: TOTAL CELLS COUNTED 100
[2017-12-20 08:04] LABS: BANDS 1 % (0-2); NEUTROPHIL 88 % (42-75)
[2017-12-20 08:05] LABS: ANISOCYTOSIS SLIGHT; LYMPHOCYTE 7 % (20-50); MONOCYTE 4 % (0-10); PLATELET ESTIMATE NORMAL (NORMAL)
[2017-12-20] MEDS: MethylPREDNISolone 40 mg Vial IVP SCH ×2 (08:22→21:50)
--- NOTE | 2017-12-20 11:20 | CP.PCM.PN ---
Subjective - Date & Time of Evaluation Date of Evaluation: 12/20/17 Time of Evaluation: 09:30 - Subjective Subjective: Pt is afebrile had 4 BM yesterday , only 2 BM so far since last night PICC line d/c yesterday will also d/c Richard catheter No wheezing more awake today Daughter Bell at bedside Objective - Vital Signs/Intake and Output Vital Signs (last 24 hours): Temp Pulse Resp BP Pulse Ox 97.9 F 96 H 20 109/67 100 12/20/17 08:00 12/20/17 08:00 12/20/17 08:00 12/20/17 08:00 12/20/17 08:00 Intake and Output: 12/20/17 12/20/17 06:59 18:59 Intake Total 250 Balance 250 - Medications Medications: Current Medications Acetaminophen (Tylenol 325mg Tab) 650 mg PEG Q4 PRN PRN Reason: Fever >100.4 F Apixaban (Eliquis) 2.5 mg PEG BID [facility] PRN Reason: Protocol Last Admin: 12/20/17 08:20 Dose: 2.5 mg Atorvastatin Calcium (Lipitor) 10 mg PEG DAILY [facility] Last Admin: 12/20/17 08:20 Dose: 10 mg Famotidine (Pepcid) 40 mg PEG DAILY [facility] Last Admin: 12/20/17 08:20 Dose: 40 mg Vancomycin HCl 1 gm/ Sodium (Chloride) 250 mls @ 166.667 mls/hr IVPB Q12H [facility] PRN Reason: Protocol Last Admin: 12/20/17 08:20 Dose: 166.667 mls/hr Ipratropium [place] (Atrovent) 0.5 mg IH RQ6 [facility] Last Admin: 12/20/17 01:14 Dose: 0.5 mg Levalbuterol HCl (Xopenex) 1.25 mg INH RQ4 [facility] Last Admin: 12/20/17 04:58 Dose: 1.25 mg Memantine (Namenda) 5 mg PEG DAILY [facility] Last Admin: 12/20/17 08:20 Dose: 5 mg Methylprednisolone (Solu-Medrol) 40 mg IVP Q12 [facility] Last Admin: 12/20/17 08:22 Dose: 40 mg Metronidazole (Flagyl) 500 mg PEG Q8 [facility] PRN Reason: Protocol Last Admin: 06/06/18 08:20 Dose: 500 mg Paroxetine HCl (Paxil) 5 mg PEG DAILY [facility] Last Admin: 12/20/17 08:23 Dose: 5 mg - Labs Labs: 12/20/17 04:20 12/20/17 04:20 PT 18.8 Seconds (9.8-13.1) H 12/16/17 02:22 INR 1.7 (0.9-1.2) H 12/16/17 02:22 APTT 21.2 Seconds (25.6-37.1) L 12/16/17 02:22 - Constitutional Appears: Chronically Ill, Other (mumbles incomprehensible words) Pt more awake today - Head Exam Head Exam: ATRAUMATIC, NORMAL INSPECTION, NORMOCEPHALIC - Eye Exam ext eye exam normal - ENT Exam ENT Exam: Mucous Membranes Dry, Normal External Ear Exam - Neck Exam Neck Exam: absent: Meningismus - Respiratory Exam Respiratory Exam: Rhonchi, NORMAL BREATHING PATTERN. absent: Respiratory Distress - Cardiovascular Exam Cardiovascular Exam: REGULAR RHYTHM, +S1, +S2 - GI/Abdominal Exam GI & Abdominal Exam: Soft, Tenderness, Normal Bowel Sounds Additional comments: + PEG - Extremities Exam Extremities Exam: Normal Capillary Refill. absent: Pedal Edema - Back Exam Back Exam: absent: CVA tenderness (L), CVA tenderness (R) - Neurological Exam Additional comments: Pt has severe dementia mumbling incomprehensible words moves extremities - Psychiatric Exam Psychiatric exam: Flat Affect - Skin Skin Exam: Dry, Normal Color, Warm Assessment and Plan - Assessment and Plan (Free Text) Assessment: 82 years old female brought from [facility] with SOB, Fever, Tachypnea and tachycardia. She has hx of Alzheimer's dementia, COPD, last admitted on 12/01/17 and discharged 12/12/17 with Dx of SIRS treated with IV antibiotics, Anemia received blood transfusion and COPD exacerbation. A PEG was also placed due to Dysphagia. She was discharged to the [facility] where she has been having diarrhea for 2 days, now with one day of SOB not responding to the Albuterol/Atrovent. Blood c/s : + Enterococcus C diff + in stool 12/19: PICC line d/c 1. Sepsis ( POA) sec to Enterococcus Bacteremia and C Diff Colitis SIRS with Heart rate of 130/min, Respiratory Rate of 33/min, and Temperature of 101.8F. CXR does not show definite sign of infiltrate and no hx of coughing nor vomiting to indicate aspiration. Pt has been having diarrhea - Blood c/s : Enterococcus - pansensitive -Stool + for C diff - cont IV Vanco x 2wks total as discussed with Dr Kenny - cont Flagyl 500 mg TID per PEG and Vanco per PEG as rec by Dr Kenny - Procalcitonin elevated 0.9 -ID consulted - d/c PICC line - started peripheral line - Repeat Blood c/s, if still + , may need ECHO 2. Chronic Anemia - drop in Hgb likely dilutional - no overt melena, hematuria, or hematochezia - will monitor closely as pt on Eliquis - had recent EGD ( no active bleeding) 3. COPD Exacerbation - Oxygen NC - Xopenex, Ipatropium -decreased Methylprednisolone to 40 q 12 4. Hypokalemia - Replace with KCL - follow electrolytes 5. Dehydration - IV fluids hydration 6. Moderate Malnutrition/Dysphagia with PEG feeding cont Jevity 7. Hyperglycemia sec to steroids - HbA1c 6.4 on 11/27/17 8. Gastritis - cont Pantoprazole 9. Alzheimer's Dementia - cont Namenda - Paxil for Depression 10. history of recent DVT - cont Apixaban #. Code Status: DNI/DNR, Surrogate decision maker - daughter Bell
--- NOTE | 2017-12-20 12:57 | CP.PCM.CON ---
History of Present Illness - History of Present Illness History of Present Illness: 82 years old female brought from [facility] with SOB, Fever, Tachypnea and tachycardia. She has hx of Alzheimer's dementia, COPD, last admitted on 12/01/17 and discharged 12/12/17 with Dx of SIRS treated with antibiotics, Anemia receiving blood transfusion and COPD exacerbation. She was discharged to the [facility] 2 days ago where she has been having diarrhea for 2 days, now with one day of SOB not responding to the Albuterol/Atrovent. 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 FH: Significant for Cancers Allergies: NKDA Medication: Reviewed Review of Systems - Review of Systems All systems: reviewed and no additional remarkable complaints except - Constitutional Constitutional: As Per HPI - EENT Eyes: absent: As Per HPI, Blind Spots, Blurred Vision, Change in Vision, Decreased Night Vision, Diplopia, Discharge, Dry Eye, Exophthalmos, Floaters, Irritation, Itchy Eyes, Loss of Peripheral Vision, Pain, Photophobia, Requires Corrective Lenses, Sees Flashes, Spots in Vision, Tunnel Vision, Other Visual Disturbances, Loss of Vision, Other Ears: absent: As Per HPI, Decreased Hearing, Ear Discharge, Ear Pain, Tinnitus, Abnormal Hearing, Disequilibrium, Dizziness, Other Nose/Mouth/Throat: absent: As Per HPI, Epistaxis, Nasal Congestion, Nasal Discharge, Nasal Obstruction, Nasal Trauma, Nose Pain, Post Nasal Drip, Sinus Pain, Sinus Pressure, Bleeding Gums, Change in Voice, Dental Pain, Dry Mouth, Dysphagia, Halitosis, Hoarsness, Lip Swelling, Mouth Lesions, Mouth Pain, Odynophagia, Sore Throat, Throat Swelling, Tongue Swelling, Facial Pain, Neck Pain, Neck Mass, Other - Breasts Breasts: absent: As Per HPI, Change in Shape, Mass, Pain, Nipple Discharge, Nipple Inversion, Skin Changes, Swelling, Other - Cardiovascular Cardiovascular: absent: As Per HPI, Acrocyanosis, Chest Pain, Chest Pain at Rest , Chest Pain with Activity, Claudication, Diaphoresis, Dyspnea, Dyspnea on Exertion, Edema, Irregular Heart Rhythm, Pain Radiating to Arm/Neck/Jaw, Leg Edema, Leg Ulcers, Lightheadedness, Orthopnea, Palpitations, Paroxysmal Nocturnal Dyspnea, Pedal Edema, Radiating Pain, Rapid Heart Rate, Slow Heart Rate, Syncope, Other - Respiratory Respiratory: As Per HPI - Gastrointestinal Gastrointestinal: absent: As Per HPI, Abdominal Pain, Belching, Bloating, Change in Bowel Habits, Change in Stool Character, Coffee Ground Emesis, Constipation, Cramping, Diarrhea, Dyspepsia, Dysphagia, Early Satiety, Excessive Flatus, Fecal Incontinence, Heartburn, Hematemesis, Hematochezia, Loose Stools, Melena, Nausea, Odynophagia, Temesmus, Vomiting, Other - Genitourinary Genitourinary: absent: As Per HPI, Change in Urinary Stream, Difficulty Urinating, Dysuria, Flank Pain, Hematuria, Pyuria, Nocturia, Urinary Incontinence, Urinary Frequency, Urinary Hesitance, Urinary Urgency, Voiding Freq/Small Amts, Freq UTI, Hx Renal/Bladder Calculi, Hx /Renal Surgery, Bladder Distension, Other - Reproductive: Female Reproductive:Female: absent: As Per HPI, Amenorrhea, Amenorrhea/ Control, Currently Menstual, Cycle <21 Days, Cycle >35 Days, Cycle Variable, Menses 1-7 Days, Menses >/= 8 Days, Menses Variable, Cycle > 4 Weeks Between, No Menses for 6 Months, Heavy Menses, Light Menses, Normal Menses, Spotting Between Cycles , S/P Hysterectomy, Menopausal, Post Menopausal, Premenarche, Abnormal Vaginal Bleeding, Dysmenorrhea, Dyspareunia, Genital Lesions, Genital Pruritis, Pelvic Pain, Prolapse Symptoms, Sexual Dysfunction, Vaginal Discharge, Vaginal Dryness , Vaginal Odor, Vaginal Pruritis, Other - Menstruation Menstruation: absent: As Per HPI, Amenorrhea, Amenorrhea/ Control, Currently Menstual, Cycle <21 Days, Cycle >35 Days, Cycle Variable, Menses 1-7 Days, Menses >/= 8 Days, Menses Variable, Cycle > 4 Weeks Between, No Menses for 6 Months, Heavy Menses, Light Menses, Normal Menses, Spotting Between Cycles , S/P Hysterectomy, Menopausal, Post Menopausal, Premenarche, Abnormal Vaginal Bleeding, Dysmenorrhea, Other - Musculoskeletal Musculoskeletal: absent: As Per HPI, Abnormal Gait, Arthralgias, Atrophy, Back Pain, Deformity, Joint Swelling, Limited Range of Motion, Loss of Height, Muscle Cramps, Muscle Weakness, Myalgias, Neck Pain, Numbness, Radiating Pain into Limb, Stiffness, Tingling, Other - Integumentary Integumentary: absent: As Per HPI, Acne, Alopecia, Bleeding Lesions, Change in Hair, Change in Nails, Change in Pigmentation, Changing Lesions, Dry Skin, Erythema, Furuncle, Hirsutism, Lesions, New Lesions, Non-Healing Lesions, Photosensitivity, Pruritus, Rash, Skin Pain, Skin Ulcer, Sores, Striae, Swelling , Unusual Bruising, Wounds, Jaundice, Other - Neurological Neurological: absent: As Per HPI, Abnormal Gait, Abnormal Hearing, Abnormal Movements, Abnormal Speech, Behavioral Changes, Burning Sensations, Confusion, Convulsions, Disequilibrium, Dizziness, Numbness, Focal Weakness, Frequent Falls , Headaches, Lack of Coordination, Loss of Vision, Memory Loss, Paresthesias, Radicular Pain, Restless Legs, Sensory Deficit, Syncope, Tingling, Tremor, Vertigo, Weakness, Other Visual Disturbances, Other - Psychiatric Psychiatric: absent: As Per HPI, Abnormal Sleep Pattern, Anhedonia, Anxiety, Auditory Hallucinations, Behavioral Changes, Change in Appetite, Change in Libido, Confusion, Depression, Difficulty Concentrating, Hallucinations, Homicidal Ideation, Hopelessness, Irritability, Memory Loss, Mood Swings, Panic Attacks, Paranoia, Suicidal Ideation, Visual Hallucinations, Tactile Hallucinations, Other - Endocrine Endocrine: absent: As Per HPI, Change in Body Appearance, Change in Libido, Cold Intolorance, Deepening of Voice, Excessive Sweating, Fatigue, Flushing, Heat Intolorance, Increase in Ring/Shoe/Hat Size, Palpitations, Polydipsia, Polyphagia, Polyuria, Other - Hematologic/Lymphatic Hematologic: absent: As Per HPI, Easy Bleeding, Easy Bruising, Lymphadenopathy, Other Past Patient History - Infectious Disease Hx of Infectious Diseases: None - Tetanus Immunizations Tetanus Immunization: Unknown (quit 5 yrs ago; used to smoke 2 PPD) - Past Medical History & Family History Past Medical History?: Yes - Past Social History Smoking Status: Former Smoker Chewing Tobacco Use: No Cigar Use: No Alcohol: None Drugs: Denies Home Situation {Lives}: [facility] - CARDIAC Hx Congestive Heart Failure: No Hx Hypertension: Yes - PULMONARY Hx Asthma: Yes Hx Chronic Obstructive Pulmonary Disease (COPD): Yes - NEUROLOGICAL Hx Alzheimer's Disease: Yes Hx Dementia: Yes - HEENT Hx HEENT Problems: No - RENAL Hx Chronic Kidney Disease: No - ENDOCRINE/METABOLIC Hx Hypothyroidism: No - HEMATOLOGICAL/ONCOLOGICAL Hx Anemia: Yes Hx Human Immunodeficiency Virus (HIV): No - INTEGUMENTARY Hx Dermatological Problems: No - MUSCULOSKELETAL/RHEUMATOLOGICAL Hx Arthritis: Yes Hx Fractures: Yes (Right wrist fx (16 yrs ago)) Hx Rheumatoid Arthritis: No - GASTROINTESTINAL Hx Gastritis: Yes - GENITOURINARY/GYNECOLOGICAL Hx Genitourinary Disorders: Yes Hx Incontinence: Yes - PSYCHIATRIC Hx Anxiety: Yes Hx Depression: Yes Hx Substance Use: No - SURGICAL HISTORY Hx Surgeries: Yes Hx Open Reduction Internal Fixation: Yes (right wrist fracture) Hx Orthopedic Surgery: Yes Other/Comment: right wrist surgery with metal plate, left knee mass removal years ago - ANESTHESIA Hx Anesthesia: Yes Hx Anesthesia Reactions: No Hx Malignant Hyperthermia: No Meds Allergies/Adverse Reactions: Allergies Allergy/AdvReac Type Severity Reaction Status Date / Time No Known Allergies Allergy Verified 12/01/17 10:05 - Medications Medications: Current Medications Acetaminophen (Tylenol 325mg Tab) 650 mg PEG Q4 PRN PRN Reason: Fever >100.4 F Apixaban (Eliquis) 2.5 mg PEG BID [facility] PRN Reason: Protocol Last Admin: 12/20/17 08:20 Dose: 2.5 mg Atorvastatin [place] (Lipitor) 10 mg PEG DAILY [facility] Last Admin: 12/20/17 08:20 Dose: 10 mg Famotidine (Pepcid) 40 mg PEG DAILY [facility] Last Admin: 12/20/17 08:20 Dose: 40 mg Vancomycin HCl 1 gm/ Sodium (Chloride) 250 mls @ 166.667 mls/hr IVPB Q12H [facility] PRN Reason: Protocol Last Admin: 12/20/17 08:20 Dose: 166.667 mls/hr Ipratropium [place] (Atrovent) 0.5 mg IH RQ6 [facility] Last Admin: 12/20/17 01:14 Dose: 0.5 mg Levalbuterol HCl (Xopenex) 1.25 mg INH RQ4 [facility] Last Admin: 12/20/17 04:58 Dose: 1.25 mg Memantine (Namenda) 5 mg PEG DAILY [facility] Last Admin: 12/20/17 08:20 Dose: 5 mg Methylprednisolone (Solu-Medrol) 40 mg IVP Q12 [facility] Last Admin: 12/20/17 08:22 Dose: 40 mg Metronidazole (Flagyl) 500 mg PEG Q8 [facility] PRN Reason: Protocol Last Admin: 12/20/17 08:20 Dose: 500 mg Paroxetine HCl (Paxil) 5 mg PEG DAILY [facility] Last Admin: 12/20/17 08:23 Dose: 5 mg Physical Exam - Constitutional Appears: Non-toxic, Chronically Ill - Head Exam Head Exam: NORMOCEPHALIC - Eye Exam Eye Exam: PERRL. absent: Scleral icterus - ENT Exam ENT Exam: Mucous Membranes Dry, Normal External Ear Exam - Neck Exam Neck exam: Negative for: Lymphadenopathy - Respiratory Exam Respiratory Exam: Decreased Breath Sounds - Cardiovascular Exam Cardiovascular Exam: REGULAR RHYTHM - GI/Abdominal Exam GI & Abdominal Exam: Diminished Bowel Sounds, Soft. absent: Tenderness - Rectal Exam Rectal Exam: Deferred - Exam Exam: NORMAL INSPECTION - Extremities Exam Extremities exam: Positive for: pedal edema - Back Exam Back exam: absent: CVA tenderness (L), CVA tenderness (R) - Neurological Exam Neurological exam: Alert, CN II-XII Intact, Oriented x3, Reflexes Normal - Psychiatric Exam Psychiatric exam: Normal Mood - Skin Skin Exam: Dry, Intact Results - Vital Signs Recent Vital Signs: Last Vital Signs Temp 98.0 F 12/20/17 12:44 Pulse 97 H 12/20/17 12:44 Resp 18 12/20/17 12:44 BP 131/59 L 12/20/17 12:44 Pulse Ox 99 12/20/17 12:44 - Labs Result Diagrams: 12/20/17 04:20 12/20/17 04:20 Labs: Laboratory Results - last 24 hr 12/19/17 12/19/17 12/20/17 16:12 21:28 04:20 WBC 9.7 RBC 3.80 Hgb 10.2 L Hct 31.6 L MCV 83.1 MCH 26.8 L MCHC 32.3 L RDW 18.7 H Plt Count 177 MPV 9.9 Neut % (Auto) 94.7 H Lymph % (Auto) 4.2 L [place] % (Auto) 0.8 Eos % (Auto) 0.1 Baso % (Auto) 0.2 Neut # (Auto) 9.2 H Lymph # (Auto) 0.4 L [place] # (Auto) 0.1 Eos # (Auto) 0.0 Baso # (Auto) 0.0 Neutrophils % (Manual) 88 H Band Neutrophils % 1 Lymphocytes % (Manual) 7 L Monocytes % (Manual) 4 Platelet Estimate Normal Anisocytosis (manual) Slight Sodium Potassium Chloride Carbon Dioxide Anion Gap BUN Creatinine Est GFR ( Amer) Est GFR (Non-Af Amer) POC Glucose (mg/dL) 110 111 H Random Glucose Calcium Phosphorus Procalcitonin 12/20/17 12/20/17 12/20/17 04:20 04:20 05:21 WBC RBC Hgb Hct MCV MCH MCHC RDW Plt Count MPV Neut % (Auto) Lymph % (Auto) [place] % (Auto) Eos % (Auto) Baso % (Auto) Neut # (Auto) Lymph # (Auto) [place] # (Auto) Eos # (Auto) Baso # (Auto) Neutrophils % (Manual) Band Neutrophils % Lymphocytes % (Manual) Monocytes % (Manual) Platelet Estimate Anisocytosis (manual) Sodium 136 Potassium 4.1 Chloride 105 Carbon Dioxide 24 Anion Gap 11 BUN 19 H Creatinine 0.5 L Est GFR ( Amer) > 60 Est GFR (Non-Af Amer) > 60 POC Glucose (mg/dL) 224 H Random Glucose 215 H Calcium 7.7 L Phosphorus 3.0 Procalcitonin 0.19 12/20/17 10:55 WBC RBC Hgb Hct MCV MCH MCHC RDW Plt Count MPV Neut % (Auto) Lymph % (Auto) [place] % (Auto) Eos % (Auto) Baso % (Auto) Neut # (Auto) Lymph # (Auto) [place] # (Auto) Eos # (Auto) Baso # (Auto) Neutrophils % (Manual) Band Neutrophils % Lymphocytes % (Manual) Monocytes % (Manual) Platelet Estimate Anisocytosis (manual) Sodium Potassium Chloride Carbon Dioxide Anion Gap BUN Creatinine Est GFR ( Amer) Est GFR (Non-Af Amer) POC Glucose (mg/dL) 156 H Random Glucose Calcium Phosphorus Procalcitonin Assessment & Plan (1) Bacteremia Status: Acute (2) Sepsis Status: Acute - Assessment and Plan (Free Text) Assessment: cont iv rrx for enterococcal sepsis source to be determined may need long courd=se iv rx ok to give po vanco with iv for c diff
[2017-12-20] MEDS: Vancomycin 500 mg (Oral/Rectal USE) PO SCH (16:36)
[2017-12-21] MEDS: Vancomycin 500 mg (Oral/Rectal USE) PO SCH ×2 (00:39→10:02)
[2017-12-21] MEDS: Ipratropium 0.02% Inhal Soln (0.5 mg/2.5 ml) UD IH SCH ×3 (01:00→13:13)
[2017-12-21] MEDS: Levalbuterol 1.25 MG/3 ML Inhal Soln UD INH SCH ×4 (01:00→16:12)
[2017-12-21 06:40] LABS: HEMOGLOBIN 10.6 g/dL (12.0-16.0); MEAN CELL VOLUME 82.3 fl (81.0-99.0); MEAN CORPUSCULAR HEMOGLOBIN 26.4 pg (27.0-31.0); MEAN CORPUSCULAR HGB CONC 32.1 g/dL (33.0-37.0); RBC 3.99 Mil/uL (3.80-5.20); RED CELL DISTRIBUTION WIDTH 18.9 % (11.5-14.5); WHITE BLOOD COUNT 16.9 K/uL (4.8-10.8)
[2017-12-21] MEDS: MethylPREDNISolone 40 mg Vial IVP SCH (10:00)
--- NOTE | 2017-12-21 11:22 | CP.PCM.DIS ---
Provider - Provider Date of Admission: 12/16/17 02:55 Attending physician: Jefry Hanley Consults: Dr Kenny Time Spent in preparation of Discharge (in minutes): 25 Diagnosis - Discharge Diagnosis (1) Enterococcal bacteremia Status: Acute Comment: continue Zyvox instead of IV Vanco for enterococcal bacteremia for another 14 days (2) C. difficile colitis Status: Acute Comment: continue PO Vanco and PO Flagyl for 2 weeks (3) Anemia Status: Chronic Comment: stable (4) COPD exacerbation Status: Acute Comment: continue Xopenex and Duoneb Hospital Course - Lab Results Lab Results: Micro Results 12/20/17 04:20 Blood Blood Culture - Preliminary NO GROWTH AFTER 24 HOURS 12/17/17 09:00 Stool Stool Culture - Final NO SALMONELLA, SHIGELLA OR CAMPYLOBACTER ISOLATED. 12/16/17 02:10 Blood Blood Culture - Final Enterococcus Faecalis 12/16/17 02:10 Blood Gram Stain - Final 12/16/17 02:14 Blood S.aureus & Coag-Neg Staph PNA FISH - Final 12/16/17 02:14 Blood Blood Culture - Final Enterococcus Faecalis 12/16/17 02:14 Blood Gram Stain - Final 12/16/17 04:43 Urine,Catheterized Urine Culture - Final No Growth (<1,000 CFU/ML) Most Recent Lab Values WBC 16.9 K/uL (4.8-10.8) H D 12/21/17 06:46 RBC 3.99 Mil/uL (3.80-5.20) 12/21/17 06:46 Hgb 10.6 g/dL (12.0-16.0) L 12/21/17 06:46 Hct 32.9 % (34.0-47.0) L 12/21/17 06:46 MCV 82.3 fl (81.0-99.0) 12/21/17 06:46 MCH 26.4 pg (27.0-31.0) L 12/21/17 06:46 MCHC 32.1 g/dL (33.0-37.0) L 12/21/17 06:46 RDW 18.9 % (11.5-14.5) H 12/21/17 06:46 Plt Count 246 K/uL (130-400) 12/21/17 06:46 MPV 9.9 fl (7.2-11.7) 12/20/17 04:20 Neut % (Auto) 94.7 % (50.0-75.0) H 12/20/17 04:20 Lymph % (Auto) 4.2 % (20.0-40.0) L 12/20/17 04:20 [place] % (Auto) 0.8 % (0.0-10.0) 12/20/17 04:20 Eos % (Auto) 0.1 % (0.0-4.0) 12/20/17 04:20 Baso % (Auto) 0.2 % (0.0-2.0) 12/20/17 04:20 Neut # (Auto) 9.2 K/uL (1.8-7.0) H 12/20/17 04:20 Lymph # (Auto) 0.4 K/uL (1.0-4.3) L 12/20/17 04:20 [place] # (Auto) 0.1 K/uL (0.0-0.8) 12/20/17 04:20 Eos # (Auto) 0.0 K/uL (0.0-0.7) 12/20/17 04:20 Baso # (Auto) 0.0 K/uL (0.0-0.2) 12/20/17 04:20 Neutrophils % (Manual) 88 % (42-75) H 12/20/17 04:20 Band Neutrophils % 1 % (0-2) 12/20/17 04:20 Lymphocytes % (Manual) 7 % (20-50) L 12/20/17 04:20 Monocytes % (Manual) 4 % (0-10) 12/20/17 04:20 Basophils % (Manual) 1 % (0-2) 12/16/17 02:22 Platelet Estimate Normal (NORMAL) 12/20/17 04:20 Hypochromasia (manual) Slight 12/18/17 04:20 Poikilocytosis (manual Slight 12/18/17 04:20 Anisocytosis (manual) Slight 12/20/17 04:20 Ovalocytes Slight 12/18/17 04:20 Stomatocytes Slight 12/18/17 04:20 [place] Cells Slight 12/16/17 02:22 Acanthocytes (Spur) Slight 12/16/17 02:22 PT 18.8 Seconds (9.8-13.1) H 12/16/17 02:22 INR 1.7 (0.9-1.2) H 12/16/17 02:22 APTT 21.2 Seconds (25.6-37.1) L 12/16/17 02:22 pCO2 34 mm/Hg (35-45) L 12/16/17 02:16 pO2 74 mm/Hg (30-55) H 12/16/17 04:25 HCO3 26.2 mmol/L (21-28) 12/16/17 02:16 ABG pH 7.47 (7.35-7.45) H 12/16/17 02:16 ABG Total CO2 25.7 mmol/L (22-28) 12/16/17 02:16 ABG O2 Saturation 100.8 % (95-98) H 12/16/17 02:16 ABG Base Excess 1.5 mmol/L (-2.0-3.0) 12/16/17 02:16 He Test Yes 12/16/17 02:16 ABG Potassium 2.7 mmol/L (3.6-5.2) L 12/16/17 02:16 VBG pH 7.42 (7.32-7.43) 12/16/17 04:25 VBG pCO2 36 mmHg (40-60) L 12/16/17 04:25 VBG HCO3 24.3 mmol/L 12/16/17 04:25 VBG Total CO2 24.5 mmol/L (22-28) 12/16/17 04:25 VBG O2 Sat (Calc) 98.9 % (40-65) H 12/16/17 04:25 VBG Base Excess -0.7 mmol/L (0.0-2.0) L 12/16/17 04:25 VBG Potassium 2.5 mmol/L (3.6-5.2) L* 12/16/17 04:25 A-a O2 Difference 86.0 mm/Hg 12/16/17 02:16 Sodium 140.0 mmol/L (132-148) 12/16/17 04:25 Chloride 110.0 mmol/L (98-107) H 12/16/17 04:25 Glucose 209 mg/dL (65-105) H 12/16/17 04:25 Lactate 1.5 mmol/L (0.7-2.1) 12/16/17 04:25 FiO2 50.0 % 12/16/17 04:25 Crit Value Called To Isael parada md 12/16/17 04:25 Crit Value Called By 302 12/16/17 04:25 Crit Value Read Back Y 12/16/17 04:25 Blood Gas Notified Time 431 12/16/17 04:25 Sodium 136 mmol/l (132-148) 12/20/17 04:20 Potassium 4.1 MMOL/L (3.6-5.0) 12/20/17 04:20 Chloride 105 mmol/L (98-107) 12/20/17 04:20 Carbon Dioxide 24 mmol/L (22-30) 12/20/17 04:20 Anion Gap 11 (10-20) 12/20/17 04:20 BUN 19 mg/dl (7-17) H 12/20/17 04:20 Creatinine 0.5 mg/dl (0.7-1.2) L 12/20/17 04:20 Est GFR ( Amer) > 60 12/20/17 04:20 Est GFR (Non-Af Amer) > 60 12/20/17 04:20 POC Glucose (mg/dL) 129 mg/dL (65-110) H 12/21/17 10:53 Random Glucose 215 mg/dL (65-105) H 12/20/17 04:20 Calcium 7.7 mg/dL (8.4-10.2) L 12/20/17 04:20 Phosphorus 3.0 mg/dl (2.5-4.5) 12/20/17 04:20 Magnesium 2.4 MG/DL (1.6-2.3) H 12/18/17 04:20 Total Bilirubin 0.3 mg/dl (0.2-1.3) 12/16/17 02:22 AST 23 U/L (14-36) 12/16/17 02:22 ALT 45 U/L (9-52) 12/16/17 02:22 Alkaline Phosphatase 72 U/L (38-126) 12/16/17 02:22 Troponin I 0.0220 ng/mL (0.00-0.120) 12/16/17 02:22 NT-Pro-B Natriuret Pep 1060 pg/ml (0-900) H 12/16/17 02:22 Total Protein 5.5 G/DL (6.3-8.2) L 12/16/17 02:22 Albumin 2.7 g/dL (3.5-5.0) L 12/16/17 02:22 Globulin 2.7 gm/dL (2.2-3.9) 12/16/17 02:22 Albumin/Globulin Ratio 1.0 (1.0-2.1) 12/16/17 02:22 Procalcitonin 0.19 NG/ML (0.19-0.49) 12/20/17 04:20 Arterial Blood Potassium 2.7 mmol/L (3.6-5.2) L 12/16/17 02:16 Venous Blood Potassium 2.5 mmol/L (3.6-5.2) L* 12/16/17 04:25 Urine Color Yellow (YELLOW) 12/16/17 04:43 Urine Clarity Slighty-cloudy (Clear) 12/16/17 04:43 Urine pH 5.0 (5.0-8.0) 12/16/17 04:43 Ur Specific [place] 1.020 (1.003-1.030) 12/16/17 04:43 Urine Protein 30 mg/dL (NEGATIVE) 12/16/17 04:43 Urine Glucose (UA) Neg mg/dL (Normal) 12/16/17 04:43 Urine Ketones Negative mg/dL (NEGATIVE) 12/16/17 04:43 Urine Blood Negative (NEGATIVE) 12/16/17 04:43 Urine Nitrate Negative (NEGATIVE) 12/16/17 04:43 Urine Bilirubin Negative (NEGATIVE) 12/16/17 04:43 Urine Urobilinogen 0.2-1.0 mg/dL (0.2-1.0) 12/16/17 04:43 Ur Leukocyte Esterase Neg Verna/uL (Negative) 12/16/17 04:43 Urine RBC (Auto) 6 /hpf (0-3) H 12/16/17 04:43 Urine Microscopic WBC 2 /hpf (0-5) 12/16/17 04:43 Ur Squamous Epith Cells 1 /hpf (0-5) 12/16/17 04:43 Vancomycin Trough 9.8 ug/mL (5.0-10.0) 12/18/17 08:22 C. difficile Ag & Toxin Positive antigen (NEGATIVE) 12/17/17 09:00 - Hospital Course Hospital Course: 82 yo female with history of advanced dementia and COPD brought back from group home because of SOB, fever and tachycardia. She was recently hospitalized because of SIRS, anemia and COPD exacerbation. On this last admission, she turned out positive for C Dif. Blood culture was also positive for Enterococcus. She was started on IV and PO Vanco and PO Flagyl. Patient did well and is now ready for discharge to the group home where she came from. IV Vanco was switched to PO Zyvox which she would continue for another 2 weeks. PO Vanco and Flagyl will also need to be continued for another 2 weeks Discharge Exam - Head Exam Head Exam: NORMOCEPHALIC - Eye Exam Eye Exam: absent: Scleral icterus - ENT Exam ENT Exam: Mucous Membranes Moist - Respiratory Exam Respiratory Exam: absent: Rales, Rhonchi, Wheezes, Respiratory Distress - Cardiovascular Exam Cardiovascular Exam: REGULAR RHYTHM, +S1, +S2 - GI/Abdominal Exam GI & Abdominal Exam: Soft. absent: Tenderness - Rectal Exam Rectal Exam: Deferred - Neurological Exam Neurological exam: Altered - Psychiatric Exam Psychiatric exam: Flat Affect - Skin Skin Exam: Dry, Intact Discharge Plan - Discharge Medications Prescriptions: Linezolid [Zyvox] 600 mg PO Q12 14 Days #28 tab metroNIDAZOLE [Flagyl] 500 mg PO Q8 14 Days #42 tab Vancomycin [Vancocin (ORAL OR RECTAL USE)] 125 mg GT Q8 14 Days #210 soln - Follow Up Plan Condition: SERIOUS Disposition: HOME/ ROUTINE
[2017-12-21 12:10] VITALS: RESP 20; O2SAT 98
[2017-12-21 15:40] VITALS: BP 142/63; PULSE 104; TEMP 98.7
== END 2017-12-21 17:30 | DRG 872 ==
LOC: H.ER 01:53 → H.ERHOLD 02:55 → H.TEL 04:51
PROVIDERS: ADMIT Internal Medicine; ATTEND Internal Medicine
DX: A41.81 Sepsis due to Enterococcus (principal); A04.72 Enterocolitis due to Clostridium difficile, not specified as recurrent; J44.1 Chronic obstructive pulmonary disease with (acute) exacerbation; E44.0 Moderate protein-calorie malnutrition; I82.532 Chronic embolism and thrombosis of left popliteal vein; I82.512 Chronic embolism and thrombosis of left femoral vein; E87.6 Hypokalemia; G30.9 Alzheimer's disease, unspecified; F02.80 Dementia in other diseases classified elsewhere, unspecified severity, without behavioral disturbance, psychotic disturbance, mood disturbance, and anxiety; E86.0 Dehydration; E78.5 Hyperlipidemia, unspecified; K29.70 Gastritis, unspecified, without bleeding; E78.00 Pure hypercholesterolemia, unspecified; F32.9 Major depressive disorder, single episode, unspecified; I10 Essential (primary) hypertension; F41.9 Anxiety disorder, unspecified; Z66 Do not resuscitate; M19.90 Unspecified osteoarthritis, unspecified site; Z87.891 Personal history of nicotine dependence; R73.9 Hyperglycemia, unspecified; D64.9 Anemia, unspecified; Z93.1 Gastrostomy status; E83.39 Other disorders of phosphorus metabolism; Z79.01 Long term (current) use of anticoagulants; L89.620 Pressure ulcer of left heel, unstageable; L89.610 Pressure ulcer of right heel, unstageable; L89.159 Pressure ulcer of sacral region, unspecified stage

== ENCOUNTER 2018-03-09 14:55 | Inpatient (IN) | payer MEDICARE, MEDICAID ==
[2018-03-09 14:55] VITALS: BMI 20.5
--- NOTE | 2018-03-09 15:54 | ED PDOC ---
HPI: General Adult Time Seen by Provider: 03/09/18 15:22 Chief Complaint (Nursing): GI Problem Chief Complaint (Provider): GI Problem History Per: Patient History/Exam Limitations: no limitations Onset/Duration Of Symptoms: Days Additional Complaint(s): 83 y/o female with a PMHx of Alzheimer's Disease, Anemia, Anxiety, Arthritis, Asthma. COPD, CVA, Dementia, Depression, Dysphagia, Gractures, Gastritis, PEG, HTN, Hypercholesterolemia and Hyperlipidemia sent to the ED from long term for examination of a G-Tube Dislodgment, onset earlier today. Patient is a limited historian due to Dementia and CVA. History obtained from long term report, previous medical record and family members (daughters) at bedside. Daughters report G-Tube came out sometime earlier today and that the patient was sent here to have it put in place. Daughters also reports of seeing the patient every day and that the patient was doing well yesterday and is doing well today. No reports of dyspnea, vomiting and fever from the long term or from the family. PMD: Dr. Rivas. (However, according to the chart PMD as of earlier this year is Dr. Ward) Past Medical History Reviewed: Historical Data, Nursing Documentation, Vital Signs Vital Signs: Last Vital Signs Temp 98.8 F 03/10/18 16:34 Pulse 103 H 03/10/18 16:34 Resp 20 03/10/18 16:34 BP 123/65 03/10/18 16:34 Pulse Ox 99 03/10/18 20:00 - Medical History PMH: Alzheimer's Disease, Anemia, Anxiety, Arthritis, Asthma, COPD, Dementia, Depression, Fractures (Right wrist fx (16 yrs ago)), Gastritis, HTN, Hypercholesterolemia, Hyperlipidemia Denies: CHF, HIV, Hypothyroidism, Chronic Kidney Disease, Rheumatoid Arthritis - Surgical History Other surgeries: G-Tube PEG - Family History Family History: States: Unknown Family Hx - Living Arrangements Living Ar[facility]ements: [facility] - Home Medications Home Medications: Ambulatory Orders Medication Instructions Recorded Rosuvastatin Calcium [Crestor] 5 mg PEG HS 03/03/15 Acetaminophen [Tylenol 325mg tab] 650 mg PEG Q4 PRN 12/16/17 Apixaban [Eliquis] 2.5 mg PEG BID 12/16/17 Bismuth Subsalicylate [Kaopectate] 30 ml PEG Q4 PRN 12/16/17 Esomeprazole Magnesium [Nexium] 40 mg PEG DAILY 12/16/17 Insulin Lispro [humALOG] See Protocol SC QID 12/16/17 Memantine [Namenda] 5 mg PEG DAILY 12/16/17 PARoxetine [Paxil] 5 mg PEG DAILY 12/16/17 Bacitracin OINT [Bacitracin OINT] 1 appl TOP DAILY 03/09/18 Clotrimazole/Betamethasone 1 appl TOP DAILY 03/09/18 [Lotrisone] Ipratropium 0.02% [Atrovent] 2.5 ml IH Q6 03/09/18 Levalbuterol [Xopenex] 3 ml IH Q6 03/09/18 Miconazole Nitrate [Critic-Aid 1 appl TOP QSHIFT 03/09/18 Clear AF] Multivitamin [My Favorite Multiple] 5 ml PEG DAILY 03/09/18 Zinc Oxide/Cl-Xylenol/Petrolat 1 appl TOP QSHIFT 03/09/18 [Perishield Ointment] - Allergies Allergies/Adverse Reactions: Allergies Allergy/AdvReac Type Severity Reaction Status Date / Time No Known Allergies Allergy Verified 12/01/17 10:05 Review of Systems ROS Statement: Except As Marked, All Systems Reviewed And Found Negative Constitutional: Positive for: Other (G-Tube Dislodgment). Negative for: Fever Respiratory: Negative for: Other (Dyspnea) Gastrointestinal: Negative for: Vomiting Physical Exam - Reviewed Nursing Documentation Reviewed: Yes Vital Signs Reviewed: Yes - Physical Exam Appears: Positive for: No Acute Distress (Comfortable but chronically ill) Head Exam: Positive for: ATRAUMATIC, NORMOCEPHALIC Eye Exam: Positive for: Normal appearance, EOMI, PERRL ENT: Positive for: Normal ENT Inspection Neck: Positive for: Normal Cardiovascular/Chest: Positive for: Regular Rate, Rhythm. Negative for: Murmur Respiratory: Negative for: Normal Breath Sounds (Coarse breath sounds bilaterally), Respiratory Distress Gastrointestinal/Abdominal: Positive for: Normal Exam, Soft, Other (Gastrostomy site present. No bleeding, redness or discharge. No G-Tube present). Negative for: Tenderness Extremity: Positive for: Normal ROM Neurologic/Psych: Positive for: Alert, Oriented (x1 at baseline due to Dementia) , Aphasia (at baseline) - Laboratory Results Result Diagrams: 03/09/18 18:18 03/09/18 18:18 - ECG O2 Sat by Pulse Oximetry: 99 (RA) Pulse Ox Interpretation: Normal Medical Decision Making Medical Decision Making: Time: 1530 Impression: G-Tube Dislodgment Plan: -- Replacement of G-Tube (if unable to replace, will possibly for GI Consult) -- XR 1700 Discussed the case with GI Fellow covering for Dr Kim. GI will be on consult. Scribe Attestation: Documented by Delbert Sanford, acting as a scribe for Dr. Cuauhtemoc Thompson MD. Provider Scribe Attestation: All medical record entries made by the Scribe were at my direction and personally dictated by me. I have reviewed the chart and agree that the record accurately reflects my personal performance of the history, physical exam, medical decision making, and the department course for this patient. I have also personally directed, reviewed, and agree with the discharge instructions and disposition. Procedures - Additional Procedures Additional Procedures: gastric tube replacement Progress: Procedure: G-Tube Replacement -- Attempted 8 inch G-Tube to be introduced to the Gastrostomy incision. Tube partially inserted. Tube did not successfully insert all the way. However, there were no complications and patient tolerated procedure well. -- Due to incomplete insertion of the G-Tube, there are concerns for its functionality. XR to be administered and GI consult to be placed. Disposition - Clinical Impression Clinical Impression: PEG tube malfunction - Patient ED Disposition Is Patient to be Admitted: Yes Discussed With DrDelilah: Preet Rivas Counseled Patient/Family Regarding: Studies Performed, Diagnosis - Disposition Disposition Time: 17:30 Condition: FAIR - Pt Status Changed To: Hospital Disposition Of: Observation - POA Present On Arrival: Pressure Ulcer (sacruam stage 1)
[2018-03-09] MEDS ORDERED: Sodium Chloride 0.9% 1,000 ML IV STA (17:34)
[2018-03-09 18:34] LABS: BLOOD UREA NITROGEN 23 mg/dl (7-17); CALCIUM 9.1 mg/dL (8.4-10.2); GFR NON-AFRICAN AMERICAN > 60
[2018-03-09 18:36] LABS: BASO % 0.4 % (0.0-2.0); EOS # 0.3 K/uL (0.0-0.7); EOS % 3.7 % (0.0-4.0); LYMPH # 1.1 K/uL (1.0-4.3); LYMPH % 12.6 % (20.0-40.0); MEAN CELL VOLUME 86.3 fl (81.0-99.0); MEAN CORPUSCULAR HEMOGLOBIN 27.5 pg (27.0-31.0); MEAN CORPUSCULAR HGB CONC 31.9 g/dL (33.0-37.0); MEAN PLATELET VOLUME 9.2 fl (7.2-11.7); MONO # 0.4 K/uL (0.0-0.8); MONO % 4.2 % (0.0-10.0); NEUT # 7.1 K/uL (1.8-7.0); NEUT % 79.1 % (50.0-75.0); NRBC % 0.2 % (0.0-0.0); RBC 4.71 Mil/uL (3.80-5.20); RED CELL DISTRIBUTION WIDTH 18.1 % (11.5-14.5)
[2018-03-09] MEDS: Dextrose 5%/0.45% NS 1,000 ML IV SCH (22:50)
[2018-03-10] MEDS: Levalbuterol 1.25 MG/3 ML Inhal Soln UD INH SCH ×4 (01:27→19:05)
--- NOTE | 2018-03-10 07:24 | CP.PCM.CON ---
<Williams Aldrich - Last Filed: 03/10/18 08:32> History of Present Illness - History of Present Illness History of Present Illness: PGY-4 GI Fellow Consult Note Mrs. Sutton is a 83 yo F with h/o Alz Dementia and CVA (s/p PEG), COPD, LA-B Esophagitis, Hiatal Hernia, h/o DVT on apixaban presenting from senior living with reported PEG tube dislodgment. Pt is non-verbal; therefore, all information obtained from chart review and medical staff. Pt originally had PEG placed on 12/12/17 for persistent dysphagia. Pt was in rehab when the PEG was noticed to be out in the AM of 03/09/18. It is unclear when the tube initially fell out. Patient reportedly seemed and continues to be in her baseline health. After attempted replacement of PEG was unsuccesful in ED, pt was admitted with GI consult. Unable to obtain ROS due to clinical condition PMH: advanced dementia, COPD, former heavy smoker PSH: metal plate in hand, knee sx FH: unknown SH: former heavy smoker. no ETOH, IVDU Endo Hx: EGD 2014 esopahgitis, hitial hernia Past Patient History - Infectious Disease Hx of Infectious Diseases: None - Tetanus Immunizations Tetanus Immunization: Unknown (quit 5 yrs ago; used to smoke 2 PPD) - Past Medical History & Family History Past Medical History?: Yes - Past Social History Smoking Status: Never Smoked - CARDIAC Hx Cardiac Disorders: Yes Hx Hypercholesterolemia: Yes Hx Hypertension: Yes - PULMONARY Hx Respiratory Disorders: Yes Hx Asthma: Yes Hx Chronic Obstructive Pulmonary Disease (COPD): Yes - NEUROLOGICAL Hx Neurological Disorder: Yes Hx Alzheimer's Disease: Yes HX Cerebrovascular Accident: Yes - HEENT Hx HEENT Problems: No - RENAL Hx Chronic Kidney Disease: No - ENDOCRINE/METABOLIC Hx Endocrine Disorders: Yes Hx Diabetes Mellitus Type 2: Yes - HEMATOLOGICAL/ONCOLOGICAL Hx Blood Disorders: Yes Hx Anemia: Yes - INTEGUMENTARY Hx Dermatological Problems: No - MUSCULOSKELETAL/RHEUMATOLOGICAL Hx Musculoskeletal Disorders: Yes Hx Arthritis: Yes Hx Falls: Yes - GASTROINTESTINAL Hx Gastrointestinal Disorders: Yes Hx Gastritis: Yes - GENITOURINARY/GYNECOLOGICAL Hx Genitourinary Disorders: Yes Hx Incontinence: Yes - PSYCHIATRIC Hx Psychophysiologic Disorder: Yes Hx Anxiety: Yes Hx Substance Use: No - SURGICAL HISTORY Hx Surgeries: Yes Hx Open Reduction Internal Fixation: Yes (right wrist fracture) Hx Orthopedic Surgery: Yes Other/Comment: right wrist surgery with metal plate, left knee mass removal years ago. PEG insertion - ANESTHESIA Hx Anesthesia: Yes Hx Anesthesia Reactions: No Hx Malignant Hyperthermia: No Has any member of the family had a problem w/ anesthesia?: No Meds Allergies/Adverse Reactions: Allergies Allergy/AdvReac Type Severity Reaction Status Date / Time No Known Allergies Allergy Verified 12/01/17 10:05 - Medications Medications: Current Medications Enoxaparin Sodium (Lovenox) 40 mg SC DAILY LAMINE PRN Reason: Protocol Dextrose/Sodium Chloride (Dextrose 5%/0.45% Ns 1000 Ml) 1,000 mls @ 80 mls/hr IV .[id number] LAMINE Stop: 03/10/18 22:35 Last Admin: 03/09/18 22:50 Dose: 80 mls/hr Levalbuterol HCl (Xopenex) 1.25 mg INH RQ6 LAMINE Last Admin: 03/10/18 01:27 Dose: 1.25 mg Levalbuterol HCl (Xopenex) 1.25 mg IH Q6 LAMINE Pantoprazole Sodium (Protonix Inj) 40 mg IVP DAILY [facility] Physical Exam - Constitutional Appears: No Acute Distress, Confused, Cachectic, Chronically Ill - Head Exam Head Exam: ATRAUMATIC, NORMAL INSPECTION - Eye Exam Eye Exam: EOMI. absent: Conjunctival injection, Scleral icterus - ENT Exam ENT Exam: Mucous Membranes Dry. absent: Mucous Membranes Moist, Normal External Ear Exam - Respiratory Exam Respiratory Exam: Wheezes, NORMAL BREATHING PATTERN. absent: Respiratory Distress - Cardiovascular Exam Cardiovascular Exam: REGULAR RHYTHM, RRR - GI/Abdominal Exam GI & Abdominal Exam: Normal Bowel Sounds, Soft. absent: Bruit, Diminished Bowel Sounds, Distended, Firm, Guarding, Tenderness Additional comments: PEG minimally in fistula track with serosang liquid around opening, no sig erythema - Extremities Exam Extremities exam: Positive for: normal inspection. Negative for: pedal edema - Neurological Exam Neurological exam: Alert Additional comments: mumbles, not speaking loudly - Skin Skin Exam: Normal Color, Warm Results - Vital Signs Recent Vital Signs: Last Vital Signs Temp 98.5 F 03/09/18 23:53 Pulse 90 03/10/18 01:31 Resp 20 03/09/18 23:53 BP 115/64 03/09/18 23:53 Pulse Ox 98 08/24/18 23:53 - Labs Result Diagrams: 03/09/18 18:18 03/09/18 18:18 Labs: Laboratory Results - last 24 hr 03/09/18 03/09/18 03/09/18 18:18 18:18 20:44 WBC 9.0 RBC 4.71 Hgb 13.0 D Hct 40.7 MCV 86.3 D MCH 27.5 MCHC 31.9 L RDW 18.1 H Plt Count 205 MPV 9.2 Neut % (Auto) 79.1 H Lymph % (Auto) 12.6 L [place] % (Auto) 4.2 Eos % (Auto) 3.7 Baso % (Auto) 0.4 Neut # (Auto) 7.1 H Lymph # (Auto) 1.1 [place] # (Auto) 0.4 Eos # (Auto) 0.3 Baso # (Auto) 0.0 Sodium 137 Potassium 4.7 Chloride 103 Carbon Dioxide 26 Anion Gap 13 BUN 23 H Creatinine 0.4 L Est GFR ( Amer) > 60 Est GFR (Non-Af Amer) > 60 POC Glucose (mg/dL) 94 Random Glucose 104 Calcium 9.1 03/09/18 03/10/18 21:59 05:29 WBC RBC Hgb Hct MCV MCH MCHC RDW Plt Count MPV Neut % (Auto) Lymph % (Auto) [place] % (Auto) Eos % (Auto) Baso % (Auto) Neut # (Auto) Lymph # (Auto) [place] # (Auto) Eos # (Auto) Baso # (Auto) Sodium Potassium Chloride Carbon Dioxide Anion Gap BUN Creatinine Est GFR ( Amer) Est GFR (Non-Af Amer) POC Glucose (mg/dL) 96 111 H Random Glucose Calcium Assessment & Plan - Assessment and Plan (Free Text) Assessment: 83 yo Hisp Female with h/o Dementia, CVA s/p PEG placement on 12/12/17 presenting from senior living with removed PEG. # PEG dislodgment: Unclear how long PEG was acually out. Nonetheless, PEG was unable to be replaced this last night and this AM. Tube removed this AM. Will need replacement endoscopicallly. # H/o LA-B Esophagitis, Hiatal Hernia: On PPI # H/o CVA, DVT: On apixaban, last dose suspected 03/08/18 Plan: - Plan for endoscopic PEG replacement on 03/12/18 --- Need time for apixaban to wash out - OK for lovenox ppx tonight, though hold evening of 03/11 - Cont IVF with D5 containing fluids - Need to discuss PEG replacement with daughter, will plan to call later today - Cont NPO - Cont PPI IV <DennySenCiro Y - Last Filed: 03/10/18 12:29> Meds - Medications Medications: Current Medications Enoxaparin Sodium (Lovenox) 40 mg SC DAILY LAMINE PRN Reason: Protocol Dextrose/Sodium Chloride (Dextrose 5%/0.45% Ns 1000 Ml) 1,000 mls @ 80 mls/hr IV .[id number] LAMINE Stop: 03/10/18 22:35 Last Admin: 03/09/18 22:50 Dose: 80 mls/hr Levalbuterol HCl (Xopenex) 1.25 mg INH RQ6 LAMINE Last Admin: 03/10/18 07:55 Dose: 1.25 mg Levalbuterol HCl (Xopenex) 1.25 mg IH Q6 LAMINE Pantoprazole Sodium (Protonix Inj) 40 mg IVP DAILY [facility] Last Admin: 03/10/18 08:55 Dose: 40 mg Results - Vital Signs Recent Vital Signs: Last Vital Signs Temp 98.1 F 03/10/18 08:53 Pulse 98 H 03/10/18 08:53 Resp 20 03/10/18 08:53 BP 122/56 L 03/10/18 08:53 Pulse Ox 94 L 03/10/18 08:53 - Labs Result Diagrams: 03/09/18 18:18 03/09/18 18:18 Labs: Laboratory Results - last 24 hr 03/09/18 03/09/18 03/09/18 18:18 18:18 20:44 WBC 9.0 RBC 4.71 Hgb 13.0 D Hct 40.7 MCV 86.3 D MCH 27.5 MCHC 31.9 L RDW 18.1 H Plt Count 205 MPV 9.2 Neut % (Auto) 79.1 H Lymph % (Auto) 12.6 L [place] % (Auto) 4.2 Eos % (Auto) 3.7 Baso % (Auto) 0.4 Neut # (Auto) 7.1 H Lymph # (Auto) 1.1 [place] # (Auto) 0.4 Eos # (Auto) 0.3 Baso # (Auto) 0.0 PT INR APTT Sodium 137 Potassium 4.7 Chloride 103 Carbon Dioxide 26 Anion Gap 13 BUN 23 H Creatinine 0.4 L Est GFR ( Amer) > 60 Est GFR (Non-Af Amer) > 60 POC Glucose (mg/dL) 94 Random Glucose 104 Calcium 9.1 03/09/18 03/10/18 03/10/18 21:59 05:29 09:00 WBC RBC Hgb Hct MCV MCH MCHC RDW Plt Count MPV Neut % (Auto) Lymph % (Auto) [place] % (Auto) Eos % (Auto) Baso % (Auto) Neut # (Auto) Lymph # (Auto) [place] # (Auto) Eos # (Auto) Baso # (Auto) PT 12.8 INR 1.2 APTT 30.3 Sodium Potassium Chloride Carbon Dioxide Anion Gap BUN Creatinine Est GFR ( Amer) Est GFR (Non-Af Amer) POC Glucose (mg/dL) 96 111 H Random Glucose Calcium 03/10/18 11:06 WBC RBC Hgb Hct MCV MCH MCHC RDW Plt Count MPV Neut % (Auto) Lymph % (Auto) [place] % (Auto) Eos % (Auto) Baso % (Auto) Neut # (Auto) Lymph # (Auto) [place] # (Auto) Eos # (Auto) Baso # (Auto) PT INR APTT Sodium Potassium Chloride Carbon Dioxide Anion Gap BUN Creatinine Est GFR ( Amer) Est GFR (Non-Af Amer) POC Glucose (mg/dL) 125 H Random Glucose Calcium Attending/Attestation - Attestation I have personally seen and examined this patient.: Yes I have fully participated in the care of the patient.: Yes I have reviewed all pertinent clinical information: Yes Notes (Text): 03/10/18 12:24 I have seen and examined patient with GI fellow. Agree with above documentation with the following additions. In brief, this is an 83 year old female with history of dementia, CVA, COPD, DVT on apixiban, dysphagia s/p PEG placement in November 2017 who is sent from nursing facility for feeding tube dislodgement. She is not able to participate in meaningful conversation, additional information obtained via discussion with nursing staff, chart review , and discussion with patient family members. There is no reported abdominal pain, nausea, vomiting, fever/chills. Review of vitals from today are normal. Additional physical examination: Abdomen: no palpable hepato/splenomegaly Dementia CVA COPD DVT on apixiban (held) Dysphagia s/p PEG with recent dislodgement - Continue with supportive care, suggest dextrose supplemented IVF hydration - Patient will eventually require feeding tube replacement via endoscopic approach given complete dislodgement of gastrostomy tube - Will need to have detailed discussion with patient family members regarding risks/benefits of procedure - Will continue to monitor patient clinical course
[2018-03-10] MEDS ORDERED: Levalbuterol 1.25 MG/3 ML Inhal Soln UD IH SCH (10:00)
[2018-03-10 10:12] LABS: INR 1.2; PROTHROMBIN TIME 12.8 Seconds (9.8-13.1)
[2018-03-10 10:13] LABS: PARTIAL THROMBOPLASTIN TIME 30.3 Seconds (25.6-37.1)
[2018-03-10] MEDS: levoFLOXacin 500 mg in D5W 500 MG/100 ML BAG IVPB SCH (15:36)
[2018-03-10] MEDS: Enoxaparin 40 mg Syringe SC SCH (15:36)
[2018-03-10] MEDS: Dextrose 5%/0.45% NS 1,000 ML IV SCH (15:37)
--- NOTE | 2018-03-10 16:23 | RAD ---
Date of service: 03/09/2018 HISTORY: gtube placement COMPARISON: No prior. FINDINGS: BOWEL: G-tube is present with tip seen overlying the left mid abdomen. No evidence of acute mechanical bowel obstruction. 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 IMPRESSION: In situ G-tube. No obstruction seen.
--- NOTE | 2018-03-10 23:22 | HP ---
Copied To: Preet Rivas MD Attending MD: Preet Rivas MD HISTORY OF PRESENT ILLNESS: Ms. 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 She resides at [facility] and accidentally had her PEG pulled out. [facility] because of area of erythema and discharge from the PEG site and attempts in the emergency room were unsuccessful because it was difficult to advance the PEG tube. She was, therefore,admitted for therapy of infected PEG site and attempts to replace the PEG once the infected site is resolved. FAMILY HISTORY: Unremarkable. SOCIAL HISTORY: She resides at [facility]. She is a former smoker. Does not use drugs or use alcohol. REVIEW OF SYSTEMS: Essentially remarkable for recurrent upper respiratory tract infection and pneumonia with urinary tract infection. PHYSICAL EXAMINATION: GENERAL: The patient is only responsive to touch and painful stimuli. She is nonverbal. VITAL SIGNS: Remarkable for blood pressure of 122/56 with pulse of 98, respiratory rate 20, she is afebrile, and O2 saturations 94% on room air. SKIN: Shows fair turgor. HEENT: Pupils equal and reactive to light and accommodation. Mouth shows fair hygiene. NECK: JVP flat. LUNGS: Clear. HEART: Regular. No murmurs or gallop. ABDOMEN: Soft with area of erythema around the PEG site with mild discharge. There are normoactive bowel sounds. EXTREMITIES: No edema or cyanosis. CENTRAL NERVOUS SYSTEM: The patient is noncommunicative, status post cerebrovascular accident. Responds to painful stimuli. LABORATORY DATA: Remarkable for WBC of 9, hemoglobin of 13, and platelet count of 205,000. PT 12.8 and INR 1.2. Sodium 137, potassium 4.7, BUN 23, creatinine 0.4, and serum glucose 125. IMPRESSION: Dislodged feeding tube, infected percutaneous endoscopic gastrostomy tube site, history of cerebrovascular accident, history of deep venous thrombosis of lower extremities, and history of chronic obstructive pulmonary disease, stable. PLAN: Intravenous antibiotics. Replacement of PEG tube. Continue with therapy as ordered. The patient is to be discharged back to [facility] once PEG tube is replaced. Preet Rivas MD [facility] # [id number]
[2018-03-11] MEDS: Levalbuterol 1.25 MG/3 ML Inhal Soln UD INH SCH ×4 (01:05→19:34)
[2018-03-11] MEDS: Enoxaparin 40 mg Syringe SC SCH (08:16)
[2018-03-11] MEDS: levoFLOXacin 500 mg in D5W 500 MG/100 ML BAG IVPB SCH (08:18)
--- NOTE | 2018-03-11 10:29 | CP.PCM.PN ---
Subjective - Date & Time of Evaluation Date of Evaluation: 03/11/18 Time of Evaluation: 10:29 - Subjective Subjective: NO APPARENT DISTRESS VSS Objective - Vital Signs/Intake and Output Vital Signs (last 24 hours): Temp Pulse Resp BP Pulse Ox 97.9 F 104 H 20 112/51 L 94 L 03/11/18 08:47 03/11/18 08:47 03/11/18 08:47 03/11/18 08:47 03/11/18 08:47 - Medications Medications: Current Medications Enoxaparin Sodium (Lovenox) 40 mg SC DAILY [facility] PRN Reason: Protocol Last Admin: 03/11/18 08:16 Dose: Not Given Levofloxacin/Dextrose (Levaquin 500mg) 500 mg in 100 mls @ 100 mls/hr IVPB DAILY [facility] PRN Reason: Protocol Last Admin: 03/11/18 08:18 Dose: 100 mls/hr Levalbuterol HCl (Xopenex) 1.25 mg INH RQ6 [facility] Last Admin: 03/11/18 07:09 Dose: 1.25 mg Levalbuterol HCl (Xopenex) 1.25 mg IH Q6 [facility] Pantoprazole Sodium (Protonix Inj) 40 mg IVP DAILY [facility] Last Admin: 03/11/18 08:16 Dose: 40 mg - Labs Labs: 03/09/18 18:18 03/09/18 18:18 PT 12.8 Seconds (9.8-13.1) 03/10/18 09:00 INR 1.2 03/10/18 09:00 APTT 30.3 Seconds (25.6-37.1) 03/10/18 09:00 - Constitutional Appears: No Acute Distress - Head Exam Head Exam: ATRAUMATIC, NORMAL INSPECTION, NORMOCEPHALIC - Eye Exam Eye Exam: EOMI, Normal appearance, PERRL Pupil Exam: NORMAL ACCOMODATION, PERRL - ENT Exam ENT Exam: Mucous Membranes Moist, Normal Exam - Neck Exam Neck Exam: Full ROM, Normal Inspection. absent: Lymphadenopathy - Respiratory Exam Respiratory Exam: Clear to Ausculation Bilateral, NORMAL BREATHING PATTERN - Cardiovascular Exam Cardiovascular Exam: REGULAR RHYTHM, +S1, +S2. absent: Murmur - GI/Abdominal Exam GI & Abdominal Exam: Soft, Normal Bowel Sounds. absent: Tenderness Additional comments: PEG SITE CLEAN AND DRY - Rectal Exam Rectal Exam: NORMAL INSPECTION - Extremities Exam Extremities Exam: Full ROM, Normal Capillary Refill, Normal Inspection. absent : Joint Swelling, Pedal Edema - Back Exam Back Exam: NORMAL INSPECTION - Neurological Exam Neurological Exam: Alert, Awake, CN II-XII Intact - Psychiatric Exam Psychiatric exam: Normal Affect, Normal Mood - Skin Skin Exam: Dry, Intact, Normal Color, Warm Assessment and Plan - Assessment and Plan (Free Text) Assessment: DISLODGED PEG WITH INFECTED PEG SITE S/P CVA HX OF DVT DEMENTIA Plan: D/C LOVENOX FOR PEG REPLACEMENT IN AM
--- NOTE | 2018-03-11 11:04 | CP.PCM.PN ---
Subjective - Date & Time of Evaluation Date of Evaluation: 03/11/18 Time of Evaluation: 10:59 - Subjective Subjective: Patient seen and examined, resting in bed comfortably. No acute events overnight. As per nursing staff, no reported abdominal pain, nausea, vomiting, fever/chills. She remains NPO. Review of systems not able to be performed secondary to patient dementia. Objective - Vital Signs/Intake and Output Vital Signs (last 24 hours): Temp Pulse Resp BP Pulse Ox 97.9 F 104 H 20 112/51 L 94 L 03/11/18 08:47 03/11/18 08:47 03/11/18 08:47 03/11/18 08:47 03/11/18 08:47 - Medications Medications: Current Medications Levofloxacin/Dextrose (Levaquin 500mg) 500 mg in 100 mls @ 100 mls/hr IVPB DAILY [facility] PRN Reason: Protocol Last Admin: 03/11/18 08:18 Dose: 100 mls/hr Levalbuterol HCl (Xopenex) 1.25 mg INH RQ6 [facility] Last Admin: 03/11/18 07:09 Dose: 1.25 mg Levalbuterol HCl (Xopenex) 1.25 mg IH Q6 [facility] Last Admin: 03/11/18 10:29 Dose: Not Given Pantoprazole Sodium (Protonix Inj) 40 mg IVP DAILY [facility] Last Admin: 03/11/18 08:16 Dose: 40 mg - Labs Labs: 03/09/18 18:18 03/09/18 18:18 PT 12.8 Seconds (9.8-13.1) 03/10/18 09:00 INR 1.2 03/10/18 09:00 APTT 30.3 Seconds (25.6-37.1) 03/10/18 09:00 - Constitutional Appears: Non-toxic, No Acute Distress - Head Exam Head Exam: NORMAL INSPECTION - Eye Exam Eye Exam: EOMI, Normal appearance - ENT Exam ENT Exam: Mucous Membranes Moist - Respiratory Exam Respiratory Exam: Clear to Ausculation Bilateral - Cardiovascular Exam Cardiovascular Exam: +S1, +S2 - GI/Abdominal Exam GI & Abdominal Exam: Soft, Normal Bowel Sounds Additional comments: non tender to palpation in four quadrants - Extremities Exam Extremities Exam: Normal Inspection - Skin Skin Exam: Dry, Intact, Normal Color, Warm Assessment and Plan - Assessment and Plan (Free Text) Assessment: Dementia CVA Dysphagia s/p PEG with recent dislodgment of gastrostomy tube DVT on eliquis (held) COPD Plan: - NPO - Continue with IVF hydration therapy - Will need to discuss with patient's family members regarding risks/benefits of potential endoscopic PEG replacement. If family agreeable, will plan for procedure tomorrow with Dr. Mcdowell.
[2018-03-12] MEDS: Levalbuterol 1.25 MG/3 ML Inhal Soln UD INH SCH ×4 (01:01→19:12)
[2018-03-12] MEDS: Dextrose 5%/0.45% NS 500 ML IV SCH ×2 (01:43→21:00)
[2018-03-12] MEDS: levoFLOXacin 500 mg in D5W 500 MG/100 ML BAG IVPB SCH (08:43)
--- NOTE | 2018-03-12 08:44 | CP.PCM.PN ---
Subjective - Date & Time of Evaluation Date of Evaluation: 03/12/18 Time of Evaluation: 08:45 - Subjective Subjective: comfortable no apparent distress Objective - Vital Signs/Intake and Output Vital Signs (last 24 hours): Temp Pulse Resp BP Pulse Ox 97.5 F L 86 18 112/61 97 03/12/18 08:11 03/12/18 08:11 03/12/18 08:11 03/12/18 08:11 03/12/18 08:11 - Medications Medications: Current Medications Levofloxacin/Dextrose (Levaquin 500mg) 500 mg in 100 mls @ 100 mls/hr IVPB DAILY [facility] PRN Reason: Protocol Last Admin: 03/11/18 08:18 Dose: 100 mls/hr Dextrose/Sodium Chloride (Dextrose 5%/0.45% Ns 1000 Ml) 500 mls @ 80 mls/hr IV .Q6H15M [facility] Last Admin: 03/12/18 01:43 Dose: 80 mls/hr Levalbuterol HCl (Xopenex) 1.25 mg INH RQ6 [facility] Last Admin: 03/12/18 07:23 Dose: 1.25 mg Pantoprazole Sodium (Protonix Inj) 40 mg IVP DAILY [facility] Last Admin: 03/11/18 08:16 Dose: 40 mg - Labs Labs: 03/09/18 18:18 03/09/18 18:18 PT 12.8 Seconds (9.8-13.1) 03/10/18 09:00 INR 1.2 03/10/18 09:00 APTT 30.3 Seconds (25.6-37.1) 03/10/18 09:00 - Constitutional Appears: Confused, Chronically Ill - Head Exam Head Exam: ATRAUMATIC, NORMAL INSPECTION, NORMOCEPHALIC - Eye Exam Eye Exam: EOMI, Normal appearance, PERRL Pupil Exam: NORMAL ACCOMODATION, PERRL - ENT Exam ENT Exam: Mucous Membranes Moist, Normal Exam - Neck Exam Neck Exam: Full ROM, Normal Inspection. absent: Lymphadenopathy - Respiratory Exam Respiratory Exam: Clear to Ausculation Bilateral, NORMAL BREATHING PATTERN - Cardiovascular Exam Cardiovascular Exam: REGULAR RHYTHM, +S1, +S2. absent: Murmur - GI/Abdominal Exam GI & Abdominal Exam: Soft, Normal Bowel Sounds. absent: Tenderness Additional comments: gtt site clean and dry - Rectal Exam Rectal Exam: NORMAL INSPECTION - Extremities Exam Extremities Exam: Full ROM, Normal Capillary Refill, Normal Inspection. absent : Joint Swelling, Pedal Edema - Back Exam Back Exam: NORMAL INSPECTION - Neurological Exam Neurological Exam: Alert, Awake, CN II-XII Intact - Skin Skin Exam: Dry, Intact, Normal Color, Warm Assessment and Plan - Assessment and Plan (Free Text) Assessment: dislodged gtt cellulitis of abd wall resolved s/p cva dementia Plan: for gtt replacement d/c back to [facility] once peg is completed
--- NOTE | 2018-03-12 10:29 | CP.PCM.PN ---
Subjective - Date & Time of Evaluation Date of Evaluation: 03/12/18 Time of Evaluation: 10:29 - Subjective Subjective: GI Fellow PGY4, progress note. Patient seen and examined at bedside. No acute overnight events. Daughter is at bedside, requesting PEG to be replaced. Risks and benefit discussed. Unable to obtain 12pt ROS due to dementia. Objective - Vital Signs/Intake and Output Vital Signs (last 24 hours): Temp Pulse Resp BP Pulse Ox 97.5 F L 86 18 112/61 97 03/12/18 08:11 03/12/18 08:11 03/12/18 08:11 03/12/18 08:11 03/12/18 08:11 - Medications Medications: Current Medications Levofloxacin/Dextrose (Levaquin 500mg) 500 mg in 100 mls @ 100 mls/hr IVPB DAILY [facility] PRN Reason: Protocol Last Admin: 03/12/18 08:43 Dose: 100 mls/hr Dextrose/Sodium Chloride (Dextrose 5%/0.45% Ns 1000 Ml) 500 mls @ 80 mls/hr IV .Q6H15M [facility] Last Admin: 03/12/18 01:43 Dose: 80 mls/hr Levalbuterol HCl (Xopenex) 1.25 mg INH RQ6 [facility] Last Admin: 03/12/18 07:23 Dose: 1.25 mg Pantoprazole Sodium (Protonix Inj) 40 mg IVP DAILY [facility] Last Admin: 03/12/18 08:43 Dose: 40 mg - Labs Labs: 03/09/18 18:18 03/09/18 18:18 PT 12.8 Seconds (9.8-13.1) 03/10/18 09:00 INR 1.2 03/10/18 09:00 APTT 30.3 Seconds (25.6-37.1) 03/10/18 09:00 - Constitutional Appears: No Acute Distress, Chronically Ill - Head Exam Head Exam: ATRAUMATIC, NORMAL INSPECTION - Eye Exam Eye Exam: EOMI, Normal appearance - ENT Exam ENT Exam: Mucous Membranes Moist - Respiratory Exam Respiratory Exam: Clear to Ausculation Bilateral, NORMAL BREATHING PATTERN. absent: Wheezes - Cardiovascular Exam Cardiovascular Exam: REGULAR RHYTHM, +S1, +S2 - GI/Abdominal Exam GI & Abdominal Exam: Soft, Normal Bowel Sounds. absent: Tenderness Additional comments: PEG tube site is clean, dry, no erythema. - Extremities Exam Extremities Exam: Full ROM - Neurological Exam Neurological Exam: Altered, Awake. absent: Oriented x3 - Psychiatric Exam Psychiatric exam: absent: Normal Affect, Normal Mood - Skin Skin Exam: Dry, Normal Color Assessment and Plan - Assessment and Plan (Free Text) Assessment: 83 yo Hisp Female with h/o Dementia, CVA s/p PEG placement on 12/12/17 presenting from [facility] with removed PEG. # PEG dislodgment: Unclear how long PEG was acually out. Nonetheless, PEG was unable to be replaced. # H/o LA-B Esophagitis, Hiatal Hernia: On PPI # H/o CVA, DVT: On apixaban, last dose suspected 03/08/18 Plan: - Plan for endoscopic PEG replacement on 03/13/18 - Cont IVF with D5 containing fluids - Cont NPO - Cont PPI IV
[2018-03-13] MEDS: Levalbuterol 1.25 MG/3 ML Inhal Soln UD INH SCH ×4 (01:11→19:40)
[2018-03-13] MEDS: Dextrose 5%/0.45% NS 500 ML IV SCH ×2 (03:00→21:26)
[2018-03-13] MEDS: levoFLOXacin 500 mg in D5W 500 MG/100 ML BAG IVPB SCH (08:35)
--- NOTE | 2018-03-13 09:28 | CP.PCM.PN ---
Subjective - Date & Time of Evaluation Date of Evaluation: 03/13/18 Time of Evaluation: 09:28 - Subjective Subjective: COMFORTABLE NO APPARENT DISTRESS VSS Objective - Vital Signs/Intake and Output Vital Signs (last 24 hours): Temp Pulse Resp BP Pulse Ox 98.0 F 87 19 111/67 99 03/13/18 07:51 03/13/18 07:51 03/13/18 07:51 03/13/18 07:51 03/13/18 07:51 - Medications Medications: Current Medications Levofloxacin/Dextrose (Levaquin 500mg) 500 mg in 100 mls @ 100 mls/hr IVPB DAILY [facility] PRN Reason: Protocol Last Admin: 03/13/18 08:35 Dose: 100 mls/hr Dextrose/Sodium Chloride (Dextrose 5%/0.45% Ns 1000 Ml) 500 mls @ 80 mls/hr IV .Q6H15M [facility] Last Admin: 03/13/18 03:00 Dose: Not Given Levalbuterol HCl (Xopenex) 1.25 mg INH RQ6 [facility] Last Admin: 03/13/18 07:26 Dose: 1.25 mg Pantoprazole Sodium (Protonix Inj) 40 mg IVP DAILY [facility] Last Admin: 03/13/18 08:35 Dose: 40 mg - Labs Labs: 03/09/18 18:18 03/09/18 18:18 PT 12.8 Seconds (9.8-13.1) 03/10/18 09:00 INR 1.2 03/10/18 09:00 APTT 30.3 Seconds (25.6-37.1) 03/10/18 09:00 - Constitutional Appears: No Acute Distress - Head Exam Head Exam: ATRAUMATIC, NORMAL INSPECTION, NORMOCEPHALIC - Eye Exam Eye Exam: EOMI, Normal appearance, PERRL Pupil Exam: NORMAL ACCOMODATION, PERRL - ENT Exam ENT Exam: Mucous Membranes Moist, Normal Exam - Neck Exam Neck Exam: Full ROM, Normal Inspection. absent: Lymphadenopathy - Respiratory Exam Respiratory Exam: Clear to Ausculation Bilateral, NORMAL BREATHING PATTERN - Cardiovascular Exam Cardiovascular Exam: REGULAR RHYTHM, +S1, +S2. absent: Murmur - GI/Abdominal Exam GI & Abdominal Exam: Soft, Normal Bowel Sounds. absent: Tenderness - Rectal Exam Rectal Exam: NORMAL INSPECTION - Extremities Exam Extremities Exam: Full ROM, Normal Capillary Refill, Normal Inspection. absent : Joint Swelling, Pedal Edema - Back Exam Back Exam: NORMAL INSPECTION - Neurological Exam Neurological Exam: Alert, Awake, CN II-XII Intact - Psychiatric Exam Psychiatric exam: Normal Affect, Normal Mood - Skin Skin Exam: Dry, Intact, Normal Color, Warm Assessment and Plan - Assessment and Plan (Free Text) Assessment: DISLODGED GTT INFECTED GTT SITE--IMPROVED S/P CVA DEMENTIA Plan: FOR PEG REPLACEMENT TODAY WILL D/C TO [facility]MENT ONCE PEG IS COMPLETED
[2018-03-13] MEDS ORDERED: Lactated Ringer's 500 ML IV ONE ×2 (13:54)
[2018-03-13] MEDS ORDERED: Etomidate 20 mg/10ml Inj IV ONE (15:03)
[2018-03-13] MEDS ORDERED: Midazolam 2 MG/2 ML VIAL ONE (15:04)
[2018-03-13] MEDS ORDERED: ceFAZolin IV 1 gm in Dextrose 1 GM/50 ML BAG IVPB STA (15:09)
[2018-03-13] MEDS ORDERED: ceFAZolin IV 1 gm in Dextrose 1 GM/50 ML BAG IVPB ONE (15:10)
[2018-03-13] MEDS: Acetaminophen 650mg/20.3ml solution UD PEG PRN (21:35)
--- NOTE | 2018-03-13 22:46 | CARD ---
APPROVED REPORT Date of service: 03/13/2018 EKG Measurement Heart [id number] 136P [id number] <Conclusion> Sinus rhythm with premature atrial complexes Otherwise normal ECG
[2018-03-14] MEDS: Levalbuterol 1.25 MG/3 ML Inhal Soln UD INH SCH ×3 (01:07→13:31)
[2018-03-14] MEDS: Dextrose 5%/0.45% NS 500 ML IV SCH (04:53)
[2018-03-14] MEDS ORDERED: Bacitracin/Neomycin/Polymyxin 30GM OINT TOP SCH (06:45)
--- NOTE | 2018-03-14 06:50 | CP.PCM.PN ---
<Mars Connelly - Last Filed: 03/14/18 10:03> Subjective - Date & Time of Evaluation Date of Evaluation: 03/14/18 Time of Evaluation: 06:48 - Subjective Subjective: GI Fellow PGY4, progress note. Patient seen and examined at bedside. No acute overnight events. Successful PEG placement yesterday. Patient will need abdominal binder to protect PEG from dislodgment. Objective - Vital Signs/Intake and Output Vital Signs (last 24 hours): Temp Pulse Resp BP Pulse Ox 98.6 F 95 H 20 110/61 98 03/14/18 00:46 03/14/18 00:46 03/14/18 00:46 03/14/18 00:46 03/14/18 00:46 Intake and Output: 03/13/18 03/14/18 18:59 06:59 Intake Total 160 Balance 160 - Medications Medications: Current Medications Acetaminophen (Tylenol 650mg/20.3ml Solution Ud) 650 mg PEG Q4 PRN PRN Reason: Pain, moderate (4-7) Last Admin: 03/13/18 21:35 Dose: 650 mg Levofloxacin/Dextrose (Levaquin 500mg) 500 mg in 100 mls @ 100 mls/hr IVPB DAILY [facility] PRN Reason: Protocol Last Admin: 03/13/18 08:35 Dose: 100 mls/hr Dextrose/Sodium Chloride (Dextrose 5%/0.45% Ns 1000 Ml) 500 mls @ 80 mls/hr IV .Q6H15M [facility] Last Admin: 03/14/18 04:53 Dose: Not Given Levalbuterol HCl (Xopenex) 1.25 mg INH RQ6 [facility] Last Admin: 03/14/18 01:07 Dose: 1.25 mg Neomycin/Polymyxin/Bacitracin (Neosporin Antibiotic Oint) 1 applic TOP DAILY [facility] Pantoprazole Sodium (Protonix Inj) 40 mg IVP DAILY [facility] Last Admin: 03/13/18 08:35 Dose: 40 mg - Labs Labs: 03/09/18 18:18 03/09/18 18:18 PT 12.8 Seconds (9.8-13.1) 03/10/18 09:00 INR 1.2 03/10/18 09:00 APTT 30.3 Seconds (25.6-37.1) 03/10/18 09:00 - Constitutional Appears: Well, Non-toxic - Head Exam Head Exam: ATRAUMATIC - Eye Exam Eye Exam: Normal appearance - ENT Exam ENT Exam: Mucous Membranes Moist - Respiratory Exam Respiratory Exam: Clear to Ausculation Bilateral, NORMAL BREATHING PATTERN. absent: Wheezes - Cardiovascular Exam Cardiovascular Exam: REGULAR RHYTHM, +S1, +S2 - GI/Abdominal Exam GI & Abdominal Exam: Soft, Normal Bowel Sounds. absent: Tenderness Additional comments: PEG tube in good position. Bumper at 4.5cm. - Extremities Exam Extremities Exam: Normal Inspection - Neurological Exam Neurological Exam: Altered, Awake - Psychiatric Exam Psychiatric exam: absent: Normal Affect, Normal Mood - Skin Skin Exam: Dry, Normal Color Assessment and Plan - Assessment and Plan (Free Text) Assessment: 83 yo Hisp Female with h/o Dementia, CVA s/p PEG placement on 12/12/17 presenting from care home with removed PEG. # PEG dislodgment: Unclear how long PEG was acually out. Nonetheless, PEG was unable to be replaced. # H/o LA-B Esophagitis, Hiatal Hernia: On PPI # H/o CVA, DVT: On apixaban, last dose suspected 03/08/18 Plan: - PEG replacement on 03/13/18. Functioning well. - Okay to start tube feeds per PEG tube at spray gun repairer's choice. - Change ppi to PEG tube - We will sign-off. Okay to d/c per GI. <Ivon Mcdowell - Last Filed: 03/14/18 12:10> Objective - Vital Signs/Intake and Output Vital Signs (last 24 hours): Temp Pulse Resp BP Pulse Ox 97.9 F 79 18 122/65 97 03/14/18 07:49 03/14/18 07:49 03/14/18 07:49 03/14/18 07:49 03/14/18 07:49 - Medications Medications: Current Medications Acetaminophen (Tylenol 650mg/20.3ml Solution Ud) 650 mg PEG Q4 PRN PRN Reason: Pain, moderate (4-7) Last Admin: 03/13/18 21:35 Dose: 650 mg Levofloxacin/Dextrose (Levaquin 500mg) 500 mg in 100 mls @ 100 mls/hr IVPB DAILY [facility] PRN Reason: Protocol Last Admin: 03/14/18 09:16 Dose: 100 mls/hr Dextrose/Sodium Chloride (Dextrose 5%/0.45% Ns 1000 Ml) 500 mls @ 80 mls/hr IV .Q6H15M [facility] Last Admin: 03/14/18 04:53 Dose: Not Given Levalbuterol HCl (Xopenex) 1.25 mg INH RQ6 [facility] Last Admin: 03/14/18 07:51 Dose: 1.25 mg Neomycin/Polymyxin/Bacitracin (Neosporin Antibiotic Oint) 1 applic TOP DAILY [facility] Last Admin: 03/14/18 09:17 Dose: 1 applic Pantoprazole Sodium (Protonix Inj) 40 mg IVP DAILY [facility] Last Admin: 03/14/18 09:16 Dose: 40 mg - Labs Labs: 03/09/18 18:18 03/09/18 18:18 PT 12.8 Seconds (9.8-13.1) 03/10/18 09:00 INR 1.2 03/10/18 09:00 APTT 30.3 Seconds (25.6-37.1) 03/10/18 09:00 Attending/Attestation - Attestation I have personally seen and examined this patient.: Yes I have fully participated in the care of the patient.: Yes I have reviewed all pertinent clinical information, including history, physical exam and plan: Yes Notes (Text): 03/14/18 12:08 This is a 83 yo Hisp Female with h/o Dementia, CVA s/p PEG placement on 12/12/17 presenting from care home with removed PEG s/p endoscopic PEG replacement. PEG can be used for feeds today. Aspiration precautions. We will sign-off. Okay to d/c per GI.
--- NOTE | 2018-03-14 08:44 | CP.PCM.DIS ---
Provider - Provider Date of Admission: 03/10/18 13:19 Attending physician: Preet Rivas MD Time Spent in preparation of Discharge (in minutes): 30 Diagnosis - Discharge Diagnosis (1) Cellulitis of abdominal wall Status: Acute (2) PEG tube malfunction Status: Acute (3) Altered mental status Status: Acute Priority: Medium (4) COPD exacerbation Status: Acute (5) CVA (cerebral vascular accident) Status: Acute (6) DVT prophylaxis Status: Acute Priority: Medium (7) Dehydration Status: Acute (8) Dementia Status: Chronic Priority: Medium Hospital Course - Lab Results Lab Results: Most Recent Lab Values WBC 9.0 K/uL (4.8-10.8) 03/09/18 18:18 RBC 4.71 Mil/uL (3.80-5.20) 03/09/18 18:18 Hgb 13.0 g/dL (12.0-16.0) D 03/09/18 18:18 Hct 40.7 % (34.0-47.0) 03/09/18 18:18 MCV 86.3 fl (81.0-99.0) D 03/09/18 18:18 MCH 27.5 pg (27.0-31.0) 03/09/18 18:18 MCHC 31.9 g/dL (33.0-37.0) L 03/09/18 18:18 RDW 18.1 % (11.5-14.5) H 03/09/18 18:18 Plt Count 205 K/uL (130-400) 03/09/18 18:18 MPV 9.2 fl (7.2-11.7) 03/09/18 18:18 Neut % (Auto) 79.1 % (50.0-75.0) H 03/09/18 18:18 Lymph % (Auto) 12.6 % (20.0-40.0) L 03/09/18 18:18 [place] % (Auto) 4.2 % (0.0-10.0) 03/09/18 18:18 Eos % (Auto) 3.7 % (0.0-4.0) 03/09/18 18:18 Baso % (Auto) 0.4 % (0.0-2.0) 03/09/18 18:18 Neut # (Auto) 7.1 K/uL (1.8-7.0) H 03/09/18 18:18 Lymph # (Auto) 1.1 K/uL (1.0-4.3) 03/09/18 18:18 [place] # (Auto) 0.4 K/uL (0.0-0.8) 03/09/18 18:18 Eos # (Auto) 0.3 K/uL (0.0-0.7) 03/09/18 18:18 Baso # (Auto) 0.0 K/uL (0.0-0.2) 03/09/18 18:18 PT 12.8 Seconds (9.8-13.1) 03/10/18 09:00 INR 1.2 03/10/18 09:00 APTT 30.3 Seconds (25.6-37.1) 03/10/18 09:00 Sodium 137 mmol/l (132-148) 03/09/18 18:18 Potassium 4.7 MMOL/L (3.6-5.0) 03/09/18 18:18 Chloride 103 mmol/L (98-107) 03/09/18 18:18 Carbon Dioxide 26 mmol/L (22-30) 03/09/18 18:18 Anion Gap 13 (10-20) 03/09/18 18:18 BUN 23 mg/dl (7-17) H 03/09/18 18:18 Creatinine 0.4 mg/dl (0.7-1.2) L 03/09/18 18:18 Est GFR ( Amer) > 60 03/09/18 18:18 Est GFR (Non-Af Amer) > 60 03/09/18 18:18 POC Glucose (mg/dL) 109 mg/dL (65-110) 03/13/18 21:09 Random Glucose 104 mg/dL (65-105) 03/09/18 18:18 Calcium 9.1 mg/dL (8.4-10.2) 03/09/18 18:18 - Hospital Course Hospital Course: CLINICALLY IMPROVED PEG SITE CLEAN AND DRY PEG REPLACED Discharge Exam - Head Exam Head Exam: ATRAUMATIC, NORMAL INSPECTION, NORMOCEPHALIC Discharge Plan - Follow Up Plan Condition: FAIR Disposition: HOME/ ROUTINE Additional Instructions: BEGIN PEG FEEDING D/C TO [facility] TODAY
[2018-03-14] MEDS: levoFLOXacin 500 mg in D5W 500 MG/100 ML BAG IVPB SCH (09:16)
[2018-03-14 16:23] VITALS: BP 136/53; PULSE 100; RESP 20; TEMP 99; O2SAT 98
[2018-03-14] MEDS: Acetaminophen 650mg/20.3ml solution UD PEG PRN (16:54)
== END 2018-03-14 18:10 | DRG 394 ==
LOC: H.ER 14:55 → H.ERHOLD 17:36 → H.MEDSURG1 20:57 → OBSVTOIN 03-10 13:19
PROVIDERS: ADMIT Internal Medicine Pulmonary Disease; ATTEND Internal Medicine Pulmonary Disease
PROC: 3E0G76Z Introduction of Nutritional Substance into Upper GI, Via Natural or Artificial Opening (ICD-10-PCS; 2018-03-13)
PROC: 0DH63UZ Insertion of Feeding Device into Stomach, Percutaneous Approach (ICD-10-PCS; principal; 2018-03-13 16:30)
DX: K94.22 Gastrostomy infection (principal); L03.311 Cellulitis of abdominal wall; E86.0 Dehydration; R13.19 Other dysphagia; K20.8 Other esophagitis; F02.80 Dementia in other diseases classified elsewhere, unspecified severity, without behavioral disturbance, psychotic disturbance, mood disturbance, and anxiety; G30.9 Alzheimer's disease, unspecified; I69.391 Dysphagia following cerebral infarction; Y83.3 Surgical operation with formation of external stoma as the cause of abnormal reaction of the patient, or of later complication, without mention of misadventure at the time of the procedure; K29.70 Gastritis, unspecified, without bleeding; L89.151 Pressure ulcer of sacral region, stage 1; E11.9 Type 2 diabetes mellitus without complications; I10 Essential (primary) hypertension; E78.5 Hyperlipidemia, unspecified; E78.00 Pure hypercholesterolemia, unspecified; F32.9 Major depressive disorder, single episode, unspecified; K44.9 Diaphragmatic hernia without obstruction or gangrene; Z86.718 Personal history of other venous thrombosis and embolism; Z79.01 Long term (current) use of anticoagulants; Z87.01 Personal history of pneumonia (recurrent); Z87.440 Personal history of urinary (tract) infections; Z87.891 Personal history of nicotine dependence; Y92.129 Unspecified place in nursing home as the place of occurrence of the external cause

== ENCOUNTER 2018-06-15 19:54 | Inpatient (IN) | payer MEDICARE, MEDICAID ==
[2018-06-15 19:54] VITALS: BMI 20.5
[2018-06-15] MEDS ORDERED: Sodium Chloride 0.9% 1,000 ML IV STA (20:14)
[2018-06-15 21:29] LABS: BASO # 0.1 K/uL (0.0-0.2); BASO % 0.8 % (0.0-2.0); EOS # 0.4 K/uL (0.0-0.7); EOS % 5.8 % (0.0-4.0); HEMOGLOBIN 11.1 g/dL (12.0-16.0); LYMPH # 1.1 K/uL (1.0-4.3); LYMPH % 14.7 % (20.0-40.0); MEAN CELL VOLUME 81.7 fl (81.0-99.0); MEAN CORPUSCULAR HEMOGLOBIN 25.9 pg (27.0-31.0); MEAN CORPUSCULAR HGB CONC 31.7 g/dL (33.0-37.0); MEAN PLATELET VOLUME 8.6 fl (7.2-11.7); MONO # 0.5 K/uL (0.0-0.8); MONO % 6.1 % (0.0-10.0); NEUT # 5.6 K/uL (1.8-7.0); NEUT % 72.6 % (50.0-75.0); RBC 4.28 Mil/uL (3.80-5.20); RED CELL DISTRIBUTION WIDTH 17.8 % (11.5-14.5); WHITE BLOOD COUNT 7.7 K/uL (4.8-10.8)
[2018-06-15 21:35] LABS: INR 1.2; PROTHROMBIN TIME 13.6 Seconds (9.8-13.1)
[2018-06-15 21:37] LABS: PARTIAL THROMBOPLASTIN TIME 31.8 Seconds (25.6-37.1)
[2018-06-15 21:46] LABS: ALB/GLOB RATIO 0.8 (1.0-2.1); ALBUMIN 3.4 g/dL (3.5-5.0); ALT/SGPT 26 U/L (9-52); AST/SGOT 32 U/L (14-36); BLOOD UREA NITROGEN 23 mg/dl (7-17); CALCIUM 9.5 mg/dL (8.4-10.2); GFR NON-AFRICAN AMERICAN > 60
--- NOTE | 2018-06-15 22:22 | ED PDOC ---
HPI: General Adult Time Seen by Provider: 06/15/18 20:00 Chief Complaint (Nursing): Abdominal Pain Chief Complaint (Provider): clogged peg tube History Per: Family, Other (shelter) History/Exam Limitations: clinical condition Additional Complaint(s): skilled nursing unable to use PEG tube since yesterday evening. On attempts today, feeds will not go through. Has not had any intake all day today. PMD Dr Rivas Past Medical History Reviewed: Historical Data, Nursing Documentation, Vital Signs Vital Signs: Last Vital Signs Temp 97.7 F 06/15/18 19:56 Pulse 106 H 06/15/18 19:56 Resp 22 06/15/18 19:56 BP 142/62 06/15/18 19:56 Pulse Ox 95 06/15/18 19:56 - Medical History PMH: Alzheimer's Disease, Anemia, Anxiety, Arthritis, Asthma, COPD, Dementia, Depression, Fractures (Right wrist fx (16 yrs ago)), Gastritis, HTN, Hypercholesterolemia, Hyperlipidemia Denies: CHF, HIV, Hypothyroidism, Chronic Kidney Disease, Rheumatoid Arthritis - Surgical History Other surgeries: PEG - Family History Family History: States: Unknown Family Hx - Living Arrangements Living Arrangements: Senior Living/Assist Lvng - Social History Alcohol: None - Home Medications Home Medications: Ambulatory Orders Medication Instructions Recorded RX: Rosuvastatin Calcium [Crestor] 5 mg PEG HS 03/03/15 RX: Acetaminophen [Tylenol 325mg 650 mg PEG Q4 PRN 12/16/17 tab] RX: Apixaban [Eliquis] 2.5 mg PEG BID 12/16/17 RX: Bismuth Subsalicylate 30 ml PEG Q4 PRN 12/16/17 [Kaopectate] RX: Insulin Lispro [humALOG] See Protocol SC QID 12/16/17 RX: Memantine [Namenda] 5 mg PEG DAILY 12/16/17 RX: Bacitracin OINT 1 appl TOP DAILY 03/09/18 RX: Ipratropium 0.02% [Atrovent] 2.5 ml IH Q6 03/09/18 Acetaminophen [Tylenol] 650 mg PEG Q4 PRN 06/15/18 Albuterol Sulfate 1 vial INH Q6 06/15/18 Amino Acid/Protein/Vit C/Zinc 30 ml PEG TID 06/15/18 [Prosource Deyvi Protein Liquid] Cran/Vitc/Mannose/Fos/Bromeln 30 ml PEG DAILY 06/15/18 [Uti-Stat Liquid] Home Med 2.5 ml PEG DAILY 06/15/18 Home Med 20 ml PEG DAILY 06/15/18 Magnesium Hydroxide [Milk Of 30 ml PEG DAILY PRN 06/15/18 Magnesia] RX: Banana Flakes/Tos [Banatrol 1 packet PEG DAILY 06/15/18 Plus Powder Packet] RX: Vitamin A & D [Vitamin A & D 1 appl TOP QSHIFT 06/15/18 Oint UD Foilpak] Vit A/Vitamin D3/E/Aloe V/Zinc 1 appl TOP QSHIFT 06/15/18 [Periguard Ointment] - Allergies Allergies/Adverse Reactions: Allergies Allergy/AdvReac Type Severity Reaction Status Date / Time No Known Allergies Allergy Verified 06/15/18 19:56 Review of Systems Review Of Systems: ROS cannot be obtained secondary to pt's inabilty to answer questions. Physical Exam - Reviewed Nursing Documentation Reviewed: Yes Vital Signs Reviewed: Yes - Physical Exam Appears: Positive for: No Acute Distress (appears chronically ill) Head Exam: Positive for: ATRAUMATIC, NORMOCEPHALIC Skin: Positive for: Warm, Dry, Pallor ENT: Positive for: Other (dry mucus membranes) Neck: Positive for: Painless ROM, Supple Cardiovascular/Chest: Positive for: Regular Rate, Rhythm. Negative for: Murmur Respiratory: Positive for: Normal Breath Sounds. Negative for: Respiratory Distress Gastrointestinal/Abdominal: Positive for: Soft, Other (PEG tube in place, surgical site with minimal erythema or exudate). Negative for: Tenderness Back: Positive for: Normal Inspection Extremity: Positive for: Other (contractures) Lymphatic: Negative for: Adenopathy Neurologic/Psych: Positive for: Other (marked cognitive deficit). 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 This is because of the severity of symptoms shown, intensity of services needed, and/or the medical risk in this patient being treated as an outpatient. - POA Present On Arrival: None
[2018-06-15] MEDS ORDERED: Dextrose 5%/0.9% NS 1,000 ML IV SCH (23:15)
[2018-06-16] MEDS ORDERED: Ipratropium 0.02% Inhal Soln (0.5 mg/2.5 ml) UD IH PRN (01:42)
[2018-06-16] MEDS ORDERED: Dextrose 50% SYRINGE Inj (50 ml) IV PRN (01:42)
[2018-06-16] MEDS ORDERED: Levalbuterol 0.63 MG/3 ML Inhal Soln UD IH ONE (01:42)
[2018-06-16] MEDS ORDERED: Glucagon Recombinant 1 mg Inj IM PRN (01:42)
[2018-06-16] MEDS: Dextrose 5%/0.45% NS 1,000 ML IV SCH ×2 (03:00→16:19)
[2018-06-16] MEDS: Insulin Lispro (humaLOG) 100 Units/ml Inj SC SCH ×4 (07:30→22:05)
[2018-06-16] MEDS: Albuterol 0.083% Inhal Sol (2.5 mg/3 mL) UD INH SCH ×3 (08:01→18:59)
[2018-06-16] MEDS: Ipratropium 0.02% Inhal Soln (0.5 mg/2.5 ml) UD IH SCH ×3 (08:02→18:59)
--- NOTE | 2018-06-16 12:52 | CP.PCM.HP ---
History of Present Illness - History of Present Illness History of Present Illness: 83 YR OLD FEMALE WITH HX OF DEMENTIA,DVT/PE/COPD AND CEREBROVASCULAR DZ WHO IS ADMITTED FROM THE ALF BECAUSE OF DEHYDRATION AND A NON-FUNCTIONING GTT Present on Admission - Present on Admission Any Indicators Present on Admission: Yes Past Patient History - Infectious Disease Hx of Infectious Diseases: None - Tetanus Immunizations Tetanus Immunization: Unknown (quit 5 yrs ago; used to smoke 2 PPD) - Past Medical History & Family History Past Medical History?: Yes - Past Social History Smoking Status: Never Smoked - CARDIAC Hx Cardiac Disorders: Yes Hx Hypercholesterolemia: Yes Hx Hypertension: Yes - PULMONARY Hx Respiratory Disorders: Yes Hx Chronic Obstructive Pulmonary Disease (COPD): Yes - NEUROLOGICAL Hx Neurological Disorder: Yes Hx Alzheimer's Disease: Yes Hx Dementia: Yes - HEENT Hx HEENT Problems: No - RENAL Hx Chronic Kidney Disease: No - ENDOCRINE/METABOLIC Hx Endocrine Disorders: Yes Hx Diabetes Mellitus Type 2: Yes - HEMATOLOGICAL/ONCOLOGICAL Hx Blood Disorders: Yes Hx AIDS: No Hx Anemia: Yes Hx Human Immunodeficiency Virus (HIV): No - INTEGUMENTARY Hx Dermatological Problems: No - MUSCULOSKELETAL/RHEUMATOLOGICAL Hx Musculoskeletal Disorders: Yes Hx Arthritis: Yes Hx Falls: Yes - GASTROINTESTINAL Hx Gastrointestinal Disorders: Yes Hx Gastritis: Yes Other/Comment: PEG tube - GENITOURINARY/GYNECOLOGICAL Hx Genitourinary Disorders: Yes Hx Incontinence: Yes - PSYCHIATRIC Hx Psychophysiologic Disorder: Yes Hx Anxiety: Yes Hx Depression: Yes Hx Substance Use: No - SURGICAL HISTORY Hx Surgeries: Yes Hx Open Reduction Internal Fixation: Yes (right wrist fracture) Hx Orthopedic Surgery: Yes Other/Comment: right wrist surgery with metal plate, left knee mass removal years ago. PEG insertion - ANESTHESIA Hx Anesthesia: Yes Hx Anesthesia Reactions: No Hx Malignant Hyperthermia: No Has any member of the family had a problem w/ anesthesia?: No Meds Allergies/Adverse Reactions: Allergies Allergy/AdvReac Type Severity Reaction Status Date / Time No Known Allergies Allergy Verified 06/15/18 19:56 Physical Exam - Constitutional Appears: Chronically Ill - Head Exam Head Exam: ATRAUMATIC, NORMAL INSPECTION, NORMOCEPHALIC - Eye Exam Eye Exam: EOMI, Normal appearance, PERRL Pupil Exam: NORMAL ACCOMODATION, PERRL - ENT Exam ENT Exam: Mucous Membranes Moist, Normal Exam - Neck Exam Neck exam: Positive for: Normal Inspection - Respiratory Exam Respiratory Exam: Rales, NORMAL BREATHING PATTERN - Cardiovascular Exam Cardiovascular Exam: REGULAR RHYTHM - GI/Abdominal Exam GI & Abdominal Exam: Normal Bowel Sounds, Soft. absent: Tenderness Additional comments: NON-FUNCTIONING GTT - Rectal Exam Rectal Exam: NORMAL INSPECTION - Extremities Exam Extremities exam: Positive for: normal inspection - Back Exam Back exam: NORMAL INSPECTION - Neurological Exam Neurological exam: Alert, CN II-XII Intact, Reflexes Normal - Psychiatric Exam Psychiatric exam: Flat Affect - Skin Skin Exam: Dry, Intact, Normal Color, Warm Results - Vital Signs Recent Vital Signs: Last Vital Signs Temp 98.2 F 06/16/18 07:34 Pulse 93 H 06/16/18 07:34 Resp 19 06/16/18 07:34 BP 109/58 L 06/16/18 07:34 Pulse Ox 96 06/16/18 07:34 - Labs Result Diagrams: 06/15/18 21:25 06/15/18 21:25 Labs: Laboratory Results - last 24 hr 06/15/18 06/15/18 06/15/18 21:16 21:18 21:25 WBC 7.7 RBC 4.28 Hgb 11.1 L Hct 35.0 MCV 81.7 D MCH 25.9 L MCHC 31.7 L RDW 17.8 H Plt Count 295 MPV 8.6 Neut % (Auto) 72.6 Lymph % (Auto) 14.7 L [place] % (Auto) 6.1 Eos % (Auto) 5.8 H Baso % (Auto) 0.8 Neut # (Auto) 5.6 Lymph # (Auto) 1.1 [place] # (Auto) 0.5 Eos # (Auto) 0.4 Baso # (Auto) 0.1 PT INR APTT Sodium Potassium Chloride Carbon Dioxide Anion Gap BUN Creatinine Est GFR ( Amer) Est GFR (Non-Af Amer) POC Glucose (mg/dL) 107 Random Glucose Lactic Acid Calcium Phosphorus Magnesium Total Bilirubin AST ALT Alkaline Phosphatase Total Protein Albumin Globulin Albumin/Globulin Ratio Blood Type A NEGATIVE Antibody Screen Negative BBK History Checked Patient has bt 06/15/18 06/15/18 06/15/18 21:25 21:25 21:25 WBC RBC Hgb Hct MCV MCH MCHC RDW Plt Count MPV Neut % (Auto) Lymph % (Auto) [place] % (Auto) Eos % (Auto) Baso % (Auto) Neut # (Auto) Lymph # (Auto) [place] # (Auto) Eos # (Auto) Baso # (Auto) PT 13.6 H INR 1.2 APTT 31.8 Sodium 139 Potassium 4.2 Chloride 102 Carbon Dioxide 30 Anion Gap 11 BUN 23 H Creatinine 0.5 L Est GFR ( Amer) > 60 Est GFR (Non-Af Amer) > 60 POC Glucose (mg/dL) Random Glucose 106 H Lactic Acid 0.5 L Calcium 9.5 Phosphorus 3.5 Magnesium 2.2 Total Bilirubin 0.4 AST 32 ALT 26 Alkaline Phosphatase 99 Total Protein 7.5 Albumin 3.4 L D Globulin 4.1 H Albumin/Globulin Ratio 0.8 L Blood Type Antibody Screen BBK History Checked 06/16/18 06/16/18 05:28 11:14 WBC RBC Hgb Hct MCV MCH MCHC RDW Plt Count MPV Neut % (Auto) Lymph % (Auto) [place] % (Auto) Eos % (Auto) Baso % (Auto) Neut # (Auto) Lymph # (Auto) [place] # (Auto) Eos # (Auto) Baso # (Auto) PT INR APTT Sodium Potassium Chloride Carbon Dioxide Anion Gap BUN Creatinine Est GFR ( Amer) Est GFR (Non-Af Amer) POC Glucose (mg/dL) 125 H 116 H Random Glucose Lactic Acid Calcium Phosphorus Magnesium Total Bilirubin AST ALT Alkaline Phosphatase Total Protein Albumin Globulin Albumin/Globulin Ratio Blood Type Antibody Screen BBK History Checked Assessment & Plan - Assessment and Plan (Free Text) Assessment: NON-FUNCTIONING GTT DEMENTIA HX OF PE AND DVT HX OF COPD DEHYDRATION Plan: IV HYDRATION GTT REPLACEMENT DNR PER FAMILY'S REQUEST - Date & Time Date: 06/16/18 Time: 12:55
[2018-06-17] MEDS: Ipratropium 0.02% Inhal Soln (0.5 mg/2.5 ml) UD IH SCH ×4 (02:32→19:17)
[2018-06-17] MEDS: Albuterol 0.083% Inhal Sol (2.5 mg/3 mL) UD INH SCH ×4 (02:32→19:17)
[2018-06-17] MEDS: Dextrose 5%/0.45% NS 1,000 ML IV SCH ×2 (03:13→16:25)
[2018-06-17] MEDS: Insulin Lispro (humaLOG) 100 Units/ml Inj SC SCH ×4 (06:30→22:00)
--- NOTE | 2018-06-17 10:39 | CP.PCM.PN ---
Subjective - Date & Time of Evaluation Date of Evaluation: 06/17/18 Time of Evaluation: 10:42 - Subjective Subjective: NO APPARENT DISTRESS AFEBRILE SEEN BY GI---PEG IS DISLODGED Objective - Vital Signs/Intake and Output Vital Signs (last 24 hours): Temp Pulse Resp BP Pulse Ox 97.3 F L 97 H 18 121/78 99 06/17/18 08:06 06/17/18 08:06 06/17/18 08:06 06/17/18 08:06 06/17/18 08:06 - Medications Medications: Current Medications Albuterol Sulfate (Albuterol 0.083% Inhal Luanne (2.5 Mg/3 Ml) Ud) 2.5 mg INH RQ6 [facility] Last Admin: 06/17/18 07:05 Dose: 2.5 mg Dextrose (Dextrose 50% Inj) 0 ml IV STAT PRN; Protocol PRN Reason: Hypoglycemia Protocol Dextrose (Glutose 15) 0 gm PO ONCE PRN; Protocol PRN Reason: Hypoglycemia Protocol Glucagon (Glucagen Diagnostic Kit) 0 mg IM STAT PRN; Protocol PRN Reason: Hypoglycemia Protocol Dextrose/Sodium Chloride (Dextrose 5%/0.45% Ns 1000 Ml) 1,000 mls @ 80 mls/hr IV .[id number] [facility] Stop: 06/20/18 03:01 Last Admin: 06/17/18 03:13 Dose: 80 mls/hr Insulin Human Lispro (Humalog) 0 units SC ACHS [facility]; Protocol Last Admin: 06/17/18 06:30 Dose: Not Given Ipratropium [place] (Atrovent) 0.5 mg IH RQ6 [facility] Last Admin: 06/17/18 07:04 Dose: 0.5 mg Pantoprazole Sodium (Protonix Inj) 40 mg IVP DAILY [facility] Last Admin: 06/17/18 08:24 Dose: 40 mg - Labs Labs: 06/15/18 21:25 06/15/18 21:25 PT 13.6 Seconds (9.8-13.1) H 06/15/18 21:25 INR 1.2 06/15/18 21:25 APTT 31.8 Seconds (25.6-37.1) 06/15/18 21:25 - Constitutional Appears: Chronically Ill - Head Exam Head Exam: ATRAUMATIC, NORMAL INSPECTION, NORMOCEPHALIC - Eye Exam Eye Exam: EOMI, Normal appearance, PERRL Pupil Exam: NORMAL ACCOMODATION, PERRL - ENT Exam ENT Exam: Mucous Membranes Moist, Normal Exam - Neck Exam Neck Exam: Full ROM, Normal Inspection. absent: Lymphadenopathy - Respiratory Exam Respiratory Exam: Clear to Ausculation Bilateral, NORMAL BREATHING PATTERN - Cardiovascular Exam Cardiovascular Exam: REGULAR RHYTHM, +S1, +S2. absent: Murmur - GI/Abdominal Exam GI & Abdominal Exam: Soft, Normal Bowel Sounds. absent: Tenderness Additional comments: DISLODGED GTT - Rectal Exam Rectal Exam: NORMAL INSPECTION - Extremities Exam Extremities Exam: Full ROM, Normal Capillary Refill, Normal Inspection. absent: Joint Swelling, Pedal Edema - Back Exam Back Exam: NORMAL INSPECTION - Psychiatric Exam Psychiatric exam: Flat Affect - Skin Skin Exam: Dry, Intact, Normal Color, Warm Assessment and Plan - Assessment and Plan (Free Text) Assessment: DISLODGED GTT DEHYDRATION DEMENTIA Plan: FOR CT SCAN OF ABDOMEN TO EVALUATE GTT POSITION WILL PROBABLY NEED REPLACEMENT OF GTT CONTINUE IV FLUIDS AND MEDS
[2018-06-17] MEDS ORDERED: Sodium Chloride 0.9% 50 ML IV ONE (13:09)
[2018-06-17] MEDS ORDERED: Iohexol 300 100 ML IJ ONE (13:09)
--- NOTE | 2018-06-17 14:25 | CT ---
Date of service: 06/17/2018 PROCEDURE: CT Abdomen and Pelvis with and without intravenous contrast HISTORY: check G tube, suspect bumper in abd wall COMPARISON: None. TECHNIQUE: Axial images of the abdomen were obtained in the pre contrast, portal venous and delayed phases of enhancement. Coronal and sagittal reformats were generated. Contrast dose: Radiation dose: Total exam DLP = 617.08 mGy-cm. This CT exam was performed using one or more of the following dose reduction techniques: Automated exposure control, adjustment of the mA and/or kV according to patient size, and/or use of iterative reconstruction technique. FINDINGS: LOWER THORAX: Bibasilar infiltrates and pleural thickening. LIVER: Unremarkable. No gross lesion or ductal dilatation. GALLBLADDER AND BILE DUCTS: Unremarkable. PANCREAS: Unremarkable. No gross lesion or ductal dilatation. SPLEEN: Unremarkable. ADRENALS: Unremarkable. No mass. KIDNEYS AND URETERS: 5.8 centimeter left upper pole renal cyst. No hydronephrosis. No solid mass. VASCULATURE: Unremarkable. No aortic aneurysm. No aortic atherosclerotic calcification or mural plaque present. BOWEL: Unremarkable. No obstruction. No gross mural thickening. APPENDIX: Normal appendix. PERITONEUM: Unremarkable. No free fluid. No free air. LYMPH NODES: Unremarkable. No enlarged lymph nodes. BLADDER: Unremarkable. REPRODUCTIVE: Unremarkable. BONES: No acute fracture. OTHER FINDINGS: Gastrostomy tube tip malposition in the anterior abdominal wall subcutaneous fat and not within the gastric lumen. IMPRESSION: Gastrostomy tube tip malposition in the anterior abdominal wall subcutaneous fat and not within the gastric lumen.
[2018-06-18] MEDS: Albuterol 0.083% Inhal Sol (2.5 mg/3 mL) UD INH SCH ×4 (01:03→19:31)
[2018-06-18] MEDS: Ipratropium 0.02% Inhal Soln (0.5 mg/2.5 ml) UD IH SCH ×4 (01:03→19:31)
[2018-06-18] MEDS: Dextrose 5%/0.45% NS 1,000 ML IV SCH ×3 (04:06→22:43)
[2018-06-18] MEDS: Insulin Lispro (humaLOG) 100 Units/ml Inj SC SCH ×4 (06:53→21:54)
--- NOTE | 2018-06-18 08:30 | CON ---
DATE: 06/16/2018 REASON FOR CONSULTATION: Dysfunctional feeding tube. HISTORY OF PRESENT ILLNESS: This is an 83-year-old female with a history of dementia, DVT, PE, COPD, CVA. Has recently went to group home for failure to thrive, dehydration, and washing the PEG tube. history of dementia GI was called for dysfunctional feeding tube. PAST MEDICAL HISTORY: As above. SURGICAL HISTORY: As above. MEDICATIONS: Have been reviewed. REVIEW OF SYSTEMS: All other systems have been obtained. PHYSICAL EXAMINATION: GENERAL: This is a pleasant elderly appearing female, lying in bed comfortably, in no apparent distress.. VITAL SIGNS: Here in the hospital, grossly unremarkable. HEENT: Head: Normocephalic, atraumatic. Eyes: Pupils are equally reactive to light bilaterally. No conjunctival pallor or icterus. NECK: Supple, normal range of motion. No lymphadenopathy appreciated. LUNGS: Coarse breath sounds bilaterally. HEART: S1, S2. Regular rate and rhythm. No murmurs appreciated. ABDOMEN: Soft, nontender. Bowel sounds present. No rebound. No guarding. RECTAL: Deferred. EXTREMITIES: Pulses present bilaterally. SKIN: Warm, dry, and intact. NEUROLOGIC: A and O x1, response to pain. LABORATORY DATA: All labs and relevant radiology have been reviewed. Labs include a WBC of 7.7, hemoglobin 11.1, INR 1.2. ASSESSMENT AND PLAN: This is an 83-year-old female with dysfunctional feeding tube. foster feeding tube, but stated she was leaking outward. My concern is that the tube was pulled through and it is lodged into the skin out of the lumen. We will hold feeds for now and nothing by mouth. We will review old operative report and we will get a CAT scan for now. Also, needs nutrition to be pursued in the time being. Thank you for the consult. Chris Doe MD/ PhD cc: Preet Rivas MD
--- NOTE | 2018-06-18 08:44 | CP.PCM.PN ---
Subjective - Date & Time of Evaluation Date of Evaluation: 06/18/18 Time of Evaluation: 08:44 - Subjective Subjective: NO NEW CLINICAL FINDINGS Objective - Vital Signs/Intake and Output Vital Signs (last 24 hours): Temp Pulse Resp BP Pulse Ox 97.7 F 56 L 20 111/55 L 97 06/18/18 08:14 06/18/18 08:14 06/18/18 08:14 06/18/18 08:14 06/18/18 08:14 - Medications Medications: Current Medications Albuterol Sulfate (Albuterol 0.083% Inhal Luanne (2.5 Mg/3 Ml) Ud) 2.5 mg INH RQ6 [facility] Last Admin: 06/18/18 07:54 Dose: 2.5 mg Dextrose (Dextrose 50% Inj) 0 ml IV STAT PRN; Protocol PRN Reason: Hypoglycemia Protocol Dextrose (Glutose 15) 0 gm PO ONCE PRN; Protocol PRN Reason: Hypoglycemia Protocol Glucagon (Glucagen Diagnostic Kit) 0 mg IM STAT PRN; Protocol PRN Reason: Hypoglycemia Protocol Dextrose/Sodium Chloride (Dextrose 5%/0.45% Ns 1000 Ml) 1,000 mls @ 80 mls/hr IV .[id number] [facility] Stop: 06/20/18 03:01 Last Admin: 06/18/18 04:06 Dose: 80 mls/hr Insulin Human Lispro (Humalog) 0 units SC ACHS [facility]; Protocol Last Admin: 06/18/18 06:53 Dose: Not Given Ipratropium [place] (Atrovent) 0.5 mg IH RQ6 [facility] Last Admin: 06/18/18 07:54 Dose: 0.5 mg Pantoprazole Sodium (Protonix Inj) 40 mg IVP DAILY [facility] Last Admin: 06/17/18 08:24 Dose: 40 mg - Labs Labs: 06/15/18 21:25 06/15/18 21:25 PT 13.6 Seconds (9.8-13.1) H 06/15/18 21:25 INR 1.2 06/15/18 21:25 APTT 31.8 Seconds (25.6-37.1) 06/15/18 21:25 - Constitutional Appears: Chronically Ill - Head Exam Head Exam: ATRAUMATIC, NORMAL INSPECTION, NORMOCEPHALIC - Eye Exam Eye Exam: EOMI, Normal appearance, PERRL Pupil Exam: NORMAL ACCOMODATION, PERRL - ENT Exam ENT Exam: Mucous Membranes Moist, Normal Exam - Neck Exam Neck Exam: Full ROM, Normal Inspection. absent: Lymphadenopathy - Respiratory Exam Respiratory Exam: Clear to Ausculation Bilateral, NORMAL BREATHING PATTERN - Cardiovascular Exam Cardiovascular Exam: REGULAR RHYTHM, +S1, +S2. absent: Murmur - GI/Abdominal Exam GI & Abdominal Exam: Soft, Normal Bowel Sounds. absent: Tenderness Additional comments: NON-FUNCTIONING PEG - Rectal Exam Rectal Exam: NORMAL INSPECTION - Extremities Exam Extremities Exam: Full ROM, Normal Capillary Refill, Normal Inspection. absent: Joint Swelling, Pedal Edema - Back Exam Back Exam: NORMAL INSPECTION - Neurological Exam Neurological Exam: Alert, Awake - Skin Skin Exam: Dry, Intact, Normal Color, Warm Assessment and Plan - Assessment and Plan (Free Text) Assessment: NON-FUNCTIONING FEEDING TUBE COPD DEMENTIA Plan: FOR FEEDING TUBE REPLACEMENT THEN D/C TO SNF
--- NOTE | 2018-06-18 10:36 | CP.PCM.PN ---
Subjective - Date & Time of Evaluation Date of Evaluation: 06/18/18 Time of Evaluation: 10:35 - Subjective Subjective: no overnight events Objective - Vital Signs/Intake and Output Vital Signs (last 24 hours): Temp Pulse Resp BP Pulse Ox 97.7 F 56 L 20 111/55 L 97 06/18/18 08:14 06/18/18 08:14 06/18/18 08:14 06/18/18 08:14 06/18/18 08:14 - Medications Medications: Current Medications Albuterol Sulfate (Albuterol 0.083% Inhal Luanne (2.5 Mg/3 Ml) Ud) 2.5 mg INH RQ6 [facility] Last Admin: 06/18/18 07:54 Dose: 2.5 mg Dextrose (Dextrose 50% Inj) 0 ml IV STAT PRN; Protocol PRN Reason: Hypoglycemia Protocol Dextrose (Glutose 15) 0 gm PO ONCE PRN; Protocol PRN Reason: Hypoglycemia Protocol Glucagon (Glucagen Diagnostic Kit) 0 mg IM STAT PRN; Protocol PRN Reason: Hypoglycemia Protocol Dextrose/Sodium Chloride (Dextrose 5%/0.45% Ns 1000 Ml) 1,000 mls @ 80 mls/hr IV .[id number] [facility] Stop: 06/20/18 03:01 Last Admin: 06/18/18 04:06 Dose: 80 mls/hr Insulin Human Lispro (Humalog) 0 units SC ACHS [facility]; Protocol Last Admin: 06/18/18 06:53 Dose: Not Given Ipratropium [place] (Atrovent) 0.5 mg IH RQ6 [facility] Last Admin: 06/18/18 07:54 Dose: 0.5 mg Pantoprazole Sodium (Protonix Inj) 40 mg IVP DAILY [facility] Last Admin: 06/18/18 09:06 Dose: 40 mg - Labs Labs: 06/15/18 21:25 06/15/18 21:25 PT 13.6 Seconds (9.8-13.1) H 06/15/18 21:25 INR 1.2 06/15/18 21:25 APTT 31.8 Seconds (25.6-37.1) 06/15/18 21:25 - Head Exam Head Exam: NORMOCEPHALIC - Neck Exam Neck Exam: Normal Inspection - Respiratory Exam Respiratory Exam: Clear to Ausculation Bilateral, NORMAL BREATHING PATTERN - Cardiovascular Exam Cardiovascular Exam: REGULAR RHYTHM - GI/Abdominal Exam GI & Abdominal Exam: Soft, Normal Bowel Sounds Assessment and Plan - Assessment and Plan (Free Text) Assessment: 83 yo female with misplaced G tube ct noted will need consent to replace PEG tube
--- NOTE | 2018-06-18 11:22 | RAD ---
Date of service: 06/18/2018 PROCEDURE: CHEST RADIOGRAPH, 1 VIEW HISTORY: COPD COMPARISON: 12/16/2017 FINDINGS: LUNGS: No pulmonary infiltrate. Please note that evaluation of the lung apices is limited by superimposition of the patient's mandible. PLEURA: No pneumothorax or pleural fluid seen. CARDIOVASCULAR: No aortic atherosclerotic calcification present. Normal. OSSEOUS STRUCTURES: No significant abnormalities. VISUALIZED UPPER ABDOMEN: Normal. OTHER FINDINGS: None. IMPRESSION: No active disease.
[2018-06-19] MEDS: Piperacillin/Tazobact 3.375 GM in Sodium Chloride 0.9% 100 ML IVPB SCH ×3 (00:09→16:45)
[2018-06-19] MEDS: Albuterol 0.083% Inhal Sol (2.5 mg/3 mL) UD INH SCH ×4 (00:59→19:26)
[2018-06-19] MEDS: Ipratropium 0.02% Inhal Soln (0.5 mg/2.5 ml) UD IH SCH ×4 (00:59→19:26)
[2018-06-19] MEDS: Insulin Lispro (humaLOG) 100 Units/ml Inj SC SCH ×4 (07:36→22:27)
--- NOTE | 2018-06-19 09:32 | CP.PCM.PN ---
Subjective - Date & Time of Evaluation Date of Evaluation: 06/19/18 Time of Evaluation: 09:33 - Subjective Subjective: NO NEW CLINICAL FINDINGS PEG PLACEMENT CANCELLED BECAUSE OF POSITIVE BLOOD CULTURE REQUIRING IV ANTIBIOTIC THERAPY Objective - Vital Signs/Intake and Output Vital Signs (last 24 hours): Temp Pulse Resp BP Pulse Ox 98.4 F 57 L 20 122/69 97 06/19/18 08:10 06/19/18 08:10 06/19/18 08:10 06/19/18 08:10 06/19/18 08:10 - Medications Medications: Current Medications Albuterol Sulfate (Albuterol 0.083% Inhal Luanne (2.5 Mg/3 Ml) Ud) 2.5 mg INH RQ6 [facility] Last Admin: 06/19/18 08:10 Dose: 2.5 mg Dextrose (Dextrose 50% Inj) 0 ml IV STAT PRN; Protocol PRN Reason: Hypoglycemia Protocol Dextrose (Glutose 15) 0 gm PO ONCE PRN; Protocol PRN Reason: Hypoglycemia Protocol Glucagon (Glucagen Diagnostic Kit) 0 mg IM STAT PRN; Protocol PRN Reason: Hypoglycemia Protocol Dextrose/Sodium Chloride (Dextrose 5%/0.45% Ns 1000 Ml) 1,000 mls @ 80 mls/hr IV .[id number] [facility] Stop: 06/20/18 03:01 Last Admin: 06/18/18 22:43 Dose: 80 mls/hr Piperacillin Sod/Tazobactam (Sod 3.375 gm/ Sodium Chloride) 100 mls @ 100 mls/ hr IVPB Q8 [facility]; Protocol Last Admin: 06/19/18 09:26 Dose: 100 mls/hr Insulin Human Lispro (Humalog) 0 units SC ACHS [facility]; Protocol Last Admin: 06/19/18 07:36 Dose: Not Given Ipratropium [place] (Atrovent) 0.5 mg IH RQ6 [facility] Last Admin: 06/19/18 08:10 Dose: 0.5 mg Pantoprazole Sodium (Protonix Inj) 40 mg IVP DAILY [facility] Last Admin: 06/19/18 09:27 Dose: 40 mg - Labs Labs: 06/15/18 21:25 06/15/18 21:25 PT 13.6 Seconds (9.8-13.1) H 06/15/18 21:25 INR 1.2 06/15/18 21:25 APTT 31.8 Seconds (25.6-37.1) 06/15/18 21:25 - Constitutional Appears: Chronically Ill - Head Exam Head Exam: ATRAUMATIC, NORMAL INSPECTION, NORMOCEPHALIC - Eye Exam Eye Exam: EOMI, Normal appearance, PERRL Pupil Exam: NORMAL ACCOMODATION, PERRL - ENT Exam ENT Exam: Mucous Membranes Moist, Normal Exam - Neck Exam Neck Exam: Full ROM, Normal Inspection. absent: Lymphadenopathy - Respiratory Exam Respiratory Exam: Clear to Ausculation Bilateral, NORMAL BREATHING PATTERN - Cardiovascular Exam Cardiovascular Exam: REGULAR RHYTHM, +S1, +S2. absent: Murmur - GI/Abdominal Exam GI & Abdominal Exam: Soft, Normal Bowel Sounds. absent: Tenderness Additional comments: NON-FUNCTIONING PEG - Rectal Exam Rectal Exam: NORMAL INSPECTION - Extremities Exam Extremities Exam: Full ROM, Normal Capillary Refill, Normal Inspection. absent: Joint Swelling, Pedal Edema - Back Exam Back Exam: NORMAL INSPECTION - Neurological Exam Neurological Exam: CN II-XII Intact - Skin Skin Exam: Dry, Intact, Normal Color, Warm Assessment and Plan - Assessment and Plan (Free Text) Assessment: DISLODGED BPEG POSITIVE BLOOD CULTURE--R/O SEPSIS DEMENTIA COPD Plan: INFECTIOUS DZ EVAL AND RX PEG PLACEMENT ONCE CLEARED BY ID
[2018-06-19 11:22] LABS: HEMOGLOBIN 10.3 g/dL (12.0-16.0); MEAN CELL VOLUME 82.9 fl (81.0-99.0); MEAN CORPUSCULAR HEMOGLOBIN 26.6 pg (27.0-31.0); MEAN CORPUSCULAR HGB CONC 32.1 g/dL (33.0-37.0); RBC 3.86 Mil/uL (3.80-5.20); RED CELL DISTRIBUTION WIDTH 17.5 % (11.5-14.5); WHITE BLOOD COUNT 6.2 K/uL (4.8-10.8)
[2018-06-19 11:53] LABS: ALB/GLOB RATIO 0.9 (1.0-2.1); ALT/SGPT 38 U/L (9-52); AST/SGOT 29 U/L (14-36); BLOOD UREA NITROGEN 9 mg/dl (7-17); CALCIUM 9.1 mg/dL (8.4-10.2); GFR NON-AFRICAN AMERICAN > 60
[2018-06-19] MEDS: Dextrose 5%/0.45% NS 1,000 ML IV SCH (13:15)
--- NOTE | 2018-06-19 21:39 | CP.PCM.CON ---
History of Present Illness - History of Present Illness History of Present Illness: halfway unable to use PEG tube since yesterday evening. On attempts today, feeds will not go through. Has not had any intake all day today. Positive blood cultures- iv rx started - Medical History PMH: Alzheimer's Disease, Anemia, Anxiety, Arthritis, Asthma, COPD, Dementia, Depression, Fractures (Right wrist fx (16 yrs ago)), Gastritis, HTN, Hypercholesterolemia, Hyperlipidemia Denies: CHF, HIV, Hypothyroidism, Chronic Kidney Disease, Rheumatoid Arthritis Review of Systems - Review of Systems All systems: reviewed and no additional remarkable complaints except - Constitutional Constitutional: absent: As Per HPI, Anorexia, Chills, Daytime Sleepiness, Excessive Sweating, Fatigue, Fever, Frequent Falls, Headache, Increased Appetite, Lethargy, Malaise, Night Sweats, Snoring, Sleep Apnea, Weight Gain, Weight Loss, Weakness, Other - EENT Eyes: absent: As Per HPI, Blind Spots, Blurred Vision, Change in Vision, Decreased Night Vision, Diplopia, Discharge, Dry Eye, Exophthalmos, Floaters, Irritation, Itchy Eyes, Loss of Peripheral Vision, Pain, Photophobia, Requires Corrective Lenses, Sees Flashes, Spots in Vision, Tunnel Vision, Other Visual Disturbances, Loss of Vision, Other Ears: absent: As Per HPI, Decreased Hearing, Ear Discharge, Ear Pain, Tinnitus, Abnormal Hearing, Disequilibrium, Dizziness, Other Nose/Mouth/Throat: absent: As Per HPI, Epistaxis, Nasal Congestion, Nasal Discharge, Nasal Obstruction, Nasal Trauma, Nose Pain, Post Nasal Drip, Sinus Pain, Sinus Pressure, Bleeding Gums, Change in Voice, Dental Pain, Dry Mouth, Dysphagia, Halitosis, Hoarsness, Lip Swelling, Mouth Lesions, Mouth Pain, Odynophagia, Sore Throat, Throat Swelling, Tongue Swelling, Facial Pain, Neck Pain, Neck Mass, Other - Breasts Breasts: absent: As Per HPI, Change in Shape, Mass, Pain, Nipple Discharge, Nipple Inversion, Skin Changes, Swelling, Other - Cardiovascular Cardiovascular: absent: As Per HPI, Acrocyanosis, Chest Pain, Chest Pain at Rest, Chest Pain with Activity, Claudication, Diaphoresis, Dyspnea, Dyspnea on Exertion, Edema, Irregular Heart Rhythm, Pain Radiating to Arm/Neck/Jaw, Leg Edema, Leg Ulcers, Lightheadedness, Orthopnea, Palpitations, Paroxysmal Nocturnal Dyspnea, Pedal Edema, Radiating Pain, Rapid Heart Rate, Slow Heart Rate, Syncope, Other - Respiratory Respiratory: absent: As Per HPI, Cough, Dyspnea, Hemoptysis, Dyspnea on Exertion, Wheezing, Snoring, Stridor, Pain on Inspiration, Chest Congestion, Excessive Mucous Production, Change in Mucous Color, Pain with Coughing, Other - Gastrointestinal Gastrointestinal: absent: As Per HPI - Genitourinary Genitourinary: absent: As Per HPI, Change in Urinary Stream, Difficulty Urinating, Dysuria, Flank Pain, Hematuria, Pyuria, Nocturia, Urinary Incontinence, Urinary Frequency, Urinary Hesitance, Urinary Urgency, Voiding Freq/Small Amts, Freq UTI, Hx Renal/Bladder Calculi, Hx /Renal Surgery, Bladder Distension, Other - Reproductive: Female Reproductive:Female: absent: As Per HPI, Amenorrhea, Amenorrhea/ Control, Currently Menstual, Cycle <21 Days, Cycle >35 Days, Cycle Variable, Menses 1-7 Days, Menses >/= 8 Days, Menses Variable, Cycle > 4 Weeks Between, No Menses for 6 Months, Heavy Menses, Light Menses, Normal Menses, Spotting Between Cycles, S/P Hysterectomy, Menopausal, Post Menopausal, Premenarche, Abnormal Vaginal Bleeding, Dysmenorrhea, Dyspareunia, Genital Lesions, Genital Pruritis, Pelvic Pain, Prolapse Symptoms, Sexual Dysfunction, Vaginal Discharge, Vaginal Dryness, Vaginal Odor, Vaginal Pruritis, Other - Menstruation Menstruation: absent: As Per HPI, Amenorrhea, Amenorrhea/ Control, Currently Menstual, Cycle <21 Days, Cycle >35 Days, Cycle Variable, Menses 1-7 Days, Menses >/= 8 Days, Menses Variable, Cycle > 4 Weeks Between, No Menses for 6 Months, Heavy Menses, Light Menses, Normal Menses, Spotting Between Cycles, S/P Hysterectomy, Menopausal, Post Menopausal, Premenarche, Abnormal Vaginal Bleeding, Dysmenorrhea, Other - Musculoskeletal Musculoskeletal: absent: As Per HPI, Abnormal Gait, Arthralgias, Atrophy, Back Pain, Deformity, Joint Swelling, Limited Range of Motion, Loss of Height, Muscle Cramps, Muscle Weakness, Myalgias, Neck Pain, Numbness, Radiating Pain into Limb, Stiffness, Tingling, Other - Integumentary Integumentary: As Per HPI - Neurological Neurological: As Per HPI - Psychiatric Psychiatric: absent: As Per HPI, Abnormal Sleep Pattern, Anhedonia, Anxiety, Auditory Hallucinations, Behavioral Changes, Change in Appetite, Change in Libido, Confusion, Depression, Difficulty Concentrating, Hallucinations, Homicidal Ideation, Hopelessness, Irritability, Memory Loss, Mood Swings, Panic Attacks, Paranoia, Suicidal Ideation, Visual Hallucinations, Tactile Hallucinations, Other - Endocrine Endocrine: absent: As Per HPI, Change in Body Appearance, Change in Libido, Cold Intolorance, Deepening of Voice, Excessive Sweating, Fatigue, Flushing, Heat Intolorance, Increase in Ring/Shoe/Hat Size, Palpitations, Polydipsia, Polyphagia, Polyuria, Other - Hematologic/Lymphatic Hematologic: absent: As Per HPI, Easy Bleeding, Easy Bruising, Lymphadenopathy, Other Past Patient History - Infectious Disease Hx of Infectious Diseases: None - Tetanus Immunizations Tetanus Immunization: Unknown (quit 5 yrs ago; used to smoke 2 PPD) - Past Medical History & Family History Past Medical History?: Yes - Past Social History Alcohol: None - CARDIAC Hx Congestive Heart Failure: No Hx Hypercholesterolemia: Yes Hx Hypertension: Yes - PULMONARY Hx Asthma: Yes Hx Chronic Obstructive Pulmonary Disease (COPD): Yes - NEUROLOGICAL Hx Alzheimer's Disease: Yes Hx Dementia: Yes - HEENT Hx HEENT Problems: No - RENAL Hx Chronic Kidney Disease: No - ENDOCRINE/METABOLIC Hx Hypothyroidism: No - HEMATOLOGICAL/ONCOLOGICAL Hx Anemia: Yes Hx Human Immunodeficiency Virus (HIV): No - INTEGUMENTARY Hx Dermatological Problems: No - MUSCULOSKELETAL/RHEUMATOLOGICAL Hx Arthritis: Yes Hx Fractures: Yes (Right wrist fx (16 yrs ago)) Hx Rheumatoid Arthritis: No - GASTROINTESTINAL Hx Gastritis: Yes - GENITOURINARY/GYNECOLOGICAL Hx Genitourinary Disorders: Yes Hx Incontinence: Yes - PSYCHIATRIC Hx Anxiety: Yes Hx Depression: Yes - SURGICAL HISTORY Hx Surgeries: Yes Hx Open Reduction Internal Fixation: Yes (right wrist fracture) Hx Orthopedic Surgery: Yes Other/Comment: right wrist surgery with metal plate, left knee mass removal years ago. PEG insertion - ANESTHESIA Hx Anesthesia: Yes Hx Anesthesia Reactions: No Hx Malignant Hyperthermia: No Has any member of the family had a problem w/ anesthesia?: No Meds Allergies/Adverse Reactions: Allergies Allergy/AdvReac Type Severity Reaction Status Date / Time No Known Allergies Allergy Verified 06/15/18 19:56 - Medications Medications: Current Medications Albuterol Sulfate (Albuterol 0.083% Inhal Luanne (2.5 Mg/3 Ml) Ud) 2.5 mg INH RQ6 [facility] Last Admin: 06/19/18 08:10 Dose: 2.5 mg Dextrose (Dextrose 50% Inj) 0 ml IV STAT PRN; Protocol PRN Reason: Hypoglycemia Protocol Dextrose (Glutose 15) 0 gm PO ONCE PRN; Protocol PRN Reason: Hypoglycemia Protocol Glucagon (Glucagen Diagnostic Kit) 0 mg IM STAT PRN; Protocol PRN Reason: Hypoglycemia Protocol Dextrose/Sodium Chloride (Dextrose 5%/0.45% Ns 1000 Ml) 1,000 mls @ 80 mls/hr IV .[id number] [facility] Stop: 06/20/18 03:01 Last Admin: 06/18/18 22:43 Dose: 80 mls/hr Piperacillin Sod/Tazobactam (Sod 3.375 gm/ Sodium Chloride) 100 mls @ 100 mls/hr IVPB Q8 [facility]; Protocol Last Admin: 06/19/18 09:26 Dose: 100 mls/hr Insulin Human Lispro (Humalog) 0 units SC ACHS [facility]; Protocol Last Admin: 06/19/18 07:36 Dose: Not Given Ipratropium [place] (Atrovent) 0.5 mg IH RQ6 [facility] Last Admin: 06/19/18 08:10 Dose: 0.5 mg Pantoprazole Sodium (Protonix Inj) 40 mg IVP DAILY [facility] Last Admin: 06/19/18 09:27 Dose: 40 mg Physical Exam - Constitutional Appears: Non-toxic, Chronically Ill - Head Exam Head Exam: NORMOCEPHALIC - Eye Exam Eye Exam: PERRL Pupil Exam: NORMAL ACCOMODATION - ENT Exam ENT Exam: Mucous Membranes Dry, Normal External Ear Exam - Neck Exam Neck exam: Negative for: Lymphadenopathy - Respiratory Exam Respiratory Exam: Decreased Breath Sounds, Clear to Auscultation Bilateral - Cardiovascular Exam Cardiovascular Exam: REGULAR RHYTHM, +S1, +S2 - GI/Abdominal Exam GI & Abdominal Exam: Diminished Bowel Sounds, Soft. absent: Tenderness - Rectal Exam Rectal Exam: Deferred - Exam Exam: NORMAL INSPECTION - Extremities Exam Extremities exam: Positive for: pedal pulses present. Negative for: calf tenderness, tenderness - Back Exam Back exam: absent: CVA tenderness (L), CVA tenderness (R), paraspinal tenderness - Neurological Exam Neurological exam: Altered, CN II-XII Intact, Motor Sensory Deficit - Psychiatric Exam Psychiatric exam: Depressed - Skin Skin Exam: Dry Results - Vital Signs Recent Vital Signs: Last Vital Signs Temp 98.4 F 06/19/18 08:10 Pulse 57 L 06/19/18 08:10 Resp 20 06/19/18 08:10 BP 122/69 06/19/18 08:10 Pulse Ox 97 06/19/18 08:10 - Labs Result Diagrams: 06/19/18 11:10 06/19/18 11:10 Labs: Laboratory Results - last 24 hr 06/18/18 06/18/18 06/18/18 11:01 15:42 21:41 POC Glucose (mg/dL) 111 H 102 110 06/19/18 06:05 POC Glucose (mg/dL) 119 H Assessment & Plan (1) PEG tube malfunction Status: Acute (2) Altered mental status Status: Acute Priority: Medium (3) Anemia due to acute blood loss Status: Acute Priority: High (4) Bacteremia Status: Acute - Assessment and Plan (Free Text) Assessment: await cultures for PEG reinsertion cont IV antibiotics
[2018-06-20] MEDS: Piperacillin/Tazobact 3.375 GM in Sodium Chloride 0.9% 100 ML IVPB SCH ×2 (00:06→08:55)
[2018-06-20] MEDS: Albuterol 0.083% Inhal Sol (2.5 mg/3 mL) UD INH SCH ×4 (02:08→19:03)
[2018-06-20] MEDS: Ipratropium 0.02% Inhal Soln (0.5 mg/2.5 ml) UD IH SCH ×4 (02:08→19:03)
[2018-06-20] MEDS: Dextrose 5%/0.45% NS 1,000 ML IV SCH ×2 (04:04→22:24)
[2018-06-20] MEDS: Insulin Lispro (humaLOG) 100 Units/ml Inj SC SCH ×3 (08:54→22:25)
--- NOTE | 2018-06-20 10:17 | CP.PCM.PN ---
Subjective - Date & Time of Evaluation Date of Evaluation: 06/20/18 Time of Evaluation: 10:17 - Subjective Subjective: NO NEW FINDINGS AFEBRILE Objective - Vital Signs/Intake and Output Vital Signs (last 24 hours): Temp Pulse Resp BP Pulse Ox 97.7 F 96 H 20 123/53 L 95 06/20/18 09:00 06/20/18 09:00 06/20/18 09:00 06/20/18 09:00 06/20/18 09:00 - Medications Medications: Current Medications Albuterol Sulfate (Albuterol 0.083% Inhal Luanne (2.5 Mg/3 Ml) Ud) 2.5 mg INH RQ6 [facility] Last Admin: 06/20/18 07:12 Dose: 2.5 mg Dextrose (Dextrose 50% Inj) 0 ml IV STAT PRN; Protocol PRN Reason: Hypoglycemia Protocol Dextrose (Glutose 15) 0 gm PO ONCE PRN; Protocol PRN Reason: Hypoglycemia Protocol Glucagon (Glucagen Diagnostic Kit) 0 mg IM STAT PRN; Protocol PRN Reason: Hypoglycemia Protocol Piperacillin Sod/Tazobactam (Sod 3.375 gm/ Sodium Chloride) 100 mls @ 100 mls/hr IVPB Q8 [facility]; Protocol Last Admin: 06/20/18 08:55 Dose: 100 mls/hr Insulin Human Lispro (Humalog) 0 units SC ACHS [facility]; Protocol Last Admin: 06/20/18 08:54 Dose: Not Given Ipratropium [place] (Atrovent) 0.5 mg IH RQ6 [facility] Last Admin: 06/20/18 07:12 Dose: 0.5 mg Pantoprazole Sodium (Protonix Inj) 40 mg IVP DAILY [facility] Last Admin: 06/20/18 08:55 Dose: 40 mg - Labs Labs: 06/19/18 11:10 06/19/18 11:10 PT 13.6 Seconds (9.8-13.1) H 06/15/18 21:25 INR 1.2 06/15/18 21:25 APTT 31.8 Seconds (25.6-37.1) 06/15/18 21:25 - Constitutional Appears: Chronically Ill - Head Exam Head Exam: ATRAUMATIC, NORMAL INSPECTION, NORMOCEPHALIC - Eye Exam Eye Exam: EOMI, Normal appearance, PERRL Pupil Exam: NORMAL ACCOMODATION, PERRL - ENT Exam ENT Exam: Mucous Membranes Moist, Normal Exam - Neck Exam Neck Exam: Full ROM, Normal Inspection. absent: Lymphadenopathy - Respiratory Exam Respiratory Exam: Clear to Ausculation Bilateral, NORMAL BREATHING PATTERN - Cardiovascular Exam Cardiovascular Exam: REGULAR RHYTHM, +S1, +S2. absent: Murmur - GI/Abdominal Exam GI & Abdominal Exam: Soft, Normal Bowel Sounds. absent: Tenderness - Rectal Exam Rectal Exam: NORMAL INSPECTION - Extremities Exam Extremities Exam: Full ROM, Normal Capillary Refill, Normal Inspection. absent: Joint Swelling, Pedal Edema - Back Exam Back Exam: NORMAL INSPECTION - Neurological Exam Neurological Exam: Alert, Awake, CN II-XII Intact, Normal Gait, Oriented x3 - Psychiatric Exam Psychiatric exam: Normal Affect, Normal Mood - Skin Skin Exam: Dry, Intact, Normal Color, Warm Assessment and Plan - Assessment and Plan (Free Text) Assessment: SEPSIS MALFUNCTIONING PEG COPD Plan: CONTINUE IV ANTIBIOTIC RX FOR PEG RE-INSERTION
--- NOTE | 2018-06-20 13:01 | CP.PCM.PN ---
Subjective - Date & Time of Evaluation Date of Evaluation: 06/20/18 Time of Evaluation: 09:00 - Subjective Subjective: awake alert confused NAD Objective - Vital Signs/Intake and Output Vital Signs (last 24 hours): Temp Pulse Resp BP Pulse Ox 97.7 F 96 H 20 123/53 L 95 06/20/18 09:00 06/20/18 09:00 06/20/18 09:00 06/20/18 09:00 06/20/18 09:00 - Medications Medications: Current Medications Albuterol Sulfate (Albuterol 0.083% Inhal [place] (2.5 Mg/3 Ml) Ud) 2.5 mg INH RQ6 [facility] Last Admin: 06/20/18 07:12 Dose: 2.5 mg Dextrose (Dextrose 50% Inj) 0 ml IV STAT PRN; Protocol PRN Reason: Hypoglycemia Protocol Dextrose (Glutose 15) 0 gm PO ONCE PRN; Protocol PRN Reason: Hypoglycemia Protocol Glucagon (Glucagen Diagnostic Kit) 0 mg IM STAT PRN; Protocol PRN Reason: Hypoglycemia Protocol Piperacillin Sod/Tazobactam (Sod 3.375 gm/ Sodium Chloride) 100 mls @ 100 mls/hr IVPB Q8 [facility]; Protocol Last Admin: 06/20/18 08:55 Dose: 100 mls/hr Insulin Human Lispro (Humalog) 0 units SC ACHS [facility]; Protocol Last Admin: 06/20/18 12:13 Dose: Not Given Ipratropium [place] (Atrovent) 0.5 mg IH RQ6 [facility] Last Admin: 06/20/18 07:12 Dose: 0.5 mg Pantoprazole Sodium (Protonix Inj) 40 mg IVP DAILY [facility] Last Admin: 06/20/18 08:55 Dose: 40 mg - Labs Labs: 06/19/18 11:10 06/19/18 11:10 PT 13.6 Seconds (9.8-13.1) H 06/15/18 21:25 INR 1.2 06/15/18 21:25 APTT 31.8 Seconds (25.6-37.1) 06/15/18 21:25 - Constitutional Appears: Non-toxic, Confused, Cachectic, Chronically Ill - Head Exam Head Exam: NORMOCEPHALIC - Eye Exam Eye Exam: absent: Scleral icterus - ENT Exam ENT Exam: Mucous Membranes Dry - Neck Exam Neck Exam: absent: Lymphadenopathy - Respiratory Exam Respiratory Exam: Decreased Breath Sounds, Clear to Ausculation Bilateral - Cardiovascular Exam Cardiovascular Exam: REGULAR RHYTHM, +S1, +S2 - GI/Abdominal Exam GI & Abdominal Exam: Distended, Soft. absent: Tenderness - Rectal Exam Rectal Exam: Deferred - Exam Exam: NORMAL INSPECTION Assessment and Plan (1) PEG tube malfunction Status: Acute (2) Altered mental status Status: Acute (3) Anemia due to acute blood loss Status: Acute (4) Bacteremia Status: Acute - Assessment and Plan (Free Text) Assessment: cont iv antibiotics await cultures
--- NOTE | 2018-06-20 21:34 | PQF ---
PROVIDER RESPONSE TEXT: Patient was noted to have bright red blood from GT site [facility] REVIEWER QUERY TEXT: Clinical Validity 06/19 ID Consult has a diagnosis of Anemia due to acute blood loss status: acute . Please clarify if t his diagnosis is for the current admission or a history /previous admissions. Additional clinical indicators are required to support your documented diagnosis of Acute Blood Loss Anemia Please respond and also state in your next progress note whether: -- Condition exists and also please provide clinical indicators to support the diagnosis -- Condition does not exist and also please provide amended documentation in the medical record to cl liliana -- Unable to provide additional clarity regarding the diagnosis -- Other, please specify The patient's Clinical Indicators include: Sent to the ER with a PEG tube malfunction. Feedings will not go through. History of Anemia. Query created by: Aranza Loepz on 06/20/2018 8:53 AM Electronically signed by: Christopher Kenny MD 06/20/2018 9:31 PM
[2018-06-21] MEDS: Albuterol 0.083% Inhal Sol (2.5 mg/3 mL) UD INH SCH ×4 (02:09→19:23)
[2018-06-21] MEDS: Ipratropium 0.02% Inhal Soln (0.5 mg/2.5 ml) UD IH SCH ×4 (02:09→19:23)
[2018-06-21] MEDS: Insulin Lispro (humaLOG) 100 Units/ml Inj SC SCH ×5 (08:59→22:00)
--- NOTE | 2018-06-21 09:20 | CP.PCM.PN ---
Subjective - Date & Time of Evaluation Date of Evaluation: 06/21/18 Time of Evaluation: 09:19 - Subjective Subjective: no overnight events Objective - Vital Signs/Intake and Output Vital Signs (last 24 hours): Temp Pulse Resp BP Pulse Ox 98.2 F 79 20 100/46 L 99 06/21/18 08:27 06/21/18 08:27 06/21/18 08:27 06/21/18 08:27 06/21/18 08:27 - Medications Medications: Current Medications Albuterol Sulfate (Albuterol 0.083% Inhal Luanne (2.5 Mg/3 Ml) Ud) 2.5 mg INH RQ6 [facility] Last Admin: 06/21/18 07:47 Dose: 2.5 mg Dextrose (Dextrose 50% Inj) 0 ml IV STAT PRN; Protocol PRN Reason: Hypoglycemia Protocol Dextrose (Glutose 15) 0 gm PO ONCE PRN; Protocol PRN Reason: Hypoglycemia Protocol Glucagon (Glucagen Diagnostic Kit) 0 mg IM STAT PRN; Protocol PRN Reason: Hypoglycemia Protocol Vancomycin HCl 500 mg/ Sodium (Chloride) 100 mls @ 100 mls/hr IVPB Q12H [facility]; Protocol Last Admin: 06/21/18 00:25 Dose: 100 mls/hr Insulin Human Lispro (Humalog) 0 units SC ACHS [facility]; Protocol Last Admin: 06/21/18 09:00 Dose: Not Given Ipratropium [place] (Atrovent) 0.5 mg IH RQ6 [facility] Last Admin: 06/21/18 07:47 Dose: 0.5 mg Pantoprazole Sodium (Protonix Inj) 40 mg IVP DAILY [facility] Last Admin: 06/21/18 09:02 Dose: 40 mg - Labs Labs: 06/19/18 11:10 06/19/18 11:10 PT 13.6 Seconds (9.8-13.1) H 06/15/18 21:25 INR 1.2 06/15/18 21:25 APTT 31.8 Seconds (25.6-37.1) 06/15/18 21:25 - Head Exam Head Exam: NORMOCEPHALIC - Neck Exam Neck Exam: Normal Inspection - Respiratory Exam Respiratory Exam: Clear to Ausculation Bilateral, NORMAL BREATHING PATTERN - Cardiovascular Exam Cardiovascular Exam: REGULAR RHYTHM - GI/Abdominal Exam GI & Abdominal Exam: Soft, Normal Bowel Sounds Assessment and Plan - Assessment and Plan (Free Text) Assessment: yo female with dyphagia for peg in am
--- NOTE | 2018-06-21 09:24 | CP.PCM.PN ---
Subjective - Date & Time of Evaluation Date of Evaluation: 06/21/18 Time of Evaluation: 09:24 - Subjective Subjective: NO NEW FINDINGS DAUGHTER AT BEDSIDE AND CASE WAS DISCUSSED WITH HER SHE IS SCHEDULED FOR PEG PLACEMENT TOMORROW WILL PLAN D/C ONCE PEG IS PLACED Objective - Vital Signs/Intake and Output Vital Signs (last 24 hours): Temp Pulse Resp BP Pulse Ox 98.2 F 79 20 100/46 L 99 06/21/18 08:27 06/21/18 08:27 06/21/18 08:27 06/21/18 08:27 06/21/18 08:27 - Medications Medications: Current Medications Albuterol Sulfate (Albuterol 0.083% Inhal Luanne (2.5 Mg/3 Ml) Ud) 2.5 mg INH RQ6 [facility] Last Admin: 06/21/18 07:47 Dose: 2.5 mg Dextrose (Dextrose 50% Inj) 0 ml IV STAT PRN; Protocol PRN Reason: Hypoglycemia Protocol Dextrose (Glutose 15) 0 gm PO ONCE PRN; Protocol PRN Reason: Hypoglycemia Protocol Glucagon (Glucagen Diagnostic Kit) 0 mg IM STAT PRN; Protocol PRN Reason: Hypoglycemia Protocol Vancomycin HCl 500 mg/ Sodium (Chloride) 100 mls @ 100 mls/hr IVPB Q12H [facility]; Protocol Last Admin: 06/21/18 00:25 Dose: 100 mls/hr Insulin Human Lispro (Humalog) 0 units SC ACHS [facility]; Protocol Last Admin: 06/21/18 09:00 Dose: Not Given Ipratropium [place] (Atrovent) 0.5 mg IH RQ6 [facility] Last Admin: 06/21/18 07:47 Dose: 0.5 mg Pantoprazole Sodium (Protonix Inj) 40 mg IVP DAILY [facility] Last Admin: 06/21/18 09:02 Dose: 40 mg - Labs Labs: 06/19/18 11:10 06/19/18 11:10 PT 13.6 Seconds (9.8-13.1) H 06/15/18 21:25 INR 1.2 06/15/18 21:25 APTT 31.8 Seconds (25.6-37.1) 06/15/18 21:25
[2018-06-21] MEDS: Dextrose 5%/0.45% NS 1,000 ML IV SCH (15:18)
[2018-06-22] MEDS: Albuterol 0.083% Inhal Sol (2.5 mg/3 mL) UD INH SCH ×5 (01:10→19:05)
[2018-06-22] MEDS: Ipratropium 0.02% Inhal Soln (0.5 mg/2.5 ml) UD IH SCH ×5 (01:10→19:05)
[2018-06-22] MEDS: Insulin Lispro (humaLOG) 100 Units/ml Inj SC SCH ×4 (07:30→21:52)
[2018-06-22] MEDS: ceFAZolin 1 GM in Sodium Chloride 0.9% 100 ML IVPB ONE ×2 (12:15→15:34)
--- NOTE | 2018-06-22 13:04 | CP.PCM.PN ---
Subjective - Date & Time of Evaluation Date of Evaluation: 06/22/18 Time of Evaluation: 13:04 - Subjective Subjective: NO NEW FINDINGS FOR PEG PLACEMENT TODAY Objective - Vital Signs/Intake and Output Vital Signs (last 24 hours): Temp Pulse Resp BP Pulse Ox 97.3 F L 90 20 126/52 L 100 06/22/18 12:50 06/22/18 12:50 06/22/18 12:50 06/22/18 12:50 06/22/18 12:50 - Medications Medications: Current Medications Albuterol Sulfate (Albuterol 0.083% Inhal Luanne (2.5 Mg/3 Ml) Ud) 2.5 mg INH RQ6 LAMINE Last Admin: 06/22/18 07:28 Dose: 2.5 mg Dextrose (Dextrose 50% Inj) 0 ml IV STAT PRN; Protocol PRN Reason: Hypoglycemia Protocol Dextrose (Glutose 15) 0 gm PO ONCE PRN; Protocol PRN Reason: Hypoglycemia Protocol Glucagon (Glucagen Diagnostic Kit) 0 mg IM STAT PRN; Protocol PRN Reason: Hypoglycemia Protocol Vancomycin HCl 500 mg/ Sodium (Chloride) 100 mls @ 100 mls/hr IVPB Q12H LAMINE; Protocol Last Admin: 06/22/18 00:23 Dose: 100 mls/hr Insulin Human Lispro (Humalog) 0 units SC ACHS LAMINE; Protocol Last Admin: 06/22/18 07:30 Dose: Not Given Ipratropium [place] (Atrovent) 0.5 mg IH RQ6 LAMINE Last Admin: 06/22/18 07:28 Dose: 0.5 mg Pantoprazole Sodium (Protonix Inj) 40 mg IVP DAILY LAMINE Last Admin: 06/22/18 09:20 Dose: 40 mg - Labs Labs: 06/19/18 11:10 06/19/18 11:10 PT 13.6 Seconds (9.8-13.1) H 06/15/18 21:25 INR 1.2 06/15/18 21:25 APTT 31.8 Seconds (25.6-37.1) 06/15/18 21:25 - Constitutional Appears: No Acute Distress - Head Exam Head Exam: ATRAUMATIC, NORMAL INSPECTION, NORMOCEPHALIC - Eye Exam Eye Exam: EOMI, Normal appearance, PERRL Pupil Exam: NORMAL ACCOMODATION, PERRL - ENT Exam ENT Exam: Mucous Membranes Moist, Normal Exam - Neck Exam Neck Exam: Full ROM, Normal Inspection. absent: Lymphadenopathy - Respiratory Exam Respiratory Exam: Clear to Ausculation Bilateral, NORMAL BREATHING PATTERN - Cardiovascular Exam Cardiovascular Exam: REGULAR RHYTHM, +S1, +S2. absent: Murmur - GI/Abdominal Exam GI & Abdominal Exam: Soft, Normal Bowel Sounds. absent: Tenderness - Rectal Exam Rectal Exam: NORMAL INSPECTION - Extremities Exam Extremities Exam: Full ROM, Normal Capillary Refill, Normal Inspection. absent: Joint Swelling, Pedal Edema - Back Exam Back Exam: NORMAL INSPECTION - Neurological Exam Neurological Exam: Alert, Awake, CN II-XII Intact - Skin Skin Exam: Dry, Intact, Normal Color, Warm Assessment and Plan - Assessment and Plan (Free Text) Assessment: MALFUNCTIONING PEG SEPSIS DEMENTIA Plan: FOR PEG IV ANTIBIOTIC RX
[2018-06-22] MEDS ORDERED: Lactated Ringer's 500 ML IV ONE (13:14)
[2018-06-22] MEDS ORDERED: Midazolam 2 MG/2 ML VIAL ONE (13:25)
[2018-06-22] MEDS ORDERED: Etomidate 20 mg/10ml Inj IV ONE (13:25)
--- NOTE | 2018-06-22 14:05 | CP.PCM.PN ---
Subjective - Date & Time of Evaluation Date of Evaluation: 06/23/18 Time of Evaluation: 08:00 - Subjective Subjective: improving afeb nad alert confused Objective - Vital Signs/Intake and Output Vital Signs (last 24 hours): Temp Pulse Resp BP Pulse Ox 97.4 F L 96 H 20 130/59 L 97 06/22/18 13:13 06/22/18 13:13 06/22/18 13:13 06/22/18 13:13 06/22/18 13:13 Intake and Output: 06/22/18 06/22/18 06:59 18:59 Intake Total 50 Balance 50 - Medications Medications: Current Medications Albuterol Sulfate (Albuterol 0.083% Inhal Luanne (2.5 Mg/3 Ml) Ud) 2.5 mg INH RQ6 LAMINE Last Admin: 06/22/18 07:28 Dose: 2.5 mg Dextrose (Dextrose 50% Inj) 0 ml IV STAT PRN; Protocol PRN Reason: Hypoglycemia Protocol Dextrose (Glutose 15) 0 gm PO ONCE PRN; Protocol PRN Reason: Hypoglycemia Protocol Glucagon (Glucagen Diagnostic Kit) 0 mg IM STAT PRN; Protocol PRN Reason: Hypoglycemia Protocol Vancomycin HCl 500 mg/ Sodium (Chloride) 100 mls @ 100 mls/hr IVPB Q12H LAMINE; Protocol Last Admin: 06/22/18 00:23 Dose: 100 mls/hr Insulin Human Lispro (Humalog) 0 units SC ACHS LAMINE; Protocol Last Admin: 06/22/18 07:30 Dose: Not Given Ipratropium [place] (Atrovent) 0.5 mg IH RQ6 LAMINE Last Admin: 06/22/18 07:28 Dose: 0.5 mg Pantoprazole Sodium (Protonix Inj) 40 mg IVP DAILY LAMINE Last Admin: 06/22/18 09:20 Dose: 40 mg - Labs Labs: 06/19/18 11:10 06/19/18 11:10 PT 13.6 Seconds (9.8-13.1) H 06/15/18 21:25 INR 1.2 06/15/18 21:25 APTT 31.8 Seconds (25.6-37.1) 06/15/18 21:25 - Constitutional Appears: Non-toxic, Confused, Chronically Ill - Head Exam Head Exam: NORMOCEPHALIC - Eye Exam Eye Exam: Normal appearance - ENT Exam ENT Exam: Mucous Membranes Dry - Respiratory Exam Respiratory Exam: Decreased Breath Sounds - Cardiovascular Exam Cardiovascular Exam: REGULAR RHYTHM - GI/Abdominal Exam GI & Abdominal Exam: Distended - Rectal Exam Rectal Exam: Deferred - Exam Exam: NORMAL INSPECTION Assessment and Plan (1) PEG tube malfunction Status: Acute (2) Altered mental status Status: Acute (3) Anemia due to acute blood loss Status: Acute (4) Bacteremia Status: Acute - Assessment and Plan (Free Text) Assessment: repeat cultures negative ok to d/c antibiotics and observe
--- NOTE | 2018-06-22 14:19 | CP.PCM.PN ---
Subjective - Date & Time of Evaluation Date of Evaluation: 06/19/18 Time of Evaluation: 18:30 - Subjective Subjective: no overnight events Objective - Vital Signs/Intake and Output Vital Signs (last 24 hours): Temp Pulse Resp BP Pulse Ox 97.4 F L 96 H 20 130/59 L 97 06/22/18 13:13 06/22/18 13:13 06/22/18 13:13 06/22/18 13:13 06/22/18 13:13 Intake and Output: 06/22/18 06/22/18 06:59 18:59 Intake Total 150 Balance 150 - Medications Medications: Current Medications Albuterol Sulfate (Albuterol 0.083% Inhal Luanne (2.5 Mg/3 Ml) Ud) 2.5 mg INH RQ6 LAMINE Last Admin: 06/22/18 07:28 Dose: 2.5 mg Dextrose (Dextrose 50% Inj) 0 ml IV STAT PRN; Protocol PRN Reason: Hypoglycemia Protocol Dextrose (Glutose 15) 0 gm PO ONCE PRN; Protocol PRN Reason: Hypoglycemia Protocol Glucagon (Glucagen Diagnostic Kit) 0 mg IM STAT PRN; Protocol PRN Reason: Hypoglycemia Protocol Vancomycin HCl 500 mg/ Sodium (Chloride) 100 mls @ 100 mls/hr IVPB Q12H LAMINE; Protocol Last Admin: 06/22/18 00:23 Dose: 100 mls/hr Insulin Human Lispro (Humalog) 0 units SC ACHS LAMINE; Protocol Last Admin: 06/22/18 07:30 Dose: Not Given Ipratropium [place] (Atrovent) 0.5 mg IH RQ6 LAMINE Last Admin: 06/22/18 07:28 Dose: 0.5 mg Pantoprazole Sodium (Protonix Inj) 40 mg IVP DAILY LAMINE Last Admin: 06/22/18 09:20 Dose: 40 mg - Labs Labs: 06/19/18 11:10 06/19/18 11:10 PT 13.6 Seconds (9.8-13.1) H 06/15/18 21:25 INR 1.2 06/15/18 21:25 APTT 31.8 Seconds (25.6-37.1) 06/15/18 21:25 - Head Exam Head Exam: NORMOCEPHALIC - Neck Exam Neck Exam: Normal Inspection - Respiratory Exam Respiratory Exam: Clear to Ausculation Bilateral, NORMAL BREATHING PATTERN - Cardiovascular Exam Cardiovascular Exam: REGULAR RHYTHM - GI/Abdominal Exam GI & Abdominal Exam: Soft, Normal Bowel Sounds Assessment and Plan - Assessment and Plan (Free Text) Assessment: 83 yo female with dysphagia peg once BC negative npo for now
[2018-06-23] MEDS: Albuterol 0.083% Inhal Sol (2.5 mg/3 mL) UD INH SCH ×4 (01:00→19:36)
[2018-06-23] MEDS: Ipratropium 0.02% Inhal Soln (0.5 mg/2.5 ml) UD IH SCH ×4 (01:00→19:36)
[2018-06-23] MEDS: Insulin Lispro (humaLOG) 100 Units/ml Inj SC SCH ×4 (06:40→21:54)
--- NOTE | 2018-06-23 11:24 | CP.PCM.PN ---
Subjective - Date & Time of Evaluation Date of Evaluation: 06/23/18 Time of Evaluation: 11:24 - Subjective Subjective: S/P PEG PLACEMENT TOLERATING FEEDING Objective - Vital Signs/Intake and Output Vital Signs (last 24 hours): Temp Pulse Resp BP Pulse Ox 98.0 F 76 20 113/51 L 99 06/23/18 08:05 06/23/18 08:05 06/23/18 08:05 06/23/18 08:05 06/23/18 08:05 - Medications Medications: Current Medications Albuterol Sulfate (Albuterol 0.083% Inhal Luanne (2.5 Mg/3 Ml) Ud) 2.5 mg INH RQ6 LAMINE Last Admin: 06/23/18 07:26 Dose: 2.5 mg Dextrose (Dextrose 50% Inj) 0 ml IV STAT PRN; Protocol PRN Reason: Hypoglycemia Protocol Dextrose (Glutose 15) 0 gm PO ONCE PRN; Protocol PRN Reason: Hypoglycemia Protocol Glucagon (Glucagen Diagnostic Kit) 0 mg IM STAT PRN; Protocol PRN Reason: Hypoglycemia Protocol Vancomycin HCl 500 mg/ Sodium (Chloride) 100 mls @ 100 mls/hr IVPB Q12H LAMINE; Protocol Last Admin: 06/23/18 00:16 Dose: 100 mls/hr Insulin Human Lispro (Humalog) 0 units SC ACHS LAMINE; Protocol Last Admin: 06/23/18 06:40 Dose: Not Given Ipratropium [place] (Atrovent) 0.5 mg IH RQ6 LAMINE Last Admin: 06/23/18 07:26 Dose: 0.5 mg Pantoprazole Sodium (Protonix Inj) 40 mg IVP DAILY LAMINE Last Admin: 06/23/18 08:41 Dose: 40 mg - Labs Labs: 06/19/18 11:10 06/19/18 11:10 PT 13.6 Seconds (9.8-13.1) H 06/15/18 21:25 INR 1.2 06/15/18 21:25 APTT 31.8 Seconds (25.6-37.1) 06/15/18 21:25 - Constitutional Appears: No Acute Distress - Head Exam Head Exam: ATRAUMATIC, NORMAL INSPECTION, NORMOCEPHALIC - Eye Exam Eye Exam: EOMI, Normal appearance, PERRL Pupil Exam: NORMAL ACCOMODATION, PERRL - ENT Exam ENT Exam: Mucous Membranes Moist, Normal Exam - Neck Exam Neck Exam: Full ROM, Normal Inspection. absent: Lymphadenopathy - Respiratory Exam Respiratory Exam: Clear to Ausculation Bilateral, NORMAL BREATHING PATTERN - Cardiovascular Exam Cardiovascular Exam: REGULAR RHYTHM, +S1, +S2. absent: Murmur - GI/Abdominal Exam GI & Abdominal Exam: Soft, Normal Bowel Sounds. absent: Tenderness - Rectal Exam Rectal Exam: NORMAL INSPECTION - Extremities Exam Extremities Exam: Full ROM, Normal Capillary Refill, Normal Inspection. absent: Joint Swelling, Pedal Edema - Back Exam Back Exam: NORMAL INSPECTION - Neurological Exam Neurological Exam: Alert, Awake, CN II-XII Intact - Psychiatric Exam Psychiatric exam: Flat Affect - Skin Skin Exam: Dry, Intact, Normal Color, Warm Assessment and Plan - Assessment and Plan (Free Text) Assessment: SEPSIS S/P PEG PLACEMENT DEHYDRATION Plan: ADVANCE DIET TRANSFER TO SNF IN AM
[2018-06-23 16:23] VITALS: O2SAT 95
[2018-06-24] MEDS: Albuterol 0.083% Inhal Sol (2.5 mg/3 mL) UD INH SCH ×2 (01:15→07:28)
[2018-06-24] MEDS: Ipratropium 0.02% Inhal Soln (0.5 mg/2.5 ml) UD IH SCH ×2 (01:15→07:28)
[2018-06-24] MEDS: Insulin Lispro (humaLOG) 100 Units/ml Inj SC SCH (06:42)
[2018-06-24 07:37] LABS: BASO % 0.8 % (0.0-2.0); EOS # 0.2 K/uL (0.0-0.7); EOS % 4.1 % (0.0-4.0); HEMOGLOBIN 10.4 g/dL (12.0-16.0); LYMPH # 0.8 K/uL (1.0-4.3); LYMPH % 15.8 % (20.0-40.0); MEAN CELL VOLUME 82.5 fl (81.0-99.0); MEAN CORPUSCULAR HEMOGLOBIN 26.7 pg (27.0-31.0); MEAN CORPUSCULAR HGB CONC 32.3 g/dL (33.0-37.0); MEAN PLATELET VOLUME 8.9 fl (7.2-11.7); MONO # 0.4 K/uL (0.0-0.8); MONO % 7.9 % (0.0-10.0); NEUT # 3.5 K/uL (1.8-7.0); NEUT % 71.4 % (50.0-75.0); NRBC % 0.1 % (0.0-0.0); RBC 3.9 Mil/uL (3.80-5.20); RED CELL DISTRIBUTION WIDTH 17.4 % (11.5-14.5); WHITE BLOOD COUNT 4.9 K/uL (4.8-10.8)
[2018-06-24 08:00] LABS: ALB/GLOB RATIO 0.8 (1.0-2.1); ALBUMIN 2.6 g/dL (3.5-5.0); ALT/SGPT 35 U/L (9-52); AST/SGOT 21 U/L (14-36); BLOOD UREA NITROGEN 7 mg/dl (7-17); CALCIUM 8.3 mg/dL (8.4-10.2); GFR NON-AFRICAN AMERICAN > 60
[2018-06-24 08:33] VITALS: BP 109/56; PULSE 100; RESP 100; TEMP 98.5
--- NOTE | 2018-06-24 10:33 | CP.PCM.DIS ---
Provider - Provider Date of Admission: 06/15/18 22:20 Attending physician: Preet Rivas MD Consults: 06/16/18 02:43 Nursing Referral for Wound Care Routine Comment: Physician Instructions: Reason For Exam: see skin assessment Pastoral Care Referral Routine Comment: Physician Instructions: Reason For Exam: new admission 06/16/18 12:48 Gastroenterology Consult Routine Comment: Consulting Provider: Chris Doe Consulting Physician: Chris Doe Reason for Consult: REPLACEMENT OF PEG 06/18/18 17:35 Infectious Disease Consult Routine Comment: Consulting Provider: Christopher Kenny Consulting Physician: Christopher Kenny Reason for Consult: blood culture- gram (+) cocci in clusters Time Spent in preparation of Discharge (in minutes): 30 Diagnosis - Discharge Diagnosis (1) PEG tube malfunction Status: Acute (2) Bacteremia Status: Acute (3) COPD exacerbation Status: Acute (4) CVA (cerebral vascular accident) Status: Acute (5) DVT prophylaxis Status: Acute Priority: Medium (6) Generalized weakness Status: Acute Priority: High (7) Alzheimer disease Status: Chronic Priority: Low (8) Anemia Status: Chronic (9) Dementia Status: Chronic Priority: Medium Hospital Course - Lab Results Lab Results: Micro Results 06/19/18 11:10 Blood-Venous Blood Culture - Preliminary NO GROWTH AFTER 4 DAYS 06/16/18 18:44 Blood-Venous Blood Culture - Final NO GROWTH AFTER 5 DAYS 06/16/18 18:44 Blood-Venous Gram Stain - Final TEST NOT PERFORMED 06/16/18 18:34 Blood-Venous S.aureus & Coag-Neg Staph PNA FISH - Final 06/16/18 18:34 Blood-Venous Blood Culture - Final Coagulase Neg Staphylococcus 06/16/18 18:34 Blood-Venous Gram Stain - Final Most Recent Lab Values WBC 4.9 K/uL (4.8-10.8) 06/24/18 06:00 RBC 3.90 Mil/uL (3.80-5.20) 06/24/18 06:00 Hgb 10.4 g/dL (12.0-16.0) L 06/24/18 06:00 Hct 32.2 % (34.0-47.0) L 06/24/18 06:00 MCV 82.5 fl (81.0-99.0) 06/24/18 06:00 MCH 26.7 pg (27.0-31.0) L 06/24/18 06:00 MCHC 32.3 g/dL (33.0-37.0) L 06/24/18 06:00 RDW 17.4 % (11.5-14.5) H 06/24/18 06:00 Plt Count 256 K/uL (130-400) 06/24/18 06:00 MPV 8.9 fl (7.2-11.7) 06/24/18 06:00 Neut % (Auto) 71.4 % (50.0-75.0) 06/24/18 06:00 Lymph % (Auto) 15.8 % (20.0-40.0) L 06/24/18 06:00 [place] % (Auto) 7.9 % (0.0-10.0) 06/24/18 06:00 Eos % (Auto) 4.1 % (0.0-4.0) H 06/24/18 06:00 Baso % (Auto) 0.8 % (0.0-2.0) 06/24/18 06:00 Neut # (Auto) 3.5 K/uL (1.8-7.0) 06/24/18 06:00 Lymph # (Auto) 0.8 K/uL (1.0-4.3) L 06/24/18 06:00 [place] # (Auto) 0.4 K/uL (0.0-0.8) 06/24/18 06:00 Eos # (Auto) 0.2 K/uL (0.0-0.7) 06/24/18 06:00 Baso # (Auto) 0.0 K/uL (0.0-0.2) 06/24/18 06:00 PT 13.6 Seconds (9.8-13.1) H 06/15/18 21:25 INR 1.2 06/15/18 21:25 APTT 31.8 Seconds (25.6-37.1) 06/15/18 21:25 Sodium 141 mmol/l (132-148) 06/24/18 06:00 Potassium 2.8 MMOL/L (3.6-5.0) L 06/24/18 06:00 Chloride 103 mmol/L (98-107) 06/24/18 06:00 Carbon Dioxide 31 mmol/L (22-30) H 06/24/18 06:00 Anion Gap 10 (10-20) 06/24/18 06:00 BUN 7 mg/dl (7-17) 06/24/18 06:00 Creatinine 0.5 mg/dl (0.7-1.2) L 06/24/18 06:00 Est GFR ( Amer) > 60 06/24/18 06:00 Est GFR (Non-Af Amer) > 60 06/24/18 06:00 POC Glucose (mg/dL) 110 mg/dL (65-110) 06/24/18 06:14 Random Glucose 109 mg/dL (65-105) H 06/24/18 06:00 Lactic Acid 0.5 MMOL/L (0.7-2.1) L 06/15/18 21:25 Calcium 8.3 mg/dL (8.4-10.2) L 06/24/18 06:00 Phosphorus 3.5 mg/dl (2.5-4.5) 06/15/18 21:25 Magnesium 2.2 MG/DL (1.6-2.3) 06/15/18 21:25 Total Bilirubin 0.2 mg/dl (0.2-1.3) 06/24/18 06:00 AST 21 U/L (14-36) 06/24/18 06:00 ALT 35 U/L (9-52) 06/24/18 06:00 Alkaline Phosphatase 74 U/L (38-126) 06/24/18 06:00 Total Protein 6.0 G/DL (6.3-8.2) L 06/24/18 06:00 Albumin 2.6 g/dL (3.5-5.0) L 06/24/18 06:00 Globulin 3.3 gm/dL (2.2-3.9) 06/24/18 06:00 Albumin/Globulin Ratio 0.8 (1.0-2.1) L 06/24/18 06:00 Blood Type A NEGATIVE 06/15/18 21:18 Antibody Screen Negative 06/15/18 21:18 BBK History Checked Patient has bt 06/15/18 21:18 - Hospital Course Hospital Course: CLINICALLY IMPROVED WITH IV ANTIBIOTIC RX REPLACEMENT OF PEG TUBE Discharge Exam - Head Exam Head Exam: NORMOCEPHALIC - Eye Exam Eye Exam: EOMI, Normal appearance, PERRL Pupil Exam: NORMAL ACCOMODATION, PERRL - GI/Abdominal Exam GI & Abdominal Exam: Normal Bowel Sounds Additional comments: PEG FUNCTIONING WELL - Rectal Exam Rectal Exam: NORMAL INSPECTION - Neurological Exam Neurological exam: Alert, CN II-XII Intact - Psychiatric Exam Psychiatric exam: Flat Affect - Skin Skin Exam: Dry, Intact, Normal Color, Warm Discharge Plan - Follow Up Plan Condition: FAIR Disposition: HOME/ ROUTINE Patient education suggested?: Yes Instructions: How to Care for Your PEG Tube Additional Instructions: DISCHARGE TO INTERMEDIATE CONTINUE IV ANTIBIOTICS X 1 MORE WEEK ADVANCE TUBE FEEDING Referrals: Chris Doe MD, PhD [Staff Provider] -
[2018-06-24] MEDS ORDERED: Potassium Chloride 20 mEq/15 ml LIQ UD PO ONE (11:08)
--- NOTE | 2018-06-29 14:21 | PQF ---
PROVIDER RESPONSE TEXT: STAPH BACTEREMIA NOT SEPSIS REVIEWER QUERY TEXT: Rule Out Sepsis Clarification Rule out Sepsis is documented in the Medical Record. Please clarify whether: -- Patient has sepsis - Please document confirmed, suspected or probable causative organism - Please document confirmed, suspected or probable localized infection - Please clarify if sepsis is related to a device - Please clarify if sepsis was present on admission -- Sepsis was ruled out (include corresponding diagnosis for patient?s clinical picture and treatment ) -- Patient had sepsis which is resolved -- Other, please specify The patient's Clinical Indicators include: PROGRESS NOTE: DOCUMENTS SEPSIS WAS SEPSIS RULED IN OR OUT. Query created by: Sharyn Avina on 06/25/2018 12:44 PM Electronically signed by: Preet Rivas MD 06/29/2018 2:18 PM
== END 2018-06-24 11:30 | DRG 394 ==
LOC: H.ER 19:54 → H.ERHOLD 22:20 → H.MEDSURG1 06-16 00:30
PROVIDERS: ADMIT Internal Medicine Pulmonary Disease; ATTEND Internal Medicine Pulmonary Disease
PROC: 3E0G76Z Introduction of Nutritional Substance into Upper GI, Via Natural or Artificial Opening (ICD-10-PCS; 2018-06-22)
PROC: 0DH63UZ Insertion of Feeding Device into Stomach, Percutaneous Approach (ICD-10-PCS; principal; 2018-06-22 13:30)
DX: K94.23 Gastrostomy malfunction (principal); R78.81 Bacteremia; D62 Acute posthemorrhagic anemia; J44.1 Chronic obstructive pulmonary disease with (acute) exacerbation; B95.8 Unspecified staphylococcus as the cause of diseases classified elsewhere; E86.0 Dehydration; F02.80 Dementia in other diseases classified elsewhere, unspecified severity, without behavioral disturbance, psychotic disturbance, mood disturbance, and anxiety; G30.9 Alzheimer's disease, unspecified; E87.6 Hypokalemia; E11.9 Type 2 diabetes mellitus without complications; J44.9 Chronic obstructive pulmonary disease, unspecified; Z86.711 Personal history of pulmonary embolism; Z86.718 Personal history of other venous thrombosis and embolism; E78.00 Pure hypercholesterolemia, unspecified; E78.5 Hyperlipidemia, unspecified; I10 Essential (primary) hypertension; R13.10 Dysphagia, unspecified; R62.7 Adult failure to thrive; Z86.73 Personal history of transient ischemic attack (TIA), and cerebral infarction without residual deficits; F32.9 Major depressive disorder, single episode, unspecified; F41.9 Anxiety disorder, unspecified; K29.70 Gastritis, unspecified, without bleeding; M19.90 Unspecified osteoarthritis, unspecified site; R32 Unspecified urinary incontinence

== ENCOUNTER 2018-07-09 17:54 | Inpatient (IN) | payer MEDICARE, MEDICAID ==
[2018-07-09 17:54] VITALS: BMI 20.5
[2018-07-09] MEDS ORDERED: Albuterol-Ipratrop 3 mg / 0.5 (3 ml) UD IH STA (19:29)
--- NOTE | 2018-07-09 19:39 | ED PDOC ---
HPI: General Adult Chief Complaint (Provider): Hematemesis, SOB History Per: Family (daughter (power of environmental attorney)) History/Exam Limitations: clinical condition Onset/Duration Of Symptoms: Hrs (earlier today) Current Symptoms Are (Timing): Still Present Additional Complaint(s): 83 year old female presents to the ED with daughter via EMS from [facility] for evaluation of possibly bloody vomit and shortness of breath. Daughter, the power of environmental attorney, at bedside reports that since being with the patient she has had labored breathing. She also notes that on 06/19, patient had her second feeding tube placed in the last six months because she keeps ripping them out. Patient is a late stage Alzheimer's patient, so all history is obtained from daughter. Outside normal meds, denies additional medications. PMD: Preet Rivas I <Diana Birmingham - Last Filed: 07/09/18 19:59> <Richie Hines - Last Filed: 07/09/18 21:58> Time Seen by Provider: 07/09/18 18:57 Chief Complaint (Nursing): GI Problem Supervising Attending Note - Attestation: I have personally seen and examined this patient.: Yes I have fully participated in the care of the patient.: Yes - Notes: Notes:: Pt evaluated due to resp distress and GI bleed. CTA chest and CT abd. Hgb 8.3 ABG, pt not hypoxic. Will start on IV Protonix <Richie Hines F - Last Filed: 07/09/18 21:58> Past Medical History Reviewed: Historical Data, Nursing Documentation, Vital Signs Vital Signs: Last Vital Signs Temp 98.2 F 07/09/18 17:55 Pulse 122 H 07/09/18 17:55 Resp 28 H 07/09/18 17:55 BP 147/81 07/09/18 17:55 Pulse Ox 100 07/09/18 17:55 - Medical History PMH: Alzheimer's Disease, Anemia, Anxiety, Arthritis, Asthma, COPD, CVA, Dementia, Depression, Fractures (Right wrist fx (16 yrs ago)), Gastritis, HTN, Hypercholesterolemia, Hyperlipidemia Denies: CHF, HIV, Hypothyroidism, Chronic Kidney Disease, Rheumatoid Arthritis - Surgical History Other surgeries: metal plate in right arm; feeding tube - Family History Family History: States: Unknown Family Hx - Living Arrangements Living Arrangements: [facility] ([facility]) - Social History Current smoker - smoking cessation education provided: No Alcohol: None Drugs: Denies <Diana Birmingham - Last Filed: 07/09/18 19:59> Vital Signs: Last Vital Signs Temp 98.2 F 07/09/18 17:55 Pulse 122 H 07/09/18 17:55 Resp 28 H 07/09/18 17:55 BP 147/81 07/09/18 17:55 Pulse Ox 100 07/09/18 20:11 <FloraRichie F - Last Filed: 07/09/18 21:58> - Home Medications Home Medications: Ambulatory Orders Medication Instructions Recorded Rosuvastatin Calcium [Crestor] 5 mg PEG HS 03/03/15 Acetaminophen [Tylenol 325mg tab] 650 mg PEG Q4 PRN 12/16/17 Apixaban [Eliquis] 2.5 mg PEG BID 12/16/17 Bismuth Subsalicylate [Kaopectate] 30 ml PEG Q4 PRN 12/16/17 Insulin Lispro [humALOG] See Protocol SC QID 12/16/17 Memantine [Namenda] 5 mg PEG DAILY 12/16/17 Bacitracin OINT 1 appl TOP DAILY 03/09/18 Ipratropium 0.02% [Atrovent] 2.5 ml IH Q6 03/09/18 Acetaminophen [Tylenol] 650 mg PEG Q4 PRN 06/15/18 Albuterol Sulfate 1 vial INH Q6 06/15/18 Amino Acid/Protein/Vit C/Zinc 30 ml PEG TID 06/15/18 [Prosource Deyvi Protein Liquid] Banana Flakes/Tos [Banatrol Plus 1 packet PEG DAILY 06/15/18 Powder Packet] Cran/Vitc/Mannose/Fos/Bromeln 30 ml PEG DAILY 06/15/18 [Uti-Stat Liquid] Home Med 2.5 ml PEG DAILY 06/15/18 Home Med 20 ml PEG DAILY 06/15/18 Magnesium Hydroxide [Milk Of 30 ml PEG DAILY PRN 06/15/18 Magnesia] Vit A/Vitamin D3/E/Aloe V/Zinc 1 appl TOP QSHIFT 06/15/18 [Periguard Ointment] Vitamin A & D [Vitamin A & D Oint 1 appl TOP QSHIFT 06/15/18 UD Foilpak] - Allergies Allergies/Adverse Reactions: Allergies Allergy/AdvReac Type Severity Reaction Status Date / Time No Known Allergies Allergy Verified 06/15/18 19:56 Review of Systems ROS Statement: Except As Marked, All Systems Reviewed And Found Negative Respiratory: Positive for: Shortness of Breath, Other (labored breathing) Gastrointestinal: Positive for: Hematemesis <Diana Birmingham - Last Filed: 07/09/18 19:59> Physical Exam - Reviewed Nursing Documentation Reviewed: Yes Vital Signs Reviewed: Yes - Physical Exam Comments: GENERALIZED APPEARANCE: Patient is lethargic, and disoriented, with obvious labored breathing. Feeding tube with dressing in place. SKIN: Warm, dry; (-) cyanosis. HEAD: (-) scalp swelling or tenderness. EYES: (-) conjunctival pallor. ENMT: Mucous membranes dry. NECK: (-) tenderness, (-) lymphadenopathy. CHEST AND RESPIRATORY: (+) labored breathing, (+) decreased breath sounds, (+) scattered rhonchi, (+) retractions. HEART AND CARDIOVASCULAR: (-) irregularity; (-) murmur, (-) gallop. ABDOMEN AND GI: Soft; (-) apparent tenderness to palpation EXTREMITIES: (-) deformity; (+) compression devices in place to bilat LE. Distal pulses: present. NEURO AND PSYCH: Mental status as above. 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 <Diana Birmingham - Last Filed: 07/09/18 19:59> - Laboratory Results Result Diagrams: 07/09/18 19:46 - ECG O2 Sat by Pulse Oximetry: 100 (RA) Pulse Ox Interpretation: Normal <Diana Birmingham - Last Filed: 07/09/18 19:59> - Laboratory Results Result Diagrams: 07/09/18 19:46 07/09/18 19:46 <Richie Hines - Last Filed: 07/09/18 21:58> Medical Decision Making Medical Decision Making: Time: 190 Initial Impression: dyspnea, concern for hematemesis Initial Plan: --VBG shock panel --CT Abd/pelvis --CTA Angio chest --EKG --BNP --CMP --Lipase --Trop I --CBC with differential --D Dimer --Chest x-ray --Blood culture x2 --Placed on residential monitor --Nasal cannula --Occult blood, stool --Urinalysis --Protonix IV --Albuterol INH --Patient seen by Dr. Hines who is agreeable with evaluation and diagnostics. --Upon review of prior charts, blood type: A- 1999 CXR: no acute disease as read by Valencia HAYNES and ED MD Hines. Patient care endorsed from this provider to IVY Zamora pending imaging/lab results and further disposition. Scribe Attestation: Documented by Ayanna Lopez, acting as a scribe for Diana Birmingham PA-C. Provider Scribe Attestation: All medical record entries made by the Scribe were at my direction and personally dictated by me. I have reviewed the chart and agree that the record accurately reflects my personal performance of the history, physical exam, medical decision making, and the department course for this patient. I have also personally directed, reviewed, and agree with the discharge instructions and disposition <Diana Birmingham - Last Filed: 07/09/18 19:59> Disposition - Patient ED Disposition Is Patient to be Admitted: Transfer of Care (Patient care endorsed to IVY Allison pending results and further disposition.) - Disposition Disposition: Transfer of Care (Patient care endorsed to IVY Allison pending results and further disposition.) Disposition Time: 20:00 <Diana Birmingham - Last Filed: 07/09/18 19:59> <Richie Hines - Last Filed: 07/09/18 21:58> - Clinical Impression Clinical Impression: Dyspnea, Hematemesis - Disposition Condition: GUARDED Forms: [employer] (German)
[2018-07-09 19:52] LABS: BASO # 0.1 K/uL (0.0-0.2); BASO % 0.7 % (0.0-2.0); EOS # 0.1 K/uL (0.0-0.7); EOS % 0.8 % (0.0-4.0); HEMOGLOBIN 8.3 g/dL (12.0-16.0); LYMPH # 1.2 K/uL (1.0-4.3); LYMPH % 8.1 % (20.0-40.0); MEAN CORPUSCULAR HEMOGLOBIN 25.9 pg (27.0-31.0); MEAN PLATELET VOLUME 8.9 fl (7.2-11.7); MONO # 0.6 K/uL (0.0-0.8); MONO % 3.9 % (0.0-10.0); NEUT # 12.5 K/uL (1.8-7.0); NEUT % 86.5 % (50.0-75.0); PLATELET COUNT 377 K/uL (130-400); RBC 3.19 Mil/uL (3.80-5.20); RED CELL DISTRIBUTION WIDTH 17.7 % (11.5-14.5)
[2018-07-09 19:57] LABS: WHITE BLOOD COUNT 14.4 K/uL (4.8-10.8)
[2018-07-09 20:07] LABS: ALB/GLOB RATIO 0.9 (1.0-2.1); ALBUMIN 3.6 g/dL (3.5-5.0); ALT/SGPT 40 U/L (9-52); AST/SGOT 46 U/L (14-36); BLOOD UREA NITROGEN 55 mg/dl (7-17); CALCIUM 8.6 mg/dL (8.4-10.2); GFR NON-AFRICAN AMERICAN > 60; LIPASE 342 U/L (23-300)
[2018-07-09 20:08] LABS: ABG ALLEN TEST YES; ARTERIAL BLOOD GAS HCO3 30.1 mmol/L (21-28); ARTERIAL BLOOD GAS O2 SAT 99.4 % (95-98); ARTERIAL BLOOD GAS PCO2 40 mm/Hg (35-45); ARTERIAL BLOOD GAS PH 7.49 (7.35-7.45); ARTERIAL BLOOD GAS PO2 84 mm/Hg (80-100); ARTERIAL BLOOD GAS TCO2 31.7 mmol/L (22-28)
--- NOTE | 2018-07-09 20:11 | ED PDOC ---
- Laboratory Results Result Diagrams: 07/09/18 19:46 07/09/18 19:46 - ECG O2 Sat by Pulse Oximetry: 100 (RA) Medical Decision Making Medical Decision Making: Pt endorsed to me by [place] pending labs, CT abd/pelvis and CTA chest. 2229 CTA Chest with Intravenous Contrast for Pulmonary Embolism CLINICAL HISTORY: Hemopytsis TECHNIQUE: Axial CTA images of the chest with intravenous contrast using a pulmonary embolism protocol. Reconstructed images were created and reviewed. 272.95 mGy-cm CONTRAST: With; [id number] 90ML was administered without incident. COMPARISON: None provided. FINDINGS: Diffuse wall thickening of the esophagus especially at distal esophagus. Consider follow up with upper endoscopy. PULMONARY ARTERIES No evidence of central or segmental pulmonary embolism is seen. AORTA Diffuse atherosclerotic changes throughout the aorta. No aneurysm or dissection. LUNGS Severe upper lobe predominant emphysema. PLEURAL SPACES No evidence of pneumothorax. No pleural effusion. HEART Heart size is within normal limits. No significant pericardial effusion. LYMPH NODES No lymphadenopathy is evident. BONES No focal osseous abnormality or acute fracture. MISCELLANEOUS: Bibasilar atelectatic changes as well as scarring. IMPRESSION: 1. Severe upper lobe predominant emphysema. 2. Bibasilar atelectatic changes as well as scarring. 3. Diffuse atherosclerotic changes throughout the aorta. No aneurysm or dissection. 4. Diffuse wall thickening of the esophagus especially at distal esophagus. Consider follow up with upper endoscopy. 5. No evidence of PE. 2230 CT Abdomen and pelvis with intravenous contrast History Hematemesis. Comparison None. Technique Axial images of the abdomen and pelvis from lung bases to iliac crest with intravenous contrast enhancement. Coronal and sagittal reformats generated. Oral contrast also administered. Intravenous contrast Dose: 90 ml Visipaque-320. This CT exam was performed using one or more of the following dose reduction techniques: Automated exposure control, adjustment of the mA and/or kV according to patient size, and/or use of iterative reconstruction technique. Findings Lower thorax There is severe upper lobe predominant emphysema present. Bibasilar atelectatic changes are seen as well as scarring. Liver Unremarkable. No gross lesion or ductal dilatation. Gallbladder and bile ducts The gallbladder is contracted and is packed with gallstones. Consider correlation with right upper quadrant ultrasound. Pancreas Unremarkable. No gross lesion or ductal dilatation. Spleen Unremarkable. Adrenals Unremarkable. No mass. Kidneys and ureters No hydronephrosis. No solid mass. There is a 6 x 4 cm cyst present in the superior pole of the right kidney. Several additional tiny cortical cysts are present within both kidneys. Vasculature Diffuse atherosclerotic changes are seen throughout the aorta. No aneurysm or dissection. Bowel Gastrostomy tube is in place. No obstruction. No gross mural thickening. There is diffuse wall thickening of the esophagus especially at distal esophagus. Consider follow up with upper endoscopy. Large amount of fecal material is seen, especially in the rectosigmoid, consistent with mild fecal impaction. Appendix Normal appendix. Peritoneum Unremarkable. No free fluid. No free air. Lymph nodes Unremarkable. No enlarged lymph nodes. Bladder Unremarkable. Reproductive Uterus and ovaries are atrophic. Bones Severe compression fractures are noted involving the L5 vertebral body. [id number] compression fractures are noted involving T11, T12 and L2 vertebral bodies that appear chronic. Other Findings None. Impression 1. Severe upper lobe predominant emphysema. Bibasilar atelectatic changes as well as scarring. 2. Contracted gallbladder, packed with gallstones. Consider correlation with right upper quadrant ultrasound. 3. Right kidney cyst and several additional tiny cortical cysts bilaterally. 4. Diffuse atherosclerotic changes throughout the aorta. No aneurysm or dissection. 5. Gastrostomy tube in place. 6. Diffuse wall thickening of the esophagus especially at distal esophagus. Consider follow up with upper endoscopy. 7. Large amount of fecal material, especially in the rectosigmoid, consistent with mild fecal impaction. 8. Atrophic uterus and ovaries. 9. Severe compression fractures involving the L5 vertebral body and [id number] compression fractures involving T11, T12 and L2 vertebral bodies that appear chronic. VS have improved. Pt to be admitted under Dr. Rivas for GI bleed to telemetry. Disposition Discussed With : Preet Rivas Doctor Will See Patient In The: Hospital - Clinical Impression Clinical Impression: Dyspnea, GI bleed - POA Present On Arrival: None - Disposition Disposition: Transfer of Care Disposition Time: 22:51 Condition: GUARDED
[2018-07-09] MEDS ORDERED: Sterile Water 10 ML IV ONE (20:21)
[2018-07-09] MEDS ORDERED: Albuterol-Ipratrop 3 mg / 0.5 (3 ml) UD ONE (20:22)
[2018-07-09] MEDS ORDERED: Sodium Chloride 0.9% 50 ML IV ONE (20:25)
[2018-07-09] MEDS ORDERED: Iodixanol 320 MG/ML 100 ML BOTTLE IV ONE (20:25)
[2018-07-09] MEDS: Sodium Chloride 0.9% 1,000 ML IV SCH (21:05)
[2018-07-09 21:30] LABS: LYMPHOCYTE 9 % (20-50); MONOCYTE 6 % (0-10); NEUTROPHIL 85 % (42-75); TOTAL CELLS COUNTED 100
[2018-07-09 21:31] LABS: ANISOCYTOSIS SLIGHT; HYPOCHROMIC SLIGHT; PLATELET ESTIMATE NORMAL (NORMAL)
[2018-07-09 21:32] LABS: OVALOCYTES SLIGHT; POLYCHROMIC SLIGHT
[2018-07-09 21:33] LABS: TARGET CELLS SLIGHT
[2018-07-10] MEDS: Sodium Chloride 0.9% 1,000 ML IV SCH ×2 (00:30→00:51)
[2018-07-10] MEDS ORDERED: Albuterol-Ipratrop 3 mg / 0.5 (3 ml) UD INH PRN (06:09)
[2018-07-10] MEDS: Dextrose 5%/0.45% NS 1,000 ML IV SCH ×3 (07:01→21:43)
[2018-07-10 08:17] LABS: HEMOGLOBIN 6.9 g/dL (12.0-16.0); MEAN CELL VOLUME 82.5 fl (81.0-99.0); MEAN CORPUSCULAR HGB CONC 31.5 g/dL (33.0-37.0); RBC 2.64 Mil/uL (3.80-5.20); RED CELL DISTRIBUTION WIDTH 17.5 % (11.5-14.5); WHITE BLOOD COUNT 9.5 K/uL (4.8-10.8)
[2018-07-10 08:31] LABS: BLOOD UREA NITROGEN 35 mg/dl (7-17); CALCIUM 7.7 mg/dL (8.4-10.2); GFR NON-AFRICAN AMERICAN > 60
--- NOTE | 2018-07-10 11:30 | RAD ---
Date of service: 07/09/2018 HISTORY: SOB, dyspnea COMPARISON: 06/18/2018 FINDINGS: LUNGS: No active pulmonary disease. PLEURA: No significant pleural effusion identified, no pneumothorax apparent. CARDIOVASCULAR: No aortic atherosclerotic calcification present. Normal cardiac size. No pulmonary vascular congestion. OSSEOUS STRUCTURES: No significant abnormalities. VISUALIZED UPPER ABDOMEN: Normal. OTHER FINDINGS: None. IMPRESSION: No active disease.
--- NOTE | 2018-07-10 12:35 | CT ---
Date of service: 07/09/2018 PROCEDURE: CT Abdomen and Pelvis with contrast HISTORY: hematemesis COMPARISON: 06/17/2018 TECHNIQUE: Contrast dose: 90 mL Omnipaque 300 Radiation dose: Total exam DLP = 608.77 mGy-cm. This CT exam was performed using one or more of the following dose reduction techniques: Automated exposure control, adjustment of the mA and/or kV according to patient size, and/or use of iterative reconstruction technique. FINDINGS: LOWER THORAX: Minimal right lower lobe linear scar/atelectasis. LIVER: Unremarkable. No gross lesion or ductal dilatation. GALLBLADDER AND BILE DUCTS: Cholelithiasis. No evidence of cholecystitis. Gallbladder contracted. PANCREAS: Unremarkable. No gross lesion or ductal dilatation. SPLEEN: Unremarkable. ADRENALS: Unremarkable. No mass. KIDNEYS AND URETERS: Left upper pole renal cyst, 5.5 cm diameter. This measures 9 Hounsfield units. No calculus or hydronephrosis VASCULATURE: Unremarkable. No aortic aneurysm. There is atherosclerotic calcification of the abdominal aorta. BOWEL: No bowel obstruction. Probable small hiatal hernia. Percutaneous gastrostomy tube noted. APPENDIX: Not identified. No secondary findings to suggest acute appendicitis. PERITONEUM: Unremarkable. No free fluid. No free air. LYMPH NODES: Unremarkable. No enlarged lymph nodes. BLADDER: Unremarkable. REPRODUCTIVE: Normal postmenopausal uterus BONES: Compression fracture L5 vertebra unchanged from prior examination. Minimal compression deformity of T12 and L2 vertebral bodies, unchanged. OTHER FINDINGS: None. IMPRESSION: No acute abnormality. Percutaneous gastrostomy. Small hiatal hernia. Cholelithiasis without evidence of cholecystitis. No biliary obstruction. Minor findings as above. The preliminary findings for this examination were reported by [facility] at 10:31 p.m. on 07/09/2018. There is concurrence of this report with the preliminary findings.
--- NOTE | 2018-07-10 13:06 | CT ---
Date of service: 07/09/2018 PROCEDURE: CT Chest with contrast (Pulmonary Angiogram) HISTORY: hemoptysis COMPARISON: None available. TECHNIQUE: Axial computed tomography images were obtained of the chest in the pulmonary arterial phase of enhancement. Coronal and sagittal reformatted images were created and reviewed. Intravenous contrast dose: 90 mL Omnipaque 300 Radiation dose: Total exam DLP = 884.54 mGy-cm. This CT exam was performed using one or more of the following dose reduction techniques: Automated exposure control, adjustment of the mA and/or kV according to patient size, and/or use of iterative reconstruction technique. FINDINGS: PULMONARY ARTERIES: Examination mildly suboptimal due to respiratory motion artifact. No evidence of pulmonary embolism. Nevertheless, cannot rule out embolism in subsegmental pulmonary artery branches. No large central pulmonary embolus identified. AORTA: No acute findings. No thoracic aortic aneurysm. There is atherosclerotic calcification of the thoracic aorta LUNGS: Minimal subsegmental atelectasis in the right lower lobe. Suspect endobronchial soft tissue density, possible mucous plug, in lower lobe bronchus. This is best seen on series 5, image 61 through 64. Cannot rule out endobronchial neoplasm. PLEURAL SPACES: Unremarkable. No effusion or pneumothorax. HEART: Unremarkable. No cardiomegaly. No significant pericardial effusion. LYMPH NODES: No lymphadenopathy. BONES, CHEST WALL: Old T8 vertebral body compression fracture. Minimal compression deformity T12 vertebra. No new fracture. OTHER FINDINGS: Circumferential mural thickening of distal esophagus. Esophageal is. Cannot rule out neoplasm. Consider further evaluation with endoscopy. IMPRESSION: Limited examination. No evidence of central large pulmonary embolus. Cannot rule out embolism in subsegmental pulmonary artery branches. Suspect endobronchial soft tissue density in right lower lobe bronchus, possibly mucous plug. Rule out endobronchial neoplasm. Circumferential mural thickening of distal esophagus. Esophagitis versus neoplasm. Old compression fractures of T8 and T12 vertebral bodies. The preliminary findings for this examination were reported by [facility] at 9:46 p.m. on 07/09/2018. There is discordance of this report with the preliminary findings. The finding of suspected endobronchial soft tissue density in the right lower lobe was not described in the preliminary report of this examination.
[2018-07-10] MEDS: Albuterol-Ipratrop 3 mg / 0.5 (3 ml) UD INH SCH ×2 (15:22→19:16)
--- NOTE | 2018-07-10 20:14 | CARD ---
APPROVED REPORT Date of service: 07/09/2018 EKG Measurement Heart [id number] <Conclusion> Sinus tachycardia Nonspecific ST abnormality Abnormal ECG
--- NOTE | 2018-07-10 20:29 | HP ---
ADMISSION HISTORY AND PHYSICAL HISTORY OF PRESENT ILLNESS: Ms. Sutton is an 83-year-old female who was admitted from [facility] because of coffee-ground vomitus on the day of admission. She also has some shortness of breath. She was brought to the emergency room by EMS, and the daughters were with her. They indicate that coffee-ground vomitus happened on the day of admission associated with labored respirations. 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 She also has a history of chronic obstructive pulmonary disease, cerebrovascular accident, anemia with anxiety. She is unable to give any history. Appears awake and alert, but confused. PHYSICAL EXAMINATION: VITAL SIGNS: Blood pressure of 147/81 with a pulse of 120, respiratory rate 28 per minute. She is afebrile with temperature of 98.2 degrees Fahrenheit, O2 saturations 100% on room air. SKIN: Shows poor turgor. HEENT: Pupils are equal and react to light and accommodation. Mouth is dry. LUNGS: Fair aeration bilaterally with scattered bilateral rales. HEART: Tachycardic. ABDOMEN: Soft, nontender. No organomegaly. Has a PEG in place. GENITALIA: Deferred. RECTAL: Deferred. EXTREMITIES: Show no edema or cyanosis. CENTRAL NERVOUS SYSTEM: Remarkable for confusion. The patient is nonverbal. No other gross abnormalities detected. LABORATORY DATA: Remarkable for WBC of 14.4, down to 9.5 on repeat; hemoglobin 8.3, down to 6.9 on repeat; platelet count 377, down to 272. Arterial blood gas: The pH of 7.49, pCO2 of 40, pO2 of 84, bicarbonate of 20, and O2 saturation 99.4. Sodium 139, potassium 3.9, BUN 35, creatinine 0.4, glucose of 116. ProBNP 188. Troponin less than 0.012. Chest x-ray and CT scan of the chest done, official report is pending. EKG done, official report is pending. IMPRESSION: Acute gastrointestinal bleeding with severe anemia, it is probably secondary to gastritis, but one has to rule out peptic ulcer disease and also has to rule out bleeding due to anticoagulation use for deep venous thrombosis and pulmonary emboli. The patient has a history of chronic obstructive pulmonary disease with mild exacerbation, history of cerebrovascular accident, history of dementia, history of anxiety with depression, history of arthritis. PLAN: The plan is transfusion of packed red blood cells, oxygen therapy. Hold all p.o. medications for now. Hold feeding for now. Obtain gastroenterology evaluation. We will give bronchodilators and oxygen. Further therapy will depend on findings. IV H2 blockers were already given to decrease gastrointestinal bleeding. The patient is a DNR or Do Not Resuscitate or Intubate as per family. We will continue therapy as ordered. Preet Rivas MD
[2018-07-11] MEDS: Albuterol-Ipratrop 3 mg / 0.5 (3 ml) UD INH SCH ×4 (01:00→19:32)
[2018-07-11 06:57] LABS: BASO % 0.6 % (0.0-2.0); EOS # 0.2 K/uL (0.0-0.7); HEMOGLOBIN 9.2 g/dL (12.0-16.0); LYMPH # 0.8 K/uL (1.0-4.3); LYMPH % 11.2 % (20.0-40.0); MEAN CELL VOLUME 85.1 fl (81.0-99.0); MEAN CORPUSCULAR HEMOGLOBIN 27.7 pg (27.0-31.0); MEAN CORPUSCULAR HGB CONC 32.6 g/dL (33.0-37.0); MEAN PLATELET VOLUME 8.6 fl (7.2-11.7); MONO # 0.4 K/uL (0.0-0.8); NEUT # 6.2 K/uL (1.8-7.0); NEUT % 81.2 % (50.0-75.0); NRBC % 0.1 % (0.0-0.0); RBC 3.33 Mil/uL (3.80-5.20); RED CELL DISTRIBUTION WIDTH 17.1 % (11.5-14.5); WHITE BLOOD COUNT 7.6 K/uL (4.8-10.8)
[2018-07-11 07:48] LABS: AMYLASE 83 U/L (30-110); LIPASE 61 U/L (23-300)
--- NOTE | 2018-07-11 08:31 | CP.PCM.PN ---
Subjective - Date & Time of Evaluation Date of Evaluation: 07/11/18 Time of Evaluation: 08:31 - Subjective Subjective: NO APPARENT DISTRESS HB STABLE POST TRANSFUSION OF PRBCS Objective - Vital Signs/Intake and Output Vital Signs (last 24 hours): Temp Pulse Resp BP Pulse Ox 97.9 F 98 H 18 115/56 L 100 07/11/18 07:54 07/11/18 07:54 07/11/18 07:54 07/11/18 07:54 07/11/18 07:54 Intake and Output: 07/11/18 07/11/18 06:59 18:59 Intake Total 0 Balance 0 - Medications Medications: Current Medications Albuterol/Ipratropium (Duoneb 3 Mg/0.5 Mg (3 Ml) Ud) 3 ml INH RQ6 [facility] Last Admin: 07/11/18 07:46 Dose: 3 ml Pantoprazole Sodium (Protonix Inj) 40 mg IVP DAILY [facility] Last Admin: 07/10/18 09:59 Dose: 40 mg - Labs Labs: 07/11/18 06:45 07/10/18 08:05 - Constitutional Appears: No Acute Distress - Head Exam Head Exam: ATRAUMATIC, NORMAL INSPECTION, NORMOCEPHALIC - Eye Exam Eye Exam: EOMI, Normal appearance, PERRL Pupil Exam: NORMAL ACCOMODATION, PERRL - ENT Exam ENT Exam: Mucous Membranes Moist, Normal Exam - Neck Exam Neck Exam: Full ROM, Normal Inspection. absent: Lymphadenopathy - Respiratory Exam Respiratory Exam: Clear to Ausculation Bilateral, NORMAL BREATHING PATTERN - Cardiovascular Exam Cardiovascular Exam: REGULAR RHYTHM, +S1, +S2. absent: Murmur - GI/Abdominal Exam GI & Abdominal Exam: Soft, Normal Bowel Sounds. absent: Tenderness - Rectal Exam Rectal Exam: NORMAL INSPECTION - Extremities Exam Extremities Exam: Full ROM, Normal Capillary Refill, Normal Inspection. absent: Joint Swelling, Pedal Edema - Back Exam Back Exam: NORMAL INSPECTION - Neurological Exam Neurological Exam: Alert, Awake, CN II-XII Intact - Psychiatric Exam Psychiatric exam: Normal Affect, Normal Mood - Skin Skin Exam: Dry, Intact, Normal Color, Warm Assessment and Plan - Assessment and Plan (Free Text) Assessment: GI BLEED--NO DRAINAGE VIA GTT ANEMIA OF BLOOD LOSS STABLE DEMENTIA COPD-STABLE Plan: CONTINUE CURRENT RX AWAIT GI DECISION ON EGD BEFORE RESTATING GTT FEEDING
--- NOTE | 2018-07-11 08:34 | CON ---
REFERRING PHYSICIAN: Preet Rivas MD HISTORY OF PRESENT ILLNESS: This is an 83-year-old woman who [facility] with coffee-ground emesis and some shortness of breath. The patient was brought in along with her daughter who is her power of trust and estates attorney. She had a feeding tube placed about six months ago which she keeps pulling them out unfortunately. She has a history of Alzheimer's disease. MEDICATIONS: Her medications at the [facility] were not available to me at the moment; however here in the hospital, she is on pantoprazole 40 mg IV as well as albuterol inhalers on a p.r.n. basis and IV fluids. ALLERGIES: SHE HAS NO KNOWN DRUG ALLERGIES. PAST MEDICAL HISTORY: Alzheimer's disease and underlying pulmonary disease. PAST SURGICAL HISTORY: Noncontributory, although she has had a PEG inserted. FAMILY HISTORY: Noncontributory. SOCIAL HISTORY: She is a resident in a [facility]. PHYSICAL EXAMINATION: GENERAL: She is well-developed elderly woman who is not communicative, nonverbal who is contracted. VITAL SIGNS: Pleasant and stable. She is afebrile. ABDOMEN: Soft and flat with positive bowel sounds. She does have a PEG in place that has dressing over it. From the PEG area, there is just clear coming up. There is no evidence of coffee-grounds or blood in the PEG tube itself. LABORATORY DATA: On admission yesterday, white count was 14.4 with a hemoglobin of 8.3. Today, her white count went down to 9.5, but so did the hemoglobin to 6.9. Her BUN yesterday was elevated at 55 and is down to 35 today. SMA-7 is otherwise unremarkable. She did have an elevated lipase of 342. She did have a CAT scan done as well in the emergency room last night, which did not show any acute abnormality, so the G-tube is for hiatal hernia. There is evidence of gallstones. Otherwise, there is no acute findings on the CAT scan. IMPRESSION AND PLAN: An 83-year-old woman who apparently came in with coffee-ground emesis, did have a drop in hemoglobin to 6.9 without any evidence of active gastrointestinal bleeding. The patient has been ordered to have a couple of units of blood given. We will continue with the intravenous Protonix for now and would hold off any feedings for now. We would give her the blood and repeat the hemoglobin tomorrow and reassess whether or not to go forward with any type of endoscopic procedures. Given her comorbid conditions and overall prognosis, would tend to be less aggressive with this patient and pursuing any type of admission procedures; however, we will have a discussion with her daughter and make some determination as to how to proceed from there once we had conversation. Thank you for this referral. Noman Granda MD
[2018-07-12 00:29] VITALS: RESP 20
[2018-07-12] MEDS: Albuterol-Ipratrop 3 mg / 0.5 (3 ml) UD INH SCH ×3 (01:00→13:39)
[2018-07-12 05:36] LABS: HEMOGLOBIN 9.9 g/dL (12.0-16.0); MEAN CELL VOLUME 85.7 fl (81.0-99.0); MEAN CORPUSCULAR HEMOGLOBIN 28.1 pg (27.0-31.0); MEAN CORPUSCULAR HGB CONC 32.8 g/dL (33.0-37.0); RBC 3.51 Mil/uL (3.80-5.20); WHITE BLOOD COUNT 9.7 K/uL (4.8-10.8)
--- NOTE | 2018-07-12 07:41 | CP.PCM.PN ---
Subjective - Date & Time of Evaluation Date of Evaluation: 07/11/18 Time of Evaluation: 13:40 - Subjective Subjective: no overnight events Objective - Vital Signs/Intake and Output Vital Signs (last 24 hours): Temp Pulse Resp BP Pulse Ox 99.3 F 112 H 20 132/73 98 07/12/18 05:00 07/12/18 05:00 07/12/18 05:00 07/12/18 05:00 07/12/18 05:00 - Medications Medications: Current Medications Albuterol/Ipratropium (Duoneb 3 Mg/0.5 Mg (3 Ml) Ud) 3 ml INH RQ6 [facility] Last Admin: 07/12/18 07:26 Dose: 3 ml Pantoprazole Sodium (Protonix Inj) 40 mg IVP DAILY [facility] Last Admin: 07/11/18 08:56 Dose: 40 mg - Labs Labs: 07/12/18 04:39 07/10/18 08:05 - Neck Exam Neck Exam: Normal Inspection - Respiratory Exam Respiratory Exam: Respiratory Distress, NORMAL BREATHING PATTERN - Cardiovascular Exam Cardiovascular Exam: REGULAR RHYTHM Assessment and Plan - Assessment and Plan (Free Text) Assessment: 83 yo female with coffee grounds emesis hgb stable no active bleeding
--- NOTE | 2018-07-12 07:56 | CP.PCM.PN ---
Subjective - Date & Time of Evaluation Date of Evaluation: 07/12/18 Time of Evaluation: 07:56 - Subjective Subjective: no overnight events Objective - Vital Signs/Intake and Output Vital Signs (last 24 hours): Temp Pulse Resp BP Pulse Ox 99.3 F 112 H 20 132/73 98 07/12/18 05:00 07/12/18 05:00 07/12/18 05:00 07/12/18 05:00 07/12/18 05:00 - Medications Medications: Current Medications Albuterol/Ipratropium (Duoneb 3 Mg/0.5 Mg (3 Ml) Ud) 3 ml INH RQ6 [facility] Last Admin: 07/12/18 07:26 Dose: 3 ml Pantoprazole Sodium (Protonix Inj) 40 mg IVP DAILY [facility] Last Admin: 07/11/18 08:56 Dose: 40 mg - Labs Labs: 07/12/18 04:39 07/10/18 08:05 - Head Exam Head Exam: NORMOCEPHALIC - Neck Exam Neck Exam: Normal Inspection - Respiratory Exam Respiratory Exam: Clear to Ausculation Bilateral, NORMAL BREATHING PATTERN - Cardiovascular Exam Cardiovascular Exam: REGULAR RHYTHM - GI/Abdominal Exam GI & Abdominal Exam: Soft, Normal Bowel Sounds Assessment and Plan - Assessment and Plan (Free Text) Assessment: 83 yo female with coffee grounds emesis hgb stable no bleeding dc planning
--- NOTE | 2018-07-12 08:26 | CP.PCM.DIS ---
Provider - Provider Date of Admission: 07/09/18 22:46 Attending physician: Preet Rivas MD Consults: 07/10/18 03:25 Nursing Referral for Palliative Care Routine Comment: Consulting Provider: Shalini Montez Physician Instructions: Reason For Exam: As per Admission Assessment 07/10/18 03:44 Case Management Referral Routine Comment: Physician Instructions: Reason For Exam: Reason for Referral: Discharge Planning Nursing Referral for Wound Care Routine Comment: Physician Instructions: Reason For Exam: As per Admission Assessment Pastoral Care Referral Routine Comment: Physician Instructions: Reason For Exam: As per Admission Assessment Social Work Referral Routine Comment: From [facility] Physician Instructions: Reason For Exam: As per Admission Assessment 07/10/18 06:09 Gastroenterology Consult Routine Comment: Consulting Provider: Chris Doe Consulting Physician: Chris Doe Reason for Consult: GI bleed Time Spent in preparation of Discharge (in minutes): 35 Diagnosis - Discharge Diagnosis (1) Dyspnea Status: Acute (2) GI bleed Status: Acute (3) Anemia due to acute blood loss Status: Acute Priority: High (4) COPD exacerbation Status: Acute (5) CVA (cerebral vascular accident) Status: Acute (6) Vomiting Status: Acute (7) Alzheimer disease Status: Chronic Priority: Low (8) Dementia Status: Chronic Priority: Medium Hospital Course - Lab Results Lab Results: Micro Results 07/09/18 19:40 Blood-Venous Blood Culture - Preliminary NO GROWTH AFTER 48 HOURS Most Recent Lab Values WBC 9.7 K/uL (4.8-10.8) 07/12/18 04:39 RBC 3.51 Mil/uL (3.80-5.20) L 07/12/18 04:39 Hgb 9.9 g/dL (12.0-16.0) L 07/12/18 04:39 Hct 30.0 % (34.0-47.0) L 07/12/18 04:39 MCV 85.7 fl (81.0-99.0) 07/12/18 04:39 MCH 28.1 pg (27.0-31.0) 07/12/18 04:39 MCHC 32.8 g/dL (33.0-37.0) L 07/12/18 04:39 RDW 18.0 % (11.5-14.5) H 07/12/18 04:39 Plt Count 235 K/uL (130-400) 07/12/18 04:39 MPV 8.6 fl (7.2-11.7) 07/11/18 06:45 Neut % (Auto) 81.2 % (50.0-75.0) H 07/11/18 06:45 Lymph % (Auto) 11.2 % (20.0-40.0) L 07/11/18 06:45 Gaines % (Auto) 5.0 % (0.0-10.0) 07/11/18 06:45 Eos % (Auto) 2.0 % (0.0-4.0) 07/11/18 06:45 Baso % (Auto) 0.6 % (0.0-2.0) 07/11/18 06:45 Neut # (Auto) 6.2 K/uL (1.8-7.0) 07/11/18 06:45 Lymph # (Auto) 0.8 K/uL (1.0-4.3) L 07/11/18 06:45 Gaines # (Auto) 0.4 K/uL (0.0-0.8) 07/11/18 06:45 Eos # (Auto) 0.2 K/uL (0.0-0.7) 07/11/18 06:45 Baso # (Auto) 0.0 K/uL (0.0-0.2) 07/11/18 06:45 Neutrophils % (Manual) 85 % (42-75) H 07/09/18 19:46 Lymphocytes % (Manual) 9 % (20-50) L 07/09/18 19:46 Monocytes % (Manual) 6 % (0-10) 07/09/18 19:46 Platelet Estimate Normal (NORMAL) 07/09/18 19:46 Polychromasia Slight 07/09/18 19:46 Hypochromasia (manual) Slight 07/09/18 19:46 Anisocytosis (manual) Slight 07/09/18 19:46 Target Cells Slight 07/09/18 19:46 Ovalocytes Slight 07/09/18 19:46 pCO2 40 mm/Hg (35-45) 07/09/18 20:03 pO2 84 mm/Hg (80-100) 07/09/18 20:03 HCO3 30.1 mmol/L (21-28) H 07/09/18 20:03 ABG pH 7.49 (7.35-7.45) H 07/09/18 20:03 ABG Total CO2 31.7 mmol/L (22-28) H 07/09/18 20:03 ABG O2 Saturation 99.4 % (95-98) H 07/09/18 20:03 ABG Base Excess 6.6 mmol/L (-2.0-3.0) H 07/09/18 20:03 He Test Yes 07/09/18 20:03 ABG Potassium 4.6 mmol/L (3.6-5.2) 07/09/18 20:03 A-a O2 Difference 66.0 mm/Hg 07/09/18 20:03 Sodium 137.0 mmol/L (132-148) 07/09/18 20:03 Chloride 105.0 mmol/L (98-107) 07/09/18 20:03 Glucose 127 mg/dL (65-105) H 07/09/18 20:03 Lactate 0.8 mmol/L (0.7-2.1) 07/09/18 20:03 FiO2 28.0 % 07/09/18 20:03 Sodium 139 mmol/l (132-148) 07/10/18 08:05 Potassium 3.9 MMOL/L (3.6-5.0) 07/10/18 08:05 Chloride 107 mmol/L (98-107) 07/10/18 08:05 Carbon Dioxide 25 mmol/L (22-30) 07/10/18 08:05 Anion Gap 11 (10-20) 07/10/18 08:05 BUN 35 mg/dl (7-17) H 07/10/18 08:05 Creatinine 0.4 mg/dl (0.7-1.2) L 07/10/18 08:05 Est GFR ( Amer) > 60 07/10/18 08:05 Est GFR (Non-Af Amer) > 60 07/10/18 08:05 POC Glucose (mg/dL) 119 mg/dL (65-110) H 07/12/18 05:27 Random Glucose 116 mg/dL (65-105) H 07/10/18 08:05 Calcium 7.7 mg/dL (8.4-10.2) L 07/10/18 08:05 Total Bilirubin 0.4 mg/dl (0.2-1.3) 07/09/18 19:46 AST 46 U/L (14-36) H D 07/09/18 19:46 ALT 40 U/L (9-52) 07/09/18 19:46 Alkaline Phosphatase 61 U/L (38-126) 07/09/18 19:46 Troponin I < 0.0120 ng/mL (0.00-0.120) 07/09/18 19:46 NT-Pro-B Natriuret Pep 188 pg/ml (0-900) 07/09/18 20:00 Total Protein 7.5 G/DL (6.3-8.2) 07/09/18 19:46 Albumin 3.6 g/dL (3.5-5.0) 07/09/18 19:46 Globulin 3.9 gm/dL (2.2-3.9) 07/09/18 19:46 Albumin/Globulin Ratio 0.9 (1.0-2.1) L 07/09/18 19:46 Amylase 83 U/L (30-110) 07/11/18 06:45 Lipase 61 U/L (23-300) 07/11/18 06:45 Arterial Blood Potassium 4.6 mmol/L (3.6-5.2) 07/09/18 20:03 Blood Type A NEGATIVE 07/09/18 20:00 Antibody Screen Negative 07/09/18 20:00 Crossmatch See Detail 07/09/18 20:00 BBK History Checked Patient has bt 07/09/18 20:00 - Hospital Course Hospital Course: SOB RESOLVED HB STABLE POST-TRANSFUSION OF PRBCS 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 Discharge Exam - Head Exam Head Exam: NORMOCEPHALIC - Eye Exam Eye Exam: EOMI, Normal appearance, PERRL Pupil Exam: NORMAL ACCOMODATION, PERRL - GI/Abdominal Exam GI & Abdominal Exam: Normal Bowel Sounds - Rectal Exam Rectal Exam: NORMAL INSPECTION - Neurological Exam Neurological exam: Alert, CN II-XII Intact, Oriented x3, Reflexes Normal - Psychiatric Exam Psychiatric exam: Normal Affect, Normal Mood - Skin Skin Exam: Dry, Intact, Normal Color, Warm Discharge Plan - Follow Up Plan Condition: GUARDED Disposition: HOME/ ROUTINE Additional Instructions: D/C TO [facility] D/C ANTICOAGULATION CONTINUE PROTONIX VIA PEG
[2018-07-12 12:20] VITALS: TEMP 99.4; O2SAT 100
[2018-07-12 16:03] VITALS: BP 136/66; PULSE 104
--- NOTE | 2018-07-13 14:17 | PQF ---
PROVIDER RESPONSE TEXT: ACUTE BLOOD LOSS ANEMIA REVIEWER QUERY TEXT: Anemia Type Anemia is documented in the Medical Record. Please specify the cause (includes suspected or probable cause) Such as: -- Due to acute blood loss -- Due to chronic blood loss -- Other, please specify H/H: 8.3/25.8->6.9/21.8->9.2/28.3 07/11 Attending progress note includes: ANEMIA OF BLOOD LOSS STABLE The patient's Clinical Indicators include: --- Query created by: Amy Brady on 07/11/2018 2:10 PM Electronically signed by: Preet Rivas MD 07/13/2018 2:14 PM
--- NOTE | 2018-07-13 14:17 | PQF ---
PROVIDER RESPONSE TEXT: GI BLEEDING--ETIOLOGY UNKNOWN REVIEWER QUERY TEXT: Clarification of Clinical Diagnostic Findings Etiology of the GI Bleeding if known after the work up is completed OR: Unable to determine H/H: 8.3/25.8->6.9/21.8->9.2/28.3 H and P: Acute gastrointestinal bleeding with severe anemia, it is probably secondary to gastritis, b ut one has to rule out peptic ulcer disease and also has to rule out bleeding due to anticoagulation use for deep venous thrombosis and pulmonary emboli. Plan: transfusion of packed red blood cells, oxygen therapy. Hold all p.o. medications for now. Hold feeding. Obtain GI evaluation .: bronchodilators and O2 Further therapy will depend on findings. IV H2 blockers were already given to decrease. GI bleeding. GI consult:came in with coffee-ground emesis, did have a drop in hemoglobin to 6.9 without any eviden ce of active gastrointestinal bleeding. The patient has been ordered to have a couple of units of bl ood given. We will continue with the intravenous Protonix for now and would hold off any feedings fo r now. We would give her the blood and repeat the hemoglobin tomorrow and reassess whether or not t o go forward with any type of endoscopic procedures. The patient's Clinical Indicators include: -- Query created by: Amy Brady on 07/11/2018 2:04 PM Electronically signed by: Preet Rivas MD 07/13/2018 2:14 PM
--- NOTE | 2018-07-13 14:17 | PQF ---
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 to go along with the 07/10/18: Angio Chest CT report : IMPRESSION: Limited examination. No evidence of central large pulmonary embolus. Cannot rule out em bolism in subsegmental pulmonary artery branches. Suspect endobronchial soft tissue density in right lower lobe bronchus, possibly mucous plug. Rule out endobronchial neoplasm. Circumferential mural th ickening of distal esophagus. Esophagitis versus neoplasm. Old compression fractures of T8 and T12 ve rtebral bodies. See the full report in the EMR. OR: Disagree OR: Unable to determine The patient's Clinical Indicators include: -- Query created by: Amy Brady on 07/11/2018 2:15 PM Electronically signed by: Preet Rivas MD 07/13/2018 2:14 PM
== END 2018-07-12 18:15 | DRG 378 ==
LOC: H.ER 17:54 → H.ERHOLD 22:46 → H.TEL 07-10 01:09
PROVIDERS: ADMIT Internal Medicine Pulmonary Disease; ATTEND Internal Medicine Pulmonary Disease
PROC: 30233N1 Transfusion of Nonautologous Red Blood Cells into Peripheral Vein, Percutaneous Approach (ICD-10-PCS; principal; 2018-07-10)
DX: K92.0 Hematemesis (principal); D62 Acute posthemorrhagic anemia; J43.8 Other emphysema; F02.80 Dementia in other diseases classified elsewhere, unspecified severity, without behavioral disturbance, psychotic disturbance, mood disturbance, and anxiety; G30.9 Alzheimer's disease, unspecified; Z93.1 Gastrostomy status; K29.70 Gastritis, unspecified, without bleeding; I10 Essential (primary) hypertension; E78.00 Pure hypercholesterolemia, unspecified; E78.5 Hyperlipidemia, unspecified; F41.9 Anxiety disorder, unspecified; Z66 Do not resuscitate; Z86.711 Personal history of pulmonary embolism; Z86.718 Personal history of other venous thrombosis and embolism; Z87.01 Personal history of pneumonia (recurrent); Z86.73 Personal history of transient ischemic attack (TIA), and cerebral infarction without residual deficits; Z79.01 Long term (current) use of anticoagulants